=== PATIENT | male | born 1975 | race Caucasian/White ===

== ENCOUNTER 2019-09-09 11:14 | Inpatient (IN) ==
[2019-09-09] MEDS ORDERED: 0.9 % SODIUM CHLORIDE 1,000 ML IV ONE ×2 (11:44→14:18)
[2019-09-09] MEDS ORDERED: KETOROLAC 30 MG/ML VIAL IV ONE (11:45)
--- NOTE | 2019-09-09 12:14 | Emergency Department Note ---
Male Urogenital HPI - General Chief complaint: Urogenital-Male Stated complaint: prostatits Time Seen by Provider: 09/09/19 11:17 Source: patient Mode of arrival: ambulatory Limitations: no limitations - History of Present Illness HPI Narrative: 44-year-old male patient referred to the emergency department from Dr. Arriaza for work-up of worsening prostatitis, prostate abscess, and possible sepsis. Patient was seen and evaluated by a colleague yesterday after suffering considerable dysuria, perineal pain, and constipation. During that visit he had a slight temp 99.3 and was mildly tachycardic at 107. He was normotensive. The provider at that time diagnosed him with dysuria and left lower quadrant abdominal pain. CT scan was ordered that did show low-density lesions in the prostate extending through the prostate capsule and below the laboratory and I into the ischio rectal fossa. Radiologist mentioned this is more likely infection of the prostate abscess rather than a large infiltrating prostate cancer. CBC from yesterday showed WBC 20.1, hemoglobin 12.3, hematocrit 38.3, platelets 456. CMP showed no considerable abnormalities other than an elevated alkaline phosphatase 133. Patient was started on oral ciprofloxacin 500 mg twice daily in conjunction with metronidazole 500 mg 3 times daily. He is tolerated the oral medications and took his dose of ciprofloxacin morning. Today, patient admits that the dysuria has resolved. However, he admits to worsening pain to his perineal area. He describes this is "sitting on a hot po ker". He admits to ongoing fever, sweats, chills. He denies sinus congestion, runny nose, or cough. He denies shortness of breath. He denies retrosternal chest pain or palpitations. He denies abdominal pain. He admits to some nausea but no vomiting. He denies diarrhea or constipation. He mentions his last bowel movement was "like soft serve". He denies hematochezia, hematemesis, or hematuria. He denies focal weakness. A review of his active problems shows the following: Constipation, Charcot's deformity of the right foot secondary to type 2 diabetes. Tobacco dependence, hypercholesterolemia, asthma, anemia, hypertension. - Related Data Home Medications Medication Instructions Recorded Confirmed fenofibrate 160 mg tablet 160 mg PO QDAY 12/03/18 09/09/19 lisinopril 40 mg tablet 40 mg PO QDAY 12/03/18 09/09/19 metformin 1,000 mg tablet 1,000 mg PO BID 12/03/18 09/09/19 amlodipine 5 mg tablet 5 mg PO BID 06/01/19 09/09/19 sildenafil (pulm.hypertension) 20 20 mg PO .COMPLEX 06/01/19 09/09/19 mg tablet insulin lispro 100 unit/mL See Rx Instructions .ROUTE 06/05/19 09/09/19 subcutaneous pen .COMPLEX ml Previous Rx's Medication Instructions Recorded atorvastatin 40 mg tablet 40 mg PO QDAY #90 tab 06/06/19 blood sugar diagnostic See Rx Instructions .ROUTE 06/06/19 .MEDSUPPLY #100 each blood-glucose meter See Rx Instructions .ROUTE 06/06/19 .MEDSUPPLY #1 each lancets See Rx Instructions .ROUTE 06/06/19 .MEDSUPPLY #200 each albuterol sulfate 90 mcg/actuation 2 puff INHALATION Q6H PRN #18 g 07/07/19 aerosol inhaler fluticasone propionate 50 2 spray INTRANASAL QDAY #36.4 ml 07/07/19 mcg/actuation nasal spray,suspension insulin degludec 200 unit/mL (3 110 unit SUB-Q QHS 90 Days #49.5 ml 07/07/19 mL) subcutaneous pen loratadine 10 mg tablet 10 mg PO QDAY PRN #90 tab 07/07/19 blood-gluc transmitter-sensor See Rx Instructions .ROUTE 07/10/19 .MEDSUPPLY #2 each omeprazole 20 mg capsule,delayed 20 mg PO QDAY #90 cap 07/18/19 release polyethylene glycol 3350 17 17 g PO .COMPLEX #238 g 09/01/19 gram/dose oral powder ciprofloxacin HCl 500 mg tablet 500 mg PO BID 7 Days #14 tab 09/08/19 metronidazole 500 mg tablet 500 mg PO TID 7 Days #21 tab 09/08/19 Allergies Allergy/AdvReac Type Severity Reaction Status Date / Time No Known Drug Allergies Allergy Verified 09/08/19 09:55 Review of Systems All systems ED: reviewed and negative except as stated. Past Medical History - Social History smoking status: Former smoker Physical Exam Limitations: no limitations General appearance: alert, anxious, other (Well-developed, well-nourished, morbidly obese 44-year-old male patient sitting upright on the emergency room gurney obviously very uncomfortable. He is in no acute distress.) Head: atraumatic, normocephalic Eye: Present: normal appearance, PERRL, EOMI. Absent: scleral icterus, conjunctival injection ENT: Present: normal oropharynx, mucous membranes moist Neck: Present: trachea midline. Absent: lymphadenopathy Chest: Present: symmetric chest wall rise Respiratory: Present: normal lung sounds bilaterally. Absent: respiratory distress, rales/crackles, wheezes, stridor, accessory muscle use, prolonged expiratory phase Cardiovascular: Present: regular rate, normal rhythm. Absent: systolic murmur, diastolic murmur Abdominal: Present: soft, other (Patient is a rather large body habitus making the abdominal exam somewhat difficult.). Absent: distention, tenderness, guarding, rebound, rigidity, organomegaly, mass Rectal: Present: normal inspection, normal rectal tone, heme (-) stool, prostate tenderness (Considerable tenderness to palpation of the prostate on exam. No nodules were appreciated. No bogginess or fluctuance was noted.). Absent: hemorrhoids, tenderness Extremities: Present: normal inspection, full ROM, normal capillary refill Back: Absent: CVA tenderness (R), CVA tenderness (L) Neurological: Present: alert, oriented X3 Psychiatric: Present: normal affect, normal mood Skin: Present: warm, dry, normal color Course Course Narrative: Patient has known prostatitis with likely prostate abscess development. He has been taking both of the prescribed ciprofloxacin metronidazole as directed. He had a dose of ciprofloxacin this morning. At this time there is worried he may be septic his initial vital signs did show tachypnea and tachycardia. He is afebrile at this time. However, we are going to order laboratory studies including lactic acid and blood cultures. He was given normal saline 1000 mL bolus. We will hold off adding any additional IV antibiotics until testing is known. Patient just had a CT scan done yesterday so no repeat imaging is warranted at this time. We will treat the patient's pain with Toradol 30 mg IVP. A review of his laboratory studies show the following: CBC WBC 19.5 (slight decrease from yesterday 20.0)., RBC 4.4, hemoglobin 10.7, hematocrit 36.4, platelets 404. CMP sodium 129 (directed to 131), chloride 91, glucose 229, alkaline phosphatase 130, albumin 3.0, globulin 4.3, all others normal limits. Lactic acid 1.5. research staff member informed the patient's temperature has risen to 101. Patient was given acetaminophen 975 mg p.o. After reviewing all the data I consulted with the urologist (Dr. Arriaza) about ongoing management. At this time the patient is rather ill and meet sepsis criteria secondary to his elevated WBC, temperature, and heart rate. He has a known source of infection within his prostate. Dr. Arriaza did recommend continuing the ciprofloxacin and adding Rocephin to that regimen. I went ahead and ordered Rocephin [address] Arriaza would like the hospitalist to admit the patient and that he will consult for specialty care. Knowing this, I consulted our hospitalist (Dr. Colon) and discussed the case with him. He has consented to admit the patient to the hospital. At this time all further treatment decisions, modalities, and ultimate patient disposition will be carried out by Dr. Colon. Vital Signs Temperature 97.3 F 09/09/19 11:15 Pulse Rate 109 H 09/09/19 11:15 Respiratory Rate 24 H 09/09/19 11:15 Blood Pressure 165/85 09/09/19 11:15 Pulse Oximetry (%) 99 09/09/19 11:15 Temperature 101.1 F H 09/09/19 13:47 Pulse Rate 93 H 09/09/19 13:07 Respiratory Rate 24 H 09/09/19 11:15 Blood Pressure 167/88 09/09/19 13:07 Pulse Oximetry (%) 100 09/09/19 13:07 Urogenital-Male - Lab Data Lab results reviewed: Yes I reviewed the patient's lab results. Result diagrams: 09/09/19 12:28 09/09/19 12:28 Lab Results 09/09/19 09/09/19 09/09/19 Range/Units 12:28 12:28 12:28 WBC 19.5 H (4.50-11.00) K/mcL RBC 4.40 L (4.63-6.08) M/mcL Hgb 11.7 L (13.7-17.5) g/dL Hct 36.4 L (40.1-51.0) % MCV 82.7 (80.0-100.0) fL MCH 26.6 (26.0-34.0) pg MCHC 32.1 (31.0-36.0) g/dL RDW 13.0 (11.5-14.5) % Plt Count 404 (140-440) K/mcL MPV 10.9 H (7.4-10.4) fL Gran % 87.0 H (38.0-78.0) % Lymph % (Auto) 5.8 L (15.5-49.0) % [place] % (Auto) 6.6 (1.0-12.0) % Eos % (Auto) 0.2 (0.0-7.0) % Baso % (Auto) 0.4 (0.0-2.0) % Gran # 16.94 H (1.80-8.00) K/mcL Lymph # (Auto) 1.12 L (1.50-4.80) K/mcL [place] # (Auto) 1.28 H (0.10-0.90) K/mcL Eos # (Auto) 0.04 (0.00-0.70) K/mcL Baso # (Auto) 0.07 (0.00-0.30) K/mcL VBG Lactic Acid 1.5 (0.5-2.0) mmol/L Sodium 129 L (133-145) mmol/L Potassium 3.5 (3.3-5.1) mmol/L Chloride 91 L (96-108) mmol/L Carbon Dioxide 23 (22-30) mmol/L Anion Gap 15.0 (8-16) BUN 16 (6-20) mg/dl Creatinine 0.8 (0.7-1.2) mg/dl GFR Calculation 109 Glucose 229 H (70-105) mg/dL Calcium 8.9 (8.6-10.4) mg/dl Total Bilirubin 0.4 (0.0-1.0) mg/dL AST 29 (0-37) U/l ALT 27 (0-40) U/l Alkaline Phosphatase 130 H (39-117) U/L Total Protein 7.3 (5.9-8.4) gm/dL Albumin 3.0 L (3.2-5.2) gm/dL Globulin 4.3 H (2.2-3.7) gm/dL Albumin/Globulin Ratio 0.7 L (1.0-2.3) - Radiology Data Ordering Physician: Narcisa Rodriguez PA-C Date of Service: 09/08/19 Procedure(s): CT abdomen pelvis w con Accession Number(s): [id number] History: Left lower quadrant pain and elevated white blood cell count TECHNIQUE: The patient was imaged following oral and intravenous contrast during the venous phase from the diaphragm through the symphysis pubis. Sagittal and coronal reformats were created. Radiation exposure was limited using dose reduction technology. FINDINGS:. The spleen is also normal in size. Along the medial side of the spleen there are two small incidental accessory spleens. The larger measures 1.5 cm. There is no mass or inflammation the pancreas. The gallbladder and bile ducts are normal. The adrenals and kidneys are normal. There is no kidney stone or hydronephrosis. The aorta is normal in caliber. There is a small calcified plaque at its origin of the right renal artery and there is also a small amount of plaque in the distal aorta and left common iliac artery. There is an inhomogeneous heterogeneous masslike lesion in the the left side of the prostate which has extended through the capsule of the prostate and dissected inferiorly. It measures approximately 2 x 3.5 cm in size. There is extension through the levator ani with a cluster of nodular densities in the ischial rectal fossa, along the left side of the lower rectum and anus. There is another low-attenuation lesion at the apex of the prostate extending into the base of the measures 2.1 x 3.3 cm. The prostate is moderately enlarged. Seminal vesicles are normal in size and symmetric. There are calcifications in the vas deferens bilaterally.. No abnormally enlarged lymph nodes are present in the abdomen or pelvis. There is no ascites. Bone windows show a small sclerotic lesion in the right side pedicle extending into the pars at L3. There is also a 5 mm sclerotic structure in the lateral border of the head of the right femoral condyle. IMPRESSION: Low density lesions in the prostate extending through the prostate capsule and below the levator ani into the ischial rectal fossa. This is more likely infection with prostate abscess, rather than a large infiltrating prostate cancer. Small sclerotic lesions in the lumbar spine and pelvis. These are more likely bone islands rather than blastic metastasis. Interpreted and Authenticated by: Jacobo Hinojosa 09/08/19 Disposition Pt seen by TRAFFIC CONTROL SPECIALIST/PA only: Yes Clinical Impression: Prostate abscess Prostatitis Qualifiers: Prostatitis type: acute Qualified Code(s): N41.0 - Acute prostatitis Sepsis Qualifiers: Sepsis type: sepsis due to unspecified organism Sepsis acute organ dysfunction status: without acute organ dysfunction Qualified Code(s): A41.9 - Sepsis, unspecified organism Disposition: Xfer As Inpt ([facility]) Condition: Fair Referrals: Narcisa Rodriguez PA-C [Primary Care Provider] -
[2019-09-09 13:14] LABS: Basophils # (Auto) 0.07 K/mcL (0.00-0.30); Basophils % (Auto) 0.4 % (0.0-2.0); Eosinophils # (Auto) 0.04 K/mcL (0.00-0.70); Eosinophils % (Auto) 0.2 % (0.0-7.0); Hematocrit 36.4 % (40.1-51.0); Hemoglobin 11.7 g/dL (13.7-17.5); Lymphocytes # (Auto) 1.12 K/mcL (1.50-4.80); Lymphocytes % (Auto) 5.8 % (15.5-49.0); Mean Cell Volume 82.7 fL (80.0-100.0); Mean Corpuscular HGB Conc 32.1 g/dL (31.0-36.0); Mean Platelet Volume 10.9 fL (7.4-10.4); Monocytes # (Auto) 1.28 K/mcL (0.10-0.90); Monocytes % (Auto) 6.6 % (1.0-12.0); Platelet Count 404 K/mcL (140-440); WBC 19.5 K/mcL (4.50-11.00)
[2019-09-09 13:32] LABS: ALT/SGPT 27 U/l (0-40); AST/SGOT 29 U/l (0-37); Albumin/Globulin Ratio 0.7 (1.0-2.3); Alkaline Phosphatase 130 U/L (39-117); Bilirubin,Total 0.4 mg/dL (0.0-1.0); Blood Urea Nitrogen 16 mg/dl (6-20); Calcium 8.9 mg/dl (8.6-10.4); Carbon Dioxide 23 mmol/L (22-30); Chloride 91 mmol/L (96-108); Globulin 4.3 gm/dL (2.2-3.7); Glomerular Filtration Rate 109; Glucose 229 mg/dL (70-105)
[2019-09-09] MEDS ORDERED: ACETAMINOPHEN 325 MG TABLET PO ONE (13:42)
[2019-09-09] MEDS ORDERED: cefTRIAXone 1 GM VIAL IV ONE (13:55)
[2019-09-09] MEDS ORDERED: morphine 4 MG/ML VIAL IV PRN (14:57)
[2019-09-09] MEDS ORDERED: ACETAMINOPHEN 325 MG TABLET PO PRN (14:57)
[2019-09-09] MEDS ORDERED: ONDANSETRON 4 MG/2 ML VIAL IV PRN ×2 (14:57→15:43)
[2019-09-09] MEDS ORDERED: DEXTROSE 50% 50 ML VIAL IV PRN ×2 (14:57→15:43)
[2019-09-09] MEDS ORDERED: DEXTROSE 31 GM ORAL.SUSP PO PRN ×2 (14:57→15:43)
[2019-09-09] MEDS ORDERED: 0.9 % SODIUM CHLORIDE 1,000 ML IV SCH (15:00)
[2019-09-09] MEDS ORDERED: traMADol 50 MG TABLET PO PRN ×2 (15:06→15:43)
[2019-09-09] MEDS ORDERED: ALBUTEROL SULFATE 200 PUFF INHALER INH PRN ×2 (15:08→15:43)
--- NOTE | 2019-09-09 15:20 | Internal Med History&Physical ---
Medical - H&P: [facility] Patient information: Note initiated : 09/09/19 at 3:13 pm Service Date, if different from initiated Date: [] Patient: Chaitanya Duvall a 44 y/o M admitted on for prostatits. Chief Complaint: [low abd pain and perirectal pain x 10 days] History of present illness: Mr. Duvall is a 44 year old M with a past medical history of diabetes type 2 and a right foot ulcer who was referred to the ER by urologist Dr. Arriaza due to prostatitis. As per patient, patient has been having lower abdomen and taran rectal pain for past 10 days. The pain is a constant, burning in nature and a 10 out of 10 in severity associated with fever, chills, nausea, and mild headache. He also has having cloudy urine for 3 days. Otherwise he denies dizziness, chest pain, shortness of breath, neck pain, hematuria, diarrhea, hematochezia, or melena. CT abdomen yesterday showed prostatitis and prostatic abscess. In the ER, urologist Dr. Arriaza was consulted, who suggested Cipro and Rocephin. 1 L normal saline was given. When I saw this patient in the ER, other than the symptoms mentioned above, he was fine. Denies recent travel or sick contact. He has never had a similar problem in the past. Review of systems: Positive for lower abdominal pain, mild headache, fever, chills, and nausea. All other systems were reviewed and are negative. Medical - H&P: PMH Family history: reviewed and not pertinent (Father had a COPD: Mother was just diagnosed with melanoma) Smoking status: Former smoker Have you smoked in the last 12 months: No Drug use: none Alcohol use: none Medical - H&P: Meds Home Medications Medication Instructions Recorded Confirmed Type fenofibrate 160 mg tablet 160 mg PO QDAY 12/03/18 09/09/19 History lisinopril 40 mg tablet 40 mg PO QDAY 12/03/18 09/09/19 History metformin 1,000 mg tablet 1,000 mg PO BID 12/03/18 09/09/19 History amlodipine 5 mg tablet 5 mg PO BID 06/01/19 09/09/19 History sildenafil (pulm.hypertension) 20 20 mg PO .COMPLEX 06/01/19 09/09/19 History mg tablet insulin lispro 100 unit/mL See Rx Instructions .ROUTE 06/05/19 09/09/19 History subcutaneous pen .COMPLEX ml atorvastatin 40 mg tablet 40 mg PO QDAY #90 tab 06/06/19 09/09/19 Rx blood sugar diagnostic See Rx Instructions .ROUTE 06/06/19 09/09/19 Rx .MEDSUPPLY #100 each blood-glucose meter See Rx Instructions .ROUTE 06/06/19 09/09/19 Rx .MEDSUPPLY #1 each lancets See Rx Instructions .ROUTE 06/06/19 09/09/19 Rx .MEDSUPPLY #200 each albuterol sulfate 90 mcg/actuation 2 puff INHALATION Q6H PRN #18 g 07/07/19 09/09/19 Rx aerosol inhaler fluticasone propionate 50 2 spray INTRANASAL QDAY #36.4 ml 07/07/19 09/09/19 Rx mcg/actuation nasal spray,suspension insulin degludec 200 unit/mL (3 110 unit SUB-Q QHS 90 Days #49.5 ml 07/07/19 09/09/19 Rx mL) subcutaneous pen loratadine 10 mg tablet 10 mg PO QDAY PRN #90 tab 07/07/19 09/09/19 Rx blood-gluc transmitter-sensor See Rx Instructions .ROUTE 07/10/19 09/09/19 Rx .MEDSUPPLY #2 each omeprazole 20 mg capsule,delayed 20 mg PO QDAY #90 cap 07/18/19 09/09/19 Rx release polyethylene glycol 3350 17 17 g PO .COMPLEX #238 g 09/01/19 09/09/19 Rx gram/dose oral powder ciprofloxacin HCl 500 mg tablet 500 mg PO BID 7 Days #14 tab 09/08/19 09/09/19 Rx metronidazole 500 mg tablet 500 mg PO TID 7 Days #21 tab 09/08/19 09/09/19 Rx Allergies Allergy/AdvReac Type Severity Reaction Status Date / Time No Known Drug Allergies Allergy Verified 09/08/19 09:55 Medical - H&P: Exam - Constitutional Vitals: Temp Pulse Resp BP Pulse Ox 101.1 F H 89 24 H 153/67 97 09/09/19 13:47 09/09/19 14:57 09/09/19 11:15 09/09/19 14:57 09/09/19 14:57 - Other Additional findings: General - No acute distress Eyes - PERRLA, EOM intact ENT no rhinorrhea, no noticeable or palpable swelling, no redness or rash around throat or on face Neck supple, no JVD, no thyromegaly Respiratory: Lungs -clear, no wheezing or crackles. Cardiovascular - RRR no m/r/g, GI - Normal bowel sounds, no distended, soft. No tenderness, no CVA tenderness. Extremeties - No edema, cyanosis or clubbing. 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 Right plantar aspect ulcer. Hemo/lymphatic/immune no lymphadenopathy Neurological Alert and oriented x 3, no focal neurological deficits. Psychiatry flat affect Medical - H&P: Reslt - Labs CBC & Chem 7: 09/09/19 12:28 09/09/19 12:28 Labs: Short CBC 09/09/19 Range/Units 12:28 WBC 19.5 H (4.50-11.00) K/mcL Hgb 11.7 L (13.7-17.5) g/dL Hct 36.4 L (40.1-51.0) % Plt Count 404 (140-440) K/mcL BMP 09/09/19 12:28 Sodium 129 L Potassium 3.5 Chloride 91 L Carbon Dioxide 23 BUN 16 Creatinine 0.8 Glucose 229 H Calcium 8.9 Liver Function 09/09/19 Range/Units 12:28 Total Bilirubin 0.4 (0.0-1.0) mg/dL AST 29 (0-37) U/l ALT 27 (0-40) U/l Alkaline Phosphatase 130 H (39-117) U/L Albumin 3.0 L (3.2-5.2) gm/dL Medical - H&P: A/P - Narrative A/P Narrative: Assessment: 1. Prostatitis N41.9 2. Prostate abscess N41.2 3. Hyponatremia 4. DM type 2, uncontrolled 5. Right foot ulceration, Diabetic. 6. HTN Plan: 1. CT abdomen showed Low density lesions in the prostate extending through the prostate capsule and below the levator ani into the ischial rectal fossa. This is more likely infection with prostate abscess, rather than a large infiltrating prostate cancer. Urology Dr. Arriaza was consulted in the ER. As per Dr. Arriaza, Savi and Cameron merrill IV fluid Pain management including IV morphine Blood culture UA and urine culture 2. Repeat electrolytes in morning 3. Diabetic diet Continue insulin degludec 110 units daily, insulin sliding scale Hemoglobin A1c 4. 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 He would like to follow with his own burglar alarm operator 5. Continue amlodipine 5 mg daily and lisinopril 40 mg daily from his high blood pressure 6. DVT prophylaxis: Lovenox 7. CODE STATUS: Full
[2019-09-09] MEDS ORDERED: CIPROFLOXACIN 400 MG/200 ML BAG IV SCH (16:00)
[2019-09-09] MEDS: 0.9 % SODIUM CHLORIDE 1,000 ML IV SCH (16:32)
[2019-09-09] MEDS: INSULIN LISPRO 1 UNIT/0.01 ML UNIT SQ SCH ×2 (16:37→20:16)
[2019-09-09] MEDS: CIPROFLOXACIN 400 MG/200 ML BAG IV SCH (16:38)
[2019-09-09] MEDS ORDERED: INSULIN LISPRO 1 UNIT/0.01 ML UNIT SQ SCH (17:00)
[2019-09-09] MEDS: ACETAMINOPHEN 325 MG TABLET PO PRN (17:47)
[2019-09-09 20:03] LABS: Appearance,Urine CLEAR; Bacteria,Urine FEW /hpf (0); Bilirubin,Urine NEG (NEG); Color,Urine AMBER; Culture Indicated,Urine YES; Glucose,Urine (UA) >=500 mg/dL (NEG); Ketones,Urine NEG (NEG); Leukocyte Esterase,Urine 75 /uL (NEG); Mucus,Urine MANY /hpf (0); Nitrate,Urine NEG (NEG); Protein,Urine 100 mg/dL (NEG); Urine Blood 0.2 mg/dL (<0.03); Urine Hyaline Cast 25 /lpf (0-2); Urine RBC 9 /hpf (0-1); Urine Renal Epithelial Cells < 1 /hpf (0-2); Urine Squamous Epithelial Cell < 1 /hpf (0-4); Urine Transitional Epi Cells 1 /hpf (0-2); Urine WBC 64 /hpf (0-4)
[2019-09-09] MEDS: amLODIPine 5 MG TABLET PO SCH (20:16)
[2019-09-09] MEDS: POLYETHYLENE GLYCOL 3350 17 GM PACKET PO SCH (20:17)
[2019-09-09] MEDS: DOCUSATE SODIUM 100 MG CAPSULE PO SCH (20:17)
[2019-09-09] MEDS ORDERED: DOCUSATE SODIUM 100 MG CAPSULE PO SCH (21:00)
[2019-09-09] MEDS ORDERED: POLYETHYLENE GLYCOL 3350 17 GM PACKET PO SCH (21:00)
[2019-09-09] MEDS ORDERED: amLODIPine 5 MG TABLET PO SCH (21:00)
[2019-09-09] MEDS ORDERED: INSULIN DEGLUDEC SUB-Q SCH ×2 (21:00)
[2019-09-09] MEDS: 0.9 % SODIUM CHLORIDE 10 ML SYRINGE IV SCH (21:30)
[2019-09-09] MEDS ORDERED: 0.9 % SODIUM CHLORIDE 10 ML SYRINGE IV SCH (22:00)
[2019-09-09] MEDS: oxyCODONE HCL 5 MG TABLET PO PRN (22:24)
[2019-09-10] MEDS: CIPROFLOXACIN 400 MG/200 ML BAG IV SCH ×2 (00:33→08:27)
[2019-09-10] MEDS: ACETAMINOPHEN 325 MG TABLET PO PRN ×3 (00:38→16:32)
[2019-09-10] MEDS: LOSARTAN 25 MG TABLET PO SCH ×2 (01:33→08:33)
[2019-09-10] MEDS ORDERED: CIPROFLOXACIN 400 MG/200 ML BAG IV SCH (03:15)
[2019-09-10] MEDS: 0.9 % SODIUM CHLORIDE 1,000 ML IV SCH ×4 (04:27→22:12)
[2019-09-10] MEDS: morphine 4 MG/ML VIAL IV PRN (05:03)
[2019-09-10] MEDS: 0.9 % SODIUM CHLORIDE 10 ML SYRINGE IV SCH ×3 (05:04→22:19)
[2019-09-10] MEDS: hydrALAZINE 20 MG/ML VIAL IV PRN (05:35)
[2019-09-10] MEDS ORDERED: hydrALAZINE 20 MG/ML VIAL ONE (05:36)
[2019-09-10 06:16] LABS: Basophils # (Auto) 0.05 K/mcL (0.00-0.30); Basophils % (Auto) 0.3 % (0.0-2.0); Eosinophils % (Auto) 0.5 % (0.0-7.0); Granulocytes % (Auto) 85.3 % (38.0-78.0); Hematocrit 36.1 % (40.1-51.0); Hemoglobin 11.7 g/dL (13.7-17.5); Lymphocytes % (Auto) 6.9 % (15.5-49.0); Mean Cell Volume 81.5 fL (80.0-100.0); Mean Corpuscular HGB Conc 32.4 g/dL (31.0-36.0); Mean Platelet Volume 10.7 fL (7.4-10.4); Monocytes # (Auto) 1.32 K/mcL (0.10-0.90); Platelet Count 419 K/mcL (140-440); RBC 4.43 M/mcL (4.63-6.08); Red Cell Distribution Width 12.9 % (11.5-14.5); WBC 18.9 K/mcL (4.50-11.00)
[2019-09-10 06:26] LABS: proBNP 234.5 pg/ml (0-125)
[2019-09-10] MEDS ORDERED: VANCOMYCIN PER PHARMACY IV SCH (06:34)
[2019-09-10 06:37] LABS: ALT/SGPT 25 U/l (0-40); AST/SGOT 20 U/l (0-37); Albumin/Globulin Ratio 0.7 (1.0-2.3); Alkaline Phosphatase 146 U/L (39-117); Bilirubin,Total 0.4 mg/dL (0.0-1.0); Blood Urea Nitrogen 12 mg/dl (6-20); Calcium 8.8 mg/dl (8.6-10.4); Carbon Dioxide 23 mmol/L (22-30); Globulin 4.4 gm/dL (2.2-3.7); Glomerular Filtration Rate 109; Glucose 192 mg/dL (70-105); Phosphorous 2.4 mg/dL (2.7-4.5)
[2019-09-10 06:38] LABS: Chloride 95 mmol/L (96-108)
[2019-09-10 06:40] LABS: Estimated Average Glucose(eAG) 286 mg/dL; Hemoglobin A1C 11.6 % HGB (4.0-6.0)
[2019-09-10 06:46] LABS: Erythrocyte Sedimentation Rate 117 mm/hr (0-15)
[2019-09-10] MEDS ORDERED: OMEPRAZOLE 20 MG CAPSULE PO SCH (07:30)
[2019-09-10] MEDS ORDERED: cefTRIAXone 2 GM in DEXTROSE 5% IN WATER 50 ML IV SCH ×2 (08:00)
[2019-09-10] MEDS: INSULIN LISPRO 1 UNIT/0.01 ML UNIT SQ SCH ×4 (08:30→20:35)
[2019-09-10] MEDS: FENOFIBRATE 43 MG CAPSULE PO SCH (08:31)
[2019-09-10] MEDS: ENOXAPARIN 40 MG/0.4 ML SYRINGE SQ SCH (08:31)
[2019-09-10] MEDS: LISINOPRIL 20 MG TABLET PO SCH (08:32)
[2019-09-10] MEDS: OMEPRAZOLE 20 MG CAPSULE PO SCH (08:33)
[2019-09-10] MEDS: ATORVASTATIN 40 MG TABLET PO SCH (08:34)
[2019-09-10] MEDS: DOCUSATE SODIUM 100 MG CAPSULE PO SCH ×2 (08:34→20:35)
[2019-09-10] MEDS: amLODIPine 5 MG TABLET PO SCH ×2 (08:34→20:35)
[2019-09-10] MEDS: METOPROLOL TARTRATE 25 MG TABLET PO SCH ×2 (08:34→20:35)
[2019-09-10] MEDS: oxyCODONE HCL 5 MG TABLET PO PRN ×2 (08:40→16:32)
[2019-09-10] MEDS ORDERED: ATORVASTATIN 40 MG TABLET PO SCH (09:00)
[2019-09-10] MEDS ORDERED: VANCOMYCIN 2,000 MG in 0.9 % SODIUM CHLORIDE 500 ML IV SCH (09:00)
[2019-09-10] MEDS ORDERED: LISINOPRIL 20 MG TABLET PO SCH (09:00)
[2019-09-10] MEDS ORDERED: ENOXAPARIN 40 MG/0.4 ML SYRINGE SQ SCH (09:00)
[2019-09-10] MEDS ORDERED: FENOFIBRATE 43 MG CAPSULE PO SCH (09:00)
[2019-09-10] MEDS ORDERED: FLUTICASONE PROPIONATE SPRAY.NAS NS SCH (09:00)
[2019-09-10] MEDS: PHENAZOPYRIDINE 200 MG TABLET PO PRN ×2 (09:35→16:31)
[2019-09-10] MEDS ORDERED: ceFAZolin 2 GM in DEXTROSE 5% IN WATER 50 ML IV SCH (10:15)
--- NOTE | 2019-09-10 10:28 | Orthopedic Consult Note ---
History of Present Illness - [facility] Patient information: Note initiated : 09/10/19 at 10:25 am Service Date, if different from initiated Date: [] Patient: Chaitanya Duvall 44 y/o M admitted on 09/09/19 for prostatits. Chief Complaint: [Bacteria infection] Consult date: 09/10/19 Requesting physician: Masood Colon Consult reason: other (Possible foot infection) History of present illness: Admitted for painful urination with acute onset of prostatitis. Podiatry consultation requested due foot wound and gram positive cocci identified. The right foot is currently in a total contact cast and has been treated for several months with steady improvement. The goal today is to rule out the foot ulceration as the main or contributing cause of infection due to the gram positive cocci infection. Review of Systems Constitutional: as per HPI Medications and Allergies Home Medications Medication Instructions Recorded Confirmed Type fenofibrate 160 mg tablet 160 mg PO QDAY 12/03/18 09/09/19 History lisinopril 40 mg tablet 40 mg PO QDAY 12/03/18 09/09/19 History metformin 1,000 mg tablet 1,000 mg PO BID 12/03/18 09/09/19 History amlodipine 5 mg tablet 5 mg PO BID 06/01/19 09/09/19 History sildenafil (pulm.hypertension) 20 20 mg PO .COMPLEX 06/01/19 09/09/19 History mg tablet insulin lispro 100 unit/mL See Rx Instructions .ROUTE 06/05/19 09/09/19 History subcutaneous pen .COMPLEX ml atorvastatin 40 mg tablet 40 mg PO QDAY #90 tab 06/06/19 09/09/19 Rx blood sugar diagnostic See Rx Instructions .ROUTE 06/06/19 09/09/19 Rx .MEDSUPPLY #100 each blood-glucose meter See Rx Instructions .ROUTE 06/06/19 09/09/19 Rx .MEDSUPPLY #1 each lancets See Rx Instructions .ROUTE 06/06/19 09/09/19 Rx .MEDSUPPLY #200 each albuterol sulfate 90 mcg/actuation 2 puff INHALATION Q6H PRN #18 g 07/07/19 09/09/19 Rx aerosol inhaler fluticasone propionate 50 2 spray INTRANASAL QDAY #36.4 ml 07/07/19 09/09/19 Rx mcg/actuation nasal spray,suspension insulin degludec 200 unit/mL (3 110 unit SUB-Q QHS 90 Days #49.5 ml 07/07/19 09/09/19 Rx mL) subcutaneous pen loratadine 10 mg tablet 10 mg PO QDAY PRN #90 tab 07/07/19 09/09/19 Rx blood-gluc transmitter-sensor See Rx Instructions .ROUTE 07/10/19 09/09/19 Rx .MEDSUPPLY #2 each omeprazole 20 mg capsule,delayed 20 mg PO QDAY #90 cap 07/18/19 09/09/19 Rx release polyethylene glycol 3350 17 17 g PO .COMPLEX #238 g 09/01/19 09/09/19 Rx gram/dose oral powder ciprofloxacin HCl 500 mg tablet 500 mg PO BID 7 Days #14 tab 09/08/19 09/09/19 Rx metronidazole 500 mg tablet 500 mg PO TID 7 Days #21 tab 09/08/19 09/09/19 Rx Allergies Allergy/AdvReac Type Severity Reaction Status Date / Time No Known Drug Allergies Allergy Verified 09/08/19 09:55 Physical Examination - Ankle & Foot right Foot appearance: other (Wound #1 Right, Plantar Metatarsal head first is a chronic Collado Grade 1 Diabetic Ulcer and has received a status of Not Healed. Subsequent wound encounter measurements are 1cm length x 1.3cm width x 0.05cm depth, with an area of 1.3 sq cm and a volume of 0.065 cubic cm. No tunneling has been noted. No sinus tract has been noted. No undermining has been noted. There is a scant amount of sanguineous drainage noted which has no odor. The patient reports a wound pain of level 0/10. The wound margin is well defined. Wound bed has 1-25% epithelialization, 51-75% bright red, pink, firm granulation; no slough and no eschar present. There is no change noted in the wound progression. ) Assessment and Plan (1) Sepsis Status: Acute Priority: Medium Comment: Infection from foot source unlikly, at least in the acute setting. Recommended XRAY to evaluate for possible osteomyelitis. Patient is scheduled for a new total contact cast September 12, 2019 (Wednesday) Qualifiers: Sepsis type: sepsis due to unspecified organism Sepsis acute organ dysfunction status: without acute organ dysfunction Qualified Code(s): A41.9 - Sepsis, unspecified organism
--- NOTE | 2019-09-10 10:45 | Consultation ---
DATE OF CONSULTATION: 09/10/2019 REQUESTING PHYSICIAN: Dr. Colon. INDICATIONS: The patient is a 44-year-old gentleman, who approximately a week ago started to have pain with urination. He also had discomfort in the groin. He was seen in the urgent care, who checked a white count and this was normal, and his urinalysis was also clear. Throughout the week, he was having more pain with urination, was seen by his primary care provider on Wednesday and a blood culture was obtained. White count was 19.5. A CT scan was obtained, which showed induration of the prostate toward the left side. I was consulted over the phone and felt that the patient needed to be further evaluated in the emergency room. In the emergency room, he was admitted to the hospitalist service. He does have diabetes, also has a foot ulcer which has been treated in the past. He is currently in a cast. He does complain of burning with urination, has just started antibiotics 2 days ago. His most current white count is 18.9. He does have staph growing out of his blood and has been started on vancomycin. Before this, he has never had any problem. He is sexually active. He has had a slow stream and a hard time getting his urine going. He states that this has improved. Urine cultures have been negative. He presents now for evaluation. PAST MEDICAL HISTORY: Significant for constipation, Charcot joint of the left ankle, uncontrolled diabetes, hypercholesterolemia, and hyperlipidemia. ALLERGIES: NONE. CURRENT MEDICATIONS: Please see that dictation. FAMILY HISTORY: Please see previously dictated history and physical. REVIEW OF SYSTEMS NEUROLOGICAL: Positive peripheral neuropathy CARDIAC: Denies any chest pain. RESPIRATORY: No wheezing, coughing or asthma. PSYCHOLOGICAL: No depression or mood swings. The rest of 12 point review of systems is noncontributory. PHYSICAL EXAMINATION: GENERAL: This is a pleasant gentleman in slight distress. VITAL SIGNS: As listed per nurse's notes. HEENT: Atraumatic, normocephalic. Extraocular movements are intact. Pupils equal, reactive to light and accommodation. No thyromegaly is noted. LUNGS: Clear to auscultation. HEART: Regular rate and rhythm. ABDOMEN: Obese. No masses are felt. GENITOURINARY: Scrotum without lesion. No hydrocele, no varicocele. Testicles are down in normal position, normal size and consistency. Meatus at the end of his penis. Penis is circumcised without plaques. Prostate exquisitely tender, more on the left side than the right side. No fluctuance noted. Seminal vesicles are enlarged, also tender. No anorectal masses. Good sphincter tone. EXTREMITIES: Without clubbing, cyanosis or edema. There is a cast on his right foot. IMPRESSION: The patient with a prostatic abscess: This is not defined itself and therefore I feel that it can not be drained. I would start him on antibiotics. He is on Cipro and Rocephin at this time and because of the staph has been started on vancomycin. His white count has decreased slightly, but this is only after a day and a half of antibiotics. I would continue to follow his white count. At this point, I do not feel any intervention is needed. I did write for Pyridium for the burning with urination. RZ:in Job ID: [id number] Doc ID: [id number] Dario ROLLE
[2019-09-10] MEDS: ceFAZolin 1 GM VIAL IV SCH ×3 (11:05→22:19)
--- NOTE | 2019-09-10 11:34 | Internal Med Progress Note ---
Medical - PN: Subj Patient information: Note initiated : 09/10/19 at 11:21 am Service Date, if different from initiated Date: [] Patient: Chaitanya Duvall a 44 y/o M admitted on 09/09/19 for prostatits. Chief Complaint: [] Interval History: Mr. Duvall is a 44 year old M with a past medical history of diabetes type 2 and a right foot ulcer who was referred to the ER by urologist Dr. Arriaza due to prostatitis. As per patient, patient has been having lower abdomen and perirectal pain for past 10 days. The pain is a constant, burning in nature and a 10 out of 10 in severity associated with fever, chills, nausea, and mild headache. He also has having cloudy urine for 3 days. Otherwise he denies dizziness, chest pain, shortness of breath, neck pain, hematuria, diarrhea, hematochezia, or melena. CT abdomen yesterday showed prostatitis and prostatic abscess. In the ER, urologist Dr. Arriaza was consulted, who suggested Cipro and Rocephin. 1 L normal saline was given. When I saw this patient in the ER, other than the symptoms mentioned above, he was fine. Denies recent travel or sick contact. He has never had a similar problem in the past. 09/09 Pt still has fever/chills. He had tachycardia and tachypnea yesterday, which improved today. Blood culture showed MSSA. Discussed with ID Dr. Ortiz, rocephin was discontinued. Cefazolin was started. continue cipro for 1-[address] Ortiz would have the abscess drained and sent for culture. Discussed with IR Dr. Hinojosa, who felt urologist would be the best person to help the pt. Discussed with urology Dr. Arriaza, who felt the "abscess" does not look like a true fluid collection on image. Dr. Arriaza would like to continue abx and no procedure at this moment. Pt has a right foot ulcer, which may cause the GPC bacteremia. orth Dr. Alvarado was consulted, who does not feel the wound would be the source, but he suggest XR to r/o osteomyelitis. Review of systems: Positive for lower abdominal pain, mild headache, fever, chills, and nausea. All other systems were reviewed and are negative. - Constitutional Vitals: Vital Signs Temp Pulse Resp BP Pulse Ox 99.6 F H 85 22 113/64 94 09/10/19 11:14 09/10/19 11:14 09/10/19 11:14 09/10/19 11:14 09/10/19 11:14 Period Temp Pulse Resp BP Sys/Foley Pulse Ox Last 24 Hr 98.5 F-101.2 F 84-105 16-28 113-186/64-88 93-100 Intake and Output 09/09/19 09/10/19 09/10/19 21:59 05:59 13:59 Intake Total 1300 2700 1450 Output Total 650 1300 Balance 650 1400 1450 Weight 167.376 kg Intake & Output: Intake & Output 09/09/19 09/10/19 09/10/19 21:59 05:59 13:59 Intake Total 1300 2700 1450 Output Total 650 1300 Balance 650 1400 1450 Weight 167.376 kg Intake: IV 1200 1000 450 Sodium Chloride 0.9% 1,000 ml @ 1000 1000 100 mls/hr IV .Q10H ANNIE Rx#: [id number] Rocephin 2 gm In Dextrose 5% in 50 Water 50 ml @ 100 mls/hr IV Q24H ANNIE Rx#:[id number] Oral [phone] GI Tube Flush 1100 Output: Void Amount 650 1300 Other: Meal Breakfast Percent of Meal Consumed 75% Feeding Ability Independent Urine Appearance Clear Urine Color Dark Ching Dark Yellow # Voids 1 - Additional findings Additional findings: General - No acute distress Eyes - PERRLA, EOM intact ENT no rhinorrhea, no noticeable or palpable swelling, no redness or rash around throat or on face Neck supple, no JVD, no thyromegaly Respiratory: Lungs -clear, no wheezing or crackles. Cardiovascular - RRR no m/r/g, GI - Normal bowel sounds, no distended, soft. No tenderness, no CVA tenderness. Extremeties - No edema, cyanosis or clubbing. 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 There seems to be a area with eschar. No tenderness. Hemo/lymphatic/immune no lymphadenopathy Neurological Alert and oriented x 3, no focal neurological deficits. Psychiatry flat affect Medical - PN: Obj Da - Labs CBC & Chem 7: 09/10/19 05:12 09/10/19 05:12 Labs: Abnormal Lab Results 09/10/19 09/10/19 09/09/19 05:12 05:12 19:18 WBC 18.9 H RBC 4.43 L Hgb 11.7 L Hct 36.1 L MPV 10.7 H Gran % 85.3 H Lymph % (Auto) 6.9 L Gran # 16.09 H Lymph # (Auto) 1.30 L [place] # (Auto) 1.32 H ESR 117 H Sodium Chloride 95 L Glucose 192 H Hemoglobin A1c 11.6 H Phosphorus 2.4 L Alkaline Phosphatase 146 H NT-Pro-B Natriuret Pep 234.5 H Albumin 3.0 L Globulin 4.4 H Albumin/Globulin Ratio 0.7 L Urine Protein 100 A Urine Glucose (UA) >=500 A Urine Occult Blood 0.2 A Urine Urobilinogen 2.0 A Ur Leukocyte Esterase 75 A Urine RBC 9 H Urine WBC 64 H Urine Bacteria Few A Hyaline Casts 25 H Urine Mucus Many A 09/09/19 09/09/19 12:28 12:28 WBC 19.5 H RBC 4.40 L Hgb 11.7 L Hct 36.4 L MPV 10.9 H Gran % 87.0 H Lymph % (Auto) 5.8 L Gran # 16.94 H Lymph # (Auto) 1.12 L [place] # (Auto) 1.28 H ESR Sodium 129 L Chloride 91 L Glucose 229 H Hemoglobin A1c Phosphorus Alkaline Phosphatase 130 H NT-Pro-B Natriuret Pep Albumin 3.0 L Globulin 4.3 H Albumin/Globulin Ratio 0.7 L Urine Protein Urine Glucose (UA) Urine Occult Blood Urine Urobilinogen Ur Leukocyte Esterase Urine RBC Urine WBC Urine Bacteria Hyaline Casts Urine Mucus Meds: Medications Acetaminophen (Tylenol) 650 mg PO Q6HP PRN; Protocol PRN Reason: Per Pain Protocol/Fever > 101 Last Admin: 09/10/19 08:35 Dose: 650 mg Documented by: Albuterol Sulfate (Ventolin) 2 puff INH Q6HP PRN PRN Reason: shortness of breath or wheezing Amlodipine Besylate (Norvasc) 5 mg PO BID [facility] Last Admin: 09/10/19 08:34 Dose: 5 mg Documented by: Atorvastatin Calcium (Lipitor) 40 mg PO QDAY [facility] Last Admin: 09/10/19 08:34 Dose: 40 mg Documented by: Cefazolin Sodium (Ancef) 2 gm IV Q8H [facility] Last Admin: 09/10/19 11:05 Dose: 2 gm Documented by: Ciprofloxacin (Cipro) 500 mg PO BID [facility]; Protocol Dextrose (Dextrose 50%) 0 ml IV UD PRN PRN Reason: Hypoglycemia Diagnostic Test (Pha) (Accu-Chek) 1 each FS ACHS [facility] Last Admin: 09/10/19 11:11 Dose: 1 each Documented by: Docusate Sodium (Colace) 100 mg PO BID [facility] Last Admin: 09/10/19 08:34 Dose: 100 mg Documented by: Enoxaparin Sodium (Lovenox) 40 mg SQ DAILY [facility] Last Admin: 09/10/19 08:31 Dose: 40 mg Documented by: Fenofibrate (Antara) 129 mg PO DAILY [facility] Last Admin: 09/10/19 08:31 Dose: 129 mg Documented by: Fluticasone Propionate (Flonase) 2 spray NS QDAY [facility] Glucose (Insta-Glucose) 15 gm PO PRN PRN PRN Reason: Hypoglycemia Hydralazine HCl (Apresoline) 10 mg IV Q4-6HP PRN PRN Reason: Hypertension Last Admin: 09/10/19 05:35 Dose: 10 mg Documented by: Sodium Chloride (Sodium Chloride 0.9%) 1,000 mls @ 100 mls/hr IV .Q10H [facility] Last Admin: 09/10/19 04:27 Dose: 100 mls/hr Documented by: Insulin Human Lispro (Humalog) 0 unit SQ [facility]; Protocol Last Admin: 09/10/19 08:30 Dose: 2 units Documented by: Lisinopril (Zestril) 40 mg PO QDAY [facility] Last Admin: 09/10/19 08:32 Dose: 40 mg Documented by: Losartan Potassium (Cozaar) 25 mg PO DAILY [facility] Last Admin: 09/10/19 08:33 Dose: 25 mg Documented by: Metoprolol Tartrate (Lopressor) 12.5 mg PO BID [facility] Last Admin: 09/10/19 08:34 Dose: 12.5 mg Documented by: Morphine Sulfate (Morphine) 2 mg IV Q4HP PRN; Protocol PRN Reason: Per Pain Protocol Last Admin: 09/10/19 05:03 Dose: 2 mg Documented by: Non-Formulary Medication (Insulin Degludec [Tresiba Flextouch U-200]) 110 unit SUB-Q QHS [facility] Last Admin: 09/09/19 21:30 Dose: Not Given Documented by: Omeprazole (Prilosec) 20 mg PO QDAY [facility] Last Admin: 09/10/19 08:33 Dose: 20 mg Documented by: Ondansetron HCl (Zofran) 4 mg IV Q6HP PRN PRN Reason: Nausea And Vomiting Oxycodone HCl (Roxicodone) 5 mg PO Q6HP PRN; Protocol PRN Reason: Per Pain Protocol Last Admin: 09/10/19 08:40 Dose: 5 mg Documented by: Phenazopyridine HCl (Pyridium) 200 mg PO TIDP PRN PRN Reason: PAINFUL URINATION Last Admin: 09/10/19 09:35 Dose: 200 mg Documented by: Polyethylene Glycol (Miralax) 17 gm PO HS [facility] Last Admin: 09/09/19 20:17 Dose: Not Given Documented by: Sodium Chloride (Saline Flush) 10 ml IV Q8 [facility] Last Admin: 09/10/19 05:04 Dose: 10 ml Documented by: Medical - PN: A/P - Time Spent With Patient Total time spent is greater than 50% in coordination of care (as documented) at patient's floor/unit and/or counseling patient: - Narrative A/P Narrative: Assessment: 1. Prostatitis N41.9 2. Prostate abscess N41.2 3. Hyponatremia 4. DM type 2, uncontrolled 5. Right foot ulceration, Diabetic. 6. HTN 7. Bacteremia - MSSA Plan: 1. Blood culture positive (two bottles) for GPC (MSSA) Discussed with ID Dr. Ortiz, rocephin was discontinued. Cefazolin was started. continue cipro for 1-2 more days. Repeat blood culture 2. CT abdomen showed Low density lesions in the prostate extending through the prostate capsule and below the levator ani into the ischial rectal fossa. This is more likely infection with prostate abscess, rather than a large infiltrating prostate cancer. Urology Dr. Arriaza is on board IV fluid Pain management including IV morphine UA and urine culture - UA positive but culture no growth. Dr. Ortiz would have the abscess drained and sent for culture. Discussed with IR Dr. Hinojosa, who felt urologist would be the best person to help the pt. Discussed with urology Dr. Arriaza, who felt the "abscess" does not look like a true fluid collection on image. Dr. Arriaza would like to continue abx and no procedure at this moment. 2. phos 2.4, phos was given. Repeat electrolytes in morning 3. Diabetic diet Increased insulin degludec to 113 units daily, insulin sliding scale Hemoglobin A1c - 11.6 4. Wound care Orth Dr. Alvarado was consulted, who does not feel the wound would be the source of the bacteremia, but he suggest XR to r/o osteomyelitis. 5. Continue amlodipine 5 mg daily and lisinopril 40 mg daily from his high blood pressure 6. DVT prophylaxis: Lovenox 7. CODE STATUS: Full Medical - PN: Qual - Stroke Symptom Onset Unknown: No - VTE Deep Vein Thrombosis/Pulmonary Embolism Present on Admission: No
[2019-09-10] MEDS ORDERED: NEUTRA PHOS 1 PACKET PO ONE (11:38)
[2019-09-10] MEDS: FLUTICASONE PROPIONATE SPRAY.NAS NS SCH (12:15)
--- NOTE | 2019-09-10 14:42 | XRay Report ---
HISTORY: Osteomyelitis FINDINGS: Patient has had prior amputations of the left first toe and the majority of the fifth toe. Only the base of the proximal phalanx of the fifth toe remains. There is moderate deformity of the heads of the second and third metatarsals but the bone is not eroded. These findings appear to be chronic. There is no periosteal elevation or cortical erosion within the foot. Moderate size spur is present on the plantar surface of the calcaneus. There is also mild arthritis between the talus and navicular. IMPRESSION: Postsurgical changes following partial amputation of the toes. There is no evidence of osteomyelitis. Interpreted and Authenticated by: Jacobo Hinojosa 09/10/19
[2019-09-10] MEDS: CIPROFLOXACIN 500 MG TABLET PO SCH (20:35)
[2019-09-10] MEDS: POLYETHYLENE GLYCOL 3350 17 GM PACKET PO SCH (20:36)
[2019-09-10] MEDS: INSULIN DEGLUDEC SUB-Q SCH (20:36)
[2019-09-11] MEDS: hydrALAZINE 20 MG/ML VIAL IV PRN ×4 (00:24→17:08)
[2019-09-11] MEDS: morphine 4 MG/ML VIAL IV PRN (00:29)
[2019-09-11] MEDS: PHENAZOPYRIDINE 200 MG TABLET PO PRN (01:24)
[2019-09-11] MEDS: 0.9 % SODIUM CHLORIDE 1,000 ML IV SCH ×4 (04:29→17:43)
[2019-09-11] MEDS: oxyCODONE HCL 5 MG TABLET PO PRN ×4 (04:30→16:54)
[2019-09-11] MEDS: ACETAMINOPHEN 325 MG TABLET PO PRN (04:30)
[2019-09-11] MEDS: ceFAZolin 1 GM VIAL IV SCH ×3 (05:40→21:23)
[2019-09-11] MEDS: 0.9 % SODIUM CHLORIDE 10 ML SYRINGE IV SCH ×3 (05:41→21:43)
[2019-09-11 08:16] LABS: Basophils # (Auto) 0.06 K/mcL (0.00-0.30); Basophils % (Auto) 0.4 % (0.0-2.0); Eosinophils # (Auto) 0.06 K/mcL (0.00-0.70); Eosinophils % (Auto) 0.4 % (0.0-7.0); Granulocytes % (Auto) 83.8 % (38.0-78.0); Hematocrit 33.8 % (40.1-51.0); Hemoglobin 10.8 g/dL (13.7-17.5); Lymphocytes % (Auto) 8.2 % (15.5-49.0); Mean Cell Volume 82.6 fL (80.0-100.0); Mean Platelet Volume 10.9 fL (7.4-10.4); Monocytes # (Auto) 1.05 K/mcL (0.10-0.90); Monocytes % (Auto) 7.2 % (1.0-12.0); Platelet Count 445 K/mcL (140-440); RBC 4.09 M/mcL (4.63-6.08); Red Cell Distribution Width 13.1 % (11.5-14.5); WBC 14.6 K/mcL (4.50-11.00)
[2019-09-11] MEDS: INSULIN LISPRO 1 UNIT/0.01 ML UNIT SQ SCH ×4 (08:26→21:42)
--- NOTE | 2019-09-11 09:04 | Internal Med Progress Note ---
Medical - PN: Subj Patient information: Note initiated : 09/11/19 at 8:52 am Service Date, if different from initiated Date: [] Patient: Chaitanya Duvall a 44 y/o M admitted on 09/09/19 for prostatits. Chief Complaint: [] Interval History: Mr. Duvall is a 44 year old M with a past medical history of diabetes type 2 and a right foot ulcer who was referred to the ER by urologist Dr. Arriaza due to prostatitis. As per patient, patient has been having lower abdomen and perirectal pain for past 10 days. The pain is a constant, burning in nature and a 10 out of 10 in severity associated with fever, chills, nausea, and mild headache. He also has having cloudy urine for 3 days. Otherwise he denies dizziness, chest pain, shortness of breath, neck pain, hematuria, diarrhea, hematochezia, or melena. CT abdomen yesterday showed prostatitis and prostatic abscess. In the ER, urologist Dr. Arriaza was consulted, who suggested Cipro and Rocephin. 1 L normal saline was given. When I saw this patient in the ER, other than the symptoms mentioned above, he was fine. Denies recent travel or sick contact. He has never had a similar problem in the past. 09/09 Pt still has fever/chills. He had tachycardia and tachypnea yesterday, which improved today. Blood culture showed MSSA. Discussed with ID Dr. Ortiz, rocephin was discontinued. Cefazolin was started. continue cipro for 1-[address] Ortiz would have the abscess drained and sent for culture. Discussed with IR Dr. Hinojosa, who felt urologist would be the best person to help the pt. Discussed with urology Dr. Arriaza, who felt the "abscess" does not look like a true fluid collection on image. Dr. Arriaza would like to continue abx and no procedure at this moment. Pt has a right foot ulcer, which may cause the GPC bacteremia. orth Dr. Alvarado was consulted, who does not feel the wound would be the source, but he suggest XR to r/o osteomyelitis. 09/10 Patient does not have any new complaints. Complains of chills. Afebrile, no longer has tachycardia Repeat blood culture positive from 1 of the 2 bottles. Repeat blood culture again. Discussed with ID Dr. Ortiz, who suggested rectal US and continue current abx. Review of systems: Positive for lower abdominal pain, mild headache, fever, chills, and nausea. All other systems were reviewed and are negative. - Constitutional Vitals: Vital Signs Temp Pulse Resp BP Pulse Ox 98.7 F 90 18 167/79 95 09/11/19 07:52 09/11/19 07:52 09/11/19 07:52 09/11/19 08:25 09/11/19 07:52 Period Temp Pulse Resp BP Sys/Foley Pulse Ox Last 24 Hr 97.5 F-101.1 F 85-90 18-26 113-177/64-88 92-95 Intake and Output 09/10/19 09/11/19 09/11/19 21:59 05:59 13:59 Intake Total 1920 1748 Output Total 400 900 Balance 1520 848 Weight 166.922 kg Intake & Output: Intake & Output 09/10/19 09/11/19 09/11/19 21:59 05:59 13:59 Intake Total 1920 1748 Output Total 400 900 Balance 1520 848 Weight 166.922 kg Intake: IV 1000 948 Sodium Chloride 0.9% 1,000 ml @ 1000 948 100 mls/hr IV .Q10H [facility] Rx#: [id number] Oral 920 GI Tube Flush 800 Output: Void Amount 400 900 Other: Meal Dinner Percent of Meal Consumed 100% Feeding Ability Independent Urine Appearance Clear Clear Urine Color [place] Urine Odor Normal Stool Size Small Stool Color Brown Stool Consistency Dry and Hard Formed # Voids 1 1 1 # Bowel Movements 1 - Additional findings Additional findings: General - No acute distress Eyes - PERRLA, EOM intact ENT no rhinorrhea, no noticeable or palpable swelling, no redness or rash around throat or on face Neck supple, no JVD, no thyromegaly Respiratory: Lungs -clear, no wheezing or crackles. Cardiovascular - RRR no m/r/g, GI - Normal bowel sounds, no distended, soft. No tenderness, no CVA tenderness. Extremeties - No edema, cyanosis or clubbing. 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 There seems to be a area with eschar. No tenderness. Hemo/lymphatic/immune no lymphadenopathy Neurological Alert and oriented x 3, no focal neurological deficits. Psychiatry flat affect Medical - PN: Obj Da - Labs CBC & Chem 7: 09/11/19 05:36 09/10/19 05:12 Labs: Abnormal Lab Results 09/11/19 09/10/19 09/10/19 05:36 05:12 05:12 WBC 14.6 H 18.9 H RBC 4.09 L 4.43 L Hgb 10.8 L 11.7 L Hct 33.8 L 36.1 L Plt Count 445 H MPV 10.9 H 10.7 H Gran % 83.8 H 85.3 H Lymph % (Auto) 8.2 L 6.9 L Gran # 12.18 H 16.09 H Lymph # (Auto) 1.20 L 1.30 L [place] # (Auto) 1.05 H 1.32 H ESR 117 H Sodium Chloride 95 L Glucose 192 H Hemoglobin A1c 11.6 H Phosphorus 2.4 L Alkaline Phosphatase 146 H NT-Pro-B Natriuret Pep 234.5 H Albumin 3.0 L Globulin 4.4 H Albumin/Globulin Ratio 0.7 L Urine Protein Urine Glucose (UA) Urine Occult Blood Urine Urobilinogen Ur Leukocyte Esterase Urine RBC Urine WBC Urine Bacteria Hyaline Casts Urine Mucus 09/09/19 09/09/19 09/09/19 19:18 12:28 12:28 WBC 19.5 H RBC 4.40 L Hgb 11.7 L Hct 36.4 L Plt Count MPV 10.9 H Gran % 87.0 H Lymph % (Auto) 5.8 L Gran # 16.94 H Lymph # (Auto) 1.12 L [place] # (Auto) 1.28 H ESR Sodium 129 L Chloride 91 L Glucose 229 H Hemoglobin A1c Phosphorus Alkaline Phosphatase 130 H NT-Pro-B Natriuret Pep Albumin 3.0 L Globulin 4.3 H Albumin/Globulin Ratio 0.7 L Urine Protein 100 A Urine Glucose (UA) >=500 A Urine Occult Blood 0.2 A Urine Urobilinogen 2.0 A Ur Leukocyte Esterase 75 A Urine RBC 9 H Urine WBC 64 H Urine Bacteria Few A Hyaline Casts 25 H Urine Mucus Many A Meds: Medications Acetaminophen (Tylenol) 650 mg PO Q6HP PRN; Protocol PRN Reason: Per Pain Protocol/Fever > 101 Last Admin: 09/11/19 04:30 Dose: 650 mg Documented by: Albuterol Sulfate (Ventolin) 2 puff INH Q6HP PRN PRN Reason: shortness of breath or wheezing Amlodipine Besylate (Norvasc) 5 mg PO BID [facility] Last Admin: 09/10/19 20:35 Dose: 5 mg Documented by: Atorvastatin Calcium (Lipitor) 40 mg PO QDAY [facility] Last Admin: 09/10/19 08:34 Dose: 40 mg Documented by: Cefazolin Sodium (Ancef) 2 gm IV Q8H [facility] Last Admin: 09/11/19 05:40 Dose: 2 gm Documented by: Ciprofloxacin (Cipro) 500 mg PO BID [facility]; Protocol Last Admin: 09/10/19 20:35 Dose: 500 mg Documented by: Dextrose (Dextrose 50%) 0 ml IV UD PRN PRN Reason: Hypoglycemia Diagnostic Test (Pha) (Accu-Chek) 1 each FS [facility] Last Admin: 09/11/19 08:25 Dose: 1 each Documented by: Docusate Sodium (Colace) 100 mg PO BID [facility] Last Admin: 09/10/19 20:35 Dose: 100 mg Documented by: Enoxaparin Sodium (Lovenox) 40 mg SQ DAILY [facility] Last Admin: 09/10/19 08:31 Dose: 40 mg Documented by: Fenofibrate (Antara) 129 mg PO DAILY [facility] Last Admin: 09/10/19 08:31 Dose: 129 mg Documented by: Fluticasone Propionate (Flonase) 2 spray NS QDAY [facility] Last Admin: 09/10/19 12:15 Dose: 2 spray Documented by: Glucose (Insta-Glucose) 15 gm PO PRN PRN PRN Reason: Hypoglycemia Hydralazine HCl (Apresoline) 10 mg IV Q4-6HP PRN PRN Reason: Hypertension Last Admin: 09/11/19 08:27 Dose: 10 mg Documented by: Sodium Chloride (Sodium Chloride 0.9%) 1,000 mls @ 100 mls/hr IV .Q10H [facility] Last Admin: 09/11/19 08:28 Dose: Not Given Documented by: Insulin Human Lispro (Humalog) 0 unit SQ [facility]; Protocol Last Admin: 09/11/19 08:26 Dose: 2 units Documented by: Lisinopril (Zestril) 40 mg PO QDAY [facility] Last Admin: 09/10/19 08:32 Dose: 40 mg Documented by: Losartan Potassium (Cozaar) 25 mg PO DAILY [facility] Last Admin: 09/10/19 08:33 Dose: 25 mg Documented by: Metoprolol Tartrate (Lopressor) 12.5 mg PO BID [facility] Last Admin: 09/10/19 20:35 Dose: 12.5 mg Documented by: Morphine Sulfate (Morphine) 2 mg IV Q4HP PRN; Protocol PRN Reason: Per Pain Protocol Last Admin: 09/11/19 00:29 Dose: 2 mg Documented by: Omeprazole (Prilosec) 20 mg PO QDAY [facility] Last Admin: 09/10/19 08:33 Dose: 20 mg Documented by: Ondansetron HCl (Zofran) 4 mg IV Q6HP PRN PRN Reason: Nausea And Vomiting Oxycodone HCl (Roxicodone) 5 mg PO Q6HP PRN; Protocol PRN Reason: Per Pain Protocol Last Admin: 09/11/19 08:26 Dose: 5 mg Documented by: Insulin Degludec [ Tresiba Flextouch U- 200] Pen 113 dose SUB-Q QHS [facility] Last Admin: 09/10/19 20:36 Dose: 113 dose Documented by: Phenazopyridine HCl (Pyridium) 200 mg PO TIDP PRN PRN Reason: PAINFUL URINATION Last Admin: 09/11/19 01:24 Dose: 200 mg Documented by: Polyethylene Glycol (Miralax) 17 gm PO HS [facility] Last Admin: 09/10/19 20:36 Dose: Not Given Documented by: Sodium Chloride (Saline Flush) 10 ml IV Q8 [facility] Last Admin: 09/11/19 05:41 Dose: Not Given Documented by: Medical - PN: A/P - Time Spent With Patient Total time spent is greater than 50% in coordination of care (as documented) at patient's floor/unit and/or counseling patient: - Narrative A/P Narrative: Assessment: 1. Prostatitis N41.9 2. Prostate abscess N41.2 3. Hyponatremia 4. DM type 2, uncontrolled 5. Right foot ulceration, Diabetic. 6. HTN 7. Bacteremia - MSSA Plan: 1. Blood culture positive (two bottles) for GPC (MSSA) Discussed with ID Dr. Ortiz, rocephin was discontinued yesterday. Cefazolin was started yesterday. continue cipro for 1-2 more days. Repeat blood culture - positive from one of two bottles. Blood culture re-sent 2. CT abdomen showed Low density lesions in the prostate extending through the prostate capsule and below the levator ani into the ischial rectal fossa. This is more likely infection with prostate abscess, rather than a large infiltrating prostate cancer. Urology Dr. Arriaza is on board IV fluid Pain management including IV morphine UA and urine culture - UA positive but culture no growth. Dr. Ortiz would have the abscess drained and sent for culture. Discussed with IR Dr. Hinojosa, who felt urologist would be the best person to help the pt. Discussed with urology Dr. Arriaza, who felt the "abscess" does not look like a true fluid collection on image. Dr. Arriaza would like to continue abx and no procedure at this moment. Dr. Ortiz suggested rectal US. Contacted Dr. Arriaza's office for possibility of rectal US exam. They will call back. 2. phos 2.4, phos was given yesterday. Repeat electrolytes in morning - pending 3. Diabetic diet Increased insulin degludec to 113 units daily, insulin sliding scale Hemoglobin A1c - 11.6 4. Wound care Orth Dr. Alvarado was consulted, who does not feel the wound would be the source of the bacteremia. XR - no evidence of osteomyelitis. 5. Continue amlodipine 5 mg bid and lisinopril 40 mg daily from his high blood pressure. hydralazine PRN 6. DVT prophylaxis: Lovenox 7. CODE STATUS: Full Medical - PN: Qual - Stroke Symptom Onset Unknown: No - VTE Deep Vein Thrombosis/Pulmonary Embolism Present on Admission: No
[2019-09-11] MEDS: OMEPRAZOLE 20 MG CAPSULE PO SCH (09:28)
[2019-09-11] MEDS: FENOFIBRATE 43 MG CAPSULE PO SCH (09:28)
[2019-09-11] MEDS: LISINOPRIL 20 MG TABLET PO SCH (09:28)
[2019-09-11] MEDS: amLODIPine 5 MG TABLET PO SCH ×2 (09:28→21:21)
[2019-09-11] MEDS: LOSARTAN 25 MG TABLET PO SCH (09:28)
[2019-09-11] MEDS: DOCUSATE SODIUM 100 MG CAPSULE PO SCH ×2 (09:29→21:19)
[2019-09-11] MEDS: CIPROFLOXACIN 500 MG TABLET PO SCH ×2 (09:29→21:21)
[2019-09-11] MEDS: ATORVASTATIN 40 MG TABLET PO SCH (09:29)
[2019-09-11] MEDS: METOPROLOL TARTRATE 25 MG TABLET PO SCH ×2 (09:29→21:19)
[2019-09-11] MEDS: FLUTICASONE PROPIONATE SPRAY.NAS NS SCH (09:29)
[2019-09-11] MEDS: ENOXAPARIN 40 MG/0.4 ML SYRINGE SQ SCH (09:30)
[2019-09-11 10:18] LABS: ALT/SGPT 18 U/l (0-40); AST/SGOT 22 U/l (0-37); Albumin 2.6 gm/dL (3.2-5.2); Albumin/Globulin Ratio 0.6 (1.0-2.3); Alkaline Phosphatase 158 U/L (39-117); Bilirubin,Total 0.2 mg/dL (0.0-1.0); Blood Urea Nitrogen 10 mg/dl (6-20); Calcium 8.6 mg/dl (8.6-10.4); Carbon Dioxide 19 mmol/L (22-30); Chloride 96 mmol/L (96-108); Globulin 4.1 gm/dL (2.2-3.7); Glomerular Filtration Rate 115; Glucose 194 mg/dL (70-105)
--- NOTE | 2019-09-11 11:52 | Infectious Disease Consult ---
History of Present Illness Patient information: Note initiated : 09/11/19 at 11:22 am Service Date, if different from initiated Date: [] Patient: Chaitanya Duvall 44 y/o M admitted on 09/09/19 for prostatits. Chief Complaint: [] Consult date: 09/11/19 Requesting Physician: Masood Colon Reason for Consult: MSSA bacteremia Chief complaint: I have fever, pain in my prostate area History of present illness: 44-year-old man with past medical history of type 2 diabetes [on multiple medications] who was admitted on September 08 with complaints of lower belly pain, constipation off and on, fever, nausea, vomiting, poor urinary stream. Patient is not sure how it started but about 10 to 12 days ago started having constipat ion following which he developed lower abdominal pain with loss of appetite. He was seen by Cynthia Wellington NP at [facility]. Few days later he developed obstructive urinary symptoms such as tenderness of urinary stream, burning and fevers. His constipation was resolved around 06 September with an episode of diarrhea following which urinary symptoms resolved completely. He was seen by his PCP, Narcisa Parker on [address] abdomen was ordered. He denies any blood in stools or blood in urine. Patient was seen by Dr. Arriaza in the urology clinic on 07 September and there were concerns for acute prostatitis. CT abdomen on 09/08/2019 showed an inhomogeneous masslike lesion in the left side of the prostate extending through the capsule and dissecting inferiorly, measuring 2 into 3.5 cm in size, another 2.1 into 3.3 cm low-attenuation lesion at the apex of prostate extending into the base; both concerning for prostate abscesses. At admission: Vital signs: Temperature of 101.1F, blood pressure 165/85, respiratory 24, satting 99% on room air Labs: White cell count 19.5, creatinine 0.8, blood sugar 229, lactic acid 1.5 Patient was started on IV ciprofloxacin and IV ceftriaxone, blood cultures were sent. Blood cultures turned out positive for GPC in clusters the next day. I was called by Dr. Colon yesterday with recommendations for switching patient to IV cefazolin while continuing ciprofloxacin and stopping IV ceftriaxone as blood cultures showed staph aureus with negative mec a gene. Time of ID visit: Mentions that the pain is still there and he feels like sitting on a hot poker. He had 3 small bowel movements this a.m. Today also he describes thinness of stream and inability to empty his bladder completely. Denies any current smoking, alcohol use, injection drug use, marijuana use. Denies any other symptoms. Review of Systems All systems PM: reviewed and no additional remarkable complaints except as sta ame Constitutional: as per HPI Past History Past family history: No sick contacts Past social history: Lives in [place] with his family Has 2 dogs and few chicken Medications and Allergies Home Medications Medication Instructions Recorded Confirmed Type fenofibrate 160 mg tablet 160 mg PO QDAY 12/03/18 09/09/19 History lisinopril 40 mg tablet 40 mg PO QDAY 12/03/18 09/09/19 History metformin 1,000 mg tablet 1,000 mg PO BID 12/03/18 09/09/19 History amlodipine 5 mg tablet 5 mg PO BID 06/01/19 09/09/19 History sildenafil (pulm.hypertension) 20 20 mg PO .COMPLEX 06/01/19 09/09/19 History mg tablet insulin lispro 100 unit/mL See Rx Instructions .ROUTE 06/05/19 09/09/19 History subcutaneous pen .COMPLEX ml atorvastatin 40 mg tablet 40 mg PO QDAY #90 tab 06/06/19 09/09/19 Rx blood sugar diagnostic See Rx Instructions .ROUTE 06/06/19 09/09/19 Rx .MEDSUPPLY #100 each blood-glucose meter See Rx Instructions .ROUTE 06/06/19 09/09/19 Rx .MEDSUPPLY #1 each lancets See Rx Instructions .ROUTE 06/06/19 09/09/19 Rx .MEDSUPPLY #200 each albuterol sulfate 90 mcg/actuation 2 puff INHALATION Q6H PRN #18 g 07/07/19 09/09/19 Rx aerosol inhaler fluticasone propionate 50 2 spray INTRANASAL QDAY #36.4 ml 07/07/19 09/09/19 Rx mcg/actuation nasal spray,suspension insulin degludec 200 unit/mL (3 110 unit SUB-Q QHS 90 Days #49.5 ml 07/07/19 09/09/19 Rx mL) subcutaneous pen loratadine 10 mg tablet 10 mg PO QDAY PRN #90 tab 03/27/20 05/30/20 Rx blood-gluc transmitter-sensor See Rx Instructions .ROUTE 07/10/19 09/09/19 Rx .MEDSUPPLY #2 each omeprazole 20 mg capsule,delayed 20 mg PO QDAY #90 cap 07/18/19 09/09/19 Rx release polyethylene glycol 3350 17 17 g PO .COMPLEX #238 g 09/01/19 09/09/19 Rx gram/dose oral powder ciprofloxacin HCl 500 mg tablet 500 mg PO BID 7 Days #14 tab 09/08/19 09/09/19 Rx metronidazole 500 mg tablet 500 mg PO TID 7 Days #21 tab 09/08/19 09/09/19 Rx Allergies Allergy/AdvReac Type Severity Reaction Status Date / Time No Known Drug Allergies Allergy Verified 09/08/19 09:55 Physical Examination Vital signs: Temp Pulse Resp BP Pulse Ox 37.1 C 92 H 18 141/79 95 09/11/19 07:52 09/11/19 09:28 09/11/19 07:52 09/11/19 09:28 09/11/19 07:52 General appearance: no acute distress Eyes pulmonary: nonicteric ENT: oropharynx moist Auscultation: bilateral: clear Cardiovascular: other (S1-S2 normal, no murmurs) Gastrointestinal: normoactive bowel sounds, soft, other (Discomfort in the lower abdomen, no rebound tenderness or guarding) Integumentary: other (Has multiple scars over the lower extremities, no active skin lesions or rash) Musculoskeletal: other (Has tenderness over lower lumbar and sacral spine, no fluctuance or redness) Results - Laboratory Findings CBC and BMP: 09/11/19 05:36 09/11/19 05:36 Abnormal lab findings: Abnormal Labs 09/09/19 09/09/19 09/09/19 12:28 12:28 19:18 WBC 19.5 H RBC 4.40 L Hgb 11.7 L Hct 36.4 L Plt Count MPV 10.9 H Gran % 87.0 H Lymph % (Auto) 5.8 L Gran # 16.94 H Lymph # (Auto) 1.12 L [place] # (Auto) 1.28 H ESR Sodium 129 L Chloride 91 L Carbon Dioxide Glucose 229 H Hemoglobin A1c Phosphorus Alkaline Phosphatase 130 H NT-Pro-B Natriuret Pep Albumin 3.0 L Globulin 4.3 H Albumin/Globulin Ratio 0.7 L Urine Protein 100 A Urine Glucose (UA) >=500 A Urine Occult Blood 0.2 A Urine Urobilinogen 2.0 A Ur Leukocyte Esterase 75 A Urine RBC 9 H Urine WBC 64 H Urine Bacteria Few A Hyaline Casts 25 H Urine Mucus Many A 09/10/19 09/10/19 09/11/19 05:12 05:12 05:36 WBC 18.9 H 14.6 H RBC 4.43 L 4.09 L Hgb 11.7 L 10.8 L Hct 36.1 L 33.8 L Plt Count 445 H MPV 10.7 H 10.9 H Gran % 85.3 H 83.8 H Lymph % (Auto) 6.9 L 8.2 L Gran # 16.09 H 12.18 H Lymph # (Auto) 1.30 L 1.20 L [place] # (Auto) 1.32 H 1.05 H ESR 117 H Sodium Chloride 95 L Carbon Dioxide Glucose 192 H Hemoglobin A1c 11.6 H Phosphorus 2.4 L Alkaline Phosphatase 146 H NT-Pro-B Natriuret Pep 234.5 H Albumin 3.0 L Globulin 4.4 H Albumin/Globulin Ratio 0.7 L Urine Protein Urine Glucose (UA) Urine Occult Blood Urine Urobilinogen Ur Leukocyte Esterase Urine RBC Urine WBC Urine Bacteria Hyaline Casts Urine Mucus 09/11/19 05:36 WBC RBC Hgb Hct Plt Count MPV Gran % Lymph % (Auto) Gran # Lymph # (Auto) [place] # (Auto) ESR Sodium 131 L Chloride Carbon Dioxide 19 L Glucose 194 H Hemoglobin A1c Phosphorus Alkaline Phosphatase 158 H NT-Pro-B Natriuret Pep Albumin 2.6 L Globulin 4.1 H Albumin/Globulin Ratio 0.6 L Urine Protein Urine Glucose (UA) Urine Occult Blood Urine Urobilinogen Ur Leukocyte Esterase Urine RBC Urine WBC Urine Bacteria Hyaline Casts Urine Mucus Microbiology: Microbiology 09/09/19 12:28 Blood Blood Culture - Preliminary Staphylococcus aureus 09/09/19 19:18 Urine - Clean Void Mid-Stream Urine Culture - Final 09/10/19 06:58 Blood Blood Culture - Preliminary 09/10/19 07:05 Blood Blood Culture - Preliminary Gram positive cocci 09/09/19 12:36 Blood Blood Culture - Preliminary Gram positive cocci Assessment and Plan - Narrative A/P Narrative: Assessment: 1. MSSA bacteremia: Blood cultures positive from September 08 [2 out of 2 sets] and [1 out of 2 sets] -Likely source: Prostate infection with multiple abscesses, skin colonization, dry skin and scaling over both feet especially around the healed right great toe stump with callus. 2. Acute prostatitis with multiple small abscesses: Given multiple number, relatively small size ---> difficult to aspirate per urology, radiology -I am thinking that staph aureus is the likely cause. Extensive gram-negative coverage with oral ciprofloxacin might not be needed. Cefazolin has some gram negative coverage 3. Low back pain: on palpation Recommendations: Continue IV cefazolin 2 g every 8 hours -Stop p.o. Cipro 500 mg twice daily Blood cultures every other day until negative for 48 hours will plan for a PICC line placement once blood cultures negative for 48 hours Await TTE results - CT L/S spine Repeat pelvic CT on September 14. If abscesses still remains or are bigger or patient continues to have multiple blood cultures positive for staph aureus; will recommend surgical drainage will follow Brandon Ortiz MD Infectious disease
[2019-09-11] MEDS ORDERED: IOPAMIDOL 100 ML BOTTLE IV ONE (13:04)
--- NOTE | 2019-09-11 13:28 | Internal Med Progress Note ---
Medical - PN: Subj Patient information: Note initiated : 09/11/19 at 1:21 pm Service Date, if different from initiated Date: [] Patient: Chaitanya Duvall a 44 y/o M admitted on 09/09/19 for prostatits. Chief Complaint: [] Interval history: Mr. Duvall is a 44 year old M with a past medical history of diabetes type 2 and a right foot ulcer who was referred to the ER by urologist Dr. Arriaza due to prostatitis. As per patient, patient has been having lower abdomen and perirectal pain for past 10 days. The pain is a constant, burning in nature and a 10 out of 10 in severity associated with fever, chills, nausea, and mild headache. He also has having cloudy urine for 3 days. Otherwise he denies dizziness, chest pain, shortness of breath, neck pain, hematuria, diarrhea, hematochezia, or melena. CT abdomen yesterday showed prostatitis and prostatic abscess. In the ER, urologist Dr. Arriaza was consulted, who suggested Cipro and Rocephin. 1 L normal saline was given. When I saw this patient in the ER, other than the symptoms mentioned above, he was fine. Denies recent travel or sick contact. He has never had a similar problem in the past. 09/09 Pt still has fever/chills. He had tachycardia and tachypnea yesterday, which improved today. Blood culture showed MSSA. Discussed with ID Dr. Ortiz, rocephin was discontinued. Cefazolin was started. continue cipro for 1-[address] Ortiz would have the abscess drained and sent for culture. Discussed with IR Dr. Hinojosa, who felt urologist would be the best person to help the pt. Discussed with urology Dr. Arriaza, who felt the "abscess" does not look like a true fluid collection on image. Dr. Arriaza would like to continue abx and no procedure at this moment. Pt has a right foot ulcer, which may cause the GPC bacteremia. orth Dr. Alvarado was consulted, who does not feel the wound would be the source, but he suggest XR to r/o osteomyelitis. 09/10 Patient does not have any new complaints. Complains of chills. Afebrile, no longer has tachycardia Repeat blood culture positive from 1 of the 2 bottles. Repeat blood culture again. Discussed with ID Dr. Ortiz, who suggested rectal US and continue current abx. 09/11 - Constitutional Vitals: Vital Signs Temp Pulse Resp BP Pulse Ox 98.7 F 85 18 153/79 94 09/11/19 12:00 09/11/19 12:00 09/11/19 12:00 09/11/19 12:00 09/11/19 12:00 Period Temp Pulse Resp BP Sys/Foley Pulse Ox Last 24 Hr 97.5 F-101.1 F 85-92 18-26 141-177/71-88 92-95 Intake and Output 09/10/19 09/11/19 09/11/19 21:59 05:59 13:59 Intake Total 1920 1748 720 Output Total 400 900 Balance 1520 848 720 Weight 166.922 kg 166.922 kg Patient Weight 09/12/19 05:59 Weight 166.922 kg Intake & Output: Intake & Output 09/10/19 09/11/19 09/11/19 21:59 05:59 13:59 Intake Total 1920 1748 720 Output Total 400 900 Balance 1520 848 720 Weight 166.922 kg 166.922 kg Intake: IV 1000 948 Sodium Chloride 0.9% 1,000 ml @ 1000 948 100 mls/hr IV .Q10H [facility] Rx#: [id number] Oral 920 720 GI Tube Flush 800 Output: Void Amount 400 900 Other: Meal Dinner Lunch Percent of Meal Consumed 100% 100% Feeding Ability Independent Independent Urine Appearance Clear Clear Urine Color Esperance Esperance Bright Yellow Urine Odor Normal Normal Stool Size Small Small Stool Color Brown Brown Stool Consistency Dry and Hard Dry and Hard Formed Formed # Voids 1 1 1 # Bowel Movements 1 1 Exam: General: Alert, Awake, No acute Distress Eyes/N/T: EOMI, Head/Neck: neck supple, CV: RRR, No murmurs, Pulm: Clear b/l, no wheezing/rhonchi/rales Abd: soft, nontender, +BS x4 Ext: no clubbing/cyanosis/edema Neuro: Alert, no focal deficits, moves all extremities, Right great toe and 5th toe were amputated. There seems to be a area with eschar. No tenderness Skin: warm/dry Medical - PN: Obj Da - Labs CBC & Chem 7: 09/11/19 05:36 09/11/19 05:36 Labs: Abnormal Lab Results 09/11/19 09/11/19 09/10/19 05:36 05:36 05:12 WBC 14.6 H RBC 4.09 L Hgb 10.8 L Hct 33.8 L Plt Count 445 H MPV 10.9 H Gran % 83.8 H Lymph % (Auto) 8.2 L Gran # 12.18 H Lymph # (Auto) 1.20 L Taney # (Auto) 1.05 H ESR Sodium 131 L Chloride 95 L Carbon Dioxide 19 L Glucose 194 H 192 H Hemoglobin A1c 11.6 H Phosphorus 2.4 L Alkaline Phosphatase 158 H 146 H NT-Pro-B Natriuret Pep 234.5 H Albumin 2.6 L 3.0 L Globulin 4.1 H 4.4 H Albumin/Globulin Ratio 0.6 L 0.7 L Urine Protein Urine Glucose (UA) Urine Occult Blood Urine Urobilinogen Ur Leukocyte Esterase Urine RBC Urine WBC Urine Bacteria Hyaline Casts Urine Mucus 09/10/19 09/09/19 09/09/19 05:12 19:18 12:28 WBC 18.9 H RBC 4.43 L Hgb 11.7 L Hct 36.1 L Plt Count MPV 10.7 H Gran % 85.3 H Lymph % (Auto) 6.9 L Gran # 16.09 H Lymph # (Auto) 1.30 L Taney # (Auto) 1.32 H ESR 117 H Sodium 129 L Chloride 91 L Carbon Dioxide Glucose 229 H Hemoglobin A1c Phosphorus Alkaline Phosphatase 130 H NT-Pro-B Natriuret Pep Albumin 3.0 L Globulin 4.3 H Albumin/Globulin Ratio 0.7 L Urine Protein 100 A Urine Glucose (UA) >=500 A Urine Occult Blood 0.2 A Urine Urobilinogen 2.0 A Ur Leukocyte Esterase 75 A Urine RBC 9 H Urine WBC 64 H Urine Bacteria Few A Hyaline Casts 25 H Urine Mucus Many A 09/09/19 12:28 WBC 19.5 H RBC 4.40 L Hgb 11.7 L Hct 36.4 L Plt Count MPV 10.9 H Gran % 87.0 H Lymph % (Auto) 5.8 L Gran # 16.94 H Lymph # (Auto) 1.12 L Taney # (Auto) 1.28 H ESR Sodium Chloride Carbon Dioxide Glucose Hemoglobin A1c Phosphorus Alkaline Phosphatase NT-Pro-B Natriuret Pep Albumin Globulin Albumin/Globulin Ratio Urine Protein Urine Glucose (UA) Urine Occult Blood Urine Urobilinogen Ur Leukocyte Esterase Urine RBC Urine WBC Urine Bacteria Hyaline Casts Urine Mucus Meds: Medications Acetaminophen (Tylenol) 650 mg PO Q6HP PRN; Protocol PRN Reason: Per Pain Protocol/Fever > 101 Last Admin: 09/11/19 04:30 Dose: 650 mg Documented by: Albuterol Sulfate (Ventolin) 2 puff INH Q6HP PRN PRN Reason: shortness of breath or wheezing Amlodipine Besylate (Norvasc) 5 mg PO BID [facility] Last Admin: 09/11/19 09:28 Dose: 5 mg Documented by: Atorvastatin Calcium (Lipitor) 40 mg PO QDAY [facility] Last Admin: 09/11/19 09:29 Dose: 40 mg Documented by: Cefazolin Sodium (Ancef) 2 gm IV Q8H [facility] Last Admin: 09/11/19 05:40 Dose: 2 gm Documented by: Ciprofloxacin (Cipro) 500 mg PO BID [facility]; Protocol Last Admin: 09/11/19 09:29 Dose: 500 mg Documented by: Dextrose (Dextrose 50%) 0 ml IV UD PRN PRN Reason: Hypoglycemia Diagnostic Test (Pha) (Accu-Chek) 1 each FS ACHS [facility] Last Admin: 09/11/19 12:22 Dose: 1 each Documented by: Docusate Sodium (Colace) 100 mg PO BID [facility] Last Admin: 09/11/19 09:29 Dose: 100 mg Documented by: Enoxaparin Sodium (Lovenox) 40 mg SQ DAILY [facility] Last Admin: 09/11/19 09:30 Dose: 40 mg Documented by: Fenofibrate (Antara) 129 mg PO DAILY [facility] Last Admin: 09/11/19 09:28 Dose: 129 mg Documented by: Fluticasone Propionate (Flonase) 2 spray NS QDAY [facility] Last Admin: 09/11/19 09:29 Dose: 2 spray Documented by: Glucose (Insta-Glucose) 15 gm PO PRN PRN PRN Reason: Hypoglycemia Hydralazine HCl (Apresoline) 10 mg IV Q4-6HP PRN PRN Reason: Hypertension Last Admin: 09/11/19 08:27 Dose: 10 mg Documented by: Sodium Chloride (Sodium Chloride 0.9%) 1,000 mls @ 100 mls/hr IV .Q10H [facility] Last Admin: 09/11/19 08:28 Dose: Not Given Documented by: Insulin Human Lispro (Humalog) 0 unit SQ ACHS [facility]; Protocol Last Admin: 09/11/19 12:23 Dose: 3 units Documented by: Lisinopril (Zestril) 40 mg PO QDAY [facility] Last Admin: 09/11/19 09:28 Dose: 40 mg Documented by: Losartan Potassium (Cozaar) 25 mg PO DAILY [facility] Last Admin: 09/11/19 09:28 Dose: 25 mg Documented by: Metoprolol Tartrate (Lopressor) 12.5 mg PO BID [facility] Last Admin: 09/11/19 09:29 Dose: 12.5 mg Documented by: Morphine Sulfate (Morphine) 2 mg IV Q4HP PRN; Protocol PRN Reason: Per Pain Protocol Last Admin: 09/11/19 00:29 Dose: 2 mg Documented by: Omeprazole (Prilosec) 20 mg PO QDAY [facility] Last Admin: 09/11/19 09:28 Dose: 20 mg Documented by: Ondansetron HCl (Zofran) 4 mg IV Q6HP PRN PRN Reason: Nausea And Vomiting Oxycodone HCl (Roxicodone) 5 mg PO Q6HP PRN; Protocol PRN Reason: Per Pain Protocol Last Admin: 09/11/19 08:26 Dose: 5 mg Documented by: Insulin Degludec [ Tresiba Flextouch U- 200] Pen 113 dose SUB-Q QHS [facility] Last Admin: 09/10/19 20:36 Dose: 113 dose Documented by: Phenazopyridine HCl (Pyridium) 200 mg PO TIDP PRN PRN Reason: PAINFUL URINATION Last Admin: 09/11/19 01:24 Dose: 200 mg Documented by: Polyethylene Glycol (Miralax) 17 gm PO HS [facility] Last Admin: 09/10/19 20:36 Dose: Not Given Documented by: Sodium Chloride (Saline Flush) 10 ml IV Q8 [facility] Last Admin: 09/11/19 05:41 Dose: Not Given Documented by: Medical - PN: A/P - Time Spent With Patient Total time spent is greater than 50% in coordination of care (as documented) at patient's floor/unit and/or counseling patient: - Narrative A/P Narrative: A: *Prostatitis with ?abscess: *Bacteremia (MSSA): *SIRS: -leukocytosis improving *Hyponatremia: *DMII, uncontrolled: 11.6 *Right foot ulceration, Diabetic. *HTN Plan: -serial BC's -ID following. Cefazolin was started yesterday. continue cipro for 1-2 more days. -Urology Dr. Arriaza following, treat medically Dr. Ortiz would have the abscess drained and sent for culture. Discussed with IR Dr. Hinojosa, who felt urologist would be the best person to help the pt. Discussed with urology Dr. Arriaza, who felt the "abscess" does not look like a true fluid collection on image. Dr. Arriaza would like to continue abx and no procedure at this moment. -IV fluid -Pain management including IV morphine -Dr. Ortiz suggested rectal US. Contacted Dr. Arriaza's office for possibility of rectal US exam, they can only do in office, -ID ordered CT lumbar/pelvis, pending results -Increased insulin degludec to 113 units daily, SSI -Wound care -Dr. Alvarado was consulted, who does not feel the wound would be the source of the bacteremia. XR - no evidence of osteomyelitis. -cont amlodipine/lisinopril. hydralazine PRN -ppx: Lovenox Full code Medical - PN: Qual - Stroke Symptom Onset Unknown: No - VTE Deep Vein Thrombosis/Pulmonary Embolism Present on Admission: No
--- NOTE | 2019-09-11 14:37 | Cat Scan Report ---
CLINICAL INFORMATION: Follow-up prostate abscess. Staph bacteremia COMPARISON: Abdomen and pelvic CT three days prior - 09/08/2019 TECHNIQUE: 80ml of Isovue 370 were injected intravenously and 60 seconds later .625mm helical slices were obtained from the mid L4 through the subtrochanteric regions. Following reconstruction, 2.5 mm sagittal, coronal and axial reformations were processed. The exam was reviewed in bone and soft tissue windows. The exam was performed using radiation dose optimization techniques including, but not limited to, automated exposure control, adjustment of mA and/or kV according to patient size and use of iterative reconstruction technique. FINDINGS: The visualized small/ large bowel and appendix are all unremarkable. There is no free air, free fluid or adenopathy. Urinary bladder is unremarkable. Multiple low-attenuation fluid collections have replaced most of the prostate parenchyma - and previously seen. The largest, in the inferior right peripheral zone is 3.5 x 6 cm and extends through the prostate capsule into the posterior periurethral soft tissues. It has decreased slightly. The second largest, 3 cm is located inferior left peripheral zone. There are two abscesses within the central zone - each approximately 14 mm. All of the prostate parenchyma appears diffusely inflamed. There are 4-5 subcutaneous fluid collections in the left region ranging up to 17 mm which are unchanged and may represent small abscesses.. Bone windows show no osseous abnormality. IMPRESSION: Multiple prostate fluid collections compatible with multifocal prostatic abscess. The largest is 6 x 3.5 cm inferior right peripheral zone extending to the posterior periurethral soft tissues. All of the abscesses are slightly smaller than the comparison CT three days prior. Consider: Urology consult in consideration of transurethral drainage. Interpreted and Authenticated by: Chaitanya Dorado 09/11/19
--- NOTE | 2019-09-11 14:38 | Cat Scan Report ---
CLINICAL INFORMATION: Back screening - low back pain COMPARISON: None. TECHNIQUE: 0.625 mm helical slices were obtained from the mid T12 through mid S2 vertebral bodies. Following reconstruction, 2.5 mm coronal, sagittal, and axial reformations (angle to the disc spaces) were processed. Exam was reviewed at bone and soft tissue windows.The exam was performed using radiation dose optimization techniques including, but not limited to, automated exposure control, adjustment of the mA and/or kV according to patient size and use of iterative reconstruction technique. FINDINGS: Sagittal reformatted images show the lumbar spine is anatomically aligned. No osseous abnormality. Soft tissues are normal. At T11-T12 through L3-4 disc levels are normal. At L4-5 and L5-S1, there is minimal broad disc protrusions and mild facet arthropathy. IMPRESSION: 1. No evidence of discitis, osteomyelitis or other evidence for infection. 2. L4-5 and L5-S1: Minimal broad disc protrusions and facet arthropathy - no definite nerve root impingement. Interpreted and Authenticated by: Chaitanya Dorado 09/11/19
--- NOTE | 2019-09-11 17:00 | General Surgery Progress Note ---
Surgical - Auxillary Note - Subjective Patient Information: Note initiated : 09/11/19 at 4:53 pm Service Date, if different from initiated Date: [] Patient: Chaitanya Duvall 44 y/o M admitted on 09/09/19 for prostatits. Chief Complaint: prostatitis Patient is improving. pain is still present. Does have MRSA is blood but most prostatitis caused from enteric organisms. Would continue cipro.. Complains of hesitancy and will start him on Flomax. CT done today shows improvement. Would not aspirate prostate while wbc is decreasing. discussed with patient and he agrees. Discussed with DR. Nye. greater than 25 minutes spent going over films and discussing with patient.
[2019-09-11] MEDS: TAMSULOSIN 0.4 MG CAPSULE PO SCH (21:19)
[2019-09-11] MEDS: POLYETHYLENE GLYCOL 3350 17 GM PACKET PO SCH (21:21)
[2019-09-11] MEDS: INSULIN DEGLUDEC SUB-Q SCH (21:41)
[2019-09-12] MEDS: 0.9 % SODIUM CHLORIDE 1,000 ML IV SCH ×2 (00:39→08:35)
[2019-09-12] MEDS: hydrALAZINE 20 MG/ML VIAL IV PRN ×5 (00:42→20:19)
[2019-09-12] MEDS: oxyCODONE HCL 5 MG TABLET PO PRN ×3 (02:57→20:16)
[2019-09-12] MEDS: ceFAZolin 1 GM VIAL IV SCH ×3 (06:19→21:40)
[2019-09-12] MEDS: 0.9 % SODIUM CHLORIDE 10 ML SYRINGE IV SCH ×3 (06:20→21:40)
[2019-09-12 07:00] LABS: Basophils # (Auto) 0.06 K/mcL (0.00-0.30); Basophils % (Auto) 0.4 % (0.0-2.0); Eosinophils # (Auto) 0.05 K/mcL (0.00-0.70); Eosinophils % (Auto) 0.4 % (0.0-7.0); Granulocytes % (Auto) 79.6 % (38.0-78.0); Hematocrit 33.8 % (40.1-51.0); Lymphocytes # (Auto) 1.64 K/mcL (1.50-4.80); Lymphocytes % (Auto) 11.7 % (15.5-49.0); Mean Cell Volume 81.3 fL (80.0-100.0); Mean Corpuscular HGB Conc 32.5 g/dL (31.0-36.0); Mean Platelet Volume 10.5 fL (7.4-10.4); Monocytes % (Auto) 7.9 % (1.0-12.0); Platelet Count 488 K/mcL (140-440); RBC 4.16 M/mcL (4.63-6.08); Red Cell Distribution Width 13.2 % (11.5-14.5)
[2019-09-12 07:33] LABS: ALT/SGPT 18 U/l (0-40); AST/SGOT 18 U/l (0-37); Albumin 2.6 gm/dL (3.2-5.2); Albumin/Globulin Ratio 0.7 (1.0-2.3); Alkaline Phosphatase 132 U/L (39-117); Bilirubin,Total 0.2 mg/dL (0.0-1.0); Blood Urea Nitrogen 11 mg/dl (6-20); Calcium 8.7 mg/dl (8.6-10.4); Carbon Dioxide 21 mmol/L (22-30); Chloride 101 mmol/L (96-108); Globulin 3.9 gm/dL (2.2-3.7); Glomerular Filtration Rate 122; Glucose 192 mg/dL (70-105)
[2019-09-12] MEDS: INSULIN LISPRO 1 UNIT/0.01 ML UNIT SQ SCH ×5 (07:44→21:39)
--- NOTE | 2019-09-12 08:08 | Internal Med Progress Note ---
Medical - PN: Subj Patient information: Note initiated : 09/12/19 at 8:02 am Service Date, if different from initiated Date: [] Patient: Chaitanya Duvall a 44 y/o M admitted on 09/09/19 for prostatits. Chief Complaint: [] Interval history: Mr. Duvall is a 44 year old M with a past medical history of diabetes type 2 and a right foot ulcer who was referred to the ER by urologist Dr. Arriaza due to prostatitis. As per patient, patient has been having lower abdomen and perirectal pain for past 10 days. The pain is a constant, burning in nature and a 10 out of 10 in severity associated with fever, chills, nausea, and mild headache. He also has having cloudy urine for 3 days. Otherwise he denies dizziness, chest pain, shortness of breath, neck pain, hematuria, diarrhea, hematochezia, or melena. CT abdomen yesterday showed prostatitis and prostatic abscess. In the ER, urologist Dr. Arriaza was consulted, who suggested Cipro and Rocephin. 1 L normal saline was given. When I saw this patient in the ER, other than the symptoms mentioned above, he was fine. Denies recent travel or sick contact. He has never had a similar problem in the past. 09/09 Pt still has fever/chills. He had tachycardia and tachypnea yesterday, which improved today. Blood culture showed MSSA. Discussed with ID Dr. Ortiz, rocephin was discontinued. Cefazolin was started. continue cipro for 1-[address] Ortiz would have the abscess drained and sent for culture. Discussed with IR Dr. Hinojosa, who felt urologist would be the best person to help the pt. Discussed with urology Dr. Arriaza, who felt the "abscess" does not look like a true fluid collection on image. Dr. Arriaza would like to continue abx and no procedure at this moment. Pt has a right foot ulcer, which may cause the GPC bacteremia. orth Dr. Alvarado was consulted, who does not feel the wound would be the source, but he suggest XR to r/o osteomyelitis. 09/10 Patient does not have any new complaints. Complains of chills. Afebrile, no longer has tachycardia Repeat blood culture positive from 1 of the 2 bottles. Repeat blood culture again. Discussed with ID Dr. Ortiz, who suggested rectal US and continue current abx. 09/11 Poor sleep because of discomfort. Occasional headache but otherwise no new complaints. Leukocytosis improving Review of Systems: denies headache/fever/chills/nausea/vomiting/chest or abdominal pain/cough/dyspnea/diarrhea. Otherwise see above. - Constitutional Vitals: Vital Signs Temp Pulse Resp BP Pulse Ox 98.9 F 91 H 16 186/76 95 09/12/19 07:53 09/12/19 04:04 09/12/19 07:43 09/12/19 07:43 09/12/19 07:43 Period Temp Pulse Resp BP Sys/Foley Pulse Ox Last 24 Hr 96.6 F-99 F 85-95 16-18 134-186/67-89 93-96 Intake and Output 09/11/19 09/12/19 09/12/19 21:59 05:59 13:59 Intake Total 2250 1793 Output Total 1 Balance 2249 1793 Weight 167.376 kg Intake & Output: Intake & Output 09/11/19 09/12/19 09/12/19 21:59 05:59 13:59 Intake Total 2250 1793 Output Total 1 Balance 2249 1793 Weight 167.376 kg Intake: IV 1000 993 Sodium Chloride 0.9% 1,000 ml @ 1000 993 100 mls/hr IV .Q10H ANNIE Rx#: [id number] Oral 1250 800 Output: Void Amount 1 Other: Meal Dinner Percent of Meal Consumed 75% Feeding Ability Independent Urine Appearance Clear Urine Color Bright Yellow # Voids 1 1 Exam: General: Alert, Awake, No acute Distress, obese Eyes/N/T: EOMI, Head/Neck: neck supple, CV: RRR, No murmurs, Pulm: Clear b/l, no wheezing/rhonchi/rales Abd: soft, nontender, +BS x4 Ext: no clubbing/cyanosis/edema Neuro: Alert, no focal deficits, moves all extremities, Right great toe and 5th toe were amputated. Skin: warm/dry Medical - PN: Obj Da - Labs CBC & Chem 7: 09/12/19 05:40 09/12/19 05:40 Labs: Abnormal Lab Results 09/12/19 09/12/19 09/11/19 05:40 05:40 05:36 WBC 14.0 H RBC 4.16 L Hgb 11.0 L Hct 33.8 L Plt Count 488 H MPV 10.5 H Gran % 79.6 H Lymph % (Auto) 11.7 L Gran # 11.11 H Lymph # (Auto) [place] # (Auto) 1.10 H ESR Sodium 131 L Chloride Carbon Dioxide 21 L 19 L Creatinine 0.6 L Glucose 192 H 194 H Hemoglobin A1c Phosphorus Alkaline Phosphatase 132 H 158 H NT-Pro-B Natriuret Pep Albumin 2.6 L 2.6 L Globulin 3.9 H 4.1 H Albumin/Globulin Ratio 0.7 L 0.6 L Urine Protein Urine Glucose (UA) Urine Occult Blood Urine Urobilinogen Ur Leukocyte Esterase Urine RBC Urine WBC Urine Bacteria Hyaline Casts Urine Mucus 09/11/19 09/10/19 09/10/19 05:36 05:12 05:12 WBC 14.6 H 18.9 H RBC 4.09 L 4.43 L Hgb 10.8 L 11.7 L Hct 33.8 L 36.1 L Plt Count 445 H MPV 10.9 H 10.7 H Gran % 83.8 H 85.3 H Lymph % (Auto) 8.2 L 6.9 L Gran # 12.18 H 16.09 H Lymph # (Auto) 1.20 L 1.30 L [place] # (Auto) 1.05 H 1.32 H ESR 117 H Sodium Chloride 95 L Carbon Dioxide Creatinine Glucose 192 H Hemoglobin A1c 11.6 H Phosphorus 2.4 L Alkaline Phosphatase 146 H NT-Pro-B Natriuret Pep 234.5 H Albumin 3.0 L Globulin 4.4 H Albumin/Globulin Ratio 0.7 L Urine Protein Urine Glucose (UA) Urine Occult Blood Urine Urobilinogen Ur Leukocyte Esterase Urine RBC Urine WBC Urine Bacteria Hyaline Casts Urine Mucus 09/09/19 09/09/19 09/09/19 19:18 12:28 12:28 WBC 19.5 H RBC 4.40 L Hgb 11.7 L Hct 36.4 L Plt Count MPV 10.9 H Gran % 87.0 H Lymph % (Auto) 5.8 L Gran # 16.94 H Lymph # (Auto) 1.12 L [place] # (Auto) 1.28 H ESR Sodium 129 L Chloride 91 L Carbon Dioxide Creatinine Glucose 229 H Hemoglobin A1c Phosphorus Alkaline Phosphatase 130 H NT-Pro-B Natriuret Pep Albumin 3.0 L Globulin 4.3 H Albumin/Globulin Ratio 0.7 L Urine Protein 100 A Urine Glucose (UA) >=500 A Urine Occult Blood 0.2 A Urine Urobilinogen 2.0 A Ur Leukocyte Esterase 75 A Urine RBC 9 H Urine WBC 64 H Urine Bacteria Few A Hyaline Casts 25 H Urine Mucus Many A Meds: Medications Acetaminophen (Tylenol) 650 mg PO Q6HP PRN; Protocol PRN Reason: Per Pain Protocol/Fever > 101 Last Admin: 09/11/19 04:30 Dose: 650 mg Documented by: Albuterol Sulfate (Ventolin) 2 puff INH Q6HP PRN PRN Reason: shortness of breath or wheezing Amlodipine Besylate (Norvasc) 5 mg PO BID [facility] Last Admin: 09/11/19 21:21 Dose: 5 mg Documented by: Atorvastatin Calcium (Lipitor) 40 mg PO QDAY [facility] Last Admin: 09/11/19 09:29 Dose: 40 mg Documented by: Cefazolin Sodium (Ancef) 2 gm IV Q8H [facility] Last Admin: 09/12/19 06:19 Dose: 2 gm Documented by: Dextrose (Dextrose 50%) 0 ml IV UD PRN PRN Reason: Hypoglycemia Diagnostic Test (Pha) (Accu-Chek) 1 each FS ACHS [facility] Last Admin: 09/12/19 07:43 Dose: 1 each Documented by: Docusate Sodium (Colace) 100 mg PO BID [facility] Last Admin: 09/11/19 21:19 Dose: 100 mg Documented by: Enoxaparin Sodium (Lovenox) 40 mg SQ DAILY [facility] Last Admin: 09/11/19 09:30 Dose: 40 mg Documented by: Fenofibrate (Antara) 129 mg PO DAILY [facility] Last Admin: 09/11/19 09:28 Dose: 129 mg Documented by: Fluticasone Propionate (Flonase) 2 spray NS QDAY [facility] Last Admin: 09/11/19 09:29 Dose: 2 spray Documented by: Glucose (Insta-Glucose) 15 gm PO PRN PRN PRN Reason: Hypoglycemia Hydralazine HCl (Apresoline) 10 mg IV Q4-6HP PRN PRN Reason: Hypertension Last Admin: 09/12/19 07:44 Dose: 10 mg Documented by: Sodium Chloride (Sodium Chloride 0.9%) 1,000 mls @ 100 mls/hr IV .Q10H [facility] Last Admin: 09/12/19 00:39 Dose: 100 mls/hr Documented by: Insulin Human Lispro (Humalog) 0 unit SQ ACHS [facility]; Protocol Last Admin: 09/12/19 07:44 Dose: 2 units Documented by: Lisinopril (Zestril) 40 mg PO QDAY [facility] Last Admin: 09/11/19 09:28 Dose: 40 mg Documented by: Losartan Potassium (Cozaar) 25 mg PO DAILY [facility] Last Admin: 09/11/19 09:28 Dose: 25 mg Documented by: Metoprolol Tartrate (Lopressor) 12.5 mg PO BID [facility] Last Admin: 09/11/19 21:19 Dose: 12.5 mg Documented by: Morphine Sulfate (Morphine) 2 mg IV Q4HP PRN; Protocol PRN Reason: Per Pain Protocol Last Admin: 09/11/19 00:29 Dose: 2 mg Documented by: Omeprazole (Prilosec) 20 mg PO QDAY [facility] Last Admin: 09/11/19 09:28 Dose: 20 mg Documented by: Ondansetron HCl (Zofran) 4 mg IV Q6HP PRN PRN Reason: Nausea And Vomiting Oxycodone HCl (Roxicodone) 5 mg PO Q6HP PRN; Protocol PRN Reason: Per Pain Protocol Last Admin: 09/12/19 02:57 Dose: 5 mg Documented by: Insulin Degludec [ Tresiba Flextouch U- 200] Pen 113 dose SUB-Q QHS [facility] Last Admin: 09/11/19 21:41 Dose: 113 dose Documented by: Phenazopyridine HCl (Pyridium) 200 mg PO TIDP PRN PRN Reason: PAINFUL URINATION Last Admin: 09/11/19 01:24 Dose: 200 mg Documented by: Polyethylene Glycol (Miralax) 17 gm PO [facility] Last Admin: 09/11/19 21:21 Dose: Not Given Documented by: Sodium Chloride (Saline Flush) 10 ml IV Q8 [facility] Last Admin: 09/12/19 06:20 Dose: Not Given Documented by: Tamsulosin HCl (Flomax) 0.4 mg PO [facility] Last Admin: 09/11/19 21:19 Dose: 0.4 mg Documented by: Medical - PN: A/P - Time Spent With Patient Total time spent is greater than 50% in coordination of care (as documented) at patient's floor/unit and/or counseling patient: - Narrative A/P Narrative: A: *Prostatitis w/abscess: *Bacteremia (MSSA): -Lumbar and pelvis CT unremarkable for osteo *SIRS: -leukocytosis improving *Hyponatremia: improved *DMII, uncontrolled: 11.6 *Right foot ulceration, Diabetic. *HTN Plan: -serial BC's -ID following. Abx per ID, on Cefazolin -Urology Dr. Arriaza following, treat medically at this time -Dr. Ortiz would have the abscess drained and sent for culture. Discussed with IR Dr. Hinojosa, who felt urologist would be the best person to help the pt. Discussed with urology Dr. Arriaza, who felt the "abscess" does not look like a true fluid collection on image. Dr. Arriaza would like to continue abx and no procedure at this moment. -Dr. Ortiz suggested rectal US. Contacted Dr. Arriaza's office for possibility of rectal US exam, they can only do in office, -Pain management including IV morphine -Increased insulin degludec to 113 units daily, SSI -Wound care -Dr. Alvarado was consulted, who does not feel the wound would be the source of the bacteremia. XR - no evidence of osteomyelitis. -cont amlodipine/lisinopril. hydralazine PRN -ppx: Lovenox Full code Medical - PN: Qual - Stroke Symptom Onset Unknown: No - VTE Deep Vein Thrombosis/Pulmonary Embolism Present on Admission: No
[2019-09-12] MEDS: amLODIPine 5 MG TABLET PO SCH ×2 (09:11→20:16)
[2019-09-12] MEDS: METOPROLOL TARTRATE 25 MG TABLET PO SCH ×2 (09:11→20:15)
[2019-09-12] MEDS: LISINOPRIL 20 MG TABLET PO SCH (09:11)
[2019-09-12] MEDS: FENOFIBRATE 43 MG CAPSULE PO SCH (09:11)
[2019-09-12] MEDS: FLUTICASONE PROPIONATE SPRAY.NAS NS SCH (09:12)
[2019-09-12] MEDS: ATORVASTATIN 40 MG TABLET PO SCH (09:12)
[2019-09-12] MEDS: ENOXAPARIN 40 MG/0.4 ML SYRINGE SQ SCH (09:12)
[2019-09-12] MEDS: OMEPRAZOLE 20 MG CAPSULE PO SCH (09:12)
[2019-09-12] MEDS: DOCUSATE SODIUM 100 MG CAPSULE PO SCH ×2 (09:12→20:15)
--- NOTE | 2019-09-12 12:59 | Infectious Disease Prog Note ---
Subjective Patient information: Note initiated : 09/12/19 at 12:43 pm Service Date, if different from initiated Date: [] Patient: Chaitanya Duvall 44 y/o M admitted on 09/09/19 for prostatits. Chief Complaint: [] Interval history: He is feeling better than yesterday. Mentions that he could not get good sleep last night. Denies any fever, chills, nausea, vomiting, lower belly pain, back pain. Denies any difficulty urinating. Did not had a bowel movement in last 24 hours. Objective Objective Narrative: General appearance: no acute distress Eyes pulmonary: nonicteric ENT: oropharynx moist Auscultation: bilateral: clear Cardiovascular: other (S1-S2 normal), has 2/6 systolic murmur bets heard over rt 2nd ICS Gastrointestinal: normoactive bowel sounds, soft, no tenderness, no rebound tenderness or guarding Integumentary: other (Has multiple scars over the lower extremities, no active skin lesions or rash) - Vital Signs Vital signs: Vital Signs Temp Pulse Resp BP BP Pulse Ox 09/12/19 12:23 147/70 09/12/19 11:31 36.4 C 89 20 153/69 96 09/12/19 09:10 99 H 155/73 09/12/19 07:53 37.2 C 09/12/19 07:43 35.9 C L 16 186/76 95 09/12/19 04:04 36.8 C 91 H 16 158/67 93 09/12/19 00:38 36.9 C 87 16 175/86 94 09/11/19 19:07 36.8 C 94 H 18 161/74 96 09/11/19 17:45 95 H 151/77 95 09/11/19 16:00 37.2 C 92 H 18 170/78 94 09/11/19 13:10 91 H 18 134/89 Intake and Output 09/11/19 09/12/19 09/12/19 21:59 05:59 13:59 Intake Total 2250 1793 960 Output Total 1 Balance 2249 1793 960 Intake: IV 1000 993 Sodium Chloride 0.9% 1,000 ml @ 1000 993 100 mls/hr IV .Q10H [facility] Rx#: [id number] Oral 1250 800 960 Output: Void Amount 1 Other: Meal Dinner Lunch Percent of Meal Consumed 75% 75% Feeding Ability Independent Independent Urine Appearance Clear Urine Color Bright Yellow # Voids 1 1 3 Weight 167.376 kg Intake & Output: Intake & Output 09/11/19 09/12/19 09/12/19 21:59 05:59 13:59 Intake Total 2250 1793 960 Output Total 1 Balance 2249 1793 960 Weight 167.376 kg Intake: IV 1000 993 Sodium Chloride 0.9% 1,000 ml @ 1000 993 100 mls/hr IV .Q10H [facility] Rx#: [id number] Oral 1250 800 960 Output: Void Amount 1 Other: Meal Dinner Lunch Percent of Meal Consumed 75% 75% Feeding Ability Independent Independent Urine Appearance Clear Urine Color Bright Yellow # Voids 1 1 3 - Lab 09/12/19 05:40 09/12/19 05:40 Most recent lab results Calcium 8.7 mg/dl (8.6-10.4) 09/12/19 05:40 Phosphorus 2.7 mg/dL (2.7-4.5) 09/11/19 05:36 Magnesium 1.8 mg/dL (1.6-2.5) 09/10/19 05:12 Microbiology 09/10/19 06:58 Blood Blood Culture - Preliminary Staphylococcus aureus 09/10/19 07:05 Blood Blood Culture - Final Staphylococcus aureus 09/09/19 12:28 Blood Blood Culture - Preliminary Staphylococcus aureus Gram positive cocci 09/11/19 05:36 Blood Blood Culture - Preliminary 09/11/19 05:45 Blood Blood Culture - Preliminary 09/09/19 19:18 Urine - Clean Void Mid-Stream Urine Culture - Final 09/09/19 12:36 Blood Blood Culture - Preliminary Gram positive cocci Medications Active Medications: Acetaminophen (Tylenol) 650 mg PO Q6HP PRN; Protocol PRN Reason: Per Pain Protocol/Fever > 101 Last Admin: 09/11/19 04:30 Dose: 650 mg Documented by: Admin: 09/10/19 16:32 Dose: 650 mg Documented by: Admin: 09/10/19 08:35 Dose: 650 mg Documented by: Admin: 09/10/19 00:38 Dose: 650 mg Documented by: Admin: 09/09/19 17:47 Dose: 650 mg Documented by: HUNTER Albuterol Sulfate (Ventolin) 2 puff INH Q6HP PRN PRN Reason: shortness of breath or wheezing Amlodipine Besylate (Norvasc) 5 mg PO BID Replaced by [facility] Admin: 09/12/19 09:11 Dose: 5 mg Documented by: Admin: 09/11/19 21:21 Dose: 5 mg Documented by: Admin: 09/11/19 09:28 Dose: 5 mg Documented by: Admin: 09/10/19 20:35 Dose: 5 mg Documented by: Admin: 09/10/19 08:34 Dose: 5 mg Documented by: Admin: 09/09/19 20:16 Dose: 5 mg Documented by: ANDREW Atorvastatin Calcium (Lipitor) 40 mg PO QDAY Replaced by [facility] Admin: 09/12/19 09:12 Dose: 40 mg Documented by: Admin: 09/11/19 09:29 Dose: 40 mg Documented by: Admin: 09/10/19 08:34 Dose: 40 mg Documented by: VASILIY Cefazolin Sodium (Ancef) 2 gm IV Q8H Replaced by [facility] Admin: 09/12/19 06:19 Dose: 2 gm Documented by: Admin: 09/11/19 21:23 Dose: 2 gm Documented by: Admin: 09/11/19 14:33 Dose: 2 gm Documented by: Admin: 09/11/19 05:40 Dose: 2 gm Documented by: Admin: 09/10/19 22:19 Dose: 2 gm Documented by: Admin: 09/10/19 16:31 Dose: 2 gm Documented by: Admin: 09/10/19 11:05 Dose: 2 gm Documented by: VASILIY Dextrose (Dextrose 50%) 0 ml IV UD PRN PRN Reason: Hypoglycemia Diagnostic Test (Pha) (Accu-Chek) 1 each FS ACHS Replaced by [facility] Admin: 09/12/19 11:37 Dose: 1 each Documented by: Admin: 09/12/19 07:43 Dose: 1 each Documented by: Admin: 09/11/19 21:23 Dose: 1 each Documented by: Admin: 09/11/19 16:53 Dose: 1 each Documented by: Admin: 09/11/19 12:22 Dose: 1 each Documented by: Admin: 09/11/19 08:25 Dose: 1 each Documented by: Admin: 09/10/19 20:34 Dose: 1 each Documented by: Admin: 09/10/19 16:39 Dose: 1 each Documented by: Admin: 09/10/19 11:11 Dose: 1 each Documented by: Admin: 09/10/19 07:35 Dose: 1 each Documented by: Admin: 09/09/19 20:16 Dose: 1 each Documented by: Admin: 09/09/19 16:38 Dose: 1 each Documented by: HUNTER Docusate Sodium (Colace) 100 mg PO BID Replaced by [facility] Admin: 09/12/19 09:12 Dose: 100 mg Documented by: Admin: 09/11/19 21:19 Dose: 100 mg Documented by: Admin: 09/11/19 09:29 Dose: 100 mg Documented by: Admin: 09/10/19 20:35 Dose: 100 mg Documented by: Admin: 09/10/19 08:34 Dose: 100 mg Documented by: Admin: 09/09/19 20:17 Dose: Not Given Documented by: ANDREW Non-Admin Reason: Patient Refused Enoxaparin Sodium (Lovenox) 40 mg SQ DAILY Replaced by [facility] Admin: 09/12/19 09:12 Dose: 40 mg Documented by: Admin: 09/11/19 09:30 Dose: 40 mg Documented by: Admin: 09/10/19 08:31 Dose: 40 mg Documented by: VASILIY Fenofibrate (Antara) 129 mg PO DAILY [facility] Last Admin: 09/12/19 09:11 Dose: 129 mg Documented by: Admin: 09/11/19 09:28 Dose: 129 mg Documented by: Admin: 09/10/19 08:31 Dose: 129 mg Documented by: VASILIY Fluticasone Propionate (Flonase) 2 spray NS QDAY Replaced by [facility] Admin: 09/12/19 09:12 Dose: 2 spray Documented by: Admin: 09/11/19 09:29 Dose: 2 spray Documented by: Admin: 09/10/19 12:15 Dose: 2 spray Documented by: VASILIY Glucose (Insta-Glucose) 15 gm PO PRN PRN PRN Reason: Hypoglycemia Hydralazine HCl (Apresoline) 0 mg IV Q2HP PRN PRN Reason: Hypertension Last Admin: 09/12/19 11:37 Dose: 10 mg Documented by: JOE Comments: Bp 153/69 Insulin Human Lispro (Humalog) 0 unit SQ [facility]; Protocol Last Admin: 09/12/19 11:37 Dose: 3 units Documented by: Admin: 09/12/19 07:44 Dose: 2 units Documented by: Admin: 09/11/19 21:42 Dose: 4 units Documented by: Admin: 09/11/19 16:54 Dose: 3 units Documented by: Admin: 09/11/19 12:23 Dose: 3 units Documented by: Admin: 09/11/19 08:26 Dose: 2 units Documented by: Admin: 09/10/19 20:35 Dose: 3 units Documented by: Admin: 09/10/19 17:21 Dose: 2 units Documented by: Admin: 09/10/19 12:16 Dose: 4 units Documented by: Admin: 09/10/19 08:30 Dose: 2 units Documented by: Admin: 09/09/19 20:16 Dose: 3 units Documented by: Admin: 09/09/19 16:37 Dose: 3 units Documented by: HUNTER Lisinopril (Zestril) 40 mg PO QDAY [facility] Last Admin: 09/12/19 09:11 Dose: 40 mg Documented by: Admin: 09/11/19 09:28 Dose: 40 mg Documented by: Admin: 09/10/19 08:32 Dose: 40 mg Documented by: VASILIY Metoprolol Tartrate (Lopressor) 12.5 mg PO BID [facility] Last Admin: 09/12/19 09:11 Dose: 12.5 mg Documented by: Admin: 09/11/19 21:19 Dose: 12.5 mg Documented by: Admin: 09/11/19 09:29 Dose: 12.5 mg Documented by: Admin: 09/10/19 20:35 Dose: 12.5 mg Documented by: Admin: 09/10/19 08:34 Dose: 12.5 mg Documented by: VASILIY Morphine Sulfate (Morphine) 2 mg IV Q4HP PRN; Protocol PRN Reason: Per Pain Protocol Last Admin: 09/11/19 00:29 Dose: 2 mg Documented by: Admin: 09/10/19 05:03 Dose: 2 mg Documented by: ANDREW Omeprazole (Prilosec) 20 mg PO QDAY [facility] Last Admin: 09/12/19 09:12 Dose: 20 mg Documented by: Admin: 09/11/19 09:28 Dose: 20 mg Documented by: Admin: 09/10/19 08:33 Dose: 20 mg Documented by: VASILIY Ondansetron HCl (Zofran) 4 mg IV Q6HP PRN PRN Reason: Nausea And Vomiting Oxycodone HCl (Roxicodone) 5 mg PO Q6HP PRN; Protocol PRN Reason: Per Pain Protocol Last Admin: 09/12/19 02:57 Dose: 5 mg Documented by: Admin: 09/11/19 16:54 Dose: 5 mg Documented by: Admin: 09/11/19 14:33 Dose: 5 mg Documented by: Admin: 09/11/19 08:26 Dose: 5 mg Documented by: Admin: 09/11/19 04:30 Dose: 5 mg Documented by: Admin: 09/10/19 16:32 Dose: 5 mg Documented by: Admin: 09/10/19 08:40 Dose: 5 mg Documented by: Admin: 09/09/19 22:24 Dose: 5 mg Documented by: KRISTINA Insulin Degludec [ Tresiba Flextouch U- 200] Pen 113 dose SUB-Q QHS [facility] Last Admin: 09/11/19 21:41 Dose: 113 dose Documented by: Admin: 09/10/19 20:36 Dose: 113 dose Documented by: ANDREW Phenazopyridine HCl (Pyridium) 200 mg PO TIDP PRN PRN Reason: PAINFUL URINATION Last Admin: 09/11/19 01:24 Dose: 200 mg Documented by: Admin: 09/10/19 16:31 Dose: 200 mg Documented by: Admin: 09/10/19 09:35 Dose: 200 mg Documented by: VASILIY Comments: bar code was damaged Polyethylene Glycol (Miralax) 17 gm PO [facility] Last Admin: 09/11/19 21:21 Dose: Not Given Documented by: CLARIBEL Non-Admin Reason: Patient Refused Admin: 09/10/19 20:36 Dose: Not Given Documented by: ANDREW Non-Admin Reason: Clinical Judgement Admin: 09/09/19 20:17 Dose: Not Given Documented by: ANDREW Non-Admin Reason: Patient Request Sodium Chloride (Saline Flush) 10 ml IV Q8 [facility] Last Admin: 09/12/19 06:20 Dose: Not Given Documented by: CLARIBEL Non-Admin Reason: Continuous IV Admin: 09/11/19 21:43 Dose: Not Given Documented by: CLARIBEL Non-Admin Reason: Continuous IV Admin: 09/11/19 14:33 Dose: Not Given Documented by: JOE Non-Admin Reason: Continuous IV Admin: 09/11/19 05:41 Dose: Not Given Documented by: ANDREW Non-Admin Reason: Continuous IV Admin: 09/10/19 22:19 Dose: 10 ml Documented by: Admin: 09/10/19 13:51 Dose: Not Given Documented by: VASILIY Non-Admin Reason: Continuous IV Admin: 09/10/19 05:04 Dose: 10 ml Documented by: Admin: 09/09/19 21:30 Dose: Not Given Documented by: ANDREW Non-Admin Reason: Continuous IV Tamsulosin HCl (Flomax) 0.4 mg PO [facility] Last Admin: 09/11/19 21:19 Dose: 0.4 mg Documented by: CLARIBEL Assessment and Plan - Narrative A/P Narrative: Assessment: 1. MSSA bacteremia: Blood cultures positive from September 08 [2 out of 2 sets] and [2 out of 2 sets] -Likely source: Prostate infection with multiple abscesses, skin colonization, dry skin and scaling over both feet especially around the healed right great toe stump with callus. - blood Cx from 09/10 so far NGTD - pt has a rt 2nd ICS systolic murmur 2. Acute prostatitis with multiple small abscesses: Given multiple number, relatively small size ---> difficult to aspirate per urology, radiology -I am thinking that staph aureus is the likely cause. Extensive gram-negative coverage with oral ciprofloxacin might not be needed. Cefazolin has some gram negative coverage and based on [facility] antibiogram has better coverage than Cipro for E coli and Proteus, and comparable coverage for klebsiella. Cipro resistance rates (per 2020 [facility] Antibiogram) for enteric pathogens implicated in acute prostatitis: E coli --- 15% Proteus --32% Cefazolin resistance rates (per 2020 [facility] Antibiogram) for enteric pathogens implicated in acute prostatitis: E coli ---- 8% Proteus --- 24% Putting patient on both Cipro and cefazolin will increase risk for Cdiff infection (an JOSUE) - Repeat CT 09/10 showed: "Multiple prostate fluid collections compatible with multifocal prostatic abscess. The largest is 6 x 3.5 cm inferior right peripheral zone extending to the posterior periurethral soft tissues. All of the abscesses are slightly smaller than the comparison CT three days prior. Consider: Urology consult in consideration of transurethral drainage". 3. Low back pain: - CT L spine neg for any foci of infection 4. DM2: A1C 11.6 - on insulin Recommendations: Continue IV cefazolin 2 g every 8 hours Blood cultures every other day until negative for 48 hours will plan for a PICC line placement once blood cultures negative for 48 hours Await TTE results Repeat pelvic CT on September 17. If abscesses still remains or are bigger or patient continues to have multiple blood cultures positive for staph aureus; will recommend surgical drainage. For now Urology wants to wait for surgical drainage - FSBS target <200 mg% will follow Brandon Ortiz MD Infectious disease
[2019-09-12] MEDS ORDERED: POLYETHYLENE GLYCOL 3350 17 GM PACKET PO PRN (14:59)
[2019-09-12] MEDS ORDERED: SENNOSIDES/DOCUSATE SODIUM 1 TAB TABLET PO PRN (15:01)
[2019-09-12] MEDS ORDERED: FUROSEMIDE 40 MG/4 ML VIAL IV ONE (18:05)
[2019-09-12] MEDS ORDERED: ALBUMIN HUMAN 12.5 GM/50 ML BAG IV ONE (18:05)
[2019-09-12] MEDS: LABETALOL 5 MG/ML ML IV PRN (18:39)
[2019-09-12] MEDS: TAMSULOSIN 0.4 MG CAPSULE PO SCH (20:15)
[2019-09-12] MEDS: INSULIN DEGLUDEC SUB-Q SCH (20:18)
[2019-09-12] MEDS ORDERED: DEXTROSE 50% 50 ML VIAL IV PRN (20:28)
[2019-09-12] MEDS ORDERED: DEXTROSE 31 GM ORAL.SUSP PO PRN (20:28)
[2019-09-12] MEDS ORDERED: INSULIN GLARGINE, HUMAN 1 UNIT/0.01 ML SQ ONE (20:33)
--- NOTE | 2019-09-12 20:36 | Discharge Summary ---
Medical - DS: Prov Patient information: Note initiated : 09/12/19 at 8:33 pm Service Date, if different from initiated Date: [] Patient: Chaitanya Duvall 44 y/o M admitted on 09/09/19 for prostatits. Chief Complaint: [] Date of admission: 09/09/19 15:31 Discharge date: 09/16/19 Primary care physician: Narcisa Rodriguez PA-C Consults: 09/09/19 Consult to Physician [CONS] Stat Comment: Consulting Provider: Masood Colon Reason For Exam: Physician to Consult Consult to Physician [CONS] Stat Comment: Consulting Provider: Dario Arriaza Reason For Exam: Physician to Consult 09/10/19 08:20 Consult to Physician [CONS] Routine Comment: Consulting Provider: Brandon Ortiz Reason For Exam: Physician to Consult 09/10/19 08:38 Consult to Physician [CONS] Routine Comment: Consulting Provider: Kwadwo Alvarado Reason For Exam: Physician to Consult Medical - DS: Meds - Discharge Medications Prescriptions: Insulin Degludec [Tresiba Flextouch U-200] 118 unit SUBCUT QHS 90 Days #49.5 ml ceFAZolin [Ancef] 2 gm IV Q8H #1 vial Active and Home Medications: Home Medications fenofibrate 160 mg tablet 160 mg PO QDAY 12/03/18 [History Confirmed 09/09/19 Last Taken Unknown] lisinopril 40 mg tablet 40 mg PO QDAY 12/03/18 [History Confirmed 09/09/19 Last Taken Unknown] metformin 1,000 mg tablet 1,000 mg PO BID 12/03/18 [History Confirmed 09/09/19 Last Taken Unknown] amlodipine 5 mg tablet 5 mg PO BID 06/01/19 [History Confirmed 09/09/19 Last Taken Unknown] sildenafil (pulm.hypertension) 20 mg tablet 20 mg PO .COMPLEX 06/01/19 [History Confirmed 09/09/19 Last Taken Unknown] insulin lispro 100 unit/mL subcutaneous pen See Rx Instructions .ROUTE .COMPLEX ml 06/05/19 [History Confirmed 09/09/19 Last Taken Unknown] atorvastatin 40 mg tablet 40 mg PO QDAY #90 tab 06/06/19 [Rx Confirmed 09/09/19 Last Taken Unknown] blood sugar diagnostic See Rx Instructions .ROUTE .MEDSUPPLY #100 each 06/06/19 [Rx Confirmed 09/09/19 Last Taken Unknown] blood-glucose meter See Rx Instructions .ROUTE .MEDSUPPLY #1 each 06/06/19 [Rx Confirmed 09/09/19 Last Taken Unknown] lancets See Rx Instructions .ROUTE .MEDSUPPLY #200 each 06/06/19 [Rx Confirmed 09/09/19 Last Taken Unknown] albuterol sulfate 90 mcg/actuation aerosol inhaler 2 puff INHALATION Q6H PRN #18 g 07/07/19 [Rx Confirmed 09/09/19 Last Taken Unknown] fluticasone propionate 50 mcg/actuation nasal spray,suspension 2 spray INTRANASAL QDAY #36.4 ml 07/07/19 [Rx Confirmed 09/09/19 Last Taken Unknown] insulin degludec 200 unit/mL (3 mL) subcutaneous pen 110 unit SUB-Q QHS 90 Days #49.5 ml 07/07/19 [Rx Confirmed 09/09/19 Last Taken Unknown] loratadine 10 mg tablet 10 mg PO QDAY PRN #90 tab 07/07/19 [Rx Confirmed 09/09/19 Last Taken Unknown] blood-gluc transmitter-sensor See Rx Instructions .ROUTE .MEDSUPPLY #2 each 07/10/19 [Rx Confirmed 09/09/19 Last Taken Unknown] omeprazole 20 mg capsule,delayed release 20 mg PO QDAY #90 cap 07/18/19 [Rx Confirmed 09/09/19 Last Taken Unknown] polyethylene glycol 3350 17 gram/dose oral powder 17 g PO .COMPLEX #238 g 09/01/19 [Rx Confirmed 09/09/19 Last Taken Unknown] ciprofloxacin HCl 500 mg tablet 500 mg PO BID 7 Days #14 tab 09/08/19 [Rx Confirmed 09/09/19 Last Taken Unknown] metronidazole 500 mg tablet 500 mg PO TID 7 Days #21 tab 09/08/19 [Rx Confirmed 09/09/19 Last Taken Unknown] Home Medications fenofibrate 160 mg tablet 160 mg PO QDAY 12/03/18 [History Confirmed 09/09/19 Last Taken Unknown] lisinopril 40 mg tablet 40 mg PO QDAY 12/03/18 [History Confirmed 09/09/19 Last Taken Unknown] metformin 1,000 mg tablet 1,000 mg PO BID 12/03/18 [History Confirmed 09/09/19 Last Taken Unknown] amlodipine 5 mg tablet 5 mg PO BID 06/01/19 [History Confirmed 09/09/19 Last Taken Unknown] sildenafil (pulm.hypertension) 20 mg tablet 20 mg PO .COMPLEX 06/01/19 [History Confirmed 09/09/19 Last Taken Unknown] insulin lispro 100 unit/mL subcutaneous pen See Rx Instructions .ROUTE .COMPLEX ml 06/05/19 [History Confirmed 09/09/19 Last Taken Unknown] atorvastatin 40 mg tablet 40 mg PO QDAY #90 tab 06/06/19 [Rx Confirmed 09/09/19 Last Taken Unknown] blood sugar diagnostic See Rx Instructions .ROUTE .MEDSUPPLY #100 each 06/06/19 [Rx Confirmed 09/09/19 Last Taken Unknown] blood-glucose meter See Rx Instructions .ROUTE .MEDSUPPLY #1 each 06/06/19 [Rx Confirmed 09/09/19 Last Taken Unknown] lancets See Rx Instructions .ROUTE .MEDSUPPLY #200 each 06/06/19 [Rx Confirmed 09/09/19 Last Taken Unknown] albuterol sulfate 90 mcg/actuation aerosol inhaler 2 puff INHALATION Q6H PRN #18 g 07/07/19 [Rx Confirmed 09/09/19 Last Taken Unknown] fluticasone propionate 50 mcg/actuation nasal spray,suspension 2 spray INTRANASAL QDAY #36.4 ml 07/07/19 [Rx Confirmed 09/09/19 Last Taken Unknown] loratadine 10 mg tablet 10 mg PO QDAY PRN #90 tab 07/07/19 [Rx Confirmed 09/09/19 Last Taken Unknown] blood-gluc transmitter-sensor See Rx Instructions .ROUTE .MEDSUPPLY #2 each 07/10/19 [Rx Confirmed 09/09/19 Last Taken Unknown] omeprazole 20 mg capsule,delayed release 20 mg PO QDAY #90 cap 07/18/19 [Rx Confirmed 09/09/19 Last Taken Unknown] polyethylene glycol 3350 17 gram/dose oral powder 17 g PO .COMPLEX #238 g 09/01/19 [Rx Confirmed 09/09/19 Last Taken Unknown] Insulin Degludec [Tresiba Flextouch U-200] 118 unit SUBCUT QHS 90 Days #49.5 ml 09/12/19 [Rx Last Taken Unknown] ceFAZolin [Ancef] 2 gm IV Q8H #1 vial 09/13/19 [Rx Last Taken Unknown] Medical - DS: Hosp Hospital Course: Mr. Duvall is a 44 year old M with a past medical history of diabetes type 2 and a right foot ulcer who was referred to the ER by urologist Dr. Arriaza due to prostatitis. As per patient, patient has been having lower abdomen and perirectal pain for past 10 days. The pain is a constant, burning in nature and a 10 out of 10 in severity associated with fever, chills, nausea, and mild headache. He also has having cloudy urine for 3 days. Otherwise he denies dizziness, chest pain, shortness of breath, neck pain, hematuria, diarrhea, hematochezia, or melena. CT abdomen yesterday showed prostatitis and prostatic abscess. In the ER, urologist Dr. Arriaza was consulted, who suggested Cipro and Rocephin. 1 L normal saline was given. When I saw this patient in the ER, other than the symptoms mentioned above, he was fine. Denies recent travel or sick contact. He has never had a similar problem in the past. 09/09 Pt still has fever/chills. He had tachycardia and tachypnea yesterday, which improved today. Blood culture showed MSSA. Discussed with ID Dr. Ortiz, rocephin was discontinued. Cefazolin was started. continue cipro for 1-[address] Ortiz would have the abscess drained and sent for culture. Discussed with IR Dr. Hinojosa, who felt urologist would be the best person to help the pt. Discussed with urology Dr. Arriaza, who felt the "abscess" does not look like a true fluid collection on image. Dr. Arriaza would like to continue abx and no procedure at this moment. Pt has a right foot ulcer, which may cause the GPC bacteremia. orth Dr. Alvarado was consulted, who does not feel the wound would be the source, but he suggest XR to r/o osteomyelitis. 09/10 Patient does not have any new complaints. Complains of chills. Afebrile, no longer has tachycardia Repeat blood culture positive from 1 of the 2 bottles. Repeat blood culture again. Discussed with ID Dr. Ortiz, who suggested rectal US and continue current abx. 09/11 Poor sleep because of discomfort. Occasional headache but otherwise no new complaints. Leukocytosis improving 09/12 No new complaints. Slept well. States he has had a bowel movement few days but does not particularly feel uncomfortable as far as constipation is concerned. 6/ No events overnight. No new complaints. Awaiting surgical drainage of abscess. Had a small soft BM yesterday. Pressure has been elevated anywhere between the 130s to 160s. He says his blood pressure typically runs 130-160 at home with an average in the 140s 6/5 Slept relatively well last night. Had I&D yesterday. No new complaints. Blood cultures obtained yesterday afternoon. Per ID will wait [address] PICC line and then DC Negatives afternoon PICC line ordered. A: *Prostatitis w/abscess: *Bacteremia (MSSA): -Lumbar and pelvis CT unremarkable for osteo -echo no vegetations *DMII, uncontrolled: 11.6 *Right foot ulceration, Diabetic. *HTN: *Obesity Discharge diagnosis: Prostatitis with abscess bacteremia MSSA Sirs Secondary discharge diagnosis: Uncontrolled diabetes right foot ulceration hypertension obesity - Time Spent with Patient Total time spent providing and/or coordinating discharge services: Greater than 30 minutes Medical - DS: Exam - Constitutional Vitals: Vital Signs Temp Pulse Resp BP BP Pulse Ox 09/12/19 18:49 87 148/78 94 09/12/19 18:32 180/82 09/12/19 17:54 170/81 09/12/19 16:00 98.2 F 90 20 153/78 95 09/12/19 12:23 147/70 09/12/19 11:31 97.5 F 89 20 153/69 96 09/12/19 09:10 99 H 155/73 09/12/19 07:53 98.9 F 09/12/19 07:43 96.6 F L 16 186/76 95 09/12/19 04:04 98.2 F 91 H 16 158/67 93 09/12/19 00:38 98.4 F 87 16 175/86 94 Intake and Output 09/12/19 09/12/19 09/12/19 05:59 13:59 21:59 Intake Total 9948 360 2324 Balance 7863 163 8100 Intake: IV 993 1050 Sodium Chloride 0.9% 1,000 ml @ 993 1000 100 mls/hr IV .Q10H [facility] Rx#: [id number] Oral [phone] Other: Meal Lunch Percent of Meal Consumed 75% Feeding Ability Independent Urine Color Bright Yellow # Voids 1 3 1 Medical - DS: Data Labs on day of discharge: Labs from last 24 hours 09/12/19 09/12/19 09/12/19 05:40 05:40 05:40 WBC 14.0 H RBC 4.16 L Hgb 11.0 L Hct 33.8 L MCV 81.3 MCH 26.4 MCHC 32.5 RDW 13.2 Plt Count 488 H MPV 10.5 H Gran % 79.6 H Lymph % (Auto) 11.7 L [place] % (Auto) 7.9 Eos % (Auto) 0.4 Baso % (Auto) 0.4 Gran # 11.11 H Lymph # (Auto) 1.64 [place] # (Auto) 1.10 H Eos # (Auto) 0.05 Baso # (Auto) 0.06 Sodium 138 Potassium 3.4 Chloride 101 Carbon Dioxide 21 L Anion Gap 16.0 BUN 11 Creatinine 0.6 L GFR Calculation 122 Glucose 192 H Calcium 8.7 Total Bilirubin 0.2 AST 18 ALT 18 Alkaline Phosphatase 132 H C-Reactive Protein 8.3 H Total Protein 6.5 Albumin 2.6 L Globulin 3.9 H Albumin/Globulin Ratio 0.7 L Preliminary micro results at discharge 09/09/19 12:28 Blood Culture - Preliminary Blood Staphylococcus aureus Gram positive cocci 09/10/19 06:58 Blood Culture - Preliminary Blood Staphylococcus aureus 09/11/19 05:36 Blood Culture - Preliminary Blood 09/11/19 05:45 Blood Culture - Preliminary Blood 09/09/19 12:36 Blood Culture - Preliminary Blood Gram positive cocci Medical - DS: A/P - Patient/Caregiver Discharge Instructions Activity: increase activity as tolerated Diet: Consistent Carbohydrate Additional Instructions: f/u with wound care for foot 5-10 days f/u labs while on IV Abx per Dr. Ortiz, weekly cbc/cmp/esr/crp PICC line care and d/c when Abx finish Prescriptions: Insulin Degludec [Tresiba Flextouch U-200] 118 unit SUBCUT QHS 90 Days #49.5 ml ceFAZolin [Ancef] 2 gm IV Q8H #1 vial - Follow up Plan Follow up with: Brandon Ortiz MD [Physician] - 10/09/19 8:00 am Narcisa Rodriguez PA-C [Primary Care Provider] - Dario Arriaza MD [Physician] - Disposition: Home, Self-Care Prognosis: Fair Rehab Potential: Fair Overall status at discharge: patient is progressing back to baseline Medical - DS: Qual - VTE Deep Vein Thrombosis/Pulmonary Embolism Present on Admission: No
[2019-09-13] MEDS: LABETALOL 5 MG/ML ML IV PRN ×3 (04:11→23:17)
[2019-09-13] MEDS: 0.9 % SODIUM CHLORIDE 10 ML SYRINGE IV SCH ×3 (06:34→21:40)
[2019-09-13] MEDS: ceFAZolin 1 GM VIAL IV SCH ×3 (06:34→21:30)
[2019-09-13 07:41] LABS: Basophils # (Auto) 0.05 K/mcL (0.00-0.30); Basophils % (Auto) 0.3 % (0.0-2.0); Eosinophils # (Auto) 0.09 K/mcL (0.00-0.70); Eosinophils % (Auto) 0.6 % (0.0-7.0); Granulocytes % (Auto) 77.7 % (38.0-78.0); Hematocrit 33.4 % (40.1-51.0); Hemoglobin 10.8 g/dL (13.7-17.5); Lymphocytes # (Auto) 1.89 K/mcL (1.50-4.80); Lymphocytes % (Auto) 12.9 % (15.5-49.0); Mean Cell Volume 82.9 fL (80.0-100.0); Mean Corpuscular HGB Conc 32.3 g/dL (31.0-36.0); Mean Platelet Volume 11.2 fL (7.4-10.4); Monocytes # (Auto) 1.25 K/mcL (0.10-0.90); Monocytes % (Auto) 8.5 % (1.0-12.0); Platelet Count 439 K/mcL (140-440); RBC 4.03 M/mcL (4.63-6.08); Red Cell Distribution Width 13.5 % (11.5-14.5); WBC 14.6 K/mcL (4.50-11.00)
[2019-09-13] MEDS: INSULIN LISPRO 1 UNIT/0.01 ML UNIT SQ SCH ×4 (07:56→21:39)
[2019-09-13 08:01] LABS: ALT/SGPT 22 U/l (0-40); AST/SGOT 29 U/l (0-37); Albumin 2.8 gm/dL (3.2-5.2); Albumin/Globulin Ratio 0.7 (1.0-2.3); Alkaline Phosphatase 128 U/L (39-117); Bilirubin,Direct < 0.2 mg/dL (0.0-0.3); Bilirubin,Total 0.3 mg/dL (0.0-1.0); Blood Urea Nitrogen 8 mg/dl (6-20); Calcium 9.1 mg/dl (8.6-10.4); Carbon Dioxide 23 mmol/L (22-30); Chloride 101 mmol/L (96-108); Globulin 4.1 gm/dL (2.2-3.7); Glomerular Filtration Rate 122; Glucose 153 mg/dL (70-105); Lactate Dehydrogenase 209 U/L (94-250); Phosphorous 3.3 mg/dL (2.7-4.5); Triglycerides 125 mg/dl (<150); Uric Acid 4.6 mg/dL (2.5-8.0)
[2019-09-13] MEDS ORDERED: POTASSIUM CHLORIDE 20 MEQ TABLET PO ONE (08:36)
[2019-09-13] MEDS: oxyCODONE HCL 5 MG TABLET PO PRN ×3 (09:22→23:17)
[2019-09-13] MEDS: FLUTICASONE PROPIONATE SPRAY.NAS NS SCH (09:22)
[2019-09-13] MEDS: METOPROLOL TARTRATE 25 MG TABLET PO SCH ×2 (09:22→21:28)
[2019-09-13] MEDS: amLODIPine 5 MG TABLET PO SCH ×2 (09:23→21:28)
[2019-09-13] MEDS: OMEPRAZOLE 20 MG CAPSULE PO SCH (09:23)
[2019-09-13] MEDS: ATORVASTATIN 40 MG TABLET PO SCH (09:23)
[2019-09-13] MEDS: FENOFIBRATE 43 MG CAPSULE PO SCH (09:23)
[2019-09-13] MEDS: LISINOPRIL 20 MG TABLET PO SCH (09:23)
[2019-09-13] MEDS: DOCUSATE SODIUM 100 MG CAPSULE PO SCH ×2 (09:23→21:27)
[2019-09-13] MEDS: ENOXAPARIN 40 MG/0.4 ML SYRINGE SQ SCH (09:24)
--- NOTE | 2019-09-13 09:44 | Internal Med Progress Note ---
Medical - PN: Subj Patient information: Note initiated : 09/13/19 at 9:42 am Service Date, if different from initiated Date: [] Patient: Chaitanya Duvall a 44 y/o M admitted on 09/09/19 for prostatits. Chief Complaint: [] Interval history: Mr. Duvall is a 44 year old M with a past medical history of diabetes type 2 and a right foot ulcer who was referred to the ER by urologist Dr. Arriaza due to prostatitis. As per patient, patient has been having lower abdomen and perirectal pain for past 10 days. The pain is a constant, burning in nature and a 10 out of 10 in severity associated with fever, chills, nausea, and mild headache. He also has having cloudy urine for 3 days. Otherwise he denies dizziness, chest pain, shortness of breath, neck pain, hematuria, diarrhea, hematochezia, or melena. CT abdomen yesterday showed prostatitis and prostatic abscess. In the ER, urologist Dr. Arriaza was consulted, who suggested Cipro and Rocephin. 1 L normal saline was given. When I saw this patient in the ER, other than the symptoms mentioned above, he was fine. Denies recent travel or sick contact. He has never had a similar problem in the past. 09/09 Pt still has fever/chills. He had tachycardia and tachypnea yesterday, which improved today. Blood culture showed MSSA. Discussed with ID Dr. Ortiz, rocephin was discontinued. Cefazolin was started. continue cipro for 1-[address] Ortiz would have the abscess drained and sent for culture. Discussed with IR Dr. Hinojosa, who felt urologist would be the best person to help the pt. Discussed with urology Dr. Arriaza, who felt the "abscess" does not look like a true fluid collection on image. Dr. Arriaza would like to continue abx and no procedure at this moment. Pt has a right foot ulcer, which may cause the GPC bacteremia. orth Dr. Alvarado was consulted, who does not feel the wound would be the source, but he suggest XR to r/o osteomyelitis. 09/10 Patient does not have any new complaints. Complains of chills. Afebrile, no longer has tachycardia Repeat blood culture positive from 1 of the 2 bottles. Repeat blood culture again. Discussed with ID Dr. Ortiz, who suggested rectal US and continue current abx. 09/11 Poor sleep because of discomfort. Occasional headache but otherwise no new complaints. Leukocytosis improving 09/12 No new complaints. Slept well. States he has had a bowel movement few days but does not particularly feel uncomfortable as far as constipation is concerned. Review of Systems: denies headache/fever/chills/nausea/vomiting/chest or abdominal pain/cough/dyspnea/diarrhea. Otherwise see above. - Constitutional Vitals: Vital Signs Temp Pulse Resp BP Pulse Ox 99.1 F H 87 18 137/65 95 09/13/19 08:00 09/13/19 08:00 09/13/19 08:00 09/13/19 08:00 09/13/19 08:00 Period Temp Pulse Resp BP Sys/Foley Pulse Ox Last 24 Hr 97.5 F-99.1 F 85-90 18-20 137-180/65-84 94-96 Intake and Output 09/12/19 09/13/19 09/13/19 21:59 05:59 13:59 Intake Total 2450 800 480 Balance 2450 800 480 Weight 167.829 kg Intake & Output: Intake & Output 09/12/19 09/13/19 09/13/19 21:59 05:59 13:59 Intake Total 2450 800 480 Balance 2450 800 480 Weight 167.829 kg Intake: IV 1050 Sodium Chloride 0.9% 1,000 ml @ 1000 100 mls/hr IV .Q10H [facility] Rx#: [id number] Oral 1400 800 480 Other: Meal Breakfast Percent of Meal Consumed 100% Feeding Ability Independent Urine Color Bright Yellow # Voids 1 4 1 Exam: General: Alert, Awake, No acute Distress, obese Eyes/N/T: EOMI, Head/Neck: neck supple, CV: RRR, 1/6 SM, Pulm: Clear b/l, no wheezing/rhonchi/rales Abd: soft, nontender, +BS x4 Ext: no clubbing/cyanosis/edema Neuro: Alert, no focal deficits, moves all extremities, Right great toe and 5th toe were amputated. Skin: warm/dry Medical - PN: Obj Da - Labs CBC & Chem 7: 09/13/19 05:44 09/13/19 05:44 Labs: Abnormal Lab Results 09/13/19 09/13/19 09/13/19 05:44 05:44 05:44 WBC 14.6 H RBC 4.03 L Hgb 10.8 L Hct 33.4 L Plt Count MPV 11.2 H Gran % Lymph % (Auto) 12.9 L Gran # 11.36 H Lymph # (Auto) [place] # (Auto) 1.25 H Sodium Potassium 3.2 L Carbon Dioxide Creatinine 0.6 L Glucose 153 H Alkaline Phosphatase 128 H C-Reactive Protein 6.6 H Albumin 2.8 L Globulin 4.1 H Albumin/Globulin Ratio 0.7 L 09/12/19 09/12/19 09/12/19 05:40 05:40 05:40 WBC 14.0 H RBC 4.16 L Hgb 11.0 L Hct 33.8 L Plt Count 488 H MPV 10.5 H Gran % 79.6 H Lymph % (Auto) 11.7 L Gran # 11.11 H Lymph # (Auto) [place] # (Auto) 1.10 H Sodium Potassium Carbon Dioxide 21 L Creatinine 0.6 L Glucose 192 H Alkaline Phosphatase 132 H C-Reactive Protein 8.3 H Albumin 2.6 L Globulin 3.9 H Albumin/Globulin Ratio 0.7 L 09/11/19 09/11/19 05:36 05:36 WBC 14.6 H RBC 4.09 L Hgb 10.8 L Hct 33.8 L Plt Count 445 H MPV 10.9 H Gran % 83.8 H Lymph % (Auto) 8.2 L Gran # 12.18 H Lymph # (Auto) 1.20 L [place] # (Auto) 1.05 H Sodium 131 L Potassium Carbon Dioxide 19 L Creatinine Glucose 194 H Alkaline Phosphatase 158 H C-Reactive Protein Albumin 2.6 L Globulin 4.1 H Albumin/Globulin Ratio 0.6 L Meds: Medications Acetaminophen (Tylenol) 650 mg PO Q6HP PRN; Protocol PRN Reason: Per Pain Protocol/Fever > 101 Last Admin: 09/11/19 04:30 Dose: 650 mg Documented by: Albuterol Sulfate (Ventolin) 2 puff INH Q6HP PRN PRN Reason: shortness of breath or wheezing Amlodipine Besylate (Norvasc) 5 mg PO BID [facility] Last Admin: 09/13/19 09:23 Dose: 5 mg Documented by: Atorvastatin Calcium (Lipitor) 40 mg PO QDAY [facility] Last Admin: 09/13/19 09:23 Dose: 40 mg Documented by: Cefazolin Sodium (Ancef) 2 gm IV Q8H [facility] Last Admin: 09/13/19 06:34 Dose: 2 gm Documented by: Dextrose (Dextrose 50%) 0 ml IV UD PRN PRN Reason: Hypoglycemia Diagnostic Test (Pha) (Accu-Chek) 1 each FS [facility] Last Admin: 09/13/19 07:55 Dose: 1 each Documented by: Docusate Sodium (Colace) 100 mg PO BID [facility] Last Admin: 09/13/19 09:23 Dose: 100 mg Documented by: Enoxaparin Sodium (Lovenox) 40 mg SQ DAILY [facility] Last Admin: 09/13/19 09:24 Dose: 40 mg Documented by: Fenofibrate (Antara) 129 mg PO DAILY [facility] Last Admin: 09/13/19 09:23 Dose: 129 mg Documented by: Fluticasone Propionate (Flonase) 2 spray NS QDAY [facility] Last Admin: 09/13/19 09:22 Dose: 2 spray Documented by: Glucose (Insta-Glucose) 15 gm PO PRN PRN PRN Reason: Hypoglycemia Hydralazine HCl (Apresoline) 0 mg IV Q2HP PRN PRN Reason: Hypertension Last Admin: 09/12/19 20:19 Dose: 10 mg Documented by: Insulin Human Lispro (Humalog) 0 unit SQ [facility]; Protocol Last Admin: 09/13/19 07:56 Dose: 3 units Documented by: Labetalol HCl (Trandate) 0 mg IV Q2HP PRN PRN Reason: Hypertension Last Admin: 09/13/19 04:11 Dose: 10 mg Documented by: Lisinopril (Zestril) 40 mg PO QDAY [facility] Last Admin: 09/13/19 09:23 Dose: 40 mg Documented by: Metoprolol Tartrate (Lopressor) 12.5 mg PO BID [facility] Last Admin: 09/13/19 09:22 Dose: 12.5 mg Documented by: Morphine Sulfate (Morphine) 2 mg IV Q4HP PRN; Protocol PRN Reason: Per Pain Protocol Last Admin: 09/11/19 00:29 Dose: 2 mg Documented by: Omeprazole (Prilosec) 20 mg PO QDAY [facility] Last Admin: 09/13/19 09:23 Dose: 20 mg Documented by: Ondansetron HCl (Zofran) 4 mg IV Q6HP PRN PRN Reason: Nausea And Vomiting Oxycodone HCl (Roxicodone) 5 mg PO Q6HP PRN; Protocol PRN Reason: Per Pain Protocol Last Admin: 09/13/19 09:22 Dose: 5 mg Documented by: Insulin Degludec [ Tresiba Flextouch U- 200] 118 dose SUB-Q QHS [facility] Phenazopyridine HCl (Pyridium) 200 mg PO TIDP PRN PRN Reason: PAINFUL URINATION Last Admin: 09/11/19 01:24 Dose: 200 mg Documented by: Polyethylene Glycol (Miralax) 17 gm PO DAILYP PRN PRN Reason: Constipation Last Admin: 09/13/19 04:02 Dose: 17 gm Documented by: Senna/Docusate Sodium (Senna Plus Tablet) 1 tab PO DAILYP PRN PRN Reason: Constipation Last Admin: 09/12/19 15:24 Dose: 1 tab Documented by: Sodium Chloride (Saline Flush) 10 ml IV Q8 [facility] Last Admin: 09/13/19 06:34 Dose: 10 ml Documented by: Tamsulosin HCl (Flomax) 0.4 mg PO HS [facility] Last Admin: 09/12/19 20:15 Dose: 0.4 mg Documented by: Medical - PN: A/P - Time Spent With Patient Total time spent is greater than 50% in coordination of care (as documented) at patient's floor/unit and/or counseling patient: - Narrative A/P Narrative: A: *Prostatitis w/abscess: *Bacteremia (MSSA): -Lumbar and pelvis CT unremarkable for osteo -echo no vegetations *SIRS: -leukocytosis improved but holding at 14k, pt does not appear toxic, afebrile since 1st *Hyponatremia: improved *DMII, uncontrolled: 11.6 *Right foot ulceration, Diabetic. *HTN *Obesity *constipation: Plan: -serial BC's -ID following. Abx per ID, on Cefazolin -Urology Dr. Arriaza following, treat medically at this time -Dr. Ortiz would have the abscess drained and sent for culture. Discussed with IR Dr. Hinojosa, who felt urologist would be the best person to help the pt. Discussed with urology Dr. Arriaza, who felt the "abscess" does not look like a true fluid collection on image. Dr. Arriaza would like to continue abx and no procedure at this moment. -Dr. Ortiz suggested rectal US. Contacted Dr. Arriaza's office for possibility of rectal US exam, they can only do in office, -Pain management including IV morphine -Increased insulin degludec to 118 units daily, SSI -Wound care -Dr. Alvarado was consulted, who does not feel the wound would be the source of the bacteremia. XR - no evidence of osteomyelitis. -cont amlodipine/lisinopril. hydralazine PRN -ppx: Lovenox Medical - PN: Qual - Stroke Symptom Onset Unknown: No - VTE Deep Vein Thrombosis/Pulmonary Embolism Present on Admission: No
[2019-09-13] MEDS ORDERED: SENNOSIDES 1 TABLET PO PRN (09:53)
[2019-09-13] MEDS ORDERED: SENNOSIDES 1 TABLET PO ONE (09:53)
[2019-09-13] MEDS ORDERED: LACTULOSE 20 GM/30 ML ORAL.SOL PO ONE (09:54)
--- NOTE | 2019-09-13 11:33 | General Surgery Progress Note ---
Surgical - Auxillary Note - Subjective Patient Information: Note initiated : 09/13/19 at 11:29 am Service Date, if different from initiated Date: [] Patient: Chaitanya Duvall 44 y/o M admitted on 09/09/19 for prostatits. Chief Complaint: prostatitis wbc incresed to 14.6. complains of pain and induration of right perineal area. Discussed with Dr. Nye and will take him to the OR for transrectal u/s, possible aspiration of abscess, and possible I&D of perineum. PARQ discussion was help and patient agrees. Plan: to surgery tomorrow
--- NOTE | 2019-09-13 12:38 | Infectious Disease Prog Note ---
Subjective Patient information: Note initiated : 09/13/19 at 12:30 pm Service Date, if different from initiated Date: [] Patient: Chaitanya Duvall 44 y/o M admitted on 09/09/19 for prostatits. Chief Complaint: [] Interval history: Doing well. Denies any fever, chills, nausea, vomiting, diarrhea or any other symptoms. Endorses pain in the rectal area when he moves, mentions that it is 20 to 30% better. Objective Objective Narrative: General appearance: no acute distress Eyes : nonicteric ENT: oropharynx moist Carotids: Has bilateral bruits, right more than left Chest: bilateral: clear Cardiovascular: other (S1-S2 normal), has 2/6 systolic murmur bets heard over rt 2nd ICS Gastrointestinal: normoactive bowel sounds, soft, no tenderness, no rebound tenderness or guarding Integumentary: other (Has multiple scars over the lower extremities, no active skin lesions or rash) - Vital Signs Vital signs: Vital Signs Temp Pulse Resp BP BP Pulse Ox 09/13/19 12:00 36.8 C 81 20 152/81 92 09/13/19 08:00 37.3 C H 87 20 137/65 94 09/13/19 04:04 37.1 C 85 20 163/73 95 09/12/19 23:50 37.2 C 88 20 154/72 94 09/12/19 19:57 151/74 09/12/19 19:56 37.0 C 90 20 157/84 94 09/12/19 18:49 87 148/78 94 09/12/19 18:32 180/82 09/12/19 17:54 170/81 09/12/19 16:00 36.8 C 90 20 153/78 95 Intake and Output 09/12/19 09/13/19 09/13/19 21:59 05:59 13:59 Intake Total 2450 800 480 Balance 2450 800 480 Intake: IV 1050 Sodium Chloride 0.9% 1,000 ml @ 1000 100 mls/hr IV .Q10H [facility] Rx#: [id number] Oral 1400 800 480 Other: Meal Breakfast Percent of Meal Consumed 100% Feeding Ability Independent Urine Color Bright Yellow # Voids 1 4 1 Weight 167.829 kg Intake & Output: Intake & Output 09/12/19 09/13/19 09/13/19 21:59 05:59 13:59 Intake Total 2450 800 480 Balance 2450 800 480 Weight 167.829 kg Intake: IV 1050 Sodium Chloride 0.9% 1,000 ml @ 1000 100 mls/hr IV .Q10H [facility] Rx#: [id number] Oral 1400 800 480 Other: Meal Breakfast Percent of Meal Consumed 100% Feeding Ability Independent Urine Color Bright Yellow # Voids 1 4 1 - Lab 09/13/19 05:44 09/13/19 05:44 Most recent lab results Calcium 9.1 mg/dl (8.6-10.4) 09/13/19 05:44 Phosphorus 3.3 mg/dL (2.7-4.5) 09/13/19 05:44 Magnesium 1.8 mg/dL (1.6-2.5) 09/13/19 05:44 Microbiology 09/10/19 06:58 Blood Blood Culture - Preliminary Staphylococcus aureus 09/09/19 12:28 Blood Blood Culture - Final Staphylococcus aureus Staphylococcus aureus#2 09/11/19 05:36 Blood Blood Culture - Preliminary 09/11/19 05:45 Blood Blood Culture - Preliminary 09/10/19 07:05 Blood Blood Culture - Final Staphylococcus aureus 09/09/19 19:18 Urine - Clean Void Mid-Stream Urine Culture - Final 09/09/19 12:36 Blood Blood Culture - Preliminary Gram positive cocci Medications Active Medications: Acetaminophen (Tylenol) 650 mg PO Q6HP PRN; Protocol PRN Reason: Per Pain Protocol/Fever > 101 Last Admin: 09/11/19 04:30 Dose: 650 mg Documented by: Admin: 09/10/19 16:32 Dose: 650 mg Documented by: Admin: 09/10/19 08:35 Dose: 650 mg Documented by: Admin: 09/10/19 00:38 Dose: 650 mg Documented by: Admin: 09/09/19 17:47 Dose: 650 mg Documented by: HUNTER Albuterol Sulfate (Ventolin) 2 puff INH Q6HP PRN PRN Reason: shortness of breath or wheezing Amlodipine Besylate (Norvasc) 5 mg PO BID [facility] Last Admin: 09/13/19 09:23 Dose: 5 mg Documented by: [email or web address] Admin: 09/12/19 20:16 Dose: 5 mg Documented by: Admin: 09/12/19 09:11 Dose: 5 mg Documented by: Admin: 09/11/19 21:21 Dose: 5 mg Documented by: Admin: 09/11/19 09:28 Dose: 5 mg Documented by: Admin: 09/10/19 20:35 Dose: 5 mg Documented by: Admin: 09/10/19 08:34 Dose: 5 mg Documented by: Admin: 09/09/19 20:16 Dose: 5 mg Documented by: ANDREW Atorvastatin Calcium (Lipitor) 40 mg PO QDAY [facility] Admin: 09/13/19 09:23 Dose: 40 mg Documented by: Admin: 09/12/19 09:12 Dose: 40 mg Documented by: Admin: 09/11/19 09:29 Dose: 40 mg Documented by: Admin: 09/10/19 08:34 Dose: 40 mg Documented by: VASILIY Cefazolin Sodium (Ancef) 2 gm IV Q8H [facility] Admin: 09/13/19 06:34 Dose: 2 gm Documented by: Admin: 09/12/19 21:40 Dose: 2 gm Documented by: Admin: 09/12/19 14:03 Dose: 2 gm Documented by: Admin: 09/12/19 06:19 Dose: 2 gm Documented by: Admin: 09/11/19 21:23 Dose: 2 gm Documented by: Admin: 09/11/19 14:33 Dose: 2 gm Documented by: Admin: 09/11/19 05:40 Dose: 2 gm Documented by: Admin: 09/10/19 22:19 Dose: 2 gm Documented by: Admin: 09/10/19 16:31 Dose: 2 gm Documented by: Admin: 09/10/19 11:05 Dose: 2 gm Documented by: VASILIY Dextrose (Dextrose 50%) 0 ml IV UD PRN PRN Reason: Hypoglycemia Diagnostic Test (Pha) (Accu-Chek) 1 each FS ACHS [facility] Admin: 09/13/19 12:05 Dose: 1 each Documented by: Admin: 09/13/19 07:55 Dose: 1 each Documented by: Admin: 09/12/19 21:27 Dose: Not Given Documented by: CLARIBEL Non-Admin Reason: Duplicate Comments: already charted on old order Docusate Sodium (Colace) 100 mg PO BID [facility] Admin: 09/13/19 09:23 Dose: 100 mg Documented by: Admin: 09/12/19 20:15 Dose: 100 mg Documented by: Admin: 09/12/19 09:12 Dose: 100 mg Documented by: Admin: 09/11/19 21:19 Dose: 100 mg Documented by: Admin: 09/11/19 09:29 Dose: 100 mg Documented by: Admin: 09/10/19 20:35 Dose: 100 mg Documented by: Admin: 09/10/19 08:34 Dose: 100 mg Documented by: Admin: 09/09/19 20:17 Dose: Not Given Documented by: ANDREW Non-Admin Reason: Patient Refused Fenofibrate (Antara) 129 mg PO DAILY [facility] Admin: 09/13/19 09:23 Dose: 129 mg Documented by: Admin: 09/12/19 09:11 Dose: 129 mg Documented by: Admin: 09/11/19 09:28 Dose: 129 mg Documented by: Admin: 09/10/19 08:31 Dose: 129 mg Documented by: VASILIY Fluticasone Propionate (Flonase) 2 spray NS QDAY [facility] Admin: 09/13/19 09:22 Dose: 2 spray Documented by: Admin: 09/12/19 09:12 Dose: 2 spray Documented by: Admin: 09/11/19 09:29 Dose: 2 spray Documented by: Admin: 09/10/19 12:15 Dose: 2 spray Documented by: VASILIY Glucose (Insta-Glucose) 15 gm PO PRN PRN PRN Reason: Hypoglycemia Hydralazine HCl (Apresoline) 0 mg IV Q2HP PRN PRN Reason: Hypertension Last Admin: 09/12/19 20:19 Dose: 10 mg Documented by: CLARIBEL Comments: 157 sys Admin: 09/12/19 17:03 Dose: 10 mg Documented by: JOE Comments: SBP 153 Admin: 09/12/19 11:37 Dose: 10 mg Documented by: JOE Comments: Bp 153/69 Insulin Human Lispro (Humalog) 0 unit SQ ACHS [facility]; Protocol Last Admin: 09/13/19 12:06 Dose: 9 units Documented by: Admin: 09/13/19 07:56 Dose: 3 units Documented by: Admin: 09/12/19 21:39 Dose: 6 units Documented by: CLARIBEL Comments: additional covereage after SS change Labetalol HCl (Trandate) 0 mg IV Q2HP PRN PRN Reason: Hypertension Last Admin: 09/13/19 04:11 Dose: 10 mg Documented by: CLARIBEL Comments: BP 163/73 Admin: 09/12/19 18:39 Dose: 20 mg Documented by: JOE Comments: BP 180/82 Lisinopril (Zestril) 40 mg PO QDAY [facility] Last Admin: 09/13/19 09:23 Dose: 40 mg Documented by: Admin: 09/12/19 09:11 Dose: 40 mg Documented by: Admin: 09/11/19 09:28 Dose: 40 mg Documented by: Admin: 09/10/19 08:32 Dose: 40 mg Documented by: VASILIY Metoprolol Tartrate (Lopressor) 12.5 mg PO BID [facility] Last Admin: 09/13/19 09:22 Dose: 12.5 mg Documented by: Admin: 09/12/19 20:15 Dose: 12.5 mg Documented by: Admin: 09/12/19 09:11 Dose: 12.5 mg Documented by: Admin: 09/11/19 21:19 Dose: 12.5 mg Documented by: Admin: 09/11/19 09:29 Dose: 12.5 mg Documented by: Admin: 09/10/19 20:35 Dose: 12.5 mg Documented by: Admin: 09/10/19 08:34 Dose: 12.5 mg Documented by: VASILIY Morphine Sulfate (Morphine) 2 mg IV Q4HP PRN; Protocol PRN Reason: Per Pain Protocol Last Admin: 09/11/19 00:29 Dose: 2 mg Documented by: Admin: 09/10/19 05:03 Dose: 2 mg Documented by: ANDREW Omeprazole (Prilosec) 20 mg PO QDAY [facility] Last Admin: 09/13/19 09:23 Dose: 20 mg Documented by: Admin: 09/12/19 09:12 Dose: 20 mg Documented by: Admin: 09/11/19 09:28 Dose: 20 mg Documented by: Admin: 09/10/19 08:33 Dose: 20 mg Documented by: VASILIY Ondansetron HCl (Zofran) 4 mg IV Q6HP PRN PRN Reason: Nausea And Vomiting Oxycodone HCl (Roxicodone) 5 mg PO Q6HP PRN; Protocol PRN Reason: Per Pain Protocol Last Admin: 09/13/19 09:22 Dose: 5 mg Documented by: Admin: 09/12/19 20:16 Dose: 5 mg Documented by: Admin: 09/12/19 14:03 Dose: 5 mg Documented by: Admin: 09/12/19 02:57 Dose: 5 mg Documented by: Admin: 09/11/19 16:54 Dose: 5 mg Documented by: Admin: 09/11/19 14:33 Dose: 5 mg Documented by: Admin: 09/11/19 08:26 Dose: 5 mg Documented by: Admin: 09/11/19 04:30 Dose: 5 mg Documented by: Admin: 09/10/19 16:32 Dose: 5 mg Documented by: Admin: 09/10/19 08:40 Dose: 5 mg Documented by: Admin: 09/09/19 22:24 Dose: 5 mg Documented by: KRISTINA Insulin Degludec [ Tresiba Flextouch U- 200] 118 dose SUB-Q QHS [facility] Phenazopyridine HCl (Pyridium) 200 mg PO TIDP PRN PRN Reason: PAINFUL URINATION Last Admin: 09/11/19 01:24 Dose: 200 mg Documented by: Admin: 09/10/19 16:31 Dose: 200 mg Documented by: Admin: 09/10/19 09:35 Dose: 200 mg Documented by: VASILIY Comments: bar code was damaged Polyethylene Glycol (Miralax) 17 gm PO DAILYP PRN PRN Reason: Constipation Last Admin: 09/13/19 04:02 Dose: 17 gm Documented by: CLARIBEL Senna (Senokot) 2 tab PO DAILYP PRN PRN Reason: Constipation Sodium Chloride (Saline Flush) 10 ml IV Q8 [facility] Last Admin: 09/13/19 06:34 Dose: 10 ml Documented by: Admin: 09/12/19 21:40 Dose: 10 ml Documented by: Admin: 09/12/19 14:23 Dose: Not Given Documented by: JOE Non-Admin Reason: Duplicate Admin: 09/12/19 06:20 Dose: Not Given Documented by: CLARIBEL Non-Admin Reason: Continuous IV Admin: 09/11/19 21:43 Dose: Not Given Documented by: CLARIBEL Non-Admin Reason: Continuous IV Admin: 09/11/19 14:33 Dose: Not Given Documented by: JOE Non-Admin Reason: Continuous IV Admin: 09/11/19 05:41 Dose: Not Given Documented by: ANDREW Non-Admin Reason: Continuous IV Admin: 09/10/19 22:19 Dose: 10 ml Documented by: Admin: 09/10/19 13:51 Dose: Not Given Documented by: VASILIY Non-Admin Reason: Continuous IV Admin: 09/10/19 05:04 Dose: 10 ml Documented by: Admin: 09/09/19 21:30 Dose: Not Given Documented by: ANDREW Non-Admin Reason: Continuous IV Tamsulosin HCl (Flomax) 0.4 mg PO HS [facility] Last Admin: 09/12/19 20:15 Dose: 0.4 mg Documented by: Admin: 09/11/19 21:19 Dose: 0.4 mg Documented by: CLARIBEL Assessment and Plan - Narrative A/P Narrative: Assessment: 1. MSSA bacteremia: Blood cultures positive from September 08 [2 out of 2 sets] and [2 out of 2 sets] -Likely source: Prostate infection with multiple abscesses, skin colonization, dry skin and scaling over both feet especially around the healed right great toe stump with callus. - blood Cx from 09/10 so far NGTD - pt has a rt 2nd ICS systolic murmur. TTE neg for any intracardiac vegetations 2. Acute prostatitis with multiple small abscesses: Given multiple number, relatively small size ---> difficult to aspirate per urology, radiology -I am thinking that staph aureus is the likely cause. Extensive gram-negative coverage with oral ciprofloxacin might not be needed. Cefazolin has some gram negative coverage and based on [facility] antibiogram has better coverage than Cipro for E coli and Proteus, and comparable coverage for klebsiella. Cipro resistance rates (per 2020 [facility] Antibiogram) for enteric pathogens implicated in acute prostatitis: E coli --- 15% Proteus --32% Cefazolin resistance rates (per 2020 [facility] Antibiogram) for enteric pathogens implicated in acute prostatitis: E coli ---- 8% Proteus --- 24% Putting patient on both Cipro and cefazolin will increase risk for Cdiff infection (an JOSUE) - Repeat CT 09/10 showed: "Multiple prostate fluid collections compatible with multifocal prostatic abscess. The largest is 6 x 3.5 cm inferior right peripheral zone extending to the posterior periurethral soft tissues. All of the abscesses are slightly smaller than the comparison CT three days prior. Consider: Urology consult in consideration of transurethral drainage". 3. Low back pain: - CT L spine neg for any foci of infection 4. DM2: A1C 11.6 - on insulin Recommendations: agree and fully support surgical debridement of prostate as it would help with source control. Send operative samples for GS and C/S - Continue IV cefazolin 2 g every 8 hours, day 3 [counting from 1st day of neg blood Cx] hold off on PICC line placement given concerns for bacteremia that might happen due to bacterial translocation during surgical debridement. Repeat blood Cx after surgery is done tomorrow. If the repeat blood Cx from tomorrow are neg for 48 hrs, can get a PICC line placed - anticipate 4 weeks of IV antibiotics - FSBS target <200 mg% will follow Brandon Ortiz MD Infectious disease
[2019-09-13] MEDS: hydrALAZINE 20 MG/ML VIAL IV PRN (17:35)
[2019-09-13] MEDS ORDERED: Insulin Degludec [Tresiba Flextouch U-200] SUB-Q SCH (21:00)
[2019-09-13] MEDS: TAMSULOSIN 0.4 MG CAPSULE PO SCH (21:27)
[2019-09-14] MEDS: 0.9 % SODIUM CHLORIDE 10 ML SYRINGE IV SCH ×3 (05:59→22:30)
[2019-09-14] MEDS: ceFAZolin 1 GM VIAL IV SCH ×3 (05:59→22:34)
[2019-09-14] MEDS ORDERED: IPRATROPIUM/ALBUTEROL 3 ML AMPUL.NEB NEB PRN ×2 (06:00→11:23)
[2019-09-14] MEDS ORDERED: SCOPOLAMINE 1 PATCH PATCH TOPICAL PRN ×2 (06:00→11:23)
[2019-09-14 07:00] LABS: Hematocrit 32.8 % (40.1-51.0); Hemoglobin 10.5 g/dL (13.7-17.5); Mean Cell Volume 83.7 fL (80.0-100.0); Mean Platelet Volume 10.2 fL (7.4-10.4); Platelet Count 533 K/mcL (140-440); RBC 3.92 M/mcL (4.63-6.08); Red Cell Distribution Width 13.6 % (11.5-14.5); WBC 14.4 K/mcL (4.50-11.00)
[2019-09-14 07:42] LABS: Blood Urea Nitrogen 6 mg/dl (6-20); Calcium 8.8 mg/dl (8.6-10.4); Carbon Dioxide 25 mmol/L (22-30); Chloride 103 mmol/L (96-108); Glomerular Filtration Rate 122; Glucose 100 mg/dL (70-105)
--- NOTE | 2019-09-14 07:44 | Internal Med Progress Note ---
Medical - PN: Subj Patient information: Note initiated : 09/14/19 at 7:42 am Service Date, if different from initiated Date: [] Patient: Chaitanya Duvall a 44 y/o M admitted on 09/09/19 for prostatits. Chief Complaint: [] Interval history: Mr. Duvall is a 44 year old M with a past medical history of diabetes type 2 and a right foot ulcer who was referred to the ER by urologist Dr. Arriaza due to prostatitis. As per patient, patient has been having lower abdomen and perirectal pain for past 10 days. The pain is a constant, burning in nature and a 10 out of 10 in severity associated with fever, chills, nausea, and mild headache. He also has having cloudy urine for 3 days. Otherwise he denies dizziness, chest pain, shortness of breath, neck pain, hematuria, diarrhea, hematochezia, or melena. CT abdomen yesterday showed prostatitis and prostatic abscess. In the ER, urologist Dr. Arriaza was consulted, who suggested Cipro and Rocephin. 1 L normal saline was given. When I saw this patient in the ER, other than the symptoms mentioned above, he was fine. Denies recent travel or sick contact. He has never had a similar problem in the past. 09/09 Pt still has fever/chills. He had tachycardia and tachypnea yesterday, which improved today. Blood culture showed MSSA. Discussed with ID Dr. Ortiz, rocephin was discontinued. Cefazolin was started. continue cipro for 1-[address] Ortiz would have the abscess drained and sent for culture. Discussed with IR Dr. Hinojosa, who felt urologist would be the best person to help the pt. Discussed with urology Dr. Arriaza, who felt the "abscess" does not look like a true fluid collection on image. Dr. Arriaza would like to continue abx and no procedure at this moment. Pt has a right foot ulcer, which may cause the GPC bacteremia. orth Dr. Alvarado was consulted, who does not feel the wound would be the source, but he suggest XR to r/o osteomyelitis. 09/10 Patient does not have any new complaints. Complains of chills. Afebrile, no longer has tachycardia Repeat blood culture positive from 1 of the 2 bottles. Repeat blood culture again. Discussed with ID Dr. Ortiz, who suggested rectal US and continue current abx. 09/11 Poor sleep because of discomfort. Occasional headache but otherwise no new complaints. Leukocytosis improving 09/12 No new complaints. Slept well. States he has had a bowel movement few days but does not particularly feel uncomfortable as far as constipation is concerned. 09/13 No events overnight. No new complaints. Awaiting surgical drainage of abscess. Had a small soft BM yesterday. Pressure has been elevated anywhere between the 130s to 160s. He says his blood pressure typically runs 130-160 at home with an average in the 140s Review of Systems: denies headache/fever/chills/nausea/vomiting/chest or abdominal pain/cough/dyspnea/diarrhea. Otherwise see above. - Constitutional Vitals: Vital Signs Temp Pulse Resp BP Pulse Ox 99.2 F H 86 18 143/77 94 09/14/19 03:37 09/14/19 03:37 09/14/19 03:37 09/14/19 03:37 09/14/19 03:37 Period Temp Pulse Resp BP Sys/Foley Pulse Ox Last 24 Hr 97.5 F-99.2 F 81-89 18-20 137-178/65-83 92-95 Intake and Output 09/13/19 09/14/19 09/14/19 21:59 05:59 13:59 Intake Total 500 1200 Balance 500 1200 Weight 167.376 kg Intake & Output: Intake & Output 09/13/19 09/14/19 09/14/19 21:59 05:59 13:59 Intake Total 500 1200 Balance 500 1200 Weight 167.376 kg Intake: Oral 500 1200 Other: Stool Size Small Stool Consistency Soft Loose # Voids 1 1 # Bowel Movements 1 Exam: General: Alert, Awake, No acute Distress, obese Eyes/N/T: EOMI, Head/Neck: neck supple, CV: RRR, 1/6 SM, Pulm: Clear b/l, no wheezing/rhonchi/rales Abd: soft, nontender, +BS x4 Ext: no clubbing/cyanosis/edema Neuro: Alert, no focal deficits, moves all extremities, Right great toe and 5th toe were amputated. Skin: warm/dry Medical - PN: Obj Da - Labs CBC & Chem 7: 09/14/19 06:11 09/14/19 06:11 Labs: Abnormal Lab Results 09/14/19 09/14/19 09/13/19 06:11 06:11 05:44 WBC 14.4 H RBC 3.92 L Hgb 10.5 L Hct 32.8 L Plt Count 533 H MPV Gran % Lymph % (Auto) Gran # Lymph # (Auto) Ritchie # (Auto) ESR Sodium Potassium 3.2 L Carbon Dioxide Creatinine 0.6 L 0.6 L Glucose 153 H Alkaline Phosphatase 128 H C-Reactive Protein Albumin 2.8 L Globulin 4.1 H Albumin/Globulin Ratio 0.7 L 09/13/19 09/13/19 09/13/19 05:44 05:44 05:44 WBC 14.6 H RBC 4.03 L Hgb 10.8 L Hct 33.4 L Plt Count MPV 11.2 H Gran % Lymph % (Auto) 12.9 L Gran # 11.36 H Lymph # (Auto) Ritchie # (Auto) 1.25 H ESR 111 H Sodium Potassium Carbon Dioxide Creatinine Glucose Alkaline Phosphatase C-Reactive Protein 6.6 H Albumin Globulin Albumin/Globulin Ratio 09/12/19 09/12/19 09/12/19 05:40 05:40 05:40 WBC 14.0 H RBC 4.16 L Hgb 11.0 L Hct 33.8 L Plt Count 488 H MPV 10.5 H Gran % 79.6 H Lymph % (Auto) 11.7 L Gran # 11.11 H Lymph # (Auto) Ritchie # (Auto) 1.10 H ESR Sodium Potassium Carbon Dioxide 21 L Creatinine 0.6 L Glucose 192 H Alkaline Phosphatase 132 H C-Reactive Protein 8.3 H Albumin 2.6 L Globulin 3.9 H Albumin/Globulin Ratio 0.7 L 09/11/19 09/11/19 05:36 05:36 WBC 14.6 H RBC 4.09 L Hgb 10.8 L Hct 33.8 L Plt Count 445 H MPV 10.9 H Gran % 83.8 H Lymph % (Auto) 8.2 L Gran # 12.18 H Lymph # (Auto) 1.20 L Ritchie # (Auto) 1.05 H ESR Sodium 131 L Potassium Carbon Dioxide 19 L Creatinine Glucose 194 H Alkaline Phosphatase 158 H C-Reactive Protein Albumin 2.6 L Globulin 4.1 H Albumin/Globulin Ratio 0.6 L Meds: Medications Acetaminophen (Tylenol) 650 mg PO Q6HP PRN; Protocol PRN Reason: Per Pain Protocol/Fever > 101 Last Admin: 09/11/19 04:30 Dose: 650 mg Documented by: Albuterol Sulfate (Ventolin) 2 puff INH Q6HP PRN PRN Reason: shortness of breath or wheezing Albuterol/Ipratropium (Duoneb) 3 ml NEB ONCE PRN PRN Reason: Shortness Of Breath Stop: 09/14/19 18:00 Amlodipine Besylate (Norvasc) 5 mg PO BID [facility] Last Admin: 09/13/19 21:28 Dose: 5 mg Documented by: Atorvastatin Calcium (Lipitor) 40 mg PO QDAY [facility] Last Admin: 09/13/19 09:23 Dose: 40 mg Documented by: Cefazolin Sodium (Ancef) 2 gm IV Q8H [facility] Last Admin: 09/14/19 05:59 Dose: 2 gm Documented by: Dextrose (Dextrose 50%) 0 ml IV UD PRN PRN Reason: Hypoglycemia Diagnostic Test (Pha) (Accu-Chek) 1 each FS [facility] Last Admin: 09/13/19 21:39 Dose: 1 each Documented by: Docusate Sodium (Colace) 100 mg PO BID [facility] Last Admin: 09/13/19 21:27 Dose: 100 mg Documented by: Fenofibrate (Antara) 129 mg PO DAILY [facility] Last Admin: 09/13/19 09:23 Dose: 129 mg Documented by: Fluticasone Propionate (Flonase) 2 spray NS QDAY [facility] Last Admin: 09/13/19 09:22 Dose: 2 spray Documented by: Glucose (Insta-Glucose) 15 gm PO PRN PRN PRN Reason: Hypoglycemia Hydralazine HCl (Apresoline) 0 mg IV Q2HP PRN PRN Reason: Hypertension Last Admin: 09/13/19 17:35 Dose: 10 mg Documented by: Insulin Human Lispro (Humalog) 0 unit SQ [facility]; Protocol Last Admin: 09/13/19 21:39 Dose: Not Given Documented by: Labetalol HCl (Trandate) 0 mg IV Q2HP PRN PRN Reason: Hypertension Last Admin: 09/13/19 23:17 Dose: 20 mg Documented by: Lisinopril (Zestril) 40 mg PO QDAY [facility] Last Admin: 09/13/19 09:23 Dose: 40 mg Documented by: Metoprolol Tartrate (Lopressor) 12.5 mg PO BID [facility] Last Admin: 09/13/19 21:28 Dose: 12.5 mg Documented by: Morphine Sulfate (Morphine) 2 mg IV Q4HP PRN; Protocol PRN Reason: Per Pain Protocol Last Admin: 09/11/19 00:29 Dose: 2 mg Documented by: Omeprazole (Prilosec) 20 mg PO QDAY [facility] Last Admin: 09/13/19 09:23 Dose: 20 mg Documented by: Ondansetron HCl (Zofran) 4 mg IV Q6HP PRN PRN Reason: Nausea And Vomiting Oxycodone HCl (Roxicodone) 5 mg PO Q6HP PRN; Protocol PRN Reason: Per Pain Protocol Last Admin: 09/13/19 23:17 Dose: 5 mg Documented by: Insulin Degludec [ Tresiba Flextouch U- 200] 118 dose SUB-Q QHS [facility] Last Admin: 09/13/19 21:29 Dose: 118 dose Documented by: Phenazopyridine HCl (Pyridium) 200 mg PO TIDP PRN PRN Reason: PAINFUL URINATION Last Admin: 09/11/19 01:24 Dose: 200 mg Documented by: Polyethylene Glycol (Miralax) 17 gm PO DAILYP PRN PRN Reason: Constipation Last Admin: 09/13/19 04:02 Dose: 17 gm Documented by: Scopolamine (Transderm-Scop) 1 patch TOPICAL PREOP PRN PRN Reason: Nausea And Vomiting Stop: 09/14/19 18:00 Senna (Senokot) 2 tab PO DAILYP PRN PRN Reason: Constipation Sodium Chloride (Saline Flush) 10 ml IV Q8 [facility] Last Admin: 09/14/19 05:59 Dose: 10 ml Documented by: Tamsulosin HCl (Flomax) 0.4 mg PO HS [facility] Last Admin: 09/13/19 21:27 Dose: 0.4 mg Documented by: Medical - PN: A/P - Time Spent With Patient Total time spent is greater than 50% in coordination of care (as documented) at patient's floor/unit and/or counseling patient: - Narrative A/P Narrative: A: *Prostatitis w/abscess: *Bacteremia (MSSA): -Lumbar and pelvis CT unremarkable for osteo -echo no vegetations *SIRS: -leukocytosis improved but holding at 14k, pt does not appear toxic, afebrile since 1st *Hyponatremia: improved *DMII, uncontrolled: 11.6 *Right foot ulceration, Diabetic. *HTN: *Obesity *constipation: Plan: -Urology for drainage today -ID following. Abx per ID, on Cefazolin -PICC line likely in AM -Increased insulin degludec to 118 units daily, SSI -Wound care -Dr. Alvarado was consulted, who does not feel the wound would be the source of the bacteremia. XR - no evidence of osteomyelitis. -cont amlodipine/lisinopril. hydralazine PRN, start diuretic -ppx: Lovenox Medical - PN: Qual - Stroke Symptom Onset Unknown: No - VTE Deep Vein Thrombosis/Pulmonary Embolism Present on Admission: No
[2019-09-14] MEDS: amLODIPine 5 MG TABLET PO SCH ×2 (07:45→21:20)
[2019-09-14] MEDS: oxyCODONE HCL 5 MG TABLET PO PRN ×3 (07:45→19:56)
[2019-09-14] MEDS: METOPROLOL TARTRATE 25 MG TABLET PO SCH ×2 (07:45→21:20)
[2019-09-14] MEDS: LISINOPRIL 20 MG TABLET PO SCH (07:45)
[2019-09-14] MEDS: INSULIN LISPRO 1 UNIT/0.01 ML UNIT SQ SCH ×4 (07:51→21:34)
[2019-09-14 09:14] LABS: Lymphocytes % 7 % (15-49); Microcytosis FEW (NONE SEEN); Monocytes % (Manual) 15 % (1-12); Platelet Estimate INCREASED (NORMAL); RBC Morphology ABNORM (NORMAL); Reactive Lymphocytes 1 % (0-2); Segmented Neutrophils % 77 % (38-78)
[2019-09-14] MEDS: hydrALAZINE 20 MG/ML VIAL IV PRN (09:30)
[2019-09-14] MEDS ORDERED: PROPOFOL 200 MG/20 ML VIAL IV ONE (10:38)
[2019-09-14] MEDS ORDERED: KETAMINE 100 MG/ML ML IV ONE (10:38)
[2019-09-14] MEDS ORDERED: fentaNYL 100 MCG/2 ML VIAL IV ONE (10:38)
[2019-09-14] MEDS ORDERED: MIDAZOLAM 5 MG/5 ML VIAL IV ONE (10:38)
--- NOTE | 2019-09-14 11:16 | Brief Operative Note ---
Date of procedure: 09/14/19 Pre-op diagnosis: perineal abscess, prostate abscess Post-op diagnosis: same Procedure: transrectal us, needle guilded aspiration Grafts/Implants: No Anesthesia: MAC Findings: see note Complications: none Surgeon: Dario Arriaza Specimens Removed/Pathology: other (culture) Condition: stable Disposition: PACU
--- NOTE | 2019-09-14 11:19 | Operative Note ---
DATE OF OPERATION: 09/14/2019 PREOPERATIVE DIAGNOSES: Prostatic abscess, questionable perineal abscess. POSTOPERATIVE DIAGNOSES: Prostatic abscess, questionable perineal abscess PROCEDURE: Transrectal ultrasound and ultrasound-guided aspiration of perineal abscess. SURGEON: Dario Arriaza M.D. INDICATION: The patient is a 44-year-old gentleman who does have prostatitis. CT scan is consistent with possible abscesses, and the patient is just not getting better on antibiotics. He complains most of left-sided perineal pain. He presents now for evaluation. PROCEDURE: The patient was identified and consent was signed. He was placed in left lateral decubitus position and transrectal ultrasound was obtained. Ultrasound did have hypoechoic areas but no fluid collections. Approximate size was 30 grams. Again, no pockets were seen. Seminal vesicles were normal. We inspected the entire prostate. There were no areas we could see that need aspiration. We then turned over to the perineal again. There was some small fluid collections. We were able to pass a needle in those and were able to aspirate the fluid, but approximately 1 mL was obtained. This was sent for microbiology. The patient was then awoken and taken to recovery room in stable condition. He tolerated the procedure well. JONO:maricel Job ID: [id number] Doc ID: [id number] Dario Arriaza MD
[2019-09-14] MEDS ORDERED: hydrALAZINE 20 MG/ML VIAL IV PRN (11:23)
[2019-09-14] MEDS ORDERED: DEXTROSE 31 GM ORAL.SUSP PO PRN (11:23)
[2019-09-14] MEDS ORDERED: DEXTROSE 50% 50 ML VIAL IV PRN (11:23)
[2019-09-14] MEDS ORDERED: ALBUTEROL SULFATE 200 PUFF INHALER INH PRN (11:23)
[2019-09-14] MEDS ORDERED: ONDANSETRON 4 MG/2 ML VIAL IV PRN (11:23)
[2019-09-14] MEDS: morphine 4 MG/ML VIAL IV PRN ×2 (11:54→19:56)
[2019-09-14] MEDS ORDERED: FUROSEMIDE 40 MG/4 ML VIAL IV ONE (12:04)
[2019-09-14] MEDS: SENNOSIDES 1 TABLET PO PRN (12:56)
[2019-09-14] MEDS: ACETAMINOPHEN 325 MG TABLET PO PRN (12:56)
[2019-09-14] MEDS: PHENAZOPYRIDINE 200 MG TABLET PO PRN ×2 (12:57→19:56)
[2019-09-14] MEDS: DOCUSATE SODIUM 100 MG CAPSULE PO SCH ×2 (18:04→21:20)
[2019-09-14] MEDS: FENOFIBRATE 43 MG CAPSULE PO SCH (18:04)
[2019-09-14] MEDS: ATORVASTATIN 40 MG TABLET PO SCH (18:05)
[2019-09-14] MEDS: OMEPRAZOLE 20 MG CAPSULE PO SCH (18:05)
[2019-09-14] MEDS: FLUTICASONE PROPIONATE SPRAY.NAS NS SCH (18:05)
[2019-09-14] MEDS: TAMSULOSIN 0.4 MG CAPSULE PO SCH (21:19)
[2019-09-14] MEDS: INSULIN DEGLUDEC SUB-Q SCH (22:10)
[2019-09-15] MEDS: oxyCODONE HCL 5 MG TABLET PO PRN ×4 (02:54→22:57)
[2019-09-15] MEDS: PHENAZOPYRIDINE 200 MG TABLET PO PRN ×2 (05:55→20:29)
[2019-09-15] MEDS: 0.9 % SODIUM CHLORIDE 10 ML SYRINGE IV SCH ×3 (05:56→22:58)
[2019-09-15] MEDS: ceFAZolin 1 GM VIAL IV SCH ×3 (05:56→22:55)
--- NOTE | 2019-09-15 07:35 | Internal Med Progress Note ---
Medical - PN: Subj Patient information: Note initiated : 09/15/19 at 7:33 am Service Date, if different from initiated Date: [] Patient: Chaitanya Duvall a 44 y/o M admitted on 09/09/19 for prostatits. Chief Complaint: [] Interval history: Mr. Duvall is a 44 year old M with a past medical history of diabetes type 2 and a right foot ulcer who was referred to the ER by urologist Dr. Arriaza due to prostatitis. As per patient, patient has been having lower abdomen and perirectal pain for past 10 days. The pain is a constant, burning in nature and a 10 out of 10 in severity associated with fever, chills, nausea, and mild headache. He also has having cloudy urine for 3 days. Otherwise he denies dizziness, chest pain, shortness of breath, neck pain, hematuria, diarrhea, hematochezia, or melena. CT abdomen yesterday showed prostatitis and prostatic abscess. In the ER, urologist Dr. Arriaza was consulted, who suggested Cipro and Rocephin. 1 L normal saline was given. When I saw this patient in the ER, other than the symptoms mentioned above, he was fine. Denies recent travel or sick contact. He has never had a similar problem in the past. 09/09 Pt still has fever/chills. He had tachycardia and tachypnea yesterday, which improved today. Blood culture showed MSSA. Discussed with ID Dr. Ortiz, rocephin was discontinued. Cefazolin was started. continue cipro for 1-[address] Ortiz would have the abscess drained and sent for culture. Discussed with IR Dr. Hinojosa, who felt urologist would be the best person to help the pt. Discussed with urology Dr. Arriaza, who felt the "abscess" does not look like a true fluid collection on image. Dr. Arriaza would like to continue abx and no procedure at this moment. Pt has a right foot ulcer, which may cause the GPC bacteremia. orth Dr. Alvarado was consulted, who does not feel the wound would be the source, but he suggest XR to r/o osteomyelitis. 09/10 Patient does not have any new complaints. Complains of chills. Afebrile, no longer has tachycardia Repeat blood culture positive from 1 of the 2 bottles. Repeat blood culture again. Discussed with ID Dr. Ortiz, who suggested rectal US and continue current abx. 09/11 Poor sleep because of discomfort. Occasional headache but otherwise no new complaints. Leukocytosis improving 09/12 No new complaints. Slept well. States he has had a bowel movement few days but does not particularly feel uncomfortable as far as constipation is concerned. 09/13 No events overnight. No new complaints. Awaiting surgical drainage of abscess. Had a small soft BM yesterday. Pressure has been elevated anywhere between the 130s to 160s. He says his blood pressure typically runs 130-160 at home with an average in the 140s 09/14 Slept relatively well last night. Had I&D yesterday. No new complaints. Blood cultures obtained yesterday afternoon. Per ID will wait [address] PICC line and then DC Review of Systems: denies headache/fever/chills/nausea/vomiting/chest or abdominal pain/cough/dyspnea/diarrhea. Otherwise see above. - Constitutional Vitals: Vital Signs Temp Pulse Resp BP Pulse Ox 98.2 F 80 18 135/83 94 09/15/19 04:00 09/15/19 04:00 09/15/19 04:00 09/15/19 04:00 09/15/19 04:00 Period Temp Pulse Resp BP Sys/Foley Pulse Ox Last 24 Hr 98.1 F-99.5 F 79-94 15-20 129-158/57-83 93-97 Intake and Output 09/14/19 09/15/19 09/15/19 21:59 05:59 13:59 Intake Total 1840 800 Output Total 400 Balance 1440 800 Weight 168.283 kg Intake & Output: Intake & Output 09/14/19 09/15/19 09/15/19 21:59 05:59 13:59 Intake Total 1840 800 Output Total 400 Balance 1440 800 Weight 168.283 kg Intake: Oral 1840 800 Output: Void Amount 400 Other: Meal Lunch Percent of Meal Consumed 100% Feeding Ability Independent Urine Appearance Clear Urine Color [place] Urine Odor Normal # Voids 1 Exam: General: Alert, Awake, No acute Distress, obese Eyes/N/T: EOMI, Head/Neck: neck supple, CV: RRR, 6 SM, Pulm: Clear b/l, no wheezing/rhonchi/rales Abd: soft, nontender, +BS x4 Ext: no clubbing/cyanosis/edema Neuro: Alert, no focal deficits, moves all extremities, Right great toe and 5th toe were amputated. Skin: warm/dry Medical - PN: Obj Da - Labs CBC & Chem 7: 09/15/19 06:03 09/15/19 06:03 Labs: Abnormal Lab Results 09/14/19 09/14/19 09/13/19 06:11 06:11 05:44 WBC 14.4 H RBC 3.92 L Hgb 10.5 L Hct 32.8 L Plt Count 533 H MPV Lymph % (Auto) Gran # Owen # (Auto) Lymphocytes % 7 L Monocytes % (Manual) 15 H Platelet Estimate Increased A RBC Morphology Abnorm A Microcytosis Few A ESR Potassium 3.2 L Carbon Dioxide Creatinine 0.6 L 0.6 L Glucose 153 H Alkaline Phosphatase 128 H C-Reactive Protein Albumin 2.8 L Globulin 4.1 H Albumin/Globulin Ratio 0.7 L 09/13/19 09/13/19 09/13/19 05:44 05:44 05:44 WBC 14.6 H RBC 4.03 L Hgb 10.8 L Hct 33.4 L Plt Count MPV 11.2 H Lymph % (Auto) 12.9 L Gran # 11.36 H Owen # (Auto) 1.25 H Lymphocytes % Monocytes % (Manual) Platelet Estimate RBC Morphology Microcytosis ESR 111 H Potassium Carbon Dioxide Creatinine Glucose Alkaline Phosphatase C-Reactive Protein 6.6 H Albumin Globulin Albumin/Globulin Ratio 09/12/19 09/12/19 05:40 05:40 WBC RBC Hgb Hct Plt Count MPV Lymph % (Auto) Gran # Owen # (Auto) Lymphocytes % Monocytes % (Manual) Platelet Estimate RBC Morphology Microcytosis ESR Potassium Carbon Dioxide 21 L Creatinine 0.6 L Glucose 192 H Alkaline Phosphatase 132 H C-Reactive Protein 8.3 H Albumin 2.6 L Globulin 3.9 H Albumin/Globulin Ratio 0.7 L Meds: Medications Acetaminophen (Tylenol) 650 mg PO Q6HP PRN; Protocol PRN Reason: Per Pain Protocol/Fever > 101 Last Admin: 09/14/19 12:56 Dose: 650 mg Documented by: Albuterol Sulfate (Ventolin) 2 puff INH Q6HP PRN PRN Reason: shortness of breath or wheezing Amlodipine Besylate (Norvasc) 5 mg PO BID [facility] Last Admin: 09/14/19 21:20 Dose: 5 mg Documented by: Atorvastatin Calcium (Lipitor) 40 mg PO QDAY [facility] Cefazolin Sodium (Ancef) 2 gm IV Q8H [facility] Last Admin: 09/15/19 05:56 Dose: 2 gm Documented by: Chlorthalidone (Hygroton) 12.5 mg PO DAILY [facility] Dextrose (Dextrose 50%) 0 ml IV UD PRN PRN Reason: Hypoglycemia Diagnostic Test (Pha) (Accu-Chek) 1 each FS [facility] Last Admin: 09/14/19 21:33 Dose: 1 each Documented by: Docusate Sodium (Colace) 100 mg PO BID [facility] Last Admin: 09/14/19 21:20 Dose: 100 mg Documented by: Fenofibrate (Antara) 129 mg PO DAILY [facility] Fluticasone Propionate (Flonase) 2 spray NS QDAY [facility] Glucose (Insta-Glucose) 15 gm PO PRN PRN PRN Reason: Hypoglycemia Hydralazine HCl (Apresoline) 0 mg IV Q2HP PRN PRN Reason: Hypertension Insulin Human Lispro (Humalog) 0 unit SQ [facility]; Protocol Last Admin: 09/14/19 21:34 Dose: Not Given Documented by: Labetalol HCl (Trandate) 0 mg IV Q2HP PRN PRN Reason: Hypertension Lisinopril (Zestril) 40 mg PO QDAY [facility] Metoprolol Tartrate (Lopressor) 12.5 mg PO BID [facility] Last Admin: 09/14/19 21:20 Dose: 12.5 mg Documented by: Morphine Sulfate (Morphine) 2 mg IV Q4HP PRN; Protocol PRN Reason: Per Pain Protocol Last Admin: 09/14/19 19:56 Dose: 2 mg Documented by: Omeprazole (Prilosec) 20 mg PO QDAY [facility] Ondansetron HCl (Zofran) 4 mg IV Q6HP PRN PRN Reason: Nausea And Vomiting Oxycodone HCl (Roxicodone) 5 mg PO Q6HP PRN; Protocol PRN Reason: Per Pain Protocol Last Admin: 09/15/19 02:54 Dose: 5 mg Documented by: Insulin Degludec [ Tresiba Flextouch U- 200] Pen 118 dose SUB-Q QHS [facility] Last Admin: 09/14/19 22:10 Dose: Not Given Documented by: Phenazopyridine HCl (Pyridium) 200 mg PO TIDP PRN PRN Reason: PAINFUL URINATION Last Admin: 09/15/19 05:55 Dose: 200 mg Documented by: Polyethylene Glycol (Miralax) 17 gm PO DAILYP PRN PRN Reason: Constipation Senna (Senokot) 2 tab PO DAILYP PRN PRN Reason: Constipation Last Admin: 09/14/19 12:56 Dose: 2 tab Documented by: Sodium Chloride (Saline Flush) 10 ml IV Q8 [facility] Last Admin: 09/15/19 05:56 Dose: 10 ml Documented by: Tamsulosin HCl (Flomax) 0.4 mg PO HS [facility] Last Admin: 09/14/19 21:19 Dose: 0.4 mg Documented by: Medical - PN: A/P - Time Spent With Patient Total time spent is greater than 50% in coordination of care (as documented) at patient's floor/unit and/or counseling patient: - Narrative A/P Narrative: A: *Prostatitis w/abscess & Perineal Abscess: s/p I&D (09/13) *Bacteremia (MSSA): -Lumbar and pelvis CT unremarkable for osteo -echo no vegetations *SIRS: -leukocytosis improving again, afebrile *Hyponatremia: improved *DMII, uncontrolled: 11.6 *Right foot ulceration, Diabetic. *HTN: *Obesity *constipation: Plan: -Urology following -ID following. Abx per ID, on Cefazolin -PICC line wednesday per ID once BC neg x48hrs -Increased insulin degludec to 118 units daily, SSI -Wound care -Dr. Alvarado was consulted, who does not feel the wound would be the source of the bacteremia. XR - no evidence of osteomyelitis. -cont amlodipine/lisinopril. hydralazine PRN, start diuretic -ppx: Lovenox Medical - PN: Qual - Stroke Symptom Onset Unknown: No - VTE Deep Vein Thrombosis/Pulmonary Embolism Present on Admission: No
[2019-09-15 07:54] LABS: Basophils # (Auto) 0.06 K/mcL (0.00-0.30); Basophils % (Auto) 0.5 % (0.0-2.0); Eosinophils % (Auto) 0.8 % (0.0-7.0); Granulocytes % (Auto) 74.4 % (38.0-78.0); Hematocrit 31.6 % (40.1-51.0); Hemoglobin 10.1 g/dL (13.7-17.5); Lymphocytes # (Auto) 1.98 K/mcL (1.50-4.80); Lymphocytes % (Auto) 16.3 % (15.5-49.0); Mean Cell Volume 83.2 fL (80.0-100.0); Mean Platelet Volume 10.1 fL (7.4-10.4); Monocytes # (Auto) 0.97 K/mcL (0.10-0.90); Platelet Count 549 K/mcL (140-440); Red Cell Distribution Width 13.8 % (11.5-14.5); WBC 12.1 K/mcL (4.50-11.00)
[2019-09-15] MEDS: INSULIN LISPRO 1 UNIT/0.01 ML UNIT SQ SCH ×4 (08:01→20:47)
[2019-09-15 08:04] LABS: Blood Urea Nitrogen 8 mg/dl (6-20); Calcium 8.6 mg/dl (8.6-10.4); Carbon Dioxide 25 mmol/L (22-30); Chloride 101 mmol/L (96-108); Glomerular Filtration Rate 122; Glucose 134 mg/dL (70-105)
[2019-09-15] MEDS ORDERED: MAGNESIUM HYDROXIDE 30 ML ORAL.SUSP PO PRN (08:43)
[2019-09-15] MEDS ORDERED: LACTULOSE 20 GM/30 ML ORAL.SOL PO PRN (08:43)
[2019-09-15] MEDS ORDERED: CHLORTHALIDONE 25 MG TABLET PO SCH (09:00)
[2019-09-15] MEDS: FLUTICASONE PROPIONATE SPRAY.NAS NS SCH (09:27)
[2019-09-15] MEDS: LISINOPRIL 20 MG TABLET PO SCH (09:28)
[2019-09-15] MEDS: FENOFIBRATE 43 MG CAPSULE PO SCH (09:28)
[2019-09-15] MEDS: SENNOSIDES 1 TABLET PO PRN (09:28)
[2019-09-15] MEDS: CHLORTHALIDONE 25 MG TABLET PO SCH (09:29)
[2019-09-15] MEDS: OMEPRAZOLE 20 MG CAPSULE PO SCH (09:29)
[2019-09-15] MEDS: ATORVASTATIN 40 MG TABLET PO SCH (09:29)
[2019-09-15] MEDS: amLODIPine 5 MG TABLET PO SCH ×2 (09:29→20:29)
[2019-09-15] MEDS: DOCUSATE SODIUM 100 MG CAPSULE PO SCH ×2 (09:29→20:29)
[2019-09-15] MEDS: METOPROLOL TARTRATE 25 MG TABLET PO SCH ×2 (09:29→20:29)
--- NOTE | 2019-09-15 10:17 | Infectious Disease Prog Note ---
Subjective Patient information: Note initiated : 09/15/19 at 10:10 am Service Date, if different from initiated Date: [] Patient: Chaitanya Duvall 44 y/o M admitted on 09/09/19 for prostatits. Chief Complaint: [] Interval history: Patient feels better. Denies any fever, chills, nausea, vomiting. Does not have diarrhea but is wishing to have some given his constipation. Endorses pain in the prostate area, described as burning but only noticed when he moves around but not when he is lying down in the bed. Denies any other symptoms. Discussed plans for PICC line placement if blood cultures are negative by sully afternoon and then 4 weeks of antibiotics with infectious disease clinic follow-up. Objective Objective Narrative: Alert, oriented x3 Chest clear to auscultation except over left lower lung corey where there are decreased breath sounds S1-S2 normal, has a right second intercostal space systolic murmur Bowel sounds present, nontender, distended, no rebound or guarding has minimal pitting edema over both shins Has multiple scars over skin of lower extremities, no active ulcers or wounds - Vital Signs Vital signs: Vital Signs Temp Pulse Resp BP BP Pulse Ox 09/15/19 07:57 37.0 C 85 22 172/80 95 09/15/19 04:00 36.8 C 80 18 135/83 94 09/14/19 23:49 36.9 C 82 18 133/80 94 09/14/19 19:00 36.9 C 84 20 133/76 94 09/14/19 18:39 37.2 C 94 H 20 142/72 95 09/14/19 12:00 36.9 C 90 18 146/65 95 09/14/19 11:24 36.7 C 81 18 129/57 93 09/14/19 11:18 37.2 C 79 16 130/67 97 09/14/19 11:13 83 15 136/66 97 09/14/19 11:08 80 16 134/64 96 09/14/19 11:03 37.5 C H 84 16 135/65 96 Intake and Output 09/14/19 09/15/19 09/15/19 21:59 05:59 13:59 Intake Total 1840 800 Output Total 400 Balance 1440 800 Intake: Oral 1840 800 Output: Void Amount 400 Other: Meal Lunch Percent of Meal Consumed 100% Feeding Ability Independent Urine Appearance Clear Urine Color Green Urine Odor Normal # Voids 1 Weight 168.283 kg Intake & Output: Intake & Output 09/14/19 09/15/19 09/15/19 21:59 05:59 13:59 Intake Total 1840 800 Output Total 400 Balance 1440 800 Weight 168.283 kg Intake: Oral 1840 800 Output: Void Amount 400 Other: Meal Lunch Percent of Meal Consumed 100% Feeding Ability Independent Urine Appearance Clear Urine Color Green Urine Odor Normal # Voids 1 - Lab 09/15/19 06:03 09/15/19 06:03 Most recent lab results Calcium 8.6 mg/dl (8.6-10.4) 09/15/19 06:03 Phosphorus 3.3 mg/dL (2.7-4.5) 09/13/19 05:44 Magnesium 1.8 mg/dL (1.6-2.5) 09/13/19 05:44 Microbiology 09/11/19 05:36 Blood Blood Culture - Preliminary 09/11/19 05:45 Blood Blood Culture - Preliminary 09/14/19 13:45 Aspirate - Other Gram Stain - Final 09/09/19 12:36 Blood Blood Culture - Preliminary Staphylococcus aureus 09/13/19 19:28 Nose MRSA (PCR) - Final 09/10/19 06:58 Blood Blood Culture - Preliminary Staphylococcus aureus 09/09/19 12:28 Blood Blood Culture - Final Staphylococcus aureus Staphylococcus aureus#2 09/10/19 07:05 Blood Blood Culture - Final Staphylococcus aureus 09/09/19 19:18 Urine - Clean Void Mid-Stream Urine Culture - Final Medications Active Medications: Acetaminophen (Tylenol) 650 mg PO Q6HP PRN; Protocol PRN Reason: Per Pain Protocol/Fever > 101 Last Admin: 09/14/19 12:56 Dose: 650 mg Documented by: VASILIY Albuterol Sulfate (Ventolin) 2 puff INH Q6HP PRN PRN Reason: shortness of breath or wheezing Amlodipine Besylate (Norvasc) 5 mg PO BID [facility] Last Admin: 09/15/19 09:29 Dose: 5 mg Documented by: Admin: 09/14/19 21:20 Dose: 5 mg Documented by: BELINDA Atorvastatin Calcium (Lipitor) 40 mg PO QDAY [facility] Last Admin: 09/15/19 09:29 Dose: 40 mg Documented by: VASILIY Cefazolin Sodium (Ancef) 2 gm IV Q8H [facility] Last Admin: 09/15/19 05:56 Dose: 2 gm Documented by: Admin: 09/14/19 22:34 Dose: 2 gm Documented by: Admin: 09/14/19 13:57 Dose: 2 gm Documented by: VASILIY Chlorthalidone (Hygroton) 12.5 mg PO DAILY [facility] Last Admin: 09/15/19 09:29 Dose: 12.5 mg Documented by: VASILIY Dextrose (Dextrose 50%) 0 ml IV UD PRN PRN Reason: Hypoglycemia Diagnostic Test (Pha) (Accu-Chek) 1 each FS [facility] Last Admin: 09/15/19 07:59 Dose: 1 each Documented by: Admin: 09/14/19 21:33 Dose: 1 each Documented by: Admin: 09/14/19 17:25 Dose: 1 each Documented by: Admin: 09/14/19 12:57 Dose: 1 each Documented by: VASILIY Docusate Sodium (Colace) 100 mg PO BID [facility] Last Admin: 09/15/19 09:29 Dose: 100 mg Documented by: Admin: 09/14/19 21:20 Dose: 100 mg Documented by: BELINDA Fenofibrate (Antara) 129 mg PO DAILY [facility] Last Admin: 09/15/19 09:28 Dose: 129 mg Documented by: VASILIY Fluticasone Propionate (Flonase) 2 spray NS QDAY [facility] Last Admin: 09/15/19 09:27 Dose: 2 spray Documented by: VASILIY Comments: barcode would not scan Glucose (Insta-Glucose) 15 gm PO PRN PRN PRN Reason: Hypoglycemia Hydralazine HCl (Apresoline) 0 mg IV Q2HP PRN PRN Reason: Hypertension Last Admin: 09/15/19 08:23 Dose: 20 mg Documented by: VASILIY Insulin Human Lispro (Humalog) 0 unit SQ [facility]; Protocol Last Admin: 09/15/19 08:01 Dose: Not Given Documented by: VASILIY Non-Admin Reason: No Coverage Needed Admin: 09/14/19 21:34 Dose: Not Given Documented by: AJOHNSON Non-Admin Reason: No Coverage Needed Admin: 09/14/19 17:27 Dose: Not Given Documented by: VASILIY Non-Admin Reason: No Coverage Needed Admin: 09/14/19 12:58 Dose: Not Given Documented by: VASILIY Non-Admin Reason: No Coverage Needed Labetalol HCl (Trandate) 0 mg IV Q2HP PRN PRN Reason: Hypertension Lactulose (Cephulac) 10 gm PO DAILYP PRN PRN Reason: Constipation Lisinopril (Zestril) 40 mg PO QDAY [facility] Last Admin: 09/15/19 09:28 Dose: 40 mg Documented by: VASILIY Magnesium Hydroxide (Milk Of Magnesia) 30 ml PO DAILYP PRN PRN Reason: Constipation Last Admin: 09/15/19 09:28 Dose: 30 ml Documented by: VASILIY Metoprolol Tartrate (Lopressor) 12.5 mg PO BID [facility] Last Admin: 09/15/19 09:29 Dose: 12.5 mg Documented by: Admin: 09/14/19 21:20 Dose: 12.5 mg Documented by: BELINDA Morphine Sulfate (Morphine) 2 mg IV Q4HP PRN; Protocol PRN Reason: Per Pain Protocol Last Admin: 09/14/19 19:56 Dose: 2 mg Documented by: Admin: 09/14/19 11:54 Dose: 2 mg Documented by: VASILIY Omeprazole (Prilosec) 20 mg PO QDAY [facility] Last Admin: 09/15/19 09:29 Dose: 20 mg Documented by: VASILIY Ondansetron HCl (Zofran) 4 mg IV Q6HP PRN PRN Reason: Nausea And Vomiting Oxycodone HCl (Roxicodone) 5 mg PO Q6HP PRN; Protocol PRN Reason: Per Pain Protocol Last Admin: 09/15/19 09:30 Dose: 5 mg Documented by: Admin: 09/15/19 02:54 Dose: 5 mg Documented by: Admin: 09/14/19 19:56 Dose: 5 mg Documented by: Admin: 09/14/19 13:56 Dose: 5 mg Documented by: VASILIY Insulin Degludec [ Tresiba Flextouch U- 200] Pen 118 dose SUB-Q QHS [facility] Last Admin: 09/14/19 22:10 Dose: Not Given Documented by: BELINDA Non-Admin Reason: Unavailable Phenazopyridine HCl (Pyridium) 200 mg PO TIDP PRN PRN Reason: PAINFUL URINATION Last Admin: 09/15/19 05:55 Dose: 200 mg Documented by: Admin: 09/14/19 19:56 Dose: 200 mg Documented by: Admin: 09/14/19 12:57 Dose: 200 mg Documented by: VASILIY Polyethylene Glycol (Miralax) 17 gm PO DAILYP PRN PRN Reason: Constipation Senna (Senokot) 2 tab PO DAILYP PRN PRN Reason: Constipation Last Admin: 09/15/19 09:28 Dose: 2 tab Documented by: Admin: 09/14/19 12:56 Dose: 2 tab Documented by: VASILIY Sodium Chloride (Saline Flush) 10 ml IV Q8 [facility] Last Admin: 09/15/19 05:56 Dose: 10 ml Documented by: Admin: 09/14/19 22:30 Dose: 10 ml Documented by: Admin: 09/14/19 13:57 Dose: 10 ml Documented by: VASILIY Tamsulosin HCl (Flomax) 0.4 mg PO HS [facility] Last Admin: 09/14/19 21:19 Dose: 0.4 mg Documented by: BELINDA Assessment and Plan - Narrative A/P Narrative: Assessment: 1. MSSA bacteremia: Blood cultures positive from September 08 [2 out of 2 sets] and [2 out of 2 sets] -Likely source: Prostate infection with multiple abscesses, skin colonization, dry skin and scaling over both feet especially around the healed right great toe stump with callus. - blood Cx from 09/10 so far NGTD - pt has a rt 2nd ICS systolic murmur. TTE neg for any intracardiac vegetations 2. Acute prostatitis with multiple small abscesses: Given multiple number, relatively small size ---> difficult to aspirate per urology, radiology -I am thinking that staph aureus is the likely cause. Extensive gram-negative coverage with oral ciprofloxacin might not be needed. Cefazolin has some gram negative coverage and based on [facility] antibiogram has better coverage than Cipro for E coli and Proteus, and comparable coverage for klebsiella. Cipro resistance rates (per 2020 [employer] [facility]ogram) for enteric pathogens implicated in acute prostatitis: E coli --- 15% Proteus --32% Cefazolin resistance rates (per 2020 [employer] [facility]ibiogram) for enteric pathogens implicated in acute prostatitis: E coli ---- 8% Proteus --- 24% Putting patient on both Cipro and cefazolin will increase risk for Cdiff infection (an JOSUE) - Repeat CT 09/10 showed: "Multiple prostate fluid collections compatible with multifocal prostatic abscess. The largest is 6 x 3.5 cm inferior right peripheral zone extending to the posterior periurethral soft tissues. All of the abscesses are slightly smaller than the comparison CT three days prior. Consider: Urology consult in consideration of transurethral drainage". - s/p surgical drainage on 09/14/19. No fluid collections from prostate could be aspirated. Perineal fluid collection aspirate Cx pending. GS showing 3. Low back pain: - CT L spine neg for any foci of infection 4. DM2: A1C 11.6 - on insulin Recommendations: Continue IV cefazolin 2 g every 8 hours, day 5 [counting from 1st day of neg blood Cx] PICC line placement if blood Cx from 09/14/19 no growth for 48 hrs - anticipate 4 weeks of IV Cefazolin 2 gm q8 hrs through PICC line - Follow up labs: CBC, BMP weekly ESR and CRP every other week Fax labs to [phone], attn: Dr Ortiz - FSBS target <200 mg% - ID clinic f/u in 4 weeks will follow Brandon Ortiz MD Infectious disease
--- NOTE | 2019-09-15 11:43 | General Surgery Progress Note ---
Surgical - Auxillary Note - Subjective Patient Information: Note initiated : 09/15/19 at 11:42 am Service Date, if different from initiated Date: [] Patient: Chaitanya Duvall 44 y/o M admitted on 09/09/19 for prostatits. Chief Complaint: prostatitis WBC is decreasing. continue current plan.. Will f/u as outpatient.
[2019-09-15] MEDS: morphine 4 MG/ML VIAL IV PRN ×2 (12:10→20:48)
[2019-09-15] MEDS: LABETALOL 5 MG/ML ML IV PRN (12:26)
[2019-09-15] MEDS: ACETAMINOPHEN 325 MG TABLET PO PRN ×2 (14:59→20:30)
[2019-09-15] MEDS: TAMSULOSIN 0.4 MG CAPSULE PO SCH (20:30)
[2019-09-15] MEDS: POLYETHYLENE GLYCOL 3350 17 GM PACKET PO PRN (20:31)
[2019-09-15] MEDS: INSULIN DEGLUDEC SUB-Q SCH (20:48)
[2019-09-16] MEDS: morphine 4 MG/ML VIAL IV PRN (03:14)
[2019-09-16] MEDS: oxyCODONE HCL 5 MG TABLET PO PRN ×2 (06:06→12:06)
[2019-09-16] MEDS: ceFAZolin 1 GM VIAL IV SCH ×2 (06:07→14:23)
[2019-09-16] MEDS: 0.9 % SODIUM CHLORIDE 10 ML SYRINGE IV SCH ×2 (06:08→14:23)
[2019-09-16 06:33] LABS: Basophils # (Auto) 0.06 K/mcL (0.00-0.30); Basophils % (Auto) 0.5 % (0.0-2.0); Eosinophils # (Auto) 0.13 K/mcL (0.00-0.70); Eosinophils % (Auto) 1.1 % (0.0-7.0); Granulocytes % (Auto) 76.6 % (38.0-78.0); Hematocrit 32.9 % (40.1-51.0); Hemoglobin 10.3 g/dL (13.7-17.5); Lymphocytes # (Auto) 1.69 K/mcL (1.50-4.80); Lymphocytes % (Auto) 14.3 % (15.5-49.0); Mean Cell Volume 85.7 fL (80.0-100.0); Mean Corpuscular HGB Conc 31.3 g/dL (31.0-36.0); Mean Platelet Volume 10.9 fL (7.4-10.4); Monocytes # (Auto) 0.89 K/mcL (0.10-0.90); Monocytes % (Auto) 7.5 % (1.0-12.0); Platelet Count 521 K/mcL (140-440); RBC 3.84 M/mcL (4.63-6.08); Red Cell Distribution Width 13.9 % (11.5-14.5); WBC 11.8 K/mcL (4.50-11.00)
[2019-09-16] MEDS: FENOFIBRATE 43 MG CAPSULE PO SCH (09:34)
[2019-09-16] MEDS: CHLORTHALIDONE 25 MG TABLET PO SCH (09:34)
[2019-09-16] MEDS: OMEPRAZOLE 20 MG CAPSULE PO SCH (09:35)
[2019-09-16] MEDS: ATORVASTATIN 40 MG TABLET PO SCH (09:35)
[2019-09-16] MEDS: DOCUSATE SODIUM 100 MG CAPSULE PO SCH (09:35)
[2019-09-16] MEDS: METOPROLOL TARTRATE 25 MG TABLET PO SCH (09:35)
[2019-09-16] MEDS: LISINOPRIL 20 MG TABLET PO SCH (09:35)
[2019-09-16] MEDS: amLODIPine 5 MG TABLET PO SCH (09:35)
[2019-09-16] MEDS: FLUTICASONE PROPIONATE SPRAY.NAS NS SCH (09:36)
[2019-09-16] MEDS: INSULIN LISPRO 1 UNIT/0.01 ML UNIT SQ SCH ×3 (09:36→17:38)
[2019-09-16] MEDS: LABETALOL 5 MG/ML ML IV PRN ×3 (09:37→15:44)
[2019-09-16] MEDS: POLYETHYLENE GLYCOL 3350 17 GM PACKET PO PRN (09:37)
--- NOTE | 2019-09-16 17:10 | XRay Report ---
CLINICAL INFORMATION: PICC PLACEMENT COMPARISON: None. FINDINGS: Left PICC line tip overlies the SVC right atrial junction in satisfactory position. The heart is normal in size for technique. Mediastinum and pulmonary vessels are unremarkable. Lungs are clear. No effusions IMPRESSION: Left PICC line in satisfactory position. No acute disease Interpreted and Authenticated by: Chaitanya Dorado 09/16/19
== END 2019-09-16 18:12 | disposition home or self-care (01) | DRG 728 ==
LOC: ED 11:14 → MEDSUR 15:30
PROVIDERS: ADMIT Internal Medicine; ATTEND Internal Medicine

== ENCOUNTER 2020-09-22 15:57 | Inpatient (IN) ==
--- NOTE | 2020-09-22 16:23 | Emergency Department Note ---
Skin/Abscess/FB HPI General Chief complaint: Skin/Abscess/Rash Stated complaint: Recheck for positive blood cultures Time Seen by Provider: 09/22/20 16:08 Source: patient Mode of arrival: ambulatory Limitations: physical limitation (Morbidly obese) History of Present Illness HPI Narrative: Narrative: Patient is a 45-year-old male who returns to the emergency department today after he was called earlier by myself with his blood culture preliminary results that grew gram-negative bacillus in both samples. Patient had reported over the phone having chills and vomiting. He was advised to return to the emergency department for reevaluation. Patient was seen yesterday here in the emergency department and has cellulitis to the right lower extremity, and a diabetic foot ulcer. An x-ray was obtained yesterday that shows diffuse soft tissue swelling compatible with cellulitis, but no specific radiographic evidence of osteomyelitis. Patient had a white count yesterday of 13,000, lactic acid 1.5, and he was given 3.375 mg dose of Zosyn IV. He was started on Bactrim and cephalexin oral antibiotic. He was discharged home, and then called today when the blood culture results were available. Patient indicates that yesterday when he was home he was having chills last night and this morning was nauseous and has vomited 4 times at home after starting the oral antibiotics. He does feel chilled at times. He thinks that he may feel slightly better today than he did yesterday, but last night he felt short of breath and continued to have vomiting. He reports that he was vomiting his food that he ate. He denies any hematic emesis. He denies any blood loss or bleeding. He has not had any abdominal pains. He has not had any chest pain, cough, or difficulty breathing. Related Data Home Medications Medication Instructions Recorded Confirmed cholecalciferol (vitamin D3) 125 mcg PO QDAY 01/22/20 06/28/20 [Vitamin D3] fluticasone propionate 50 2 spray INTRANASAL QDAY g 05/23/20 06/28/20 mcg/actuation nasal spray,suspension Previous Rx's Medication Instructions Recorded albuterol sulfate 90 mcg/actuation 2 puff INHALATION Q6H PRN #18 g 07/07/19 aerosol inhaler insulin degludec 118 unit SUB-Q QHS 90 Days #49.5 ml 09/12/19 blood-glucose meter #1 each 09/21/19 lancets #200 each 09/21/19 B-D PEN NDL SHRT [id number](08/25) ARLINE See Rx Instructions .ROUTE 03/15/20 .COMPLEX #1500 each flash glucose sensor 1 each MISCELLANEOUS QDAY #10 each 05/24/20 oxycodone-acetaminophen [Percocet] 1 tab PO Q8H PRN #10 tab 05/24/20 insulin lispro 100 unit/mL See Rx Instructions .ROUTE 05/27/20 subcutaneous pen .COMPLEX #15 ml blood sugar diagnostic #400 ea 06/04/20 fenofibrate 160 mg tablet 160 mg PO QDAY #90 tab 07/04/20 metformin 1,000 mg tablet 1,000 mg PO BID #180 tab 07/09/20 omeprazole 20 mg capsule,delayed 20 mg PO QDAY #90 cap 07/18/20 release telmisartan 80 mg-amlodipine 10 mg 1 tab PO QDAY #90 tab 08/22/20 tablet semaglutide 1 mg/dose (2 mg/1.5 1 mg SUB-Q QWEEK #3 ml 09/10/20 mL) subcutaneous pen injector cephalexin 500 mg PO TID #21 cap 09/21/20 sulfamethoxazole-trimethoprim 1 tab PO Q12H #14 tab 09/21/20 [Bactrim DS] Allergies Allergy/AdvReac Type Severity Reaction Status Date / Time No Known Drug Allergies Allergy Verified 06/28/20 10:09 Review of Systems ROS ROS Narrative: Narrative: All systems ED: reviewed and negative except as stated. [facility] Narrative Patient History Narrative: Narrative: Medical/Surgical/Family History All Active Problems (Updated 09/22/20 @ 18:49 by MARY Brock) Fracture of distal end of fibula (Acute) Fever (Acute) Cellulitis (Acute) Hypersomnia (Acute) Fatigue (Acute) Prostatitis (Acute) Prostate abscess (Acute) Sepsis (Acute) Right upper quadrant pain (Acute) Constipation (Acute) Left foot pain (Chronic) Skin lesion (Chronic) Neoplasm of uncertain behavior (Chronic) Seborrheic keratosis (Chronic) Gage angioma (Chronic) Lentigines (Chronic) Charcot's joint of left ankle (Chronic) Charcot's joint of left foot (Chronic) Charcot foot due to diabetes mellitus (Chronic) Uncontrolled type 2 diabetes mellitus with diabetic neuropathy (Chronic) Type 2 diabetes mellitus with hyperglycemia (Chronic) Plantar fasciitis (Chronic) Tobacco dependence (Chronic) Hypercholesteremia (Chronic) Asthma (Chronic) High cholesterol (Chronic ~2017) Type 2 diabetes mellitus (Chronic ~2001) Anemia (Chronic ~2009) Amputation of toe (Chronic) Hypertension, essential (Chronic ~2001) Hyperlipidemia (Chronic) Diabetes (Chronic) Medical History (Updated 09/22/20 @ 18:49 by MARY Brock) Amputation of toe Anemia (~2009) Asthma Charcot foot due to diabetes mellitus Charcot's joint of left ankle Charcot's joint of left foot Gage angioma Diabetes High cholesterol (~2016) Hypercholesteremia Hyperlipidemia Hypertension, essential (~2001) Left foot pain Lentigines Neoplasm of uncertain behavior Plantar fasciitis Seborrheic keratosis Skin lesion Tobacco dependence Type 2 diabetes mellitus (~2001) Type 2 diabetes mellitus with hyperglycemia Uncontrolled type 2 diabetes mellitus with diabetic neuropathy Surgical History History of amputation of right great toe (~2017) History of amputation of toe Right baby History of shoulder surgery Rotator cuff; Right in 2007 and Left in 2008 Family History Grandmother Breast cancer Paternal Mother High blood pressure Cancer Melanoma Family/Other Diabetes Coronary artery disease Social History Smoking Status: Former smoker Alcohol Intake Frequency: does not drink Substance Use: does not use Exam Narrative Narrative: Narrative: General Limitations: physical limitation (Morbidly obese) General appearance: Present alert, in no apparent distress and obese Eye Eye: Present normal appearance; Absent scleral icterus ENT ENT: Present normal oropharynx and mucous membranes moist Neck Neck: Present normal inspection and full ROM; Absent tenderness, meningismus and lymphadenopathy Chest Chest: Present symmetric chest wall rise Respiratory Respiratory: Present normal lung sounds bilaterally; Absent respiratory distress, rales/crackles, wheezes, stridor, accessory muscle use and prolonged expiratory phase Cardiovascular Cardiovascular: Present regular rate, normal rhythm and normal heart sounds; Absent systolic murmur and diastolic murmur Adbominal Abdominal: Present soft; Absent distention and tenderness Expanded Lower Extremity Foot/toe: Present abrasion (On the plantar side of the right foot at the distal end of the metatarsal there is a 3 cm x 2.5 cm stage II ulceration with pink granulation tissue. Serosanguineous discharge. Odor is present.), erythema and other (Right lower extremity has erythema, swelling, and tenderness to palpate across the entire foot, calf, and leg that extends up just inferior to the right knee. Normal sensation. Full range of motion to the foot and ankle. Right first toe has a healed amputation. ) Bottom foot image: 1. Ulcer Neurovascular/Tendon: Present normal capillary refill Neurological Neurological: Present alert and oriented X3 Psychiatric Psychiatric: Present normal affect and normal mood Skin Skin: Present warm (WNL) and dry Course Course Course Narrative: 1705 -I was able to speak with Dr. Nye who is on for the hospitalist group today. Report was given to Dr. Nye in regards to the patient, and he will plan on seeing the patient in the emergency department at the patient to [facility] as an inpatient on MedSurg. CBC, CMP, lactic acid currently pending. Ordered 1 L normal saline and a repeat dose of Zosyn. 1710 - Dr. Nye at the bedside with the patient in room E2. Vital Signs Vital signs: Vital Signs Temperature 98.8 F 09/22/20 15:59 Pulse Rate 97 H 09/22/20 15:59 Respiratory Rate 16 09/22/20 15:59 Blood Pressure 158/70 09/22/20 15:59 Pulse Oximetry (%) 97 09/22/20 15:59 Temperature 98.8 F 09/22/20 15:59 Pulse Rate 95 H 09/22/20 18:02 Respiratory Rate 16 09/22/20 15:59 Blood Pressure 148/74 09/22/20 18:02 Pulse Oximetry (%) 98 09/22/20 18:02 [facility] Narrative Medical decision making narrative: Narrative: 45-year-old male with cellulitis of the right lower extremity who also was found to have gram-negative bacilli in both sets of the blood cultures. Patient appears to have failed outpatient therapy as he is vomiting and had chills. We will admit patient to [facility] with the hospitalist. Dr. Nye has agreed to accept the patient and will admit the patient. Today in the emergency department had ordered a repeat CBC, CMP, lactic acid, 1 L normal saline, and 3.375 g Zosyn. Lab Data Lab results reviewed: Yes I reviewed the patient's lab results. Result diagrams: 09/22/20 17:18 09/22/20 17:18 Labs: Lab Results 09/22/20 09/22/20 09/22/20 Range/Units 17:18 17:18 17:18 WBC 10.1 (4.5-11.0) K/mcL RBC 4.06 L (4.50-5.90) M/mcL Hgb 11.3 L (13.5-16.5) g/dL Hct 35.1 L (41.0-55.0) % MCV 86.5 (80.0-100.0) fL MCH 27.8 (26.0-34.0) pg MCHC 32.2 (31.0-36.0) g/dL RDW 14.6 H (11.5-14.5) % Plt Count 246 (140-440) K/mcL MPV 11.8 H (7.4-10.4) fL Neut % (Auto) 88.4 H (38.0-78.0) % Lymph % (Auto) 4.1 L (15.0-49.0) % [place] % (Auto) 6.8 (1.0-12.0) % Eos % (Auto) 0.4 (0.0-7.0) % Baso % (Auto) 0.3 (0.0-2.0) % Lymph # (Auto) 0.41 L (1.50-4.80) K/mcL [place] # (Auto) 0.68 (0.10-0.90) K/mcL Eos # (Auto) 0.04 (0.00-0.70) K/mcL Baso # (Auto) 0.03 (0.00-0.20) K/mcL Absolute Neutrophils 8.90 H (1.80-8.00) K/mcL VBG Lactic Acid 1.4 (0.5-2.0) mmol/L Sodium 131 L (133-145) mmol/L Potassium 3.4 (3.3-5.1) mmol/L Chloride 97 (96-108) mmol/L Carbon Dioxide 20 L (22-30) mmol/L Anion Gap 14.0 (8.0-16.0) BUN 30 H (6-20) mg/dL Creatinine 3.2 H (0.7-1.2) mg/dL GFR Calculation 22 Glucose 276 H (70-105) mg/dL Calcium 9.2 (8.6-10.4) mg/dL Total Bilirubin 0.6 (0.1-1.0) mg/dL AST 25 (<40) U/L ALT 25 (<40) U/L Alkaline Phosphatase 158 H (39-117) U/L Total Protein 6.6 (5.9-8.4) gm/dL Albumin 2.7 L (3.2-5.2) gm/dL Globulin 3.9 H (2.2-3.7) gm/dL Albumin/Globulin Ratio 0.7 L (1.0-2.3) ED POC Tests ED POC Tests: ROMI - SARS Antigen Negative Discharge Plan Patient/Caregiver Discharge Instructions Pt seen by IMMIGRATION ASSOCIATE/PA only: No Clinical Impression: Cellulitis, Sepsis Patient Disposition: Xfer As Inpt ([facility]) Follow up with: Narcisa Rodriguez PA-C [Primary Care Provider] - Prescriptions: No Action B-D PEN NDL SHRT [id number](08/25) ARLINE See Rx Instructions .ROUTE .COMPLEX Qty: 1500 RF: 0 flash glucose sensor [FreeStyle Javi 14 Day Sensor] Kit 1 each miscellaneous QDAY Qty: 10 RF: 0 insulin lispro [Humalog KwikPen Insulin] 100 unit/mL insulin pen See Rx Instructions .ROUTE .COMPLEX Qty: 15 RF: 2 (DME) Blood Glucose Test Strip See Rx Instructions .ROUTE .MEDSUPPLY Qty: 400 RF: 0 fenofibrate 160 mg tablet 160 mg PO QDAY Qty: 90 RF: 1 metformin 1,000 mg tablet 1,000 mg PO BID Qty: 180 RF: 0 omeprazole 20 mg capsule,delayed release(DR/EC) 20 mg PO QDAY Qty: 90 RF: 0 telmisartan-amlodipine 80-10 mg tablet 1 tab PO QDAY Qty: 90 RF: 0 semaglutide 1 mg/dose (2 mg/1.5 mL) pen injector 1 mg SUB-Q QWEEK Qty: 3 RF: 0 albuterol sulfate 90 mcg/actuation HFA aerosol inhaler 2 puff INHALATION Q6H PRN (Reason: shortness of breath or wheezing) Qty: 18 RF: 3 (DME) lancets Misc See Rx Instructions .ROUTE .MEDSUPPLY Qty: 200 RF: 2 (DME) blood-glucose meter Misc See Rx Instructions .ROUTE .MEDSUPPLY Qty: 1 RF: 0 fluticasone propionate 50 mcg/actuation spray,suspension 2 spray intranasal QDAY RF: 0 insulin degludec 200 unit/mL (3 mL) insulin pen 118 unit SUB-Q QHS 90 Days Qty: 49.5 RF: 3 cholecalciferol (vitamin D3) [Vitamin D3] 125 mcg (5,000 unit) Tablet 125 mcg PO QDAY RF: 0 oxycodone-acetaminophen [Percocet] 5-325 mg tablet 1 tab PO Q8H PRN (Reason: pain) Qty: 10 RF: 0 sulfamethoxazole-trimethoprim [Bactrim DS] 800-160 mg tablet 1 tab PO Q12H Qty: 14 RF: 0 cephalexin 500 mg capsule 500 mg PO TID Qty: 21 RF: 0
[2020-09-22] MEDS ORDERED: PIPERACILLIN SODIUM/TAZOBACTAM 3.375 GM in DEXTROSE 5% IN WATER 50 ML IV ONE (16:53)
--- NOTE | 2020-09-22 17:22 | Internal Med History&Physical ---
HPI History of Present Illness Patient information: Note initiated : 09/22/20 at 5:16 pm Service Date, if different from initiated Date: [] Patient: Chaitanya Duvall a 45 y/o M admitted on for Recheck for positive blood cultures. Chief Complaint: [] History of present illness: Mr. Duvall is a 45 year old M Who presented ED yesterday with right foot and leg tenderness and redness. He was seen in the ED and diagnosed with cellulitis and started on antibiotics, blood cultures were obtained that time. Patient went home and was called back today because of blood culture growing gram-negative bacillus. Patient states that for starting Wednesday with increased tenderness and redness of his leg and then he went into the ED on Wednesday. He also initially had nausea vomiting and fever and chills. Wednesday night when he went from the ED he did have some nausea vomiting as well. Today he feels better. Was febrile in the ED. Review of Systems: Pertinent positives as above plus headache. Denies /chest or abdominal pain/cough/diarrhea. Remaining 10 point review of system reviewed negative PFSH PFSH All Active Problems (Updated 09/21/20 @ 19:35 by MARY Brock) Fracture of distal end of fibula (Acute) Fever (Acute) Cellulitis (Acute) Hypersomnia (Acute) Fatigue (Acute) Prostatitis (Acute) Prostate abscess (Acute) Sepsis (Acute) Right upper quadrant pain (Acute) Constipation (Acute) Left foot pain (Chronic) Skin lesion (Chronic) Neoplasm of uncertain behavior (Chronic) Seborrheic keratosis (Chronic) Gage angioma (Chronic) Lentigines (Chronic) Charcot's joint of left ankle (Chronic) Charcot's joint of left foot (Chronic) Charcot foot due to diabetes mellitus (Chronic) Uncontrolled type 2 diabetes mellitus with diabetic neuropathy (Chronic) Type 2 diabetes mellitus with hyperglycemia (Chronic) Plantar fasciitis (Chronic) Tobacco dependence (Chronic) Hypercholesteremia (Chronic) Asthma (Chronic) High cholesterol (Chronic ~2016) Type 2 diabetes mellitus (Chronic ~2001) Anemia (Chronic ~2009) Amputation of toe (Chronic) Hypertension, essential (Chronic ~2001) Hyperlipidemia (Chronic) Diabetes (Chronic) Medical History (Updated 09/21/20 @ 19:35 by MARY Brock) Amputation of toe Anemia (~2009) Asthma Charcot foot due to diabetes mellitus Charcot's joint of left ankle Charcot's joint of left foot Gage angioma Diabetes High cholesterol (~2016) Hypercholesteremia Hyperlipidemia Hypertension, essential (~2001) Left foot pain Lentigines Neoplasm of uncertain behavior Plantar fasciitis Seborrheic keratosis Skin lesion Tobacco dependence Type 2 diabetes mellitus (~2001) Type 2 diabetes mellitus with hyperglycemia Uncontrolled type 2 diabetes mellitus with diabetic neuropathy Surgical History History of amputation of right great toe (~2017) History of amputation of toe Right baby History of shoulder surgery Rotator cuff; Right in 2007 and Left in 2008 Family History Grandmother Breast cancer Paternal Mother High blood pressure Cancer Melanoma Family/Other Diabetes Coronary artery disease Social History marital status: alcohol intake frequency: does not drink substance use type: does not use MEDS/ALLERGIES Home Medications and Allergies Home Medications Medication Instructions Recorded Confirmed Type albuterol sulfate 90 mcg/actuation 2 puff INHALATION Q6H PRN #18 g 07/07/19 06/28/20 Rx aerosol inhaler insulin degludec 118 unit SUB-Q QHS 90 Days #49.5 ml 09/12/19 06/28/20 Rx blood-glucose meter #1 each 09/21/19 06/28/20 Rx lancets #200 each 09/21/19 06/28/20 Rx cholecalciferol (vitamin D3) 125 mcg PO QDAY 01/22/20 06/28/20 History [Vitamin D3] B-D PEN NDL SHRT [id number](08/25) ARLINE See Rx Instructions .ROUTE 03/15/20 06/28/20 Rx .COMPLEX #1500 each fluticasone propionate 50 2 spray INTRANASAL QDAY g 05/23/20 06/28/20 History mcg/actuation nasal spray,suspension flash glucose sensor 1 each MISCELLANEOUS QDAY #10 each 05/24/20 06/28/20 Rx oxycodone-acetaminophen [Percocet] 1 tab PO Q8H PRN #10 tab 05/24/20 06/28/20 Rx insulin lispro 100 unit/mL See Rx Instructions .ROUTE 05/27/20 06/28/20 Rx subcutaneous pen .COMPLEX #15 ml blood sugar diagnostic #400 ea 06/04/20 06/28/20 Rx fenofibrate 160 mg tablet 160 mg PO QDAY #90 tab 07/04/20 Rx metformin 1,000 mg tablet 1,000 mg PO BID #180 tab 07/09/20 Rx omeprazole 20 mg capsule,delayed 20 mg PO QDAY #90 cap 07/18/20 Rx release telmisartan 80 mg-amlodipine 10 mg 1 tab PO QDAY #90 tab 08/22/20 Rx tablet semaglutide 1 mg/dose (2 mg/1.5 1 mg SUB-Q QWEEK #3 ml 09/10/20 Rx mL) subcutaneous pen injector cephalexin 500 mg PO TID #21 cap 09/21/20 Rx sulfamethoxazole-trimethoprim 1 tab PO Q12H #14 tab 09/21/20 Rx [Bactrim DS] Allergies Allergy/AdvReac Type Severity Reaction Status Date / Time No Known Drug Allergies Allergy Verified 06/28/20 10:09 EXAM Constitutional Vitals: Temp Pulse Resp BP Pulse Ox 98.8 F 94 H 16 139/67 97 09/22/20 15:59 09/22/20 17:04 09/22/20 15:59 09/22/20 17:04 09/22/20 17:04 Exam: General: Alert, Awake, No acute Distress, obese Eyes/N/T: EOMI, PERRL, Head/Neck: neck supple, normocephalic atraumatic CV: RRR, No murmurs, normal s1/s2 Pulm: Clear b/l, no wheezing/rhonchi/rales Abd: soft, nontender, +BS x4 Ext: no clubbing/cyanosis, b/l LE edema R>L. right foot to calf with erythema and tenderness and increased swelling. Clean base ulcer on plantar aspect of forefoot. Neuro: Alert, no focal deficits, moves all extremities, CN 2-12 grossly intact, symmetrical strength b/l upper/lower, sensations intact b/l upper/lower Skin: warm/dry A/P Narrative A/P Narrative: A: *RLE/foot cellulitis: *Bacteremia(GNB): *BRENT on CKD II: *SIRS: *Hyponatremia: *DM: A1c *HTN/HLD: *GERD: *Obesity: * P: -IV Abx, pending final BC -IVF, f/u renal fxn - -hold home ARB for brent, cont norvasc - -basal and SSI -wound care -ppx: lovenox/Home PPI Time Spent With Patient Time: Total time spent is greater than 50% in coordination of care (as doc umented) at patient's floor/unit and/or counseling patient:
[2020-09-22 18:13] LABS: Basophils # (Auto) 0.03 K/mcL (0.00-0.20); Basophils % (Auto) 0.3 % (0.0-2.0); Eosinophils # (Auto) 0.04 K/mcL (0.00-0.70); Eosinophils % (Auto) 0.4 % (0.0-7.0); Hematocrit 35.1 % (41.0-55.0); Hemoglobin 11.3 g/dL (13.5-16.5); Lymphocytes # (Auto) 0.41 K/mcL (1.50-4.80); Lymphocytes % (Auto) 4.1 % (15.0-49.0); Mean Cell Volume 86.5 fL (80.0-100.0); Mean Corpuscular HGB Conc 32.2 g/dL (31.0-36.0); Mean Platelet Volume 11.8 fL (7.4-10.4); Monocytes # (Auto) 0.68 K/mcL (0.10-0.90); Monocytes % (Auto) 6.8 % (1.0-12.0); Neutrophils % (Auto) 88.4 % (38.0-78.0); Platelet Count 246 K/mcL (140-440); RBC 4.06 M/mcL (4.50-5.90); Red Cell Distribution Width 14.6 % (11.5-14.5); WBC 10.1 K/mcL (4.5-11.0)
[2020-09-22 18:43] LABS: ALT/SGPT 25 U/L (<40); AST/SGOT 25 U/L (<40); Albumin 2.7 gm/dL (3.2-5.2); Albumin/Globulin Ratio 0.7 (1.0-2.3); Alkaline Phosphatase 158 U/L (39-117); Bilirubin,Total 0.6 mg/dL (0.1-1.0); Blood Urea Nitrogen 30 mg/dL (6-20); Calcium 9.2 mg/dL (8.6-10.4); Carbon Dioxide 20 mmol/L (22-30); Chloride 97 mmol/L (96-108); Globulin 3.9 gm/dL (2.2-3.7); Glomerular Filtration Rate 22; Glucose 276 mg/dL (70-105)
[2020-09-22] MEDS ORDERED: DEXTROSE 31 GM ORAL.SUSP PO PRN (19:17)
[2020-09-22] MEDS ORDERED: METOCLOPRAMIDE 10 MG/2 ML VIAL IV PRN (19:17)
[2020-09-22] MEDS ORDERED: POTASSIUM CHLORIDE 40 MEQ in DEXTROSE 5% IN WATER 500 ML IV PRN (19:17)
[2020-09-22] MEDS ORDERED: IPRATROPIUM/ALBUTEROL 3 ML AMPUL.NEB NEB PRN (19:17)
[2020-09-22] MEDS ORDERED: 0.9 % SODIUM CHLORIDE 1,000 ML IV SCH (19:17)
[2020-09-22] MEDS ORDERED: ONDANSETRON 4 MG/2 ML VIAL IV PRN (19:17)
[2020-09-22] MEDS ORDERED: POLYETHYLENE GLYCOL 3350 17 GM PACKET PO PRN (19:17)
[2020-09-22] MEDS ORDERED: POTASSIUM CHLORIDE 20 MEQ TABLET PO PRN ×2 (19:17)
[2020-09-22] MEDS ORDERED: SENNOSIDES 1 TABLET PO PRN (19:17)
[2020-09-22] MEDS ORDERED: DEXTROSE 50% 50 ML VIAL IV PRN (19:17)
[2020-09-22] MEDS ORDERED: MAGNESIUM SULFATE 2 GM/50 ML BAG IV PRN (19:17)
[2020-09-22] MEDS: DOCUSATE SODIUM 100 MG CAPSULE PO SCH (20:05)
[2020-09-22 20:28] LABS: C-Reactive Protein 33.2 mg/dL (0.03-0.80)
[2020-09-22] MEDS: INSULIN LISPRO 1 UNIT/0.01 ML UNIT SQ SCH (20:48)
[2020-09-22] MEDS: 0.9 % SODIUM CHLORIDE 10 ML SYRINGE IV SCH (20:48)
[2020-09-22] MEDS: CEFEPIME 2 GM VIAL IV SCH (20:49)
[2020-09-22] MEDS: oxyCODONE/APAP 5/325MG TABLET PO PRN (20:56)
[2020-09-22] MEDS ORDERED: INSULIN DEGLUDEC 200 UNIT/ML SUB-Q SCH (21:00)
[2020-09-22] MEDS ORDERED: [UNRECOGNIZED DRUG - OTHER] SUB-Q SCH (21:00)
[2020-09-22] MEDS ORDERED: ENOXAPARIN 40 MG/0.4 ML SYRINGE SQ SCH (21:00)
[2020-09-22] MEDS ORDERED: INSULIN SUB-Q SCH (21:00)
[2020-09-22 22:37] LABS: Hemoglobin A1C 8.3 % Hgb (4.0-6.0)
[2020-09-22] MEDS: ACETAMINOPHEN 325 MG TABLET PO PRN (23:49)
[2020-09-23] MEDS: hydrALAZINE 20 MG/ML VIAL IV PRN ×2 (03:48→05:33)
[2020-09-23] MEDS: ACETAMINOPHEN 325 MG TABLET PO PRN ×2 (03:49→10:05)
[2020-09-23] MEDS: 0.9 % SODIUM CHLORIDE 10 ML SYRINGE IV SCH ×3 (05:33→20:32)
[2020-09-23 06:20] LABS: Basophils # (Auto) 0.04 K/mcL (0.00-0.20); Basophils % (Auto) 0.3 % (0.0-2.0); Eosinophils # (Auto) 0.06 K/mcL (0.00-0.70); Eosinophils % (Auto) 0.5 % (0.0-7.0); Hematocrit 33.4 % (41.0-55.0); Hemoglobin 10.5 g/dL (13.5-16.5); Lymphocytes # (Auto) 0.53 K/mcL (1.50-4.80); Lymphocytes % (Auto) 4.6 % (15.0-49.0); Mean Cell Volume 85.6 fL (80.0-100.0); Mean Corpuscular HGB Conc 31.4 g/dL (31.0-36.0); Mean Platelet Volume 11.8 fL (7.4-10.4); Monocytes # (Auto) 1.05 K/mcL (0.10-0.90); Neutrophils % (Auto) 85.6 % (38.0-78.0); Platelet Count 275 K/mcL (140-440); Red Cell Distribution Width 14.8 % (11.5-14.5); WBC 11.6 K/mcL (4.5-11.0)
[2020-09-23 06:31] LABS: ALT/SGPT 26 U/L (<40); AST/SGOT 24 U/L (<40); Albumin 2.6 gm/dL (3.2-5.2); Albumin/Globulin Ratio 0.6 (1.0-2.3); Alkaline Phosphatase 165 U/L (39-117); Bilirubin,Direct 0.5 mg/dL (<0.3); Bilirubin,Total 0.6 mg/dL (0.1-1.0); Blood Urea Nitrogen 36 mg/dL (6-20); Calcium 9.1 mg/dL (8.6-10.4); Carbon Dioxide 17 mmol/L (22-30); Chloride 98 mmol/L (96-108); Globulin 4.1 gm/dL (2.2-3.7); Glomerular Filtration Rate 18; Glucose 219 mg/dL (70-105); Lactate Dehydrogenase 234 U/L (135-225); Phosphorous 3.1 mg/dL (2.5-4.5); Triglycerides 213 mg/dL (<150); Uric Acid 8.1 mg/dL (2.5-8.0)
--- NOTE | 2020-09-23 07:35 | Internal Med Progress Note ---
SUBJECTIVE Subjective Patient information: Note initiated : 09/23/20 at 7:27 am Service Date, if different from initiated Date: [] Patient: Chaitanya Duvall 45 y/o M admitted on 09/22/20 for Recheck for positive blood cultures. Chief Complaint: [] Interval history: History of present illness: Mr. Duvall is a 45 year old M Who presented ED yesterday with right foot and leg tenderness and redness. He was seen in the ED and diagnosed with cellulitis and started on antibiotics, blood cultures were obtained that time. Patient went home and was called back today because of blood culture growing gram-negative bacillus. Patient states that for starting Wednesday with increased tenderness and redness of his leg and then he went into the ED on Wednesday. He also initially had nausea vomiting and fever and chills. Wednesday night when he went from the ED he did have some nausea vomiting as well. Today he feels better. Was febrile in the ED. 09/23 Patient says he had a poor sleep last night. Patient complains of headache and feels weaker. Review of Systems: denies headache/fever/chills/nausea/vomiting/chest or abdominal pain/cough/dyspnea/diarrhea. Otherwise see above. Constitutional Vitals: Vital Signs Temp Pulse Resp BP Pulse Ox 101.6 F H 99 H 20 159/66 99 09/23/20 05:47 09/23/20 05:47 09/23/20 05:47 09/23/20 05:59 09/23/20 05:47 Period Temp Pulse Resp BP Sys/Foley Pulse Ox Last 24 Hr 98.8 F-101.6 F 91-102 16-22 117-176/66-92 95-99 Intake and Output 09/22/20 09/23/20 09/23/20 21:59 05:59 13:59 Intake Total 50 1800 Balance 50 1800 Weight 182.599 kg Intake & Output: Intake & Output 09/22/20 09/23/20 09/23/20 21:59 05:59 13:59 Intake Total 50 1800 Balance 50 1800 Weight 182.599 kg Intake: IV 50 1000 Sodium Chloride 0.9% 1,000 ml @ 1000 125 mls/hr IV .Q8H [facility] Rx#: [id number] Zosyn 3.375 gm In Dextrose 5% 50 in Water 50 ml @ 100 mls/hr IV ONCE ONE Rx#:[id number] Oral 800 Other: Stool Size Moderate Stool Color Brown Stool Consistency Soft # Voids 3 # Bowel Movements 1 Exam: General: Alert, Awake, No acute Distress, obese Eyes/N/T: EOMI, Head/Neck: neck supple, CV: RRR, No murmurs, Pulm: Clear b/l, no wheezing/rhonchi/rales Abd: soft, nontender, +BS x4 Ext: no clubbing/cyanosis, b/l LE edema R>>L. right foot to calf with erythema and tenderness and increased swelling. Clean base ulcer on plantar aspect of forefoot. Neuro: Alert, no focal deficits, moves all extremities, Skin: warm/dry OBJ DATA Labs CBC & Chem 7: 09/23/20 04:52 09/23/20 04:51 Labs: Abnormal Lab Results 09/23/20 09/23/20 09/22/20 04:52 04:51 17:18 WBC 11.6 H RBC 3.90 L Hgb 10.5 L Hct 33.4 L RDW 14.8 H MPV 11.8 H Neut % (Auto) 85.6 H Lymph % (Auto) 4.6 L Lymph # (Auto) 0.53 L Carlton # (Auto) 1.05 H Absolute Neutrophils 9.94 H ESR Sodium 131 L Carbon Dioxide 17 L BUN 36 H Creatinine 3.8 H Glucose 219 H Hemoglobin A1c 8.3 H Uric Acid 8.1 H Direct Bilirubin 0.5 H Alkaline Phosphatase 165 H Lactate Dehydrogenase 234 H C-Reactive Protein 33.20 H Albumin 2.6 L Globulin 4.1 H Albumin/Globulin Ratio 0.6 L Triglycerides 213 H 09/22/20 09/22/20 09/22/20 17:18 17:18 17:18 WBC RBC 4.06 L Hgb 11.3 L Hct 35.1 L RDW 14.6 H MPV 11.8 H Neut % (Auto) 88.4 H Lymph % (Auto) 4.1 L Lymph # (Auto) 0.41 L Carlton # (Auto) Absolute Neutrophils 8.90 H ESR 122 H Sodium 131 L Carbon Dioxide 20 L BUN 30 H Creatinine 3.2 H Glucose 276 H Hemoglobin A1c Uric Acid Direct Bilirubin Alkaline Phosphatase 158 H Lactate Dehydrogenase C-Reactive Protein Albumin 2.7 L Globulin 3.9 H Albumin/Globulin Ratio 0.7 L Triglycerides Meds: Medications Acetaminophen (Acetaminophen 325 Mg Tablet) 650 mg PO Q6HP PRN PRN Reason: PAIN/FEVER > 101 Last Admin: 09/23/20 03:49 Dose: 650 mg Documented by: Hydrocodone Bitart/Acetaminophen (Hydrocodone/Apap 5/325mg Tablet) 1 tab PO Q4HP PRN PRN Reason: PAIN LEVEL 3-6 Albuterol/Ipratropium (Ipratropium/Albuterol 3 Ml Ampul.Neb) 3 ml NEB Q4HP PRN PRN Reason: Shortness Of Breath Cefepime HCl (Cefepime 2 Gm Vial) 2 gm IV Q12H [facility]; Protocol Last Admin: 09/22/20 20:49 Dose: 2 gm Documented by: Dextrose (Dextrose 50% 50 Ml Vial) 0 ml IV UD PRN PRN Reason: Hypoglycemia Diagnostic Test (Pha) (Accu-Chek 1 Each Strip) 1 each FS [facility] Last Admin: 09/23/20 07:23 Dose: 1 each Documented by: Docusate Sodium (Docusate Sodium 100 Mg Capsule) 100 mg PO BID [facility] Last Admin: 09/22/20 20:05 Dose: Not Given Documented by: Enoxaparin Sodium (Enoxaparin 40 Mg/0.4 Ml Syringe) 40 mg SQ BID [facility] Last Admin: 09/22/20 20:47 Dose: 40 mg Documented by: Fenofibrate (Fenofibrate 43 Mg Capsule) 129 mg PO DAILY [facility] Glucose (Dextrose 31 Gm Oral.Susp) 15 gm PO PRN PRN PRN Reason: Hypoglycemia Hydralazine HCl (Hydralazine 20 Mg/Ml Vial) 0 mg IV Q2HP PRN PRN Reason: Hypertension Last Admin: 09/23/20 05:33 Dose: 20 mg Documented by: Potassium Chloride 40 meq/ (Dextrose) 520 mls @ 130 mls/hr IV UD PRN PRN Reason: Potassium < 3 Magnesium Sulfate (Magnesium Sulfate) 2 gm in 50 mls @ 50 mls/hr IV UD PRN PRN Reason: Magnesium </= 1.6 Insulin Human Lispro (Insulin Lispro 1 Unit/0.01 Ml Unit) 0 unit SQ ACHS [facility]; Protocol Last Admin: 09/22/20 20:48 Dose: 10 unit Documented by: Metoclopramide HCl (Metoclopramide 10 Mg/2 Ml Vial) 10 mg IV Q6HP PRN PRN Reason: Nausea And Vomiting Last Admin: 09/23/20 04:40 Dose: 10 mg Documented by: Ondansetron HCl (Ondansetron 4 Mg/2 Ml Vial) 4 mg IV Q4HP PRN PRN Reason: Nausea And Vomiting Last Admin: 09/23/20 03:48 Dose: 4 mg Documented by: Oxycodone/Acetaminophen (Oxycodone/Apap 5/325mg Tablet) 1 tab PO Q8H PRN; Protocol PRN Reason: pain Last Admin: 09/22/20 20:56 Dose: 1 tab Documented by: Pantoprazole Sodium (Pantoprazole 40 Mg Tablet) 40 mg PO QAMAC ANNIE Insulin Degludec 200 Unit/Ml (3 Ml) Insulin Pen 118 dose SUB-Q QHS ANNIE Polyethylene Glycol (Polyethylene Glycol 3350 17 Gm Packet) 17 gm PO DAILYP PRN PRN Reason: Constipation Potassium Chloride (Potassium Chloride 20 Meq Tablet) 40 meq PO UD PRN PRN Reason: Potssium is 3-3.5 Last Admin: 09/22/20 21:21 Dose: 40 meq Documented by: Potassium Chloride (Potassium Chloride 20 Meq Tablet) 40 meq PO UD PRN PRN Reason: Potassium < 3 Senna (Sennosides 1 Tablet) 2 tab PO DAILYP PRN PRN Reason: Constipation Sodium Chloride (0.9 % Sodium Chloride 10 Ml Syringe) 10 ml IV Q8 ANNIE Last Admin: 09/23/20 05:33 Dose: 10 ml Documented by: A/P Narrative A/P Narrative: A: *RLE/foot cellulitis: -febrile o/n *Bacteremia(GNB): *BRENT on CKD II: ?Bactrim/infection *SIRS: *Hyponatremia: *DM: A1c 8.3 *HTN/HLD: *GERD: *Obesity: *Anemia, chronic: P: -CT right leg/foot -IV Abx, pending final BC -IVF, f/u renal fxn -Nephro consult -renal u/s, -hold home ARB for brent, cont norvasc - -basal and SSI -wound care -ppx: lovenox/Home PPI Time Spent With Patient Time: Total time spent is greater than 50% in coordination of care (as documented) at patient's floor/unit and/or counseling patient: QUALITY VTE Deep Vein Thrombosis/Pulmonary Embolism Present on Admission: No
[2020-09-23] MEDS ORDERED: 0.9 % SODIUM CHLORIDE 1,000 ML IV SCH (07:45)
[2020-09-23 08:22] LABS: Anisocytosis FEW (None Seen); Band Neutrophils % 13 % (0-10); Lymphocytes % 6 % (15-49); Monocytes % (Manual) 11 % (1-12); Platelet Estimate NORMAL (Normal); RBC Morphology ABNORMAL (Normal); Segmented Neutrophils % 70 % (38-78)
[2020-09-23] MEDS ORDERED: VANCOMYCIN PER PHARMACY IV SCH (08:37)
[2020-09-23] MEDS: INSULIN LISPRO 1 UNIT/0.01 ML UNIT SQ SCH ×4 (08:40→20:31)
[2020-09-23] MEDS: ENOXAPARIN 40 MG/0.4 ML SYRINGE SQ SCH (08:40)
[2020-09-23] MEDS: CEFEPIME 2 GM VIAL IV SCH ×2 (08:40→22:08)
[2020-09-23] MEDS: PANTOPRAZOLE 40 MG TABLET PO SCH (08:41)
[2020-09-23] MEDS ORDERED: diphenhydrAMINE 25 MG CAPSULE PO PRN (08:42)
--- NOTE | 2020-09-23 08:44 | Nephrology Consult Note ---
HPI Data of Consult Patient: new to practice Consult date: 09/23/20 Requesting physician: Balwinder Nye Primary Care Provider: Narcisa Rodriguez PA-C Consult Narrative Patient Information: Note initiated : 09/23/20 at 8:37 am Patient: Chaitanya Duvall 45 y/o M admitted on 09/22/20 for Recheck for positive blood cultures. Chief Complaint: Right foot and leg tenderness and redness Chaitanya Duvall is a 45-year-old male with hypertension, hyperlipidemia, diabetes mellitus type 2, 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 He was initially presented to [facility] ED for right foot and leg tenderness and redness on 09/21/20. He was diagnosed with cellulitis. Blood cultures were obtained. He was started on Bactrim DS and Cephalexin. Serum creatinine was 1.3. Hewas called to come back to ED on 09/22/20 for blood cultures growing gram-negative bacillus. Serum creatinine was 3.2. Baseline serum creatinine: 0.6 to 1.1 (eGFR >60). Nephrology consultation was requested for acute kidney injury. Chief complaint: Right foot and leg tenderness and redness Reason for consult: Acute kidney injury cc:: CC: Balwinder Nye Constitutional Constitutional: Present fever(s) and weakness EENT Nose, mouth and throat: Absent nasal congestion and sore throat Cardiovascular Cardiovascular: Absent chest pain and palpatations Respiratory Respiratory: Absent cough and dyspnea Gastrointestinal Gastrointestinal: Absent nausea and vomiting Genitourinary Genitourinary: other (No dysuria or hematuria) Integumentary Integumentary: Absent rash Neurological Neurological: Present weakness; Absent confusion Psychiatric Psychiatric: Absent anxiety and panic attacks Hematologic/Lymphatic Hematologic/Lymphatic: Absent easy bleeding and easy bruising Allergic/Immunologic Allergic/Immunologic: Absent tongue swelling and uticaria PFSH PFSH All Active Problems (Updated 09/23/20 @ 08:39 by Reinaldo Ortega MD) Metabolic acidosis (Acute) Acute renal failure with acute tubular necrosis superimposed on stage 2 chronic kidney disease (Acute) Fracture of distal end of fibula (Acute) Fever (Acute) Cellulitis (Acute) Hypersomnia (Acute) Fatigue (Acute) Prostatitis (Acute) Prostate abscess (Acute) Sepsis (Acute) Right upper quadrant pain (Acute) Constipation (Acute) Left foot pain (Chronic) Skin lesion (Chronic) Neoplasm of uncertain behavior (Chronic) Seborrheic keratosis (Chronic) Gage angioma (Chronic) Lentigines (Chronic) Charcot's joint of left ankle (Chronic) Charcot's joint of left foot (Chronic) Charcot foot due to diabetes mellitus (Chronic) Uncontrolled type 2 diabetes mellitus with diabetic neuropathy (Chronic) Type 2 diabetes mellitus with hyperglycemia (Chronic) Plantar fasciitis (Chronic) Tobacco dependence (Chronic) Hypercholesteremia (Chronic) Asthma (Chronic) High cholesterol (Chronic ~2017) Type 2 diabetes mellitus (Chronic ~2001) Anemia (Chronic ~2009) Amputation of toe (Chronic) Hypertension, essential (Chronic ~2001) Hyperlipidemia (Chronic) Diabetes (Chronic) Medical History (Updated 09/23/20 @ 08:39 by Reinaldo Ortega MD) Amputation of toe Anemia (~2009) Asthma Charcot foot due to diabetes mellitus Charcot's joint of left ankle Charcot's joint of left foot Gage angioma Diabetes High cholesterol (~2016) Hypercholesteremia Hyperlipidemia Hypertension, essential (~2001) Left foot pain Lentigines Neoplasm of uncertain behavior Plantar fasciitis Seborrheic keratosis Skin lesion Tobacco dependence Type 2 diabetes mellitus (~2001) Type 2 diabetes mellitus with hyperglycemia Uncontrolled type 2 diabetes mellitus with diabetic neuropathy Surgical History History of amputation of right great toe (~2017) History of amputation of toe Right baby History of shoulder surgery Rotator cuff; Right in 2007 and Left in 2008 Family History Grandmother Breast cancer Paternal Mother High blood pressure Cancer Melanoma Family/Other Diabetes Coronary artery disease Social History marital status: alcohol intake frequency: does not drink substance use type: does not use MEDS/ALLERGIES Home Medications and Allergies Home Medications Medication Instructions Recorded Confirmed Type albuterol sulfate 90 mcg/actuation 2 puff INHALATION Q6H PRN #18 g 07/07/19 09/22/20 Rx aerosol inhaler insulin degludec 118 unit SUB-Q QHS 90 Days #49.5 ml 09/12/19 09/22/20 Rx blood-glucose meter #1 each 09/21/19 09/22/20 Rx lancets #200 each 09/21/19 09/22/20 Rx cholecalciferol (vitamin D3) 125 mcg PO QDAY 01/22/20 09/22/20 History [Vitamin D3] B-D PEN NDL SHRT [id number](08/25) ARLINE See Rx Instructions .ROUTE 03/15/20 09/22/20 Rx .COMPLEX #1500 each fluticasone propionate 50 2 spray INTRANASAL QDAY g 05/23/20 09/22/20 History mcg/actuation nasal spray,suspension flash glucose sensor 1 each MISCELLANEOUS QDAY #10 each 05/24/20 09/22/20 Rx oxycodone-acetaminophen [Percocet] 1 tab PO Q8H PRN #10 tab 05/24/20 09/22/20 Rx insulin lispro 100 unit/mL See Rx Instructions .ROUTE 05/27/20 09/22/20 Rx subcutaneous pen .COMPLEX #15 ml blood sugar diagnostic #400 ea 06/04/20 09/22/20 Rx fenofibrate 160 mg tablet 160 mg PO QDAY #90 tab 07/04/20 09/22/20 Rx metformin 1,000 mg tablet 1,000 mg PO BID #180 tab 07/09/20 09/22/20 Rx omeprazole 20 mg capsule,delayed 20 mg PO QDAY #90 cap 07/18/20 09/22/20 Rx release telmisartan 80 mg-amlodipine 10 mg 1 tab PO QDAY #90 tab 08/22/20 09/22/20 Rx tablet semaglutide 1 mg/dose (2 mg/1.5 1 mg SUB-Q QWEEK #3 ml 09/10/20 09/22/20 Rx mL) subcutaneous pen injector cephalexin 500 mg PO TID #21 cap 09/21/20 09/22/20 Rx sulfamethoxazole-trimethoprim 1 tab PO Q12H #14 tab 09/21/20 09/22/20 Rx [Bactrim DS] Allergies Allergy/AdvReac Type Severity Reaction Status Date / Time No Known Drug Allergies Allergy Verified 09/22/20 21:45 Physical Examination Vital Signs Vital signs: Temp Pulse Resp BP Pulse Ox 101.0 F H 104 H 20 176/61 95 09/23/20 07:28 09/23/20 07:28 09/23/20 07:28 09/23/20 07:28 09/23/20 07:28 General Appearance General appearance: well-developed, well-nourished, appears started age and obese Respiratory Respiratory: clear Cardiovascular Cardiology: regular rate and regular rhythm Gastrointestinal Gastrointestinal: no tenderness and obese Integumentary Integumentary: no rash and warm and dry Neurologic Neurologic: no focal deficit and alert and oriented x3 Musculoskeletal Musculoskeletal: no deformities Psychiatric Psychiatric: mood/affect appropriate and cooperative Results Lab Results Result Diagrams: 09/23/20 04:52 09/23/20 04:51 Lab results: Most recent lab results Calcium 9.1 mg/dL (8.6-10.4) 09/23/20 04:51 Phosphorus 3.1 mg/dL (2.5-4.5) 09/23/20 04:51 Magnesium 1.9 mg/dL (1.6-2.5) 09/23/20 04:51 A/P Assessment and plan (1) Acute renal failure with acute tubular necrosis superimposed on stage 2 chronic kidney disease: Assessment and plan: Chaitanya Duvall is a 45-year-old male with hyperten alfredo, hyperlipidemia, diabetes mellitus type 2, 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 He was initially presented to [facility] ED for right foot and leg tenderness and redness on 09/21/20. He was diagnosed with cellulitis. Blood cultures were obtained. He was started on Bactrim DS and Cephalexin. Serum creatinine was 1.3. Hewas called to come back to ED on 09/22/20 for blood cultures growing gram-negative bacillus. Serum creatinine was 3.2. Baseline serum creatinine: 0.6 to 1.1 (eGFR >60). Nephrology consultation was requested for acute kidney injury. Acute kidney injury, suspected acute tubular necrosis associated with acute infection with antibiotics and NSAID use on chronic kidney disease stage G2/A3 with initial metabolic acidosis and hyponatremia, present on arrival. There is no recent history of IV contrast administration or NSAID use. Intravascular volume depletion is unlikely. Acute infectious (immune complex) glomerulonephritis, acute interstitial nephritis or acute toxic nephropathy due to medications considered. Previous work up: Urinalysis on 10/16/19: Yellow, Clear, pH 6.0, SG 1.015, protein 100, blood 0.2, leukocyte esterase negative. Urine random microalbumin/creatinine on 06/05/19: 386 mg/g creatinine. CT Abdomen and Pelvis with contrast on 09/08/19: Kidneys are normal. There is no kidney stone or hydronephrosis. There is a small calcified plaque at its origin of the right renal artery. Progress: Serum creatinine increased from 3.2 to 3.8 in the past 12 hours. Baseline serum creatinine: 0.6 to 1.1 (eGFR >60). Urine output: Not reported in the past 24 hours. Metabolic acidosis. Hyponatremia. Fluid overload. No uremic symptoms. Recommendations/Plan: No urgent acute hemodialysis need. Work up with renal US, urinalysis, urine eosinophil smear requested. Sodium Bicarbonate 650 mg three times daily for metabolic acidosis. Avoid NSAIDs, nephrotoxic medications and IV contrast. Monitor BMP and urine output. Status: Acute (2) Metabolic acidosis: Status: Acute Time Spent With Patient Time: Total time spent is greater than 50% in coordination of care (as documented) at patient's floor/unit and/or counseling patient:
[2020-09-23] MEDS: DOCUSATE SODIUM 100 MG CAPSULE PO SCH ×2 (08:55→20:31)
[2020-09-23] MEDS: SODIUM BICARBONATE 650 MG TABLET PO SCH ×3 (09:00→20:30)
[2020-09-23] MEDS: FENOFIBRATE 43 MG CAPSULE PO SCH (09:01)
--- NOTE | 2020-09-23 09:18 | Ultrasound Report ---
History: Acute kidney injury FINDINGS: The right kidney measures 8.5 x 10.6 x 17.2 cm. The left measures 7.0 x 10.3 x 17.5 cm. Both kidneys measured 14 cm in length at the time of the prior CT done on 09/08/19. The renal parenchyma is normal in thickness and echogenicity. There is no kidney stone or hydronephrosis in either kidney. There is a vague hypoechoic structure centrally in the left kidney measuring 2.3 x 2.4 x 2.5 cm. No corresponding cyst or other abnormality was seen at this location on the prior CT. The urinary bladder is empty. We are unable to document flow of urine through either ureter into the bladder. IMPRESSION: Bilateral enlargement of the kidneys with diminished urine output. Hypoechoic structure centrally in the left kidney. This is probably a prominent pyramid and less likely a cyst which has developed in one year Interpreted and Authenticated by: Jacobo Hinojosa 09/23/20
[2020-09-23] MEDS: VANCOMYCIN 1,500 MG in 0.9 % SODIUM CHLORIDE 500 ML IV SCH ×2 (10:04→22:19)
--- NOTE | 2020-09-23 10:30 | Cat Scan Report ---
History: Cellulitis in the right lower leg, evaluate for abscess or fasciitis TECHNIQUE: The right leg was imaged from the knee through the in an axial plane without contrast at 2.5 mm intervals. Sagittal and coronal reformats were created. The radiation exposure was limited using dose reduction technology. FINDINGS: There is an old healed fracture in the distal shaft of the fibula. There is a metal plate secured to the lateral border of the fibula using multiple screws. Is also a screw extending across the fibula into the tibia. There is no reabsorption of bone around the hardware. There is partial ossification of the interosseous ligament between the tibia and fibula and there is mature callus. Above the dome of the talus, along the lateral border of the distal tibia there is a subchondral lucency which measures 5 x 10 x 21 mm in size. The surrounding bone is mildly sclerotic. This was not seen at the time of the initial injury. It is more apparent today than it was on the prior plain x-ray done on 08/30/20. This may be due to evolving arthritis in the ankle joint or focal chronic osteonecrosis. There is a small to moderate size joint effusion. There is a loculated collection of fluid above the ankle, anterior to the old healed fracture of the fibula. It measures approximately 2.5 x 3.2 x 4.8 cm. There is a 7 x 9 mm heterotopic calcification or displaced bone fragment along the lateral border of this fluid collection. There is skin thickening and subcutaneous edema from the level of the knee down to the foot. The greatest thickening and inflammation is around the ankle and foot. Except for the joint effusion and small collection of fluid anterior to the old fracture site, no other abnormal collection of fluid is seen. There is some atrophy with fatty infiltration of the muscles throughout the calf. The fascial planes do not appear to be thickened or inflamed. Great toe is surgically absent. There is moderate arthritis in the second and third metatarsal phalangeal joints. These are chronic findings. IMPRESSION: Extensive cellulitis/edema throughout the right lower leg with the greatest involvement at the level of the ankle and foot Fluid collection anterior to the old healed fracture of the fibula. Could be seroma or infection. Joint effusion in the ankle Old healed fracture of the distal fibula No evidence of osteomyelitis Arthritis versus osteonecrosis in the distal tibia, above the ankle joint Interpreted and Authenticated by: Jacobo Hinojosa 09/23/20
[2020-09-23] MEDS: oxyCODONE/APAP 5/325MG TABLET PO PRN (12:26)
[2020-09-23 13:30] LABS: Appearance,Urine CLOUDY (Clear); Bilirubin,Urine Negative (Negative); Color,Urine AMBER; Culture Indicated,Urine No; Glucose,Urine (UA) Negative (Negative); Ketones,Urine 5 mg/dL (Negative); Leukocyte Esterase,Urine Negative /ug (Negative); Nitrate,Urine Negative (Negative); Protein,Urine 30 mg/dL (Negative); Specific Gravity,Urine 1.021 (1.000-1.035); Urine Blood 0.03 mg/dL (Negative); Urine RBC < 1 /hpf (0-3); Urine Squamous Epithelial Cell 0 /hpf (0-4); Urine WBC < 1 /hpf (0-4)
--- NOTE | 2020-09-23 16:04 | Orthopedic Consult Note ---
HPI Data of Consult Primary Care Provider: Narcisa Rodriguez PA-C Consult Narrative Patient Information: Note initiated : 09/23/20 at 4:02 pm Service Date, if different from initiated Date: [] Patient: Chaitanya Duvall 45 y/o M admitted on 09/22/20 for Recheck for positive blood cultures. Chief Complaint: [redness right leg] Chaitanya is a pleasant 45-year-old male with long-term diabetes and obesity including multiple amputations of the lower extremities and limited to digits. Chronic ulcerations. Recalcitrant fracture of the right ankle post repair. He presented to the emergency department on with redness and swelling of his right lower extremity he was sent home on oral antibiotics and patient returned the next day after her blood cultures revealed gram-negative bacteria. He has since had off-and-on fever chills nausea and vomiting. He feels discomfort of the area which is normally numb and has history of Charcot. cc:: CC: Balwinder Nye [facility] PFS All Active Problems (Updated 09/23/20 @ 08:39 by Reinaldo Ortega MD) Metabolic acidosis (Acute) Acute renal failure with acute tubular necrosis superimposed on stage 2 chronic kidney disease (Acute) Fracture of distal end of fibula (Acute) Fever (Acute) Cellulitis (Acute) Hypersomnia (Acute) Fatigue (Acute) Prostatitis (Acute) Prostate abscess (Acute) Sepsis (Acute) Right upper quadrant pain (Acute) Constipation (Acute) Left foot pain (Chronic) Skin lesion (Chronic) Neoplasm of uncertain behavior (Chronic) Seborrheic keratosis (Chronic) Gage angioma (Chronic) Lentigines (Chronic) Charcot's joint of left ankle (Chronic) Charcot's joint of left foot (Chronic) Charcot foot due to diabetes mellitus (Chronic) Uncontrolled type 2 diabetes mellitus with diabetic neuropathy (Chronic) Type 2 diabetes mellitus with hyperglycemia (Chronic) Plantar fasciitis (Chronic) Tobacco dependence (Chronic) Hypercholesteremia (Chronic) Asthma (Chronic) High cholesterol (Chronic ~2016) Type 2 diabetes mellitus (Chronic ~2001) Anemia (Chronic ~2009) Amputation of toe (Chronic) Hypertension, essential (Chronic ~2001) Hyperlipidemia (Chronic) Diabetes (Chronic) Medical History (Updated 09/23/20 @ 08:39 by Reinaldo Ortega MD) Amputation of toe Anemia (~2009) Asthma Charcot foot due to diabetes mellitus Charcot's joint of left ankle Charcot's joint of left foot Gage angioma Diabetes High cholesterol (~2016) Hypercholesteremia Hyperlipidemia Hypertension, essential (~2001) Left foot pain Lentigines Neoplasm of uncertain behavior Plantar fasciitis Seborrheic keratosis Skin lesion Tobacco dependence Type 2 diabetes mellitus (~2001) Type 2 diabetes mellitus with hyperglycemia Uncontrolled type 2 diabetes mellitus with diabetic neuropathy Surgical History History of amputation of right great toe (~2017) History of amputation of toe Right baby History of shoulder surgery Rotator cuff; Right in 2007 and Left in 2008 Family History Grandmother Breast cancer Paternal Mother High blood pressure Cancer Melanoma Family/Other Diabetes Coronary artery disease Social History marital status: alcohol intake frequency: does not drink substance use type: does not use MEDS/ALLERGIES Home Medications and Allergies Home Medications Medication Instructions Recorded Confirmed Type albuterol sulfate 90 mcg/actuation 2 puff INHALATION Q6H PRN #18 g 07/07/19 09/22/20 Rx aerosol inhaler insulin degludec 118 unit SUB-Q QHS 90 Days #49.5 ml 09/12/19 09/22/20 Rx blood-glucose meter #1 each 09/21/19 09/22/20 Rx lancets #200 each 09/21/19 09/22/20 Rx cholecalciferol (vitamin D3) 125 mcg PO QDAY 01/22/20 09/22/20 History [Vitamin D3] B-D PEN NDL SHRT [id number](08/25) ARLINE See Rx Instructions .ROUTE 03/15/20 09/22/20 Rx .COMPLEX #1500 each fluticasone propionate 50 2 spray INTRANASAL QDAY g 05/23/20 09/22/20 History mcg/actuation nasal spray,suspension flash glucose sensor 1 each MISCELLANEOUS QDAY #10 each 05/24/20 09/22/20 Rx oxycodone-acetaminophen [Percocet] 1 tab PO Q8H PRN #10 tab 05/24/20 09/22/20 Rx insulin lispro 100 unit/mL See Rx Instructions .ROUTE 05/27/20 09/22/20 Rx subcutaneous pen .COMPLEX #15 ml blood sugar diagnostic #400 ea 06/04/20 09/22/20 Rx fenofibrate 160 mg tablet 160 mg PO QDAY #90 tab 07/04/20 09/22/20 Rx metformin 1,000 mg tablet 1,000 mg PO BID #180 tab 07/09/20 09/22/20 Rx omeprazole 20 mg capsule,delayed 20 mg PO QDAY #90 cap 07/18/20 09/22/20 Rx release telmisartan 80 mg-amlodipine 10 mg 1 tab PO QDAY #90 tab 08/22/20 09/22/20 Rx tablet semaglutide 1 mg/dose (2 mg/1.5 1 mg SUB-Q QWEEK #3 ml 09/10/20 09/22/20 Rx mL) subcutaneous pen injector cephalexin 500 mg PO TID #21 cap 09/21/20 09/22/20 Rx sulfamethoxazole-trimethoprim 1 tab PO Q12H #14 tab 09/21/20 09/22/20 Rx [Bactrim DS] Allergies Allergy/AdvReac Type Severity Reaction Status Date / Time No Known Drug Allergies Allergy Verified 09/22/20 21:45 Physical Examination Ankle & Foot right: Ankle appearance: swelling, erythema and other (Induration with skin blistering) A/P Time Spent With Patient Time: Hematogenous infection of hardware possible based on clinical evaluation and history of patient Patient to not have anything to eat or drink after midnight today for potential incision and drainage with biopsies in surgery tomorrow Possible removal of hardware in operative room tomorrow as well Patient likely to undergo extensive care and long-term antibiotic therapy to resolve infection
--- NOTE | 2020-09-23 17:44 | XRay Report ---
HISTORY: Cellulitis around the right ankle, prior repair fractured fibula FINDINGS: There is severe soft tissue swelling lateral to the lateral malleolus. There is a healed fracture in the distal fibula. This is held in alignment with metal plate and multiple screws. There is no reabsorption of bone around the hardware. There is no evidence of recurrent fracture and no osteomyelitis is seen in the fibula. There is ossification of interosseous ligament between the tibia and fibula. Along the lateral weightbearing portion of the tibia there is a vague subchondral lucency which measures 5 x 9 mm in size. This was seen on the preceding CT scan. The adjacent cortex is intact. Has not changed from the recent x-ray done on 08/30/20. There is abnormal widening of the medial joint compartment of the ankle. Ununited 11 mm soft tissue calcification which could be heterotopic calcification from previous injury or old ununited avulsion fracture fragment. First toe has been resected. IMPRESSION: Increasing soft tissue swelling over the lateral malleolus which may be due to cellulitis. There is no evidence of underlying osteomyelitis or recurrent fracture. Subchondral lucency in the distal tibia which could be due to arthritis. Focal osteomyelitis is possible but less likely. Osteonecrosis is also a consideration. Disruption of the deltoid ligament with widening of the medial joint compartment of the ankle Interpreted and Authenticated by: Jacobo Hinojosa 09/23/20
[2020-09-23] MEDS: LABETALOL 5 MG/ML ML IV PRN (20:09)
[2020-09-23] MEDS: HYDROcodone/APAP 5/325MG TABLET PO PRN (20:14)
[2020-09-23] MEDS: INSULIN SUB-Q SCH (20:29)
[2020-09-23] MEDS: INSULIN DEGLUDEC 200 UNIT/ML SUB-Q SCH (20:29)
[2020-09-23] MEDS: MELATONIN 3 MG TABLET PO SCH (20:30)
[2020-09-24] MEDS: oxyCODONE/APAP 5/325MG TABLET PO PRN ×2 (03:53→22:46)
[2020-09-24] MEDS: LABETALOL 5 MG/ML ML IV PRN ×2 (04:00→20:04)
[2020-09-24] MEDS: 0.9 % SODIUM CHLORIDE 10 ML SYRINGE IV SCH ×3 (04:01→21:02)
--- NOTE | 2020-09-24 06:46 | Nephrology Progress Note ---
SUBJECTIVE Subjective Patient information: Note initiated : 09/24/20 at 6:45 am Patient: Chaitanya Duvall 45 y/o M admitted on 09/22/20 for Recheck for positive blood cultures. Chief Complaint: Right foot pain Pertinent ROS: Weakness No shortness of breath No chest pain No Spears catheter No dysuria Constitutional Vitals: Vital Signs Temp Pulse Resp BP Pulse Ox 98.2 F 87 16 153/78 95 09/24/20 03:52 09/24/20 03:52 09/24/20 03:52 09/24/20 03:52 09/24/20 03:52 Period Temp Pulse Resp BP Sys/Foley Pulse Ox Last 24 Hr 98.2 F-101.0 F 87-107 14-24 113-189/59-90 95-97 Intake and Output 09/23/20 09/24/20 09/24/20 21:59 05:59 13:59 Intake Total 3100 500 Balance 3100 500 Weight 403 lb 1.6 oz Intake & Output: Intake & Output 09/23/20 09/24/20 09/24/20 21:59 05:59 13:59 Intake Total 3100 500 Balance 3100 500 Weight 403 lb 1.6 oz Intake: IV 1500 500 Sodium Chloride 0.9% 1,000 ml @ 1000 125 mls/hr IV .Q8H ANNIE Rx#: [id number] Vancomycin 1,500 mg In Sodium 500 500 Chloride 0.9% 500 ml @ 333.3 mls/hr IV Q12H ANNIE Rx#: [id number] Oral 1600 0 Other: # Voids 2 General appearance: cooperative, no acute distress and obese Head Head exam: Present atraumatic and normal inspection ENT ENT exam: Present mucous membranes moist Respiratory Respiratory exam: Present decreased breath sounds Cardiovascular Cardiovascular exam: Present normal rate and rhythm GI/Abdominal GI/Abdominal exam: Present soft and distended Neurological Exam Neurological exam: Present alert and oriented X3 Psychiatric Psychiatric exam: Present normal affect and normal mood A/P Assessment and plan (1) Acute renal failure with acute tubular necrosis superimposed on stage 2 chronic kidney disease: Assessment and plan: Chaitanya Duvall is a 45-year-old male with hypertension, hyperlipidemia, diabetes mellitus type 2, 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 He was initially presented to [facility] ED for right foot and leg tenderness and redness on 09/21/20. He was diagnosed with cellulitis. Blood cultures were obtained. He was started on Bactrim DS and Cephalexin. Serum creatinine was 1.3. Hewas called to come back to ED on 09/22/20 for blood cultures growing gram-negative bacillus. Serum creatinine was 3.2. Baseline serum creatinine: 0.6 to 1.1 (eGFR >60). Nephrology consultation was requested for acute kidney injury. Acute kidney injury, suspected acute tubular necrosis associated with acute infection with antibiotics and NSAID use on chronic kidney disease stage G2/A3 with initial metabolic acidosis and hyponatremia, present on arrival. There is no recent history of IV contrast administration or NSAID use. Intravascular volume depletion is unlikely. Acute infectious (immune complex) glomerulonephritis, acute interstitial nephritis or acute toxic nephropathy due to medications considered. Right ankle incision and drainage with removal of hardware scheduled later today. Previous work up: Urinalysis on 10/16/19: Yellow, Clear, pH 6.0, SG 1.015, protein 100, blood 0.2, leukocyte esterase negative. Urine random microalbumin/creatinine on 06/05/19: 386 mg/g creatinine. CT Abdomen and Pelvis with contrast on 09/08/19: Kidneys are normal. There is no kidney stone or hydronephrosis. There is a small calcified plaque at its origin of the right renal artery. Workup: Urinalysis on 09/23/20: Ching, cloudy, pH 5.0, SG 1.021, protein 30, blood 0.3, leukocyte esterase negative. Renal US on 09/23/20: Bilateral enlargement of the kidneys with diminished urine output. Hypoechoic structure centrally in the left kidney. This is probably a prominent pyramid and less likely a cyst which has developed in one year. Progress: Serum creatinine increased from 3.8 to 5.1 in the past 24 hours. Baseline serum creatinine: 0.6 to 1.1 (eGFR >60). Urine output: 100 ml reported in the past 24 hours. Metabolic acidosis. Receiving Sodium Bicarbonate 650 mg three times daily for metabolic acidosis. Hyponatremia, moderate with mild fluid overload. No uremic symptoms. Recommendations/Plan: No urgent acute hemodialysis need, but monitoring with BMP and urine output. Avoid NSAIDs, nephrotoxic medications and IV contrast. Status: Acute (2) Metabolic acidosis: Status: Acute (3) Hyponatremia: Status: Acute Time Spent With Patient Time: Total time spent is greater than 50% in coordination of care (as documented) at patient's floor/unit and/or counseling patient:
[2020-09-24 07:24] LABS: Hematocrit 30.6 % (41.0-55.0); Hemoglobin 9.5 g/dL (13.5-16.5); Mean Cell Volume 86.2 fL (80.0-100.0); Platelet Count 279 K/mcL (140-440); RBC 3.55 M/mcL (4.50-5.90); Red Cell Distribution Width 15.2 % (11.5-14.5); WBC 10.7 K/mcL (4.5-11.0)
--- NOTE | 2020-09-24 07:37 | Internal Med Progress Note ---
SUBJECTIVE Subjective Patient information: Note initiated : 09/24/20 at 7:33 am Service Date, if different from initiated Date: [] Patient: Chaitanya Duvall 45 y/o M admitted on 09/22/20 for Recheck for positive blood cultures. Chief Complaint: [] Interval history: History of present illness: Mr. Duvall is a 45 year old M Who presented ED yesterday with right foot and leg tenderness and redness. He was seen in the ED and diagnosed with cellulitis and started on antibiotics, blood cultures were obtained that time. Patient went home and was called back today because of blood culture growing gram-negative bacillus. Patient states that for starting Wednesday with increased tenderness and redness of his leg and then he went into the ED on Wednesday. He also initially had nausea vomiting and fever and chills. Wednesday night when he went from the ED he did have some nausea vomiting as well. Today he feels better. Was febrile in the ED. 09/23 Patient says he had a poor sleep last night. Patient complains of headache and feels weaker. 09/24 Changes overnight. Seen by Dr. Alvarado who will perform surgical I&D and hardware removal. Review of Systems: denies headache/fever/chills/nausea/vomiting/chest or abdominal pain/cough/dyspnea/diarrhea. Otherwise see above. Constitutional Vitals: Vital Signs Temp Pulse Resp BP Pulse Ox 98.2 F 87 16 153/78 95 09/24/20 03:52 09/24/20 03:52 09/24/20 03:52 09/24/20 03:52 09/24/20 03:52 Period Temp Pulse Resp BP Sys/Foley Pulse Ox Last 24 Hr 98.2 F-100.6 F 87-107 14-24 113-189/59-90 95-97 Intake and Output 09/23/20 09/24/20 09/24/20 21:59 05:59 13:59 Intake Total 3100 500 Balance 3100 500 Weight 182.843 kg Intake & Output: Intake & Output 09/23/20 09/24/20 09/24/20 21:59 05:59 13:59 Intake Total 3100 500 Balance 3100 500 Weight 182.843 kg Intake: IV 1500 500 Sodium Chloride 0.9% 1,000 ml @ 1000 125 mls/hr IV .Q8H ANNIE Rx#: [id number] Vancomycin 1,500 mg In Sodium 500 500 Chloride 0.9% 500 ml @ 333.3 mls/hr IV Q12H ANNIE Rx#: [id number] Oral 1600 0 Other: # Voids 2 Exam: General: Alert, Awake, No acute Distress, obese Eyes/N/T: EOMI, Head/Neck: neck supple, CV: RRR, No murmurs, Pulm: Clear b/l, no wheezing/rhonchi/rales Abd: soft, nontender, +BS x4 Ext: no clubbing/cyanosis, b/l LE edema R>>L. right foot to calf with erythema and tenderness and increased swelling. Clean base ulcer on plantar aspect of forefoot. Neuro: Alert, no focal deficits, moves all extremities, Skin: warm/dry OBJ DATA Labs CBC & Chem 7: 09/24/20 05:09 09/24/20 05:09 Labs: Abnormal Lab Results 09/24/20 09/23/20 09/23/20 05:09 12:15 04:52 WBC 11.6 H RBC 3.55 L 3.90 L Hgb 9.5 L 10.5 L Hct 30.6 L 33.4 L RDW 15.2 H 14.8 H MPV 12.0 H 11.8 H Neut % (Auto) 85.6 H Lymph % (Auto) 4.6 L Lymph # (Auto) 0.53 L [place] # (Auto) 1.05 H Band Neutrophils % Lymphocytes % Absolute Neutrophils 9.94 H RBC Morphology Anisocytosis ESR Sodium Carbon Dioxide BUN Creatinine Glucose Hemoglobin A1c Uric Acid Direct Bilirubin Alkaline Phosphatase Lactate Dehydrogenase C-Reactive Protein Albumin Globulin Albumin/Globulin Ratio Triglycerides Urine Appearance Cloudy A Urine Protein 30 A Urine Ketones 5 A Urine Urobilinogen 2.0 A 09/23/20 09/23/20 09/22/20 04:51 04:51 17:18 WBC RBC Hgb Hct RDW MPV Neut % (Auto) Lymph % (Auto) Lymph # (Auto) [place] # (Auto) Band Neutrophils % 13 H Lymphocytes % 6 L Absolute Neutrophils RBC Morphology Abnormal A Anisocytosis Few A ESR Sodium 131 L Carbon Dioxide 17 L BUN 36 H Creatinine 3.8 H Glucose 219 H Hemoglobin A1c 8.3 H Uric Acid 8.1 H Direct Bilirubin 0.5 H Alkaline Phosphatase 165 H Lactate Dehydrogenase 234 H C-Reactive Protein 33.20 H Albumin 2.6 L Globulin 4.1 H Albumin/Globulin Ratio 0.6 L Triglycerides 213 H Urine Appearance Urine Protein Urine Ketones Urine Urobilinogen 09/22/20 09/22/20 09/22/20 17:18 17:18 17:18 WBC RBC 4.06 L Hgb 11.3 L Hct 35.1 L RDW 14.6 H MPV 11.8 H Neut % (Auto) 88.4 H Lymph % (Auto) 4.1 L Lymph # (Auto) 0.41 L [place] # (Auto) Band Neutrophils % Lymphocytes % Absolute Neutrophils 8.90 H RBC Morphology Anisocytosis ESR 122 H Sodium 131 L Carbon Dioxide 20 L BUN 30 H Creatinine 3.2 H Glucose 276 H Hemoglobin A1c Uric Acid Direct Bilirubin Alkaline Phosphatase 158 H Lactate Dehydrogenase C-Reactive Protein Albumin 2.7 L Globulin 3.9 H Albumin/Globulin Ratio 0.7 L Triglycerides Urine Appearance Urine Protein Urine Ketones Urine Urobilinogen Meds: Medications Acetaminophen (Acetaminophen 325 Mg Tablet) 650 mg PO Q6HP PRN PRN Reason: PAIN/FEVER > 101 Last Admin: 09/23/20 10:05 Dose: 650 mg Documented by: Hydrocodone Bitart/Acetaminophen (Hydrocodone/Apap 5/325mg Tablet) 1 tab PO Q4HP PRN PRN Reason: PAIN LEVEL 3-6 Last Admin: 09/23/20 20:14 Dose: 1 tab Documented by: Albuterol/Ipratropium (Ipratropium/Albuterol 3 Ml Ampul.Neb) 3 ml NEB Q4HP PRN PRN Reason: Shortness Of Breath Cefepime HCl (Cefepime 2 Gm Vial) 2 gm IV Q12H [facility]; Protocol Last Admin: 09/23/20 22:08 Dose: 2 gm Documented by: Dextrose (Dextrose 50% 50 Ml Vial) 0 ml IV UD PRN PRN Reason: Hypoglycemia Diagnostic Test (Pha) (Accu-Chek 1 Each Strip) 1 each FS [facility] Last Admin: 09/24/20 07:33 Dose: 1 each Documented by: Diphenhydramine HCl (Diphenhydramine 25 Mg Capsule) 25 mg PO HSP PRN PRN Reason: Insomnia Docusate Sodium (Docusate Sodium 100 Mg Capsule) 100 mg PO BID [facility] Last Admin: 09/23/20 20:31 Dose: 100 mg Documented by: Enoxaparin Sodium (Enoxaparin 40 Mg/0.4 Ml Syringe) 40 mg SQ DAILY [facility] Last Admin: 09/23/20 08:40 Dose: 40 mg Documented by: Fenofibrate (Fenofibrate 43 Mg Capsule) 129 mg PO DAILY [facility] Last Admin: 09/23/20 09:01 Dose: 129 mg Documented by: Glucose (Dextrose 31 Gm Oral.Susp) 15 gm PO PRN PRN PRN Reason: Hypoglycemia Hydralazine HCl (Hydralazine 20 Mg/Ml Vial) 0 mg IV Q2HP PRN PRN Reason: Hypertension Last Admin: 09/23/20 05:33 Dose: 20 mg Documented by: Potassium Chloride 40 meq/ (Dextrose) 520 mls @ 130 mls/hr IV UD PRN PRN Reason: Potassium < 3 Magnesium Sulfate (Magnesium Sulfate) 2 gm in 50 mls @ 50 mls/hr IV UD PRN PRN Reason: Magnesium </= 1.6 Vancomycin HCl 1,500 mg/ (Sodium Chloride) 500 mls @ 333.3 mls/hr IV Q12H [facility] Last Infusion: 09/24/20 00:45 Dose: Infused Documented by: Insulin Human Lispro (Insulin Lispro 1 Unit/0.01 Ml Unit) 0 unit SQ ACHS [facility]; Protocol Last Admin: 09/23/20 20:31 Dose: Not Given Documented by: Labetalol HCl (Labetalol 5 Mg/Ml Ml) 0 mg IV Q2HP PRN PRN Reason: Hypertension Last Admin: 09/24/20 04:00 Dose: 10 mg Documented by: Melatonin (Melatonin 3 Mg Tablet) 3 mg PO QHS [facility] Last Admin: 09/23/20 20:30 Dose: 3 mg Documented by: Metoclopramide HCl (Metoclopramide 10 Mg/2 Ml Vial) 10 mg IV Q6HP PRN PRN Reason: Nausea And Vomiting Last Admin: 09/23/20 04:40 Dose: 10 mg Documented by: Ondansetron HCl (Ondansetron 4 Mg/2 Ml Vial) 4 mg IV Q4HP PRN PRN Reason: Nausea And Vomiting Last Admin: 09/23/20 03:48 Dose: 4 mg Documented by: Oxycodone/Acetaminophen (Oxycodone/Apap 5/325mg Tablet) 1 tab PO Q8H PRN; Protocol PRN Reason: pain Last Admin: 09/24/20 03:53 Dose: 1 tab Documented by: Pantoprazole Sodium (Pantoprazole 40 Mg Tablet) 40 mg PO QAMAC [facility] Last Admin: 09/23/20 08:41 Dose: 40 mg Documented by: Insulin Degludec 200 Unit/Ml (3 Ml) Insulin Pen 118 dose SUB-Q QHS [facility] Last Admin: 09/23/20 20:29 Dose: 118 dose Documented by: Polyethylene Glycol (Polyethylene Glycol 3350 17 Gm Packet) 17 gm PO DAILYP PRN PRN Reason: Constipation Potassium Chloride (Potassium Chloride 20 Meq Tablet) 40 meq PO UD PRN PRN Reason: Potssium is 3-3.5 Last Admin: 09/22/20 21:21 Dose: 40 meq Documented by: Potassium Chloride (Potassium Chloride 20 Meq Tablet) 40 meq PO UD PRN PRN Reason: Potassium < 3 Senna (Sennosides 1 Tablet) 2 tab PO DAILYP PRN PRN Reason: Constipation Sodium Bicarbonate (Sodium Bicarbonate 650 Mg Tablet) 650 mg PO TID [facility] Last Admin: 09/23/20 20:30 Dose: 650 mg Documented by: Sodium Chloride (0.9 % Sodium Chloride 10 Ml Syringe) 10 ml IV Q8 [facility] Last Admin: 09/24/20 04:01 Dose: 10 ml Documented by: Vancomycin HCl (Vancomycin Per Pharmacy) 1 order IV UD [facility]; Protocol A/P Narrative A/P Narrative: A: *RLE/foot cellulitis (has hardware in place from previous ankle Fx): -afebrile o/n, leukocytosis resolved *Bacteremia(Pasteurella multocida - pt has pets in house): *BRENT on CKD II: ?Bactrim/infection -Cr increased *SIRS: *Hyponatremia: *DM: A1c 8.3 *HTN/HLD: *GERD: *Obesity: *Anemia, chronic: P: -Dr. Alvarado for surgical I&D, removal of hardware -Nephrology following, defer renal fxn and hypontremia to nephro -cefepime/vanco(d/c)IV Abx, pending final BC -hold home ARB for brent, cont norvasc -basal and SSI -wound care -ppx: heparin/Home PPI Time Spent With Patient Time: Total time spent is greater than 50% in coordination of care (as documented) at patient's floor/unit and/or counseling patient: QUALITY VTE Deep Vein Thrombosis/Pulmonary Embolism Present on Admission: No
[2020-09-24] MEDS: INSULIN LISPRO 1 UNIT/0.01 ML UNIT SQ SCH ×4 (07:43→20:41)
[2020-09-24] MEDS: PANTOPRAZOLE 40 MG TABLET PO SCH ×2 (07:47→21:01)
[2020-09-24] MEDS: DOCUSATE SODIUM 100 MG CAPSULE PO SCH ×2 (07:51→21:01)
[2020-09-24] MEDS: FENOFIBRATE 43 MG CAPSULE PO SCH (07:51)
[2020-09-24] MEDS: SODIUM BICARBONATE 650 MG TABLET PO SCH ×3 (07:52→21:01)
[2020-09-24] MEDS: CEFEPIME 2 GM VIAL IV SCH ×2 (08:02→21:02)
[2020-09-24 08:20] LABS: ALT/SGPT 25 U/L (<40); AST/SGOT 22 U/L (<40); Albumin 2.4 gm/dL (3.2-5.2); Albumin/Globulin Ratio 0.6 (1.0-2.3); Alkaline Phosphatase 163 U/L (39-117); Bilirubin,Direct 0.4 mg/dL (<0.3); Bilirubin,Total 0.5 mg/dL (0.1-1.0); Blood Urea Nitrogen 46 mg/dL (6-20); Calcium 8.9 mg/dL (8.6-10.4); Carbon Dioxide 17 mmol/L (22-30); Chloride 95 mmol/L (96-108); Globulin 3.9 gm/dL (2.2-3.7); Glomerular Filtration Rate 13; Glucose 165 mg/dL (70-105); Lactate Dehydrogenase 230 U/L (135-225); Phosphorous 4.4 mg/dL (2.5-4.5); Triglycerides 208 mg/dL (<150); Uric Acid 8.6 mg/dL (2.5-8.0)
[2020-09-24] MEDS: ENOXAPARIN 40 MG/0.4 ML SYRINGE SQ SCH (08:24)
--- NOTE | 2020-09-24 08:28 | Orthopedic Progress Note ---
SUBJECTIVE Subjective Patient information: Note initiated : 09/24/20 at 8:26 am Service Date, if different from initiated Date: [] Patient: Chaitanya Duvall 45 y/o M admitted on 09/22/20 for Recheck for positive blood cultures. Chief Complaint: [right leg redness] Patient not feels tired and lethargic since admission. He understands what needs to be done concerning removal of hardware to the right ankle. Constitutional Vitals: Vital Signs Temp Pulse Resp BP Pulse Ox 98.6 F 64 22 149/68 98 09/24/20 07:34 09/24/20 07:34 09/24/20 07:34 09/24/20 07:34 09/24/20 07:34 Period Temp Pulse Resp BP Sys/Foley Pulse Ox Last 24 Hr 98.2 F-100.6 F 64-107 14-24 113-189/59-90 95-98 Intake and Output 09/23/20 09/24/20 09/24/20 21:59 05:59 13:59 Intake Total 3100 500 Balance 3100 500 Weight 403 lb 1.6 oz Intake & Output: Intake & Output 09/23/20 09/24/20 09/24/20 21:59 05:59 13:59 Intake Total 3100 500 Balance 3100 500 Weight 403 lb 1.6 oz Intake: IV 1500 500 Sodium Chloride 0.9% 1,000 ml @ 1000 125 mls/hr IV .Q8H ANNIE Rx#: [id number] Vancomycin 1,500 mg In Sodium 500 500 Chloride 0.9% 500 ml @ 333.3 mls/hr IV Q12H ANNIE Rx#: [id number] Oral 1600 0 Other: # Voids 2 OBJ DATA Labs CBC & Chem 7: 09/24/20 05:09 09/24/20 05:09 Labs: Abnormal Lab Results 09/24/20 09/24/20 09/23/20 05:09 05:09 12:15 WBC RBC 3.55 L Hgb 9.5 L Hct 30.6 L RDW 15.2 H MPV 12.0 H Neut % (Auto) Lymph % (Auto) Lymph # (Auto) [place] # (Auto) Band Neutrophils % Lymphocytes % Absolute Neutrophils RBC Morphology Anisocytosis ESR Sodium 126 L Chloride 95 L Carbon Dioxide 17 L BUN 46 H Creatinine 5.1 H* Glucose 165 H Hemoglobin A1c Uric Acid 8.6 H Direct Bilirubin 0.4 H Alkaline Phosphatase 163 H Lactate Dehydrogenase 230 H C-Reactive Protein Albumin 2.4 L Globulin 3.9 H Albumin/Globulin Ratio 0.6 L Triglycerides 208 H Urine Appearance Cloudy A Urine Protein 30 A Urine Ketones 5 A Urine Urobilinogen 2.0 A 09/23/20 09/23/20 09/23/20 04:52 04:51 04:51 WBC 11.6 H RBC 3.90 L Hgb 10.5 L Hct 33.4 L RDW 14.8 H MPV 11.8 H Neut % (Auto) 85.6 H Lymph % (Auto) 4.6 L Lymph # (Auto) 0.53 L [place] # (Auto) 1.05 H Band Neutrophils % 13 H Lymphocytes % 6 L Absolute Neutrophils 9.94 H RBC Morphology Abnormal A Anisocytosis Few A ESR Sodium 131 L Chloride Carbon Dioxide 17 L BUN 36 H Creatinine 3.8 H Glucose 219 H Hemoglobin A1c Uric Acid 8.1 H Direct Bilirubin 0.5 H Alkaline Phosphatase 165 H Lactate Dehydrogenase 234 H C-Reactive Protein Albumin 2.6 L Globulin 4.1 H Albumin/Globulin Ratio 0.6 L Triglycerides 213 H Urine Appearance Urine Protein Urine Ketones Urine Urobilinogen 09/22/20 09/22/20 09/22/20 17:18 17:18 17:18 WBC RBC Hgb Hct RDW MPV Neut % (Auto) Lymph % (Auto) Lymph # (Auto) [place] # (Auto) Band Neutrophils % Lymphocytes % Absolute Neutrophils RBC Morphology Anisocytosis ESR 122 H Sodium 131 L Chloride Carbon Dioxide 20 L BUN 30 H Creatinine 3.2 H Glucose 276 H Hemoglobin A1c 8.3 H Uric Acid Direct Bilirubin Alkaline Phosphatase 158 H Lactate Dehydrogenase C-Reactive Protein 33.20 H Albumin 2.7 L Globulin 3.9 H Albumin/Globulin Ratio 0.7 L Triglycerides Urine Appearance Urine Protein Urine Ketones Urine Urobilinogen 09/22/20 17:18 WBC RBC 4.06 L Hgb 11.3 L Hct 35.1 L RDW 14.6 H MPV 11.8 H Neut % (Auto) 88.4 H Lymph % (Auto) 4.1 L Lymph # (Auto) 0.41 L [place] # (Auto) Band Neutrophils % Lymphocytes % Absolute Neutrophils 8.90 H RBC Morphology Anisocytosis ESR Sodium Chloride Carbon Dioxide BUN Creatinine Glucose Hemoglobin A1c Uric Acid Direct Bilirubin Alkaline Phosphatase Lactate Dehydrogenase C-Reactive Protein Albumin Globulin Albumin/Globulin Ratio Triglycerides Urine Appearance Urine Protein Urine Ketones Urine Urobilinogen Meds: Medications Acetaminophen (Acetaminophen 325 Mg Tablet) 650 mg PO Q6HP PRN PRN Reason: PAIN/FEVER > 101 Last Admin: 09/23/20 10:05 Dose: 650 mg Documented by: Hydrocodone Bitart/Acetaminophen (Hydrocodone/Apap 5/325mg Tablet) 1 tab PO Q4HP PRN PRN Reason: PAIN LEVEL 3-6 Last Admin: 09/23/20 20:14 Dose: 1 tab Documented by: Albuterol/Ipratropium (Ipratropium/Albuterol 3 Ml Ampul.Neb) 3 ml NEB Q4HP PRN PRN Reason: Shortness Of Breath Cefepime HCl (Cefepime 2 Gm Vial) 2 gm IV Q12H [facility]; Protocol Last Admin: 09/24/20 08:02 Dose: 2 gm Documented by: Dextrose (Dextrose 50% 50 Ml Vial) 0 ml IV UD PRN PRN Reason: Hypoglycemia Diagnostic Test (Pha) (Accu-Chek 1 Each Strip) 1 each FS ACHS [facility] Last Admin: 09/24/20 07:33 Dose: 1 each Documented by: Diphenhydramine HCl (Diphenhydramine 25 Mg Capsule) 25 mg PO HSP PRN PRN Reason: Insomnia Docusate Sodium (Docusate Sodium 100 Mg Capsule) 100 mg PO BID [facility] Last Admin: 09/24/20 07:51 Dose: Not Given Documented by: Enoxaparin Sodium (Enoxaparin 40 Mg/0.4 Ml Syringe) 40 mg SQ DAILY [facility] Last Admin: 09/24/20 08:24 Dose: Not Given Documented by: Fenofibrate (Fenofibrate 43 Mg Capsule) 129 mg PO DAILY [facility] Last Admin: 09/24/20 07:51 Dose: Not Given Documented by: Glucose (Dextrose 31 Gm Oral.Susp) 15 gm PO PRN PRN PRN Reason: Hypoglycemia Hydralazine HCl (Hydralazine 20 Mg/Ml Vial) 0 mg IV Q2HP PRN PRN Reason: Hypertension Last Admin: 09/23/20 05:33 Dose: 20 mg Documented by: Potassium Chloride 40 meq/ (Dextrose) 520 mls @ 130 mls/hr IV UD PRN PRN Reason: Potassium < 3 Magnesium Sulfate (Magnesium Sulfate) 2 gm in 50 mls @ 50 mls/hr IV UD PRN PRN Reason: Magnesium </= 1.6 Vancomycin HCl 1,500 mg/ (Sodium Chloride) 500 mls @ 333.3 mls/hr IV Q12H [facility] Last Infusion: 09/24/20 00:45 Dose: Infused Documented by: Insulin Human Lispro (Insulin Lispro 1 Unit/0.01 Ml Unit) [facility]; [facility] Last Admin: 09/24/20 07:43 Dose: 2 unit Documented by: Labetalol HCl (Labetalol 5 Mg/Ml Ml) 0 mg IV Q2HP PRN PRN Reason: Hypertension Last Admin: 09/24/20 04:00 Dose: 10 mg Documented by: Melatonin (Melatonin 3 Mg Tablet) 3 mg PO QHS [facility] Last Admin: 09/23/20 20:30 Dose: 3 mg Documented by: Metoclopramide HCl (Metoclopramide 10 Mg/2 Ml Vial) 10 mg IV Q6HP PRN PRN Reason: Nausea And Vomiting Last Admin: 09/23/20 04:40 Dose: 10 mg Documented by: Ondansetron HCl (Ondansetron 4 Mg/2 Ml Vial) 4 mg IV Q4HP PRN PRN Reason: Nausea And Vomiting Last Admin: 09/23/20 03:48 Dose: 4 mg Documented by: Oxycodone/Acetaminophen (Oxycodone/Apap 5/325mg Tablet) 1 tab PO Q8H PRN; Protocol PRN Reason: pain Last Admin: 09/24/20 03:53 Dose: 1 tab Documented by: Pantoprazole Sodium ([facility] 40 Mg [facility]t) [facility] Last Admin: 09/24/20 07:47 Dose: Not Given Documented by: Insulin Degludec 200 Unit/Ml (3 Ml) Insulin Pen 118 dose SUB-Q QHS [facility] Last Admin: 09/23/20 20:29 Dose: 118 dose Documented by: Polyethylene Glycol (Polyethylene Glycol 3350 17 Gm Packet) 17 gm PO DAILYP PRN PRN Reason: Constipation Potassium Chloride (Potassium Chloride 20 Meq Tablet) 40 meq PO UD PRN PRN Reason: Potssium is 3-3.5 Last Admin: 09/22/20 21:21 Dose: 40 meq Documented by: Potassium Chloride (Potassium Chloride 20 Meq Tablet) 40 meq PO UD PRN PRN Reason: Potassium < 3 Senna (Sennosides 1 Tablet) 2 tab PO DAILYP PRN PRN Reason: Constipation Sodium Bicarbonate (Sodium Bicarbonate 650 Mg Tablet) 650 mg PO TID [facility] Last Admin: 09/24/20 07:52 Dose: Not Given Documented by: Sodium Chloride (0.9 % Sodium Chloride 10 Ml Syringe) 10 ml IV Q8 [facility] Last Admin: 09/24/20 04:01 Dose: 10 ml Documented by: Vancomycin HCl (Vancomycin Per Pharmacy) 1 order IV [facility]; Protocol A/P Time Spent With Patient Time: Planned: Right ankle incision and drainage with removal of hardware
[2020-09-24] MEDS: HEPARIN 5,000 UNIT/ML VIAL SQ SCH ×2 (09:10→21:00)
[2020-09-24 09:12] LABS: Anisocytosis 1+ (None Seen); Band Neutrophils % 1 % (0-10); Basophils % (Manual) 1 % (0-2); Eosinophils % (Manual) 1 % (0-7); Lymphocytes % 8 % (15-49); Monocytes % (Manual) 10 % (1-12); Platelet Estimate NORMAL (Normal); RBC Morphology ABNORMAL (Normal); Segmented Neutrophils % 79 % (38-78)
[2020-09-24] MEDS ORDERED: PROPOFOL 200 MG/20 ML VIAL IV ONE (12:27)
[2020-09-24] MEDS ORDERED: LIDOCAINE HCL/PF 100 MG/5 ML SYRINGE IV ONE (12:27)
[2020-09-24] MEDS ORDERED: KETAMINE 50 MG/ML ML ONE (12:27)
[2020-09-24] MEDS ORDERED: BUPIVACAINE PF 0.5% 10 ML VIAL IJ ONE (13:53)
[2020-09-24] MEDS ORDERED: VANCOMYCIN 1 GM VIAL TOPICAL SCH (14:00)
[2020-09-24] MEDS ORDERED: VANCOMYCIN 1 GM VIAL TOPICAL ONE (14:00)
--- NOTE | 2020-09-24 14:17 | Brief Operative Note ---
Brief Operative Note Date of procedure: 09/24/20 Pre-op diagnosis: Cellulitis right leg with abcess, infection of hardware Post-op diagnosis: same Procedure: Incision and drainage with removal of hardware, right ankle Grafts/Implants: No Anesthesia: MAC and local Complications: none Surgeon: Kwadwo Alvarado Estimated blood loss (cc): 550 Tourniquet Time (Minutes): 7 Specimens Removed/Pathology: other (deep culture x 2, bone biopsy for microbiology) Condition: other (fair) Disposition: floor
[2020-09-24] MEDS: HYDROmorphone 0.5 MG/0.5 ML SYRINGE IV PRN (14:53)
--- NOTE | 2020-09-24 15:06 | Operative Note ---
DATE OF OPERATION: 09/24/2020 PREOPERATIVE DIAGNOSIS: Cellulitis, right leg with abscess and infection of hardware. POSTOPERATIVE DIAGNOSIS: Cellulitis, right leg with abscess and infection of hardware. PROCEDURE: Incision and drainage with removal of hardware of the right ankle. IMPLANTS: None. ANESTHESIA: MAC local. COMPLICATIONS: None. BLOOD LOSS: 550 mL. TOURNIQUET TIME: 7 minutes. SPECIMENS: Deep culture x2, bone biopsy for microbiology. CONDITION: Fair. DISPOSITION: Floor. PROCEDURE IN DETAIL: The patient was brought to the operating room. He remained on his patient bed through the procedure. Monitored anesthesia care initiated. There was a total of 12 mL 0.5% Marcaine plain infiltrated in a proximal V block fashion on the lateral aspect of the right leg proximal to the planned incision. The foot and leg were scrubbed, prepped and draped in the usual aseptic fashion. Tourniquet was applied to the thigh. Esmarch applied. Pneumatic thigh tourniquet inflated to 275 mmHg. PROCEDURE IN DETAIL: Incision and drainage with removal of hardware of the right ankle. Entering the previous incision a full-thickness flap was created. Upon incision with #10 blade, substantial amounts of purulent drainage with blood was expressed from the area. There was noted to be a large pocket of purulent drainage in the anterior aspect of the ankle consistent with computer tomography preoperatively. These areas were debrided and irrigated. Hardware was then removed and was noted to be intact. There was substantial bone callus formation around this area. All of the screws and plates were removed. Intraoperative fluoroscopy verified correct and adequate removal of hardware. A 3000 cc bag of normal saline was used to irrigate under pulse lavage the entire area. One gram of vancomycin powder was packed into the abscess and surrounding tissues. The open wound was loosely coapted with 0 Prolene under a horizontal mattress and Xeroform, 4 x 4 gauze, Kerlix, ABD pad, and Coban with Ralph wrap were used as dressings. The patient did tolerate the procedure and anesthesia well and he will be transferred back to the floor for continued therapy. KDJ:mike Job ID: [id number] Doc ID: [id number] Kwadwo Alvarado DPM
[2020-09-24] MEDS: INSULIN DEGLUDEC 200 UNIT/ML SUB-Q SCH (21:02)
[2020-09-24] MEDS: MELATONIN 3 MG TABLET PO SCH (21:02)
[2020-09-24] MEDS: INSULIN SUB-Q SCH (21:02)
[2020-09-25] MEDS: 0.9 % SODIUM CHLORIDE 10 ML SYRINGE IV SCH ×3 (04:27→21:16)
[2020-09-25] MEDS: LABETALOL 5 MG/ML ML IV PRN (04:27)
[2020-09-25] MEDS: oxyCODONE/APAP 5/325MG TABLET PO PRN ×2 (06:20→14:51)
--- NOTE | 2020-09-25 06:57 | Internal Med Progress Note ---
SUBJECTIVE Subjective Patient information: Note initiated : 09/25/20 at 6:54 am Service Date, if different from initiated Date: [] Patient: Chaitanya Duvall 45 y/o M admitted on 09/22/20 for Recheck for positive blood cultures. Chief Complaint: [] Interval history: History of present illness: Mr. Duvall is a 45 year old M Who presented ED yesterday with right foot and leg tenderness and redness. He was seen in the ED and diagnosed with cellulitis and started on antibiotics, blood cultures were obtained that time. Patient went home and was called back today because of blood culture growing gram-negative bacillus. Patient states that for starting Wednesday with increased tenderness and redness of his leg and then he went into the ED on Wednesday. He also initially had nausea vomiting and fever and chills. Wednesday night when he went from the ED he did have some nausea vomiting as well. Today he feels better. Was febrile in the ED. 09/23 Patient says he had a poor sleep last night. Patient complains of headache and feels weaker. 09/24 Changes overnight. Seen by Dr. Alvarado who will perform surgical I&D and hardware removal. 09/25 Patient had surgical I&D and hardware removal yesterday and feels better today. No overnight event or new complaints. Awaiting surgical cultures. Pending follow-up labs. Nephrology following Review of Systems: denies headache/fever/chills/nausea/vomiting/chest or abdominal pain/cough/dyspnea/diarrhea. Otherwise see above. Constitutional Vitals: Vital Signs Temp Pulse Resp BP Pulse Ox 98.1 F 87 20 169/79 95 09/25/20 03:59 09/25/20 03:59 09/25/20 03:59 09/25/20 03:59 09/25/20 03:59 Period Temp Pulse Resp BP Sys/Foley Pulse Ox Last 24 Hr 97.6 F-99.6 F 64-96 18-22 129-173/62-87 91-98 Intake and Output 09/24/20 09/25/20 09/25/20 21:59 05:59 13:59 Intake Total 450 550 Output Total 800 500 Balance -350 50 Weight 183.932 kg Intake & Output: Intake & Output 09/24/20 09/25/20 09/25/20 21:59 05:59 13:59 Intake Total 450 550 Output Total 800 500 Balance -350 50 Weight 183.932 kg Intake: Oral 450 550 Output: Void Amount 800 500 Other: Meal Dinner Percent of Meal Consumed 100% Feeding Ability Independent Urine Appearance Clear Clear Urine Color Dark Yellow Bright Yellow Urine Odor Normal Exam: General: Alert, Awake, No acute Distress, obese Eyes/N/T: EOMI, Head/Neck: neck supple, CV: RRR, No murmurs, Pulm: Clear b/l, no wheezing/rhonchi/rales Abd: soft, nontender, +BS x4 Ext: no clubbing/cyanosis, b/l LE edema, right foot in dressings Neuro: Alert, no focal deficits, moves all extremities, Skin: warm/dry OBJ DATA Labs CBC & Chem 7: 09/24/20 05:09 09/25/20 06:43 Labs: Abnormal Lab Results 09/24/20 09/24/20 09/24/20 08:57 05:09 05:09 WBC RBC 3.55 L Hgb 9.5 L Hct 30.6 L RDW 15.2 H MPV 12.0 H Neut % (Auto) Lymph % (Auto) Lymph # (Auto) [place] # (Auto) Seg Neutrophils % 79 H Band Neutrophils % Lymphocytes % 8 L Absolute Neutrophils RBC Morphology Abnormal A Anisocytosis 1+ A ESR Sodium 126 L Chloride 95 L Carbon Dioxide 17 L BUN 46 H Creatinine 5.1 H* Glucose 165 H Hemoglobin A1c Uric Acid 8.6 H Direct Bilirubin 0.4 H Alkaline Phosphatase 163 H Lactate Dehydrogenase 230 H C-Reactive Protein Albumin 2.4 L Globulin 3.9 H Albumin/Globulin Ratio 0.6 L Triglycerides 208 H Urine Appearance Urine Protein Urine Ketones Urine Urobilinogen Vancomycin Trough 23.6 H* 09/23/20 09/23/20 09/23/20 12:15 04:52 04:51 WBC 11.6 H RBC 3.90 L Hgb 10.5 L Hct 33.4 L RDW 14.8 H MPV 11.8 H Neut % (Auto) 85.6 H Lymph % (Auto) 4.6 L Lymph # (Auto) 0.53 L [place] # (Auto) 1.05 H Seg Neutrophils % Band Neutrophils % 13 H Lymphocytes % 6 L Absolute Neutrophils 9.94 H RBC Morphology Abnormal A Anisocytosis Few A ESR Sodium Chloride Carbon Dioxide BUN Creatinine Glucose Hemoglobin A1c Uric Acid Direct Bilirubin Alkaline Phosphatase Lactate Dehydrogenase C-Reactive Protein Albumin Globulin Albumin/Globulin Ratio Triglycerides Urine Appearance Cloudy A Urine Protein 30 A Urine Ketones 5 A Urine Urobilinogen 2.0 A Vancomycin Trough 09/23/20 09/22/20 09/22/20 04:51 17:18 17:18 WBC RBC Hgb Hct RDW MPV Neut % (Auto) Lymph % (Auto) Lymph # (Auto) [place] # (Auto) Seg Neutrophils % Band Neutrophils % Lymphocytes % Absolute Neutrophils RBC Morphology Anisocytosis ESR 122 H Sodium 131 L Chloride Carbon Dioxide 17 L BUN 36 H Creatinine 3.8 H Glucose 219 H Hemoglobin A1c 8.3 H Uric Acid 8.1 H Direct Bilirubin 0.5 H Alkaline Phosphatase 165 H Lactate Dehydrogenase 234 H C-Reactive Protein 33.20 H Albumin 2.6 L Globulin 4.1 H Albumin/Globulin Ratio 0.6 L Triglycerides 213 H Urine Appearance Urine Protein Urine Ketones Urine Urobilinogen Vancomycin Trough 09/22/20 09/22/20 17:18 17:18 WBC RBC 4.06 L Hgb 11.3 L Hct 35.1 L RDW 14.6 H MPV 11.8 H Neut % (Auto) 88.4 H Lymph % (Auto) 4.1 L Lymph # (Auto) 0.41 L [place] # (Auto) Seg Neutrophils % Band Neutrophils % Lymphocytes % Absolute Neutrophils 8.90 H RBC Morphology Anisocytosis ESR Sodium 131 L Chloride Carbon Dioxide 20 L BUN 30 H Creatinine 3.2 H Glucose 276 H Hemoglobin A1c Uric Acid Direct Bilirubin Alkaline Phosphatase 158 H Lactate Dehydrogenase C-Reactive Protein Albumin 2.7 L Globulin 3.9 H Albumin/Globulin Ratio 0.7 L Triglycerides Urine Appearance Urine Protein Urine Ketones Urine Urobilinogen Vancomycin Trough Meds: Medications Acetaminophen (Acetaminophen 325 Mg Tablet) 650 mg PO Q6HP PRN PRN Reason: PAIN/FEVER > 101 Last Admin: 09/23/20 10:05 Dose: 650 mg Documented by: Hydrocodone Bitart/Acetaminophen (Hydrocodone/Apap 5/325mg Tablet) 1 tab PO Q4HP PRN PRN Reason: PAIN LEVEL 3-6 Last Admin: 09/23/20 20:14 Dose: 1 tab Documented by: Albuterol/Ipratropium (Ipratropium/Albuterol 3 Ml Ampul.Neb) 3 ml NEB Q4HP PRN PRN Reason: Shortness Of Breath Cefepime HCl (Cefepime 2 Gm Vial) 2 gm IV Q12H [facility]; Protocol Last Admin: 09/24/20 21:02 Dose: 2 gm Documented by: Dextrose (Dextrose 50% 50 Ml Vial) 0 ml IV UD PRN PRN Reason: Hypoglycemia Diagnostic Test (Pha) (Accu-Chek 1 Each Strip) 1 each FS [facility] Last Admin: 09/24/20 21:01 Dose: 1 each Documented by: Diphenhydramine HCl (Diphenhydramine 25 Mg Capsule) 25 mg PO HSP PRN PRN Reason: Insomnia Docusate Sodium (Docusate Sodium 100 Mg Capsule) 100 mg PO BID [facility] Last Admin: 09/24/20 21:01 Dose: 100 mg Documented by: Fenofibrate (Fenofibrate 43 Mg Capsule) 129 mg PO DAILY [facility] Last Admin: 09/24/20 07:51 Dose: Not Given Documented by: Glucose (Dextrose 31 Gm Oral.Susp) 15 gm PO PRN PRN PRN Reason: Hypoglycemia Heparin Sodium (Porcine) (Heparin 5,000 Unit/Ml Vial) 5,000 unit SQ Q12 [facility] Last Admin: 09/24/20 21:00 Dose: 5,000 unit Documented by: Hydralazine HCl (Hydralazine 20 Mg/Ml Vial) 0 mg IV Q2HP PRN PRN Reason: Hypertension Last Admin: 09/23/20 05:33 Dose: 20 mg Documented by: Hydromorphone HCl (Hydromorphone 0.5 Mg/0.5 Ml Syringe) 0.5 mg IV Q4HP PRN; Protocol PRN Reason: Per Pain Protocol Last Admin: 09/24/20 14:53 Dose: 0.5 mg Documented by: Potassium Chloride 40 meq/ (Dextrose) 520 mls @ 130 mls/hr IV UD PRN PRN Reason: Potassium < 3 Magnesium Sulfate (Magnesium Sulfate) 2 gm in 50 mls @ 50 mls/hr IV UD PRN PRN Reason: Magnesium </= 1.6 Insulin Human Lispro (Insulin Lispro 1 Unit/0.01 Ml Unit) 0 unit SQ ACHS [facility]; Protocol Last Admin: 09/24/20 20:41 Dose: Not Given Documented by: Labetalol HCl (Labetalol 5 Mg/Ml Ml) 0 mg IV Q2HP PRN PRN Reason: Hypertension Last Admin: 09/25/20 04:27 Dose: 10 mg Documented by: Melatonin (Melatonin 3 Mg Tablet) 3 mg PO QHS [facility] Last Admin: 09/24/20 21:02 Dose: 3 mg Documented by: Metoclopramide HCl (Metoclopramide 10 Mg/2 Ml Vial) 10 mg IV Q6HP PRN PRN Reason: Nausea And Vomiting Last Admin: 09/23/20 04:40 Dose: 10 mg Documented by: Ondansetron HCl (Ondansetron 4 Mg/2 Ml Vial) 4 mg IV Q4HP PRN PRN Reason: Nausea And Vomiting Last Admin: 09/23/20 03:48 Dose: 4 mg Documented by: Oxycodone/Acetaminophen (Oxycodone/Apap 5/325mg Tablet) 1 tab PO Q8H PRN; Protocol PRN Reason: pain Last Admin: 09/25/20 06:20 Dose: 1 tab Documented by: Pantoprazole Sodium (Pantoprazole 40 Mg Tablet) 40 mg PO QAMAC [facility] Last Admin: 09/24/20 21:01 Dose: 40 mg Documented by: Insulin Degludec 200 Unit/Ml (3 Ml) Insulin Pen 118 dose SUB-Q QHS [facility] Last Admin: 09/24/20 21:02 Dose: 118 dose Documented by: Polyethylene Glycol (Polyethylene Glycol 3350 17 Gm Packet) 17 gm PO DAILYP PRN PRN Reason: Constipation Potassium Chloride (Potassium Chloride 20 Meq Tablet) 40 meq PO UD PRN PRN Reason: Potssium is 3-3.5 Last Admin: 09/22/20 21:21 Dose: 40 meq Documented by: Potassium Chloride (Potassium Chloride 20 Meq Tablet) 40 meq PO UD PRN PRN Reason: Potassium < 3 Senna (Sennosides 1 Tablet) 2 tab PO DAILYP PRN PRN Reason: Constipation Sodium Bicarbonate (Sodium Bicarbonate 650 Mg Tablet) 650 mg PO TID [facility] Last Admin: 09/24/20 21:01 Dose: 650 mg Documented by: Sodium Chloride (0.9 % Sodium Chloride 10 Ml Syringe) 10 ml IV Q8 [facility] Last Admin: 09/25/20 04:27 Dose: 10 ml Documented by: A/P Narrative A/P Narrative: A: *RLE/foot cellulitis (has hardware in place from previous ankle Fx): s/p I&D w/hardware removal (09/24) -afebrile o/n, leukocytosis resolved *Bacteremia(Pasteurella multocida - pt has pets in house): *SIRS: *BRENT on CKD II: ?Bactrim/infection -Cr increased *Hyponatremia: *DM: A1c 8.3 *HTN/HLD: *GERD: *Obesity: *Anemia, chronic: P: -Dr. Alvarado for surgical I&D, removal of hardware -Nephrology following, defer renal fxn and hypontremia to nephro -cefepime, pending final BC -hold home ARB for brent, cont norvasc -basal and SSI -wound care -ppx: heparin/Home PPI Time Spent With Patient Time: Total time spent is greater than 50% in coordination of care (as d ocumented) at patient's floor/unit and/or counseling patient: QUALITY VTE Deep Vein Thrombosis/Pulmonary Embolism Present on Admission: No
[2020-09-25] MEDS: PANTOPRAZOLE 40 MG TABLET PO SCH (07:44)
[2020-09-25] MEDS: INSULIN LISPRO 1 UNIT/0.01 ML UNIT SQ SCH ×4 (07:44→21:15)
[2020-09-25] MEDS: FENOFIBRATE 43 MG CAPSULE PO SCH (08:57)
[2020-09-25] MEDS: DOCUSATE SODIUM 100 MG CAPSULE PO SCH ×2 (08:57→21:15)
[2020-09-25] MEDS: HEPARIN 5,000 UNIT/ML VIAL SQ SCH ×2 (08:57→21:15)
[2020-09-25] MEDS: SODIUM BICARBONATE 650 MG TABLET PO SCH ×3 (08:57→21:15)
[2020-09-25] MEDS: CEFEPIME 2 GM VIAL IV SCH ×2 (09:03→21:14)
[2020-09-25 09:41] LABS: Blood Urea Nitrogen 56 mg/dL (6-20); Calcium 8.8 mg/dL (8.6-10.4); Carbon Dioxide 18 mmol/L (22-30); Chloride 96 mmol/L (96-108); Glomerular Filtration Rate 11; Glucose 199 mg/dL (70-105)
--- NOTE | 2020-09-25 11:57 | Nephrology Progress Note ---
SUBJECTIVE Subjective Patient information: Note initiated : 09/25/20 at 11:54 am Patient: Chaitanya Duvall 45 y/o M admitted on 09/22/20 for Recheck for positive blood cultures. Chief Complaint: Weakness Pertinent ROS: No nausea, vomiting No hiccups Feels well Constitutional Vitals: Vital Signs Temp Pulse Resp BP Pulse Ox 98.3 F 84 20 124/68 95 09/25/20 07:12 09/25/20 08:00 09/25/20 08:00 09/25/20 07:12 09/25/20 08:00 Period Temp Pulse Resp BP Sys/Foley Pulse Ox Last 24 Hr 97.6 F-99.6 F 84-96 18-20 124-173/62-87 91-95 Intake and Output 09/24/20 09/25/20 09/25/20 21:59 05:59 13:59 Intake Total 450 550 Output Total 800 500 Balance -350 50 Weight 405 lb 8 oz Intake & Output: Intake & Output 09/24/20 09/25/20 09/25/20 21:59 05:59 13:59 Intake Total 450 550 Output Total 800 500 Balance -350 50 Weight 405 lb 8 oz Intake: Oral 450 550 Output: Void Amount 800 500 Other: Meal Dinner Percent of Meal Consumed 100% Feeding Ability Independent Urine Appearance Clear Clear Urine Color Dark Yellow Bright Yellow Urine Odor Normal General appearance: cooperative and no acute distress Head Head exam: Present normal inspection Eye Eye exam: Present normal appearance ENT ENT exam: Present mucous membranes moist Respiratory Respiratory exam: Absent respiratory distress Cardiovascular Cardiovascular exam: Present normal rate and rhythm GI/Abdominal GI/Abdominal exam: Present soft; Absent tenderness Extremities Exam Extremities exam: Present joint swelling and pedal edema Neurological Exam Neurological exam: Present alert and oriented X3 Psychiatric Psychiatric exam: Present normal affect and normal mood Skin Skin exam: Present warm; Absent rash A/P Assessment and plan (1) Acute renal failure with acute tubular necrosis superimposed on stage 2 chronic kidney disease: Assessment and plan: Chaitanya Duvall is a 45-year-old male with hypertension, hyperlipidemia, diabetes mellitus type 2, 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 He was initially presented to [facility] ED for right foot and leg tenderness and redness on 09/21/20. He was diagnosed with cellulitis. Blood cultures were obtained. He was started on Bactrim DS and Cephalexin. Serum creatinine was 1.3. Hewas called to come back to ED on 09/22/20 for blood cultures growing gram-negative bacillus. Serum creatinine was 3.2. Baseline serum creatinine: 0.6 to 1.1 (eGFR >60). Nephrology consultation was requested for acute kidney injury. Acute kidney injury, suspected acute tubular necrosis associated with acute infection with antibiotics and NSAID use on chronic kidney disease stage G2/A3 with initial metabolic acidosis and hyponatremia, present on arrival. There is no recent history of IV contrast administration or NSAID use. Intravascular volume depletion is unlikely. Acute infectious (immune complex) glomerulonephritis, acute interstitial nephritis or acute toxic nephropathy due to medications considered. Right ankle incision and drainage with removal of hardware scheduled later today. Previous work up: Urinalysis on 10/16/19: Yellow, Clear, pH 6.0, SG 1.015, protein 100, blood 0.2, leukocyte esterase negative. Urine random microalbumin/creatinine on 06/05/19: 386 mg/g creatinine. CT Abdomen and Pelvis with contrast on 09/08/19: Kidneys are normal. There is no kidney stone or hydronephrosis. There is a small calcified plaque at its origin of the right renal artery. Workup: Urinalysis on 09/23/20: Ching, cloudy, pH 5.0, SG 1.021, protein 30, blood 0.3, leukocyte esterase negative. Renal US on 09/23/20: Bilateral enlargement of the kidneys with diminished urine output. Hypoechoic structure centrally in the left kidney. This is probably a prominent pyramid and less likely a cyst which has developed in one year. Progress: Serum creatinine increased from 5.1 to 5.9 in the past 24 hours. Baseline serum creatinine: 0.6 to 1.1 (eGFR >60). Urine output: 1,300 ml reported in the past 24 hours. Metabolic acidosis. Receiving Sodium Bicarbonate 650 mg three times daily for metabolic acidosis. Hyponatremia, moderate with mild fluid overload. No uremic symptoms. Recommendations/Plan: No urgent acute hemodialysis need, but monitoring with BMP and urine output. Avoid NSAIDs, nephrotoxic medications and IV contrast. Status: Acute (2) Metabolic acidosis: Status: Acute (3) Hyponatremia: Status: Acute Time Spent With Patient Time: Total time spent is greater than 50% in coordination of care (as documented) at patient's floor/unit and/or counseling patient:
--- NOTE | 2020-09-25 15:29 | Orthopedic Progress Note ---
SUBJECTIVE Subjective Patient information: Note initiated : 09/25/20 at 3:27 pm Service Date, if different from initiated Date: [] Patient: Chaitanya Duvall 45 y/o M admitted on 09/22/20 for Recheck for positive blood cultures. Chief Complaint: [right leg redness and pain] Patient feeling better than before the surgery. No new issues. Constitutional Vitals: Vital Signs Temp Pulse Resp BP Pulse Ox 98.5 F 90 20 144/65 95 09/25/20 12:00 09/25/20 12:00 09/25/20 12:00 09/25/20 12:00 09/25/20 12:00 Period Temp Pulse Resp BP Sys/Foley Pulse Ox Last 24 Hr 97.6 F-99.6 F 84-96 18-20 124-169/62-79 91-95 Intake and Output 09/25/20 09/25/20 09/25/20 05:59 13:59 21:59 Intake Total 550 Output Total 500 Balance 50 Intake & Output: Intake & Output 09/25/20 09/25/20 09/25/20 05:59 13:59 21:59 Intake Total 550 Output Total 500 Balance 50 Intake: Oral 550 Output: Void Amount 500 Other: Urine Appearance Clear Urine Color Bright Yellow OBJ DATA Labs CBC & Chem 7: 09/24/20 05:09 09/25/20 08:35 Labs: Abnormal Lab Results 09/25/20 09/24/20 09/24/20 08:35 08:57 05:09 WBC RBC Hgb Hct RDW MPV Neut % (Auto) Lymph % (Auto) Lymph # (Auto) [place] # (Auto) Seg Neutrophils % Band Neutrophils % Lymphocytes % Absolute Neutrophils RBC Morphology Anisocytosis ESR Sodium 129 L 126 L Chloride 95 L Carbon Dioxide 18 L 17 L BUN 56 H 46 H Creatinine 5.9 H* 5.1 H* Glucose 199 H 165 H Hemoglobin A1c Uric Acid 8.6 H Direct Bilirubin 0.4 H Alkaline Phosphatase 163 H Lactate Dehydrogenase 230 H C-Reactive Protein Albumin 2.4 L Globulin 3.9 H Albumin/Globulin Ratio 0.6 L Triglycerides 208 H Urine Appearance Urine Protein Urine Ketones Urine Urobilinogen Vancomycin Trough 23.6 H* 09/24/20 09/23/20 09/23/20 05:09 12:15 04:52 WBC 11.6 H RBC 3.55 L 3.90 L Hgb 9.5 L 10.5 L Hct 30.6 L 33.4 L RDW 15.2 H 14.8 H MPV 12.0 H 11.8 H Neut % (Auto) 85.6 H Lymph % (Auto) 4.6 L Lymph # (Auto) 0.[address] [place] # (Auto) 1.05 H Seg Neutrophils % 79 H Band Neutrophils % Lymphocytes % 8 L Absolute Neutrophils 9.94 H RBC Morphology Abnormal A Anisocytosis 1+ A ESR Sodium Chloride Carbon Dioxide BUN Creatinine Glucose Hemoglobin A1c Uric Acid Direct Bilirubin Alkaline Phosphatase Lactate Dehydrogenase C-Reactive Protein Albumin Globulin Albumin/Globulin Ratio Triglycerides Urine Appearance Cloudy A Urine Protein 30 A Urine Ketones 5 A Urine Urobilinogen 2.0 A Vancomycin Trough 09/23/20 09/23/20 09/22/20 04:51 04:51 17:18 WBC RBC Hgb Hct RDW MPV Neut % (Auto) Lymph % (Auto) Lymph # (Auto) [place] # (Auto) Seg Neutrophils % Band Neutrophils % 13 H Lymphocytes % 6 L Absolute Neutrophils RBC Morphology Abnormal A Anisocytosis Few A ESR Sodium 131 L Chloride Carbon Dioxide 17 L BUN 36 H Creatinine 3.8 H Glucose 219 H Hemoglobin A1c 8.3 H Uric Acid 8.1 H Direct Bilirubin 0.5 H Alkaline Phosphatase 165 H Lactate Dehydrogenase 234 H C-Reactive Protein 33.20 H Albumin 2.6 L Globulin 4.1 H Albumin/Globulin Ratio 0.6 L Triglycerides 213 H Urine Appearance Urine Protein Urine Ketones Urine Urobilinogen Vancomycin Trough 09/22/20 09/22/20 09/22/20 17:18 17:18 17:18 WBC RBC 4.06 L Hgb 11.3 L Hct 35.1 L RDW 14.6 H MPV 11.8 H Neut % (Auto) 88.4 H Lymph % (Auto) 4.1 L Lymph # (Auto) 0.[address] [place] # (Auto) Seg Neutrophils % Band Neutrophils % Lymphocytes % Absolute Neutrophils 8.90 H RBC Morphology Anisocytosis ESR 122 H Sodium 131 L Chloride Carbon Dioxide 20 L BUN 30 H Creatinine 3.2 H Glucose 276 H Hemoglobin A1c Uric Acid Direct Bilirubin Alkaline Phosphatase 158 H Lactate Dehydrogenase C-Reactive Protein Albumin 2.7 L Globulin 3.9 H Albumin/Globulin Ratio 0.7 L Triglycerides Urine Appearance Urine Protein Urine Ketones Urine Urobilinogen Vancomycin Trough Meds: Medications Acetaminophen (Acetaminophen 325 Mg Tablet) 650 mg PO Q6HP PRN PRN Reason: PAIN/FEVER > 101 Last Admin: 09/23/20 10:05 Dose: 650 mg Documented by: Hydrocodone Bitart/Acetaminophen (Hydrocodone/Apap 5/325mg Tablet) 1 tab PO Q4HP PRN PRN Reason: PAIN LEVEL 3-6 Last Admin: 09/23/20 20:14 Dose: 1 tab Documented by: Albuterol/Ipratropium (Ipratropium/Albuterol 3 Ml Ampul.Neb) 3 ml NEB Q4HP PRN PRN Reason: Shortness Of Breath Cefepime HCl (Cefepime 2 Gm Vial) 2 gm IV Q12H ANNIE; Protocol Last Admin: 09/25/20 09:03 Dose: 2 gm Documented by: Dextrose (Dextrose 50% 50 Ml Vial) 0 ml IV UD PRN PRN Reason: Hypoglycemia Diagnostic Test (Pha) (Accu-Chek 1 Each Strip) 1 each FS ACHS [facility] Last Admin: 09/25/20 12:17 Dose: 1 each Documented by: Diphenhydramine HCl (Diphenhydramine 25 Mg Capsule) 25 mg PO HSP PRN PRN Reason: Insomnia Docusate Sodium (Docusate Sodium 100 Mg Capsule) 100 mg PO BID [facility] Last Admin: 09/25/20 08:57 Dose: 100 mg Documented by: Fenofibrate (Fenofibrate 43 Mg Capsule) 129 mg PO DAILY [facility] Last Admin: 09/25/20 08:57 Dose: 129 mg Documented by: Glucose (Dextrose 31 Gm Oral.Susp) 15 gm PO PRN PRN PRN Reason: Hypoglycemia Heparin Sodium (Porcine) (Heparin 5,000 Unit/Ml Vial) 5,000 unit SQ Q12 [facility] Last Admin: 09/25/20 08:57 Dose: 5,000 unit Documented by: Hydralazine HCl (Hydralazine 20 Mg/Ml Vial) 0 mg IV Q2HP PRN PRN Reason: Hypertension Last Admin: 09/23/20 05:33 Dose: 20 mg Documented by: Hydromorphone HCl (Hydromorphone 0.5 Mg/0.5 Ml Syringe) 0.5 mg IV Q4HP PRN; Protocol PRN Reason: Per Pain Protocol Last Admin: 09/24/20 14:53 Dose: 0.5 mg Documented by: Potassium Chloride 40 meq/ (Dextrose) 520 mls @ 130 mls/hr IV UD PRN PRN Reason: Potassium < 3 Magnesium Sulfate (Magnesium Sulfate) 2 gm in 50 mls @ 50 mls/hr IV UD PRN PRN Reason: Magnesium </= 1.6 Insulin Human Lispro (Insulin Lispro 1 Unit/0.01 Ml Unit) 0 unit SQ ACHS [facility]; Protocol Last Admin: 09/25/20 12:17 Dose: 6 unit Documented by: Labetalol HCl (Labetalol 5 Mg/Ml Ml) 0 mg IV Q2HP PRN PRN Reason: Hypertension Last Admin: 09/25/20 04:27 Dose: 10 mg Documented by: Melatonin (Melatonin 3 Mg Tablet) 3 mg PO QHS [facility] Last Admin: 09/24/20 21:02 Dose: 3 mg Documented by: Metoclopramide HCl (Metoclopramide 10 Mg/2 Ml Vial) 10 mg IV Q6HP PRN PRN Reason: Nausea And Vomiting Last Admin: 09/23/20 04:40 Dose: 10 mg Documented by: Ondansetron HCl (Ondansetron 4 Mg/2 Ml Vial) 4 mg IV Q4HP PRN PRN Reason: Nausea And Vomiting Last Admin: 09/23/20 03:48 Dose: 4 mg Documented by: Oxycodone/Acetaminophen (Oxycodone/Apap 5/325mg Tablet) 1 tab PO Q8H PRN; Protocol PRN Reason: pain Last Admin: 09/25/20 14:51 Dose: 1 tab Documented by: [facility]oprazole S[facility] ([facility] 40 Mg Tablet) [facility] Last Admin: 09/25/20 07:44 Dose: 40 mg Documented by: Insulin Degludec 200 Unit/Ml (3 Ml) Insulin Pen 118 dose SUB-Q QHS [facility] Last Admin: 09/24/20 21:02 Dose: 118 dose Documented by: Polyethylene Glycol (Polyethylene Glycol 3350 17 Gm Packet) 17 gm PO DAILYP PRN PRN Reason: Constipation Potassium Chloride (Potassium Chloride 20 Meq Tablet) 40 meq PO UD PRN PRN Reason: Potssium is 3-3.5 Last Admin: 09/22/20 21:21 Dose: 40 meq Documented by: Potassium Chloride (Potassium Chloride 20 Meq Tablet) 40 meq PO UD PRN PRN Reason: Potassium < 3 Senna (Sennosides 1 Tablet) 2 tab PO DAILYP PRN PRN Reason: Constipation Sodium Bicarbonate (Sodium Bicarbonate 650 Mg Tablet) 650 mg PO TID [facility] Last Admin: 09/25/20 14:54 Dose: 650 mg Documented by: Sodium Chloride (0.9 % Sodium Chloride 10 Ml Syringe) 10 ml IV Q8 [facility] Last Admin: 09/25/20 14:51 Dose: 10 ml Documented by: A/P Time Spent With Patient Time: 1. Large purulent abcess drained yesterday 2. Keep dressings closed, dry, and intact 3. Dressings to be changed tomorrow: xeroform, gauze, kerlix, and alisson wrap
--- NOTE | 2020-09-25 15:55 | Infectious Disease Consult ---
HPI Data of Consult Primary Care Provider: Narcisa Rodriguez PA-C Consult Narrative Patient Information: Note initiated : 09/25/20 at 3:34 pm Service Date, if different from initiated Date: [September 25, 2020] Patient: Chaitanya Duvall 45 y/o M admitted on 09/22/20 for Recheck for positive blood cultures. Chief Complaint: [Right leg pain redness swelling.] Chaitanya Duvall is a 45-year-old diabetic with peripheral neuropathy. Dr. Nye asked for consultation for Pasteurella bacteremia. Patient does have a pet dog and pet cat at home. Chaitanya was admitted in the hospital on September 21. He had a right ankle fracture May 28 requiring hardware placement. He was placed in a boot following that procedure. He required revision hardware on June 28 followed by casting until July. He has previously had plantar diabetic ulcers but denied any plantar diabetic ulcers by September. Following removal of cast in July, he switched to Aircast until recently. He did have a follow-up visit with podiatry Dr. Jean Alvarado on September 13. Patient did develop dorsal and plantar ulcerations from casting. No reports of exposed bone or hardware. He is previously had left fifth toe amputation in 2019 as well as right first and fifth toe amputations. He does have abrasions and sores on the left lower extremity that he attributes to previous cast irritation when his right leg would scratch his left leg. He was initially started on oral therapy which included Bactrim. His admit creatinine was 1.3 on September 21. Vanco and Zosyn were started on September 22. A blood culture from September 21 grew Pasteurella. Blood cultures repeated September [address] scan of the right lower extremity on September 23 revealed right ankle effusion, right foot ankle collection measuring 2.5 x 3.2 x 4.8 cm and a subchondral tibial lucency measuring 0.5 x 1 x 2.1 cm. His creatinine has increased during his hospital stay. Dr. Alvarado took him to the operating room yesterday for debridement of ankle abscess and hardware removal. Chaitanya is currently postop day 1. No previous history of MRSA but he does have a previous history of MSSA prostate abscess with sepsis September 2019. He has had diabetes with neuropathy since 2001. He has had 1 previous episode of pneumonia. T-max this hospital stay was 101.6 on September 23. He is now afebrile. On September 22 creatinine was 3.2 with creatinine up to 5.9 today. Nephrology has been consulted. He has no known drug allergies. New intraoperative cultures are pending from September 24 but no organisms seen on Gram stain. He is currently on cefepime 2 g twice daily. cc:: CC: Balwinder Nye Review of Systems All systems: reviewed and no additional remarkable complaints except as stated Review of systems: General: On September 21 temperature 100.8 September 23 1-1.6 currently afebrile. HEENT: No headaches or sore throat. No neck complaints. Pulmonary: Only 1 previous episode of pneumonia. No current cough or shortness of breath. Cardiac: No history of heart murmur. No chest pain. GI: No abdominal pain or diarrhea. no dysuria. Skin several lesions over the left lower extremity that he attributes to cast irritation at night when he sleeps and rubs right leg cast on the left leg. He currently denies right leg pain. He has Ralph wrap dressing and full walking boot on the right lower extremity that I did not remove. He does complain of right knee pain which is better today as compared to yesterday. No previous joint replacements he has had bilateral rotator cuff repair. PFSH PFSH All Active Problems (Updated 09/25/20 @ 15:55 by Garret Mccormick MD) Pasteurella infection (Acute) Ankle abscess (Acute) Hyponatremia (Acute) Metabolic acidosis (Acute) Acute renal failure with acute tubular necrosis superimposed on stage 2 chronic kidney disease (Acute) Fracture of distal end of fibula (Acute) Fever (Acute) Cellulitis (Acute) Hypersomnia (Acute) Fatigue (Acute) Prostatitis (Acute) Prostate abscess (Acute) Sepsis (Acute) Right upper quadrant pain (Acute) Constipation (Acute) Left foot pain (Chronic) Skin lesion (Chronic) Neoplasm of uncertain behavior (Chronic) Seborrheic keratosis (Chronic) Gage angioma (Chronic) Lentigines (Chronic) Charcot's joint of left ankle (Chronic) Charcot's joint of left foot (Chronic) Charcot foot due to diabetes mellitus (Chronic) Uncontrolled type 2 diabetes mellitus with diabetic neuropathy (Chronic) Type 2 diabetes mellitus with hyperglycemia (Chronic) Plantar fasciitis (Chronic) Tobacco dependence (Chronic) Hypercholesteremia (Chronic) Asthma (Chronic) High cholesterol (Chronic ~2017) Type 2 diabetes mellitus (Chronic ~2001) Anemia (Chronic ~2009) Amputation of toe (Chronic) Hypertension, essential (Chronic ~2001) Hyperlipidemia (Chronic) Diabetes (Chronic) Medical History (Updated 09/25/20 @ 15:55 by Garret Mccormick MD) Amputation of toe Anemia (~2009) Asthma Charcot foot due to diabetes mellitus Charcot's joint of left ankle Charcot's joint of left foot Gage angioma Diabetes High cholesterol (~2016) Hypercholesteremia Hyperlipidemia Hypertension, essential (~2001) Left foot pain Lentigines Neoplasm of uncertain behavior Plantar fasciitis Seborrheic keratosis Skin lesion Tobacco dependence Type 2 diabetes mellitus (~2001) Type 2 diabetes mellitus with hyperglycemia Uncontrolled type 2 diabetes mellitus with diabetic neuropathy Surgical History History of amputation of right great toe (~2017) History of amputation of toe Right baby History of shoulder surgery Rotator cuff; Right in 2007 and Left in 2008 Family History Grandmother Breast cancer Paternal Mother High blood pressure Cancer Melanoma Family/Other Diabetes Coronary artery disease Social History (Updated 09/25/20 @ 15:44 by Garret Mccormick MD) marital status: 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 Disabled since. alcohol intake frequency: does not drink substance use type: does not use MEDS/ALLERGIES Home Medications and Allergies Home Medications Medication Instructions Recorded Confirmed Type albuterol sulfate 90 mcg/actuation 2 puff INHALATION Q6H PRN #18 g 07/07/19 09/22/20 Rx aerosol inhaler insulin degludec 118 unit SUB-Q QHS 90 Days #49.5 ml 09/12/19 09/22/20 Rx blood-glucose meter #1 each 09/21/19 09/22/20 Rx lancets #200 each 09/21/19 09/22/20 Rx cholecalciferol (vitamin D3) 125 mcg PO QDAY 01/22/20 09/22/20 History [Vitamin D3] B-D PEN NDL SHRT [id number](08/25) ARLINE See Rx Instructions .ROUTE 03/15/20 09/22/20 Rx .COMPLEX #1500 each fluticasone propionate 50 2 spray INTRANASAL QDAY g 05/23/20 09/22/20 History mcg/actuation nasal spray,suspension flash glucose sensor 1 each MISCELLANEOUS QDAY #10 each 05/24/20 09/22/20 Rx oxycodone-acetaminophen [Percocet] 1 tab PO Q8H PRN #10 tab 05/24/20 09/22/20 Rx insulin lispro 100 unit/mL See Rx Instructions .ROUTE 05/27/20 09/22/20 Rx subcutaneous pen .COMPLEX #15 ml blood sugar diagnostic #400 ea 06/04/20 09/22/20 Rx fenofibrate 160 mg tablet 160 mg PO QDAY #90 tab 07/04/20 09/22/20 Rx metformin 1,000 mg tablet 1,000 mg PO BID #180 tab 07/09/20 09/22/20 Rx omeprazole 20 mg capsule,delayed 20 mg PO QDAY #90 cap 07/18/20 09/22/20 Rx release telmisartan 80 mg-amlodipine 10 mg 1 tab PO QDAY #90 tab 08/22/20 09/22/20 Rx tablet semaglutide 1 mg/dose (2 mg/1.5 1 mg SUB-Q QWEEK #3 ml 09/10/20 09/22/20 Rx mL) subcutaneous pen injector cephalexin 500 mg PO TID #21 cap 09/21/20 09/22/20 Rx sulfamethoxazole-trimethoprim 1 tab PO Q12H #14 tab 09/21/20 09/22/20 Rx [Bactrim DS] Allergies Allergy/AdvReac Type Severity Reaction Status Date / Time No Known Drug Allergies Allergy Verified 09/22/20 21:45 Physical Examination Vital Signs Vital signs: Temp Pulse Resp BP Pulse Ox 98.5 F 90 20 144/65 95 09/25/20 12:00 09/25/20 12:00 09/25/20 12:00 09/25/20 12:00 09/25/20 12:00 Additional Exam Additional exam: General: Able to sit up in bed no acute distress. HEENT: EOMI PERRL sclera anicteric. Mouth is moist. Neck is full supple no cervical adenopathy. Lungs are clear bilaterally. Heart: Regular rate and rhythm without murmur. Abdomen: Soft nontender obese bowel sounds positive. Extremities: No significant edema in the left leg. He has a previous left fifth toe amputation. Skin on his left foot slightly dry. I did not remove the walking boot on the right lower extremity. Right knee without effusion. I do appreciate edema above the walking boot below the right knee. Mild tenderness. Mild warmth. Results Laboratory Findings CBC and BMP: 09/24/20 05:09 09/25/20 08:35 Abnormal lab findings: Abnormal Labs 09/22/20 09/22/20 09/22/20 17:18 17:18 17:18 WBC RBC 4.06 L Hgb 11.3 L Hct 35.1 L RDW 14.6 H MPV 11.8 H Neut % (Auto) 88.4 H Lymph % (Auto) 4.1 L Lymph # (Auto) 0.41 L Payne # (Auto) Seg Neutrophils % Band Neutrophils % Lymphocytes % Absolute Neutrophils 8.90 H RBC Morphology Anisocytosis ESR 122 H Sodium 131 L Chloride Carbon Dioxide 20 L BUN 30 H Creatinine 3.2 H Glucose 276 H Hemoglobin A1c Uric Acid Direct Bilirubin Alkaline Phosphatase 158 H Lactate Dehydrogenase C-Reactive Protein Albumin 2.7 L Globulin 3.9 H Albumin/Globulin Ratio 0.7 L Triglycerides Urine Appearance Urine Protein Urine Ketones Urine Urobilinogen Vancomycin Trough 09/22/20 09/23/20 09/23/20 17:18 04:51 04:51 WBC RBC Hgb Hct RDW MPV Neut % (Auto) Lymph % (Auto) Lymph # (Auto) Payne # (Auto) Seg Neutrophils % Band Neutrophils % 13 H Lymphocytes % 6 L Absolute Neutrophils RBC Morphology Abnormal A Anisocytosis Few A ESR Sodium 131 L Chloride Carbon Dioxide 17 L BUN 36 H Creatinine 3.8 H Glucose 219 H Hemoglobin A1c 8.3 H Uric Acid 8.1 H Direct Bilirubin 0.5 H Alkaline Phosphatase 165 H Lactate Dehydrogenase 234 H C-Reactive Protein 33.20 H Albumin 2.6 L Globulin 4.1 H Albumin/Globulin Ratio 0.6 L Triglycerides 213 H Urine Appearance Urine Protein Urine Ketones Urine Urobilinogen Vancomycin Trough 09/23/20 09/23/20 09/24/20 04:52 12:15 05:09 WBC 11.6 H RBC 3.90 L 3.55 L Hgb 10.5 L 9.5 L Hct 33.4 L 30.6 L RDW 14.8 H 15.2 H MPV 11.8 H 12.0 H Neut % (Auto) 85.6 H Lymph % (Auto) 4.6 L Lymph # (Auto) 0.53 L Payne # (Auto) 1.05 H Seg Neutrophils % 79 H Band Neutrophils % Lymphocytes % 8 L Absolute Neutrophils 9.94 H RBC Morphology Abnormal A Anisocytosis 1+ A ESR Sodium Chloride Carbon Dioxide BUN Creatinine Glucose Hemoglobin A1c Uric Acid Direct Bilirubin Alkaline Phosphatase Lactate Dehydrogenase C-Reactive Protein Albumin Globulin Albumin/Globulin Ratio Triglycerides Urine Appearance Cloudy A Urine Protein 30 A Urine Ketones 5 A Urine Urobilinogen 2.0 A Vancomycin Trough 09/24/20 09/24/20 09/25/20 05:09 08:57 08:35 WBC RBC Hgb Hct RDW MPV Neut % (Auto) Lymph % (Auto) Lymph # (Auto) Payne # (Auto) Seg Neutrophils % Band Neutrophils % Lymphocytes % Absolute Neutrophils RBC Morphology Anisocytosis ESR Sodium 126 L 129 L Chloride 95 L Carbon Dioxide 17 L 18 L BUN 46 H 56 H Creatinine 5.1 H* 5.9 H* Glucose 165 H 199 H Hemoglobin A1c Uric Acid 8.6 H Direct Bilirubin 0.4 H Alkaline Phosphatase 163 H Lactate Dehydrogenase 230 H C-Reactive Protein Albumin 2.4 L Globulin 3.9 H Albumin/Globulin Ratio 0.6 L Triglycerides 208 H Urine Appearance Urine Protein Urine Ketones Urine Urobilinogen Vancomycin Trough 23.6 H* he weighs 183 kg on September 22 hemoglobin A1c 8.3 sed rate 122 white count 10.1 platelet count 246 BUN of 30 creatinine 3.2. On September 21 creatinine 1.3. Specimen from right ankle September 24 no organisms seen culture pending. On September 23 blood cultures - September 21 blood cultures with Pasteurella. He had a Vanco trough on September 24 of 23.6 on September 25 sodium 129 potassium 4.5 BUN 56 creatinine 5.9 glucose 199. Microbiology: Microbiology 09/24/20 13:03 Ankle - Right Gram Stain - Preliminary 09/24/20 13:03 Ankle - Right Wound Culture - Preliminary 09/24/20 13:02 Ankle - Right Anaerobic Culture - Preliminary 09/24/20 13:02 Ankle - Right Gram Stain - Preliminary 09/24/20 13:02 Ankle - Right Anaerobic Culture - Preliminary 09/24/20 13:03 Ankle - Right Wound Culture - Preliminary 09/23/20 09:08 Blood Blood Culture - Preliminary 09/23/20 08:59 Blood Blood Culture - Preliminary 09/23/20 09:37 Nose - Both Right and Left MRSA (PCR) - Final A/P Assessment and plan (1) Sepsis: Status: Acute Comment: Ja is a 45-year-old morbidly obese diabetic with peripheral neuropathy. He has acute kidney injury on chronic kidney disease stage II. Nephrology is following. He is postop day 1 from right ankle abscess and hardware removal. Pasteurella has grown from blood culture. He has had open wounds on the right foot that he attributes to recent casting. It will be important to follow-up on culture results from surgery yesterday. Cefepime does cover Pasteurella and would recommend continuation at this time. Follow-up blood cultures negative. (2) Cellulitis: Status: Acute Comment: Day 5 antibiotic therapy with right leg cellulitis originating from right ankle abscess. Maintain cefepime for now. Follow-up on culture data. I expect to transition to IV Unasyn dose adjusted for acute kidney injury upon discharge. (3) Ankle abscess: Status: Acute Comment: postop day 1. 6 weeks IV therapy anticipated. Patient will need a PICC line. (4) Pasteurella infection: Status: Acute Comment: Transition to IV Unasyn upon discharge. Dose yet to be determined based on improving kidney function. (5) Acute renal failure with acute tubular necrosis superimposed on stage 2 chronic kidney disease: Status: Acute Comment: Nephrology following. Please call me when cultures finalized and we can adjust antibiotic therapy based on culture results. Monitor kidney function for optimal antibiotic dosing. Pharmacy to assist. I would like to see him in follow-up in 2 weeks. Patient is willing to have home IV therapy and has done at home previously. Weekly labs to include CBC CMP sed rate and CRP. Thank you very much. Time Spent With Patient Time: Total time spent is greater than 50% in coordination of care (as documented) at patient's floor/unit and/or counseling patient:
[2020-09-25] MEDS: MELATONIN 3 MG TABLET PO SCH (21:15)
[2020-09-25] MEDS: INSULIN SUB-Q SCH (21:16)
[2020-09-25] MEDS: INSULIN DEGLUDEC 200 UNIT/ML SUB-Q SCH (21:16)
[2020-09-26] MEDS: oxyCODONE/APAP 5/325MG TABLET PO PRN ×3 (01:08→18:50)
--- NOTE | 2020-09-26 05:25 | Nephrology Progress Note ---
SUBJECTIVE Subjective Patient information: Note initiated : 09/26/20 at 5:23 am Patient: Chaitanya Duvall 45 y/o M admitted on 09/22/20 for Recheck for positive blood cultures. Chief Complaint: Right foot pain Pertinent ROS: Feels better No nausea No hiccups No dyspnea No edema Constitutional Vitals: Vital Signs Temp Pulse Resp BP Pulse Ox 97.4 F 85 24 H 165/62 97 09/26/20 03:08 09/26/20 03:08 09/26/20 03:08 09/26/20 03:08 09/26/20 03:08 Period Temp Pulse Resp BP Sys/Foley Pulse Ox Last 24 Hr 97.4 F-98.5 F 84-90 20-24 124-179/62-79 95-97 Intake and Output 09/25/20 09/25/20 09/26/20 13:59 21:59 05:59 Intake Total 2190 300 Output Total 1000 1350 Balance 1190 -1050 Weight 406 lb 4.8 oz Patient Weight 09/26/20 05:59 Weight 406 lb 4.8 oz Intake & Output: Intake & Output 09/25/20 09/25/20 09/26/20 13:59 21:59 05:59 Intake Total 2190 300 Output Total 1000 1350 Balance 1190 -1050 Weight 406 lb 4.8 oz Intake: Oral 2190 300 Output: Void Amount 1000 1350 Other: Meal Dinner Percent of Meal Consumed 100% Feeding Ability Independent Urine Appearance Clear Urine Color Bright Yellow # Voids 3 General appearance: cooperative and no acute distress Head Head exam: Present normal inspection Eye Eye exam: Present normal appearance ENT ENT exam: Present mucous membranes moist Respiratory Respiratory exam: Absent respiratory distress Cardiovascular Cardiovascular exam: Present normal rate and rhythm GI/Abdominal GI/Abdominal exam: Present soft; Absent tenderness Extremities Exam Extremities exam: Present pedal edema Neurological Exam Neurological exam: Present alert and oriented X3 Psychiatric Psychiatric exam: Present normal affect and normal mood Skin Skin exam: Present warm; Absent rash A/P Assessment and plan (1) Acute renal failure with acute tubular necrosis superimposed on stage 2 chronic kidney disease: Assessment and plan: Chaitanya Duvall is a 45-year-old male with hypertension, hyperlipidemia, diabetes mellitus type 2, 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 He was initially presented to [facility] ED for right foot and leg tenderness and redness on 09/21/20. He was diagnosed with cellulitis. Blood cultures were obtained. He was started on Bactrim DS and Cephalexin. Serum creatinine was 1.3. Hewas called to come back to ED on 09/22/20 for blood cultures growing gram-negative bacillus. Serum creatinine was 3.2. Baseline serum creatinine: 0.6 to 1.1 (eGFR >60). Nephrology consultation was requested for acute kidney injury. Acute kidney injury, suspected acute tubular necrosis associated with acute infection with antibiotics and NSAID use on chronic kidney disease stage G2/A3 with initial metabolic acidosis and hyponatremia, present on arrival. There is no recent history of IV contrast administration or NSAID use. Intravascular volume depletion is unlikely. Acute infectious (immune complex) glomerulonephritis, acute interstitial nephritis or acute toxic nephropathy due to medications considered. Right ankle incision and drainage with removal of hardware scheduled later today. Previous work up: Urinalysis on 10/16/19: Yellow, Clear, pH 6.0, SG 1.015, protein 100, blood 0.2, leukocyte esterase negative. Urine random microalbumin/creatinine on 06/05/19: 386 mg/g creatinine. CT Abdomen and Pelvis with contrast on 09/08/19: Kidneys are normal. There is no kidney stone or hydronephrosis. There is a small calcified plaque at its origin of the right renal artery. Workup: Urinalysis on 09/23/20: Ching, cloudy, pH 5.0, SG 1.021, protein 30, blood 0.3, leukocyte esterase negative. Renal US on 09/23/20: Bilateral enlargement of the kidneys with diminished urine output. Hypoechoic structure centrally in the left kidney. This is probably a prominent pyramid and less likely a cyst which has developed in one year. Progress: Serum creatinine decreased from 5.9 to 5.6 in the past 24 hours. Baseline serum creatinine: 0.6 to 1.1 (eGFR >60). Urine output: 2,975 ml reported in the past 24 hours. Metabolic acidosis. Receiving Sodium Bicarbonate 650 mg three times daily for metabolic acidosis. Hyponatremia, moderate with mild fluid overload. No uremic symptoms. Recommendations/Plan: Anticipate no acute hemodialysis need. Monitor with BMP and urine output. Avoid NSAIDs, nephrotoxic medications and IV contrast. Status: Acute Comment: Nephrology following. Please call me when cultures finalized and we can adjust antibiotic therapy based on culture results. Monitor kidney function for optimal antibiotic dosing. Pharmacy to assist. I would like to see him in follow-up in 2 weeks. Patient is willing to have home IV therapy and has done at home previously. Weekly labs to include CBC CMP sed rate and CRP. Thank you very much. (2) Metabolic acidosis: Status: Acute (3) Hyponatremia: Status: Acute Time Spent With Patient Time: Total time spent is greater than 50% in coordination of care (as d ocumented) at patient's floor/unit and/or counseling patient:
[2020-09-26] MEDS: 0.9 % SODIUM CHLORIDE 10 ML SYRINGE IV SCH ×3 (05:49→21:45)
[2020-09-26] MEDS: INSULIN LISPRO 1 UNIT/0.01 ML UNIT SQ SCH ×4 (07:23→21:44)
[2020-09-26] MEDS: PANTOPRAZOLE 40 MG TABLET PO SCH (07:23)
--- NOTE | 2020-09-26 08:09 | Internal Med Progress Note ---
SUBJECTIVE Subjective Patient information: Note initiated : 09/26/20 at 8:07 am Service Date, if different from initiated Date: [] Patient: Chaitanya Duvall 45 y/o M admitted on 09/22/20 for Recheck for positive blood cultures. Chief Complaint: [] Interval history: History of present illness: Mr. Duvall is a 45 year old M Who presented ED yesterday with right foot and leg tenderness and redness. He was seen in the ED and diagnosed with cellulitis and started on antibiotics, blood cultures were obtained that time. Patient went home and was called back today because of blood culture growing gram-negative bacillus. Patient states that for starting Wednesday with increased tenderness and redness of his leg and then he went into the ED on Wednesday. He also initially had nausea vomiting and fever and chills. Wednesday night when he went from the ED he did have some nausea vomiting as well. Today he feels better. Was febrile in the ED. 09/23 Patient says he had a poor sleep last night. Patient complains of headache and feels weaker. 09/24 Changes overnight. Seen by Dr. Alvarado who will perform surgical I&D and hardware removal. 09/25 Patient had surgical I&D and hardware removal yesterday and feels better today. No overnight event or new complaints. Awaiting surgical cultures. Pending follow-up labs. Nephrology following 09/26 Patient states he feels well other than his right leg is swollen and feels little bit more swollen. No other new complaints overnight events. Awaiting follow-up labs. Awaiting surgical cultures Seen by infectious disease yesterday. Review of Systems: denies headache/fever/chills/nausea/vomiting/chest or abdominal pain/cough/dyspnea/diarrhea. Otherwise see above. Constitutional Vitals: Vital Signs Temp Pulse Resp BP Pulse Ox 97.2 F 88 22 187/86 91 09/26/20 06:59 09/26/20 06:59 09/26/20 07:28 09/26/20 06:59 09/26/20 06:59 Period Temp Pulse Resp BP Sys/Foley Pulse Ox Last 24 Hr 97.2 F-98.5 F 85-90 20-24 144-187/62-86 91-97 Intake and Output 09/25/20 09/26/20 09/26/20 21:59 05:59 13:59 Intake Total 2190 300 Output Total 1000 1974 Balance 1190 -1675 Weight 184.295 kg Intake & Output: Intake & Output 09/25/20 09/26/20 09/26/20 21:59 05:59 13:59 Intake Total 2190 300 Output Total 1000 1974 Balance 1190 -1675 Weight 184.295 kg Intake: Oral 2190 300 Output: Void Amount 999 1974 Other: Meal Dinner Percent of Meal Consumed 100% Feeding Ability Independent Urine Appearance Clear Urine Color Pale # Voids 3 Exam: General: Alert, Awake, No acute Distress, obese Eyes/N/T: EOMI, Head/Neck: neck supple, CV: RRR, No murmurs, Pulm: Clear b/l, no wheezing/rhonchi/rales Abd: soft, nontender, +BS x4 Ext: no clubbing/cyanosis, b/l LE edema R>L, right foot in dressings Neuro: Alert, no focal deficits, moves all extremities, Skin: warm/dry OBJ DATA Labs CBC & Chem 7: 09/24/20 05:09 09/25/20 08:35 Labs: Abnormal Lab Results 09/25/20 09/24/20 09/24/20 08:35 08:57 05:09 RBC Hgb Hct RDW MPV Seg Neutrophils % Band Neutrophils % Lymphocytes % RBC Morphology Anisocytosis Sodium 129 L 126 L Chloride 95 L Carbon Dioxide 18 L 17 L BUN 56 H 46 H Creatinine 5.9 H* 5.1 H* Glucose 199 H 165 H Uric Acid 8.6 H Direct Bilirubin 0.4 H Alkaline Phosphatase 163 H Lactate Dehydrogenase 230 H Albumin 2.4 L Globulin 3.9 H Albumin/Globulin Ratio 0.6 L Triglycerides 208 H Urine Appearance Urine Protein Urine Ketones Urine Urobilinogen Vancomycin Trough 23.6 H* 09/24/20 09/23/20 09/23/20 05:09 12:15 04:51 RBC 3.55 L Hgb 9.5 L Hct 30.6 L RDW 15.2 H MPV 12.0 H Seg Neutrophils % 79 H Band Neutrophils % 13 H Lymphocytes % 8 L 6 L RBC Morphology Abnormal A Abnormal A Anisocytosis 1+ A Few A Sodium Chloride Carbon Dioxide BUN Creatinine Glucose Uric Acid Direct Bilirubin Alkaline Phosphatase Lactate Dehydrogenase Albumin Globulin Albumin/Globulin Ratio Triglycerides Urine Appearance Cloudy A Urine Protein 30 A Urine Ketones 5 A Urine Urobilinogen 2.0 A Vancomycin Trough Meds: Medications Acetaminophen (Acetaminophen 325 Mg Tablet) 650 mg PO Q6HP PRN PRN Reason: PAIN/FEVER > 101 Last Admin: 09/23/20 10:05 Dose: 650 mg Documented by: Hydrocodone Bitart/Acetaminophen (Hydrocodone/Apap 5/325mg Tablet) 1 tab PO Q4HP PRN PRN Reason: PAIN LEVEL 3-6 Last Admin: 09/23/20 20:14 Dose: 1 tab Documented by: Albuterol/Ipratropium (Ipratropium/Albuterol 3 Ml Ampul.Neb) 3 ml NEB Q4HP PRN PRN Reason: Shortness Of Breath Cefepime HCl (Cefepime 2 Gm Vial) [address] [facility]; Protocol Last Admin: 09/25/20 21:14 Dose: 2 gm Documented by: Dextrose (Dextrose 50% 50 Ml Vial) 0 ml IV UD PRN PRN Reason: Hypoglycemia Diagnostic Test (Pha) (Accu-Chek 1 Each Strip) [address] [facility] Last Admin: 09/26/20 07:22 Dose: 1 each Documented by: Diphenhydramine HCl (Diphenhydramine 25 Mg Capsule) 25 mg PO HSP PRN PRN Reason: Insomnia Docusate Sodium (Docusate Sodium 100 Mg Capsule) [address] [facility] Last Admin: 09/25/20 21:15 Dose: 100 mg Documented by: Fenofibrate (Fenofibrate 43 Mg Capsule) [address] [facility] Last Admin: 09/25/20 08:57 Dose: 129 mg Documented by: Glucose (Dextrose 31 Gm Oral.Susp) 15 gm PO PRN PRN PRN Reason: Hypoglycemia Heparin Sodium (Porcine) (Heparin 5,000 Unit/Ml Vial) 5,[address] [facility] Last Admin: 09/25/20 21:15 Dose: 5,000 unit Documented by: Hydralazine HCl (Hydralazine 20 Mg/Ml Vial) 0 mg IV Q2HP PRN PRN Reason: Hypertension Last Admin: 09/23/20 05:33 Dose: 20 mg Documented by: Hydromorphone HCl (Hydromorphone 0.5 Mg/0.5 Ml Syringe) 0.5 mg IV Q4HP PRN; Protocol PRN Reason: Per Pain Protocol Last Admin: 09/24/20 14:53 Dose: 0.5 mg Documented by: Potassium Chloride 40 meq/ (Dextrose) 520 mls @ 130 mls/hr IV UD PRN PRN Reason: Potassium < 3 Magnesium Sulfate (Magnesium Sulfate) 2 gm in 50 mls @ 50 mls/hr IV UD PRN PRN Reason: Magnesium </= 1.6 Insulin Human Lispro (Insulin Lispro 1 Unit/0.01 Ml Unit) 0 unit SQ [facility]; Protocol Last Admin: 09/26/20 07:23 Dose: 6 unit Documented by: Labetalol HCl (Labetalol 5 Mg/Ml Ml) 0 mg IV Q2HP PRN PRN Reason: Hypertension Last Admin: 09/25/20 04:27 Dose: 10 mg Documented by: Melatonin (Melatonin 3 Mg Tablet) [address] [facility] Last Admin: 09/25/20 21:15 Dose: 3 mg Documented by: Metoclopramide HCl (Metoclopramide 10 Mg/2 Ml Vial) 10 mg IV Q6HP PRN PRN Reason: Nausea And Vomiting Last Admin: 09/23/20 04:40 Dose: 10 mg Documented by: Ondansetron HCl (Ondansetron 4 Mg/2 Ml Vial) 4 mg IV Q4HP PRN PRN Reason: Nausea And Vomiting Last Admin: 09/23/20 03:48 Dose: 4 mg Documented by: Oxycodone/Acetaminophen (Oxycodone/Apap 5/325mg Tablet) 1 tab PO Q8H PRN; Protocol PRN Reason: pain Last Admin: 09/26/20 01:08 Dose: 1 tab Documented by: Pantoprazole Sodium ([facility] 40 Mg Tablet) [facility] Last Admin: 09/26/20 07:23 Dose: 40 mg Documented by: Insulin Degludec 200 Unit/Ml (3 Ml) Insulin Pen 118 dose SUB-Q QHS [facility] Last Admin: 09/25/20 21:16 Dose: 118 dose Documented by: Polyethylene Glycol (Polyethylene Glycol 3350 17 Gm Packet) 17 gm PO DAILYP PRN PRN Reason: Constipation Potassium Chloride (Potassium Chloride 20 Meq Tablet) 40 meq PO UD PRN PRN Reason: Potssium is 3-3.5 Last Admin: 09/22/20 21:21 Dose: 40 meq Documented by: Potassium Chloride (Potassium Chloride 20 Meq Tablet) 40 meq PO UD PRN PRN Reason: Potassium < 3 Senna (Sennosides 1 Tablet) 2 tab PO DAILYP PRN PRN Reason: Constipation Sodium Bicarbonate (Sodium Bicarbonate 650 Mg Tablet) [address] [facility] Last Admin: 09/25/20 21:15 Dose: 650 mg Documented by: Sodium Chloride (0.9 % Sodium Chloride 10 Ml Syringe) [address] [facility] Last Admin: 09/26/20 05:49 Dose: Not Given Documented by: A/P Narrative A/P Narrative: A: *RLE/foot cellulitis (has hardware in place from previous ankle Fx): s/p I&D w/hardware removal (09/24) -afebrile o/n, leukocytosis resolved *Bacteremia(Pasteurella multocida - pt has pets in house): *SIRS: *CARRIE on CKD II: ?Bactrim/infection -Cr increased *Hyponatremia: improved *DM: A1c 8.3 *HTN/HLD: *GERD: *Obesity: *Anemia, chronic: P: -Dr. Alvarado following -Nephrology following, defer renal fxn and hypontremia to nephro -Dr. Mccormick following, update him when surgical cx finalize -cefepime, pending final BC -hold home ARB for carrie, cont norvasc -basal and SSI -wound care -ppx: heparin/Home PPI Time Spent With Patient Time: Total time spent is greater than 50% in coordination of care (as documented) at patient's floor/unit and/or counseling patient: QUALITY VTE Deep Vein Thrombosis/Pulmonary Embolism Present on Admission: No
[2020-09-26] MEDS: HEPARIN 5,000 UNIT/ML VIAL SQ SCH ×2 (08:21→21:43)
[2020-09-26] MEDS: DOCUSATE SODIUM 100 MG CAPSULE PO SCH ×2 (08:22→21:43)
[2020-09-26] MEDS: SODIUM BICARBONATE 650 MG TABLET PO SCH ×3 (08:22→21:43)
[2020-09-26] MEDS: INSULIN GLARGINE, HUMAN 1 UNIT/0.01 ML SQ SCH (08:22)
[2020-09-26] MEDS: FENOFIBRATE 43 MG CAPSULE PO SCH (08:22)
[2020-09-26] MEDS: amLODIPine 10 MG TABLET PO SCH (08:22)
[2020-09-26] MEDS: CEFEPIME 2 GM VIAL IV SCH ×2 (08:35→21:43)
[2020-09-26] MEDS ORDERED: ALBUMIN HUMAN 12.5 GM/50 ML BAG IV ONE (08:57)
[2020-09-26] MEDS ORDERED: FUROSEMIDE 40 MG/4 ML VIAL IV ONE (08:57)
[2020-09-26 09:52] LABS: Basophils # (Auto) 0.08 K/mcL (0.00-0.20); Basophils % (Auto) 0.9 % (0.0-2.0); Eosinophils # (Auto) 0.13 K/mcL (0.00-0.70); Eosinophils % (Auto) 1.5 % (0.0-7.0); Hematocrit 27.3 % (41.0-55.0); Hemoglobin 8.7 g/dL (13.5-16.5); Lymphocytes # (Auto) 1.08 K/mcL (1.50-4.80); Lymphocytes % (Auto) 12.2 % (15.0-49.0); Mean Cell Volume 85.8 fL (80.0-100.0); Mean Corpuscular HGB Conc 31.9 g/dL (31.0-36.0); Mean Platelet Volume 10.3 fL (7.4-10.4); Monocytes # (Auto) 1.06 K/mcL (0.10-0.90); Neutrophils % (Auto) 73.4 % (38.0-78.0); Platelet Count 431 K/mcL (140-440); RBC 3.18 M/mcL (4.50-5.90); Red Cell Distribution Width 14.8 % (11.5-14.5); WBC 8.9 K/mcL (4.5-11.0)
[2020-09-26 10:21] LABS: Blood Urea Nitrogen 65 mg/dL (6-20); Carbon Dioxide 18 mmol/L (22-30); Chloride 99 mmol/L (96-108); Glomerular Filtration Rate 11; Glucose 176 mg/dL (70-105)
[2020-09-26] MEDS: hydrALAZINE 20 MG/ML VIAL IV PRN ×3 (11:50→18:51)
--- NOTE | 2020-09-26 15:37 | Internal Med Progress Note ---
SUBJECTIVE Subjective Patient information: Note initiated : 09/27/20 at 3:35 pm Service Date, if different from initiated Date: [] Patient: Chaitanya Duvall 45 y/o M admitted on 09/22/20 for Recheck for positive blood cultures. Chief Complaint: [] Interval history: History of present illness: Mr. Duvall is a 45 year old M Who presented ED yesterday with right foot and leg tenderness and redness. He was seen in the ED and diagnosed with cellulitis and started on antibiotics, blood cultures were obtained that time. Patient went home and was called back today because of blood culture growing gram-negative bacillus. Patient states that for starting Wednesday with increased tenderness and redness of his leg and then he went into the ED on Wednesday. He also initially had nausea vomiting and fever and chills. Wednesday night when he went from the ED he did have some nausea vomiting as well. Today he feels better. Was febrile in the ED. 09/23 Patient says he had a poor sleep last night. Patient complains of headache and feels weaker. 09/24 Changes overnight. Seen by Dr. Alvarado who will perform surgical I&D and hardware removal. 09/25 Patient had surgical I&D and hardware removal yesterday and feels better today. No overnight event or new complaints. Awaiting surgical cultures. Pending follow-up labs. Nephrology following 09/26 Patient states he feels well other than his right leg is swollen and feels little bit more swollen. No other new complaints overnight events. Awaiting follow-up labs. Awaiting surgical cultures Seen by infectious disease yesterday. 09/27 Knee ultrasound shows soft tissue edema, no joint fluid collection. ID ok with Ceftriaxone 2 gm Q24 hrs to complete 6 weeks of IV antibiotic treatment. Repeat blood cultures today, plan for PICC before discharge on IV abx and ID follow up. Xray of right knee. Constitutional Vitals: Vital Signs Temp Pulse Resp BP Pulse Ox 97.9 F 94 H 20 195/84 95 09/26/20 11:46 09/26/20 11:46 09/26/20 11:46 09/26/20 11:46 09/26/20 11:46 Period Temp Pulse Resp BP Sys/Foley Pulse Ox Last 24 Hr 97.2 F-98.2 F 85-94 20-24 155-195/62-86 91-97 Intake and Output 09/26/20 09/26/20 09/26/20 05:59 13:59 21:59 Intake Total 300 850 800 Output Total 1974 1999 Balance -1675 850 -1200 Intake & Output: Intake & Output 09/26/20 09/26/20 09/26/20 05:59 13:59 21:59 Intake Total 300 850 800 Output Total 1974 1999 Balance -1675 850 -1200 Intake: IV 50 Oral 300 800 800 Output: Void Amount 1974 1999 Other: Urine Appearance Clear Clear Urine Color Pale Bright Yellow # Voids 3 Exam: General: Alert, Awake, No acute Distress, obese Eyes/N/T: EOMI, Head/Neck: neck supple, CV: RRR, No murmurs, Pulm: Clear b/l, no wheezing/rhonchi/rales Abd: soft, nontender, +BS x4 Ext: no clubbing/cyanosis, b/l LE edema R>L, right foot in dressings Neuro: Alert, no focal deficits, moves all extremities, Skin: warm/dry OBJ DATA Labs CBC & Chem 7: 09/27/20 05:31 09/27/20 05:31 Labs: Abnormal Lab Results 09/26/20 09/26/20 09/25/20 08:31 08:31 08:35 RBC 3.18 L Hgb 8.7 L Hct 27.3 L RDW 14.8 H MPV Lymph % (Auto) 12.2 L Lymph # (Auto) 1.08 L Donley # (Auto) 1.06 H Seg Neutrophils % Lymphocytes % RBC Morphology Anisocytosis Sodium 131 L 129 L Chloride Carbon Dioxide 18 L 18 L BUN 65 H 56 H Creatinine 5.6 H* 5.9 H* Glucose 176 H 199 H Uric Acid Direct Bilirubin Alkaline Phosphatase Lactate Dehydrogenase Albumin Globulin Albumin/Globulin Ratio Triglycerides Vancomycin Trough 09/24/20 09/24/20 09/24/20 08:57 05:09 05:09 RBC 3.55 L Hgb 9.5 L Hct 30.6 L RDW 15.2 H MPV 12.0 H Lymph % (Auto) Lymph # (Auto) Donley # (Auto) Seg Neutrophils % 79 H Lymphocytes % 8 L RBC Morphology Abnormal A Anisocytosis 1+ A Sodium 126 L Chloride 95 L Carbon Dioxide 17 L BUN 46 H Creatinine 5.1 H* Glucose 165 H Uric Acid 8.6 H Direct Bilirubin 0.4 H Alkaline Phosphatase 163 H Lactate Dehydrogenase 230 H Albumin 2.4 L Globulin 3.9 H Albumin/Globulin Ratio 0.6 L Triglycerides 208 H Vancomycin Trough 23.6 H* Meds: Medications Acetaminophen (Acetaminophen 325 Mg Tablet) 650 mg PO Q6HP PRN PRN Reason: PAIN/FEVER > 101 Last Admin: 09/23/20 10:05 Dose: 650 mg Documented by: Hydrocodone Bitart/Acetaminophen (Hydrocodone/Apap 5/325mg Tablet) 1 tab PO Q4HP PRN PRN Reason: PAIN LEVEL 3-6 Last Admin: 09/23/20 20:14 Dose: 1 tab Documented by: Albuterol/Ipratropium (Ipratropium/Albuterol 3 Ml Ampul.Neb) 3 ml NEB Q4HP PRN PRN Reason: Shortness Of Breath Amlodipine Besylate (Amlodipine 10 Mg Tablet) 10 mg PO DAILY [facility] Last Admin: 09/26/20 08:22 Dose: 10 mg Documented by: Cefepime HCl (Cefepime 2 Gm Vial) 2 gm IV Q12H [facility]; Protocol Last Admin: 09/26/20 08:35 Dose: 2 gm Documented by: Dextrose (Dextrose 50% 50 Ml Vial) 0 ml IV UD PRN PRN Reason: Hypoglycemia Diagnostic Test (Pha) (Accu-Chek 1 Each Strip) 1 each FS ACHS [facility] Last Admin: 09/26/20 11:08 Dose: 1 each Documented by: Diphenhydramine HCl (Diphenhydramine 25 Mg Capsule) 25 mg PO HSP PRN PRN Reason: Insomnia Docusate Sodium (Docusate Sodium 100 Mg Capsule) 100 mg PO BID [facility] Last Admin: 09/26/20 08:22 Dose: 100 mg Documented by: Fenofibrate (Fenofibrate 43 Mg Capsule) 129 mg PO DAILY [facility] Last Admin: 09/26/20 08:22 Dose: 129 mg Documented by: Glucose (Dextrose 31 Gm Oral.Susp) 15 gm PO PRN PRN PRN Reason: Hypoglycemia Heparin Sodium (Porcine) (Heparin 5,000 Unit/Ml Vial) 5,000 unit SQ Q12 [facility] Last Admin: 09/26/20 08:21 Dose: 5,000 unit Documented by: Hydralazine HCl (Hydralazine 20 Mg/Ml Vial) 0 mg IV Q2HP PRN PRN Reason: Hypertension Last Admin: 09/26/20 11:50 Dose: 20 mg Documented by: Hydromorphone HCl (Hydromorphone 0.5 Mg/0.5 Ml Syringe) 0.5 mg IV Q4HP PRN; Protocol PRN Reason: Per Pain Protocol Last Admin: 09/24/20 14:53 Dose: 0.5 mg Documented by: Potassium Chloride 40 meq/ (Dextrose) 520 mls @ 130 mls/hr IV UD PRN PRN Reason: Potassium < 3 Magnesium Sulfate (Magnesium Sulfate) 2 gm in 50 mls @ 50 mls/hr IV UD PRN PRN Reason: Magnesium </= 1.6 Insulin Glargine (Insulin Glargine, Human 1 Unit/0.01 Ml) 15 unit SQ DAILY [facility] Last Admin: 09/26/20 08:22 Dose: 15 units Documented by: Insulin Human Lispro (Insulin Lispro 1 Unit/0.01 Ml Unit) 0 unit SQ ACHS [facility]; Protocol Last Admin: 09/26/20 11:09 Dose: Not Given Documented by: Labetalol HCl (Labetalol 5 Mg/Ml Ml) 0 mg IV Q2HP PRN PRN Reason: Hypertension Last Admin: 09/25/20 04:27 Dose: 10 mg Documented by: Melatonin (Melatonin 3 Mg Tablet) 3 mg PO QHS [facility] Last Admin: 09/25/20 21:15 Dose: 3 mg Documented by: Metoclopramide HCl (Metoclopramide 10 Mg/2 Ml Vial) 10 mg IV Q6HP PRN PRN Reason: Nausea And Vomiting Last Admin: 09/23/20 04:40 Dose: 10 mg Documented by: Ondansetron HCl (Ondansetron 4 Mg/2 Ml Vial) 4 mg IV Q4HP PRN PRN Reason: Nausea And Vomiting Last Admin: 09/23/20 03:48 Dose: 4 mg Documented by: Oxycodone/Acetaminophen (Oxycodone/Apap 5/325mg Tablet) 1 tab PO Q8H PRN; Protocol PRN Reason: pain Last Admin: 09/26/20 08:35 Dose: 1 tab Documented by: Pantoprazole Sodium ([facility] 40 Mg [facility]t) [facility] Last Admin: 09/26/20 07:23 Dose: 40 mg Documented by: Insulin Degludec 200 Unit/Ml (3 Ml) Insulin Pen 118 dose SUB-Q QHS [facility] Last Admin: 09/25/20 21:16 Dose: 118 dose Documented by: Polyethylene Glycol (Polyethylene Glycol 3350 17 Gm Packet) 17 gm PO DAILYP PRN PRN Reason: Constipation Potassium Chloride (Potassium Chloride 20 Meq Tablet) 40 meq PO UD PRN PRN Reason: Potssium is 3-3.5 Last Admin: 09/22/20 21:21 Dose: 40 meq Documented by: Potassium Chloride (Potassium Chloride 20 Meq Tablet) 40 meq PO UD PRN PRN Reason: Potassium < 3 Senna (Sennosides 1 Tablet) 2 tab PO DAILYP PRN PRN Reason: Constipation Sodium Bicarbonate (Sodium Bicarbonate 650 Mg Tablet) 650 mg PO TID [facility] Last Admin: 09/26/20 14:53 Dose: 650 mg Documented by: Sodium Chloride (0.9 % Sodium Chloride 10 Ml Syringe) 10 ml IV Q8 [facility] Last Admin: 09/26/20 13:59 Dose: 10 ml Documented by: A/P Narrative A/P Narrative: Assessment: *RLE/foot cellulitis (has hardware in place from previous ankle Fx): s/p I&D w/hardware removal (09/24) -afebrile o/n, leukocytosis resolved *Bacteremia(Pasteurella multocida - pt has pets in house): *SIRS: *CARRIE on CKD II: ?Bactrim/infection -Cr increased *Hyponatremia: improved *DM: A1c 8.3 *HTN/HLD: *GERD: *Obesity: *Anemia, chronic: P: -Dr. Alvarado following -Nephrology following, defer renal fxn and hypontremia to nephro -Dr. Mccormick following, update him when surgical cx finalize -cefepime, pending final BC -hold home ARB for carrie, cont norvasc -basal and SSI -wound care -ppx: heparin -code status: full -disposition: Home with PICC and Ceftriaxone IV to complete 6 weeks of antibiotic. Follow up with ID, podiatry, and nephrology. Outpatient wound care. Time Spent With Patient Time: Total time spent is greater than 50% in coordination of care (as document ed) at patient's floor/unit and/or counseling patient: QUALITY VTE Deep Vein Thrombosis/Pulmonary Embolism Present on Admission: No
[2020-09-26] MEDS: MELATONIN 3 MG TABLET PO SCH (21:43)
[2020-09-26] MEDS: INSULIN DEGLUDEC 200 UNIT/ML SUB-Q SCH (21:44)
[2020-09-26] MEDS: INSULIN SUB-Q SCH (21:44)
[2020-09-27] MEDS: hydrALAZINE 20 MG/ML VIAL IV PRN ×2 (00:07→03:54)
[2020-09-27] MEDS: 0.9 % SODIUM CHLORIDE 10 ML SYRINGE IV SCH ×3 (04:06→20:46)
[2020-09-27] MEDS: oxyCODONE/APAP 5/325MG TABLET PO PRN ×2 (05:54→15:00)
--- NOTE | 2020-09-27 07:10 | Internal Med Progress Note ---
SUBJECTIVE Subjective Patient information: Note initiated : 09/27/20 at 7:09 am Service Date, if different from initiated Date: [] Patient: Chaitanya Duvall 45 y/o M admitted on 09/22/20 for Recheck for positive blood cultures. Chief Complaint: [knee pain] Chaitanya is a 45-year-old obese man postop day 3 from right septic ankle with hardware removal. He has Pasteurella on blood cultures as well as right ankle cultures. He is currently on cefepime. He developed acute kidney injury with nephrology following. Creatinine improved yesterday to 5.6 with a BUN of 65. No dialysis required. His chief complaint is right ankle pain. He rates his right ankle pain at 5-6 out of 10. T-max yesterday 99.2. He has been on antibiotics for 7 days. He is currently afebrile. Constitutional Vitals: Vital Signs Temp Pulse Resp BP Pulse Ox 98.1 F 92 H 20 172/76 97 09/27/20 03:41 09/27/20 03:41 09/27/20 03:41 09/27/20 03:41 09/27/20 03:41 Period Temp Pulse Resp BP Sys/Foley Pulse Ox Last 24 Hr 97.7 F-99.2 F 70-99 18-22 117-195/75-84 94-97 Intake and Output 09/26/20 09/27/20 09/27/20 21:59 05:59 13:59 Intake Total 800 500 Output Total 2600 1950 Balance -1800 -1450 Weight 178.806 kg Intake & Output: Intake & Output 09/26/20 09/27/20 09/27/20 21:59 05:59 13:59 Intake Total 800 500 Output Total 2600 1950 Balance -1800 -1450 Weight 178.806 kg Intake: Oral 800 500 Output: Void Amount 2600 1950 Other: Urine Appearance Clear Clear Urine Color Pale Dark Ching Urine Odor Normal General: I awaken him from sleep. No acute distress. HEENT: Anicteric sclera. EOMI PERRL. Lungs are clear bilaterally. Heart: Regular rate and rhythm without murmur. Abdomen obese. Skin without rash. Extremities: Right lateral ankle linear incision. Granulation tissue present with slight separation of wound edges. Reddened tissue. No surrounding erythema. Serous drainage on the gauze. No fluctuance. Minimal flexion and extension of the right foot. 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 He does have 3+ edema. Right knee tender I do not appreciate effusion or prepatellar bursitis. No overt erythema. Denies previous injury to the right knee. No history of gout. OBJ DATA Labs CBC & Chem 7: 09/26/20 08:31 09/26/20 08:31 Labs: Abnormal Lab Results 09/26/20 09/26/20 09/25/20 08:31 08:31 08:35 RBC 3.18 L Hgb 8.7 L Hct 27.3 L RDW 14.8 H MPV Lymph % (Auto) 12.2 L Lymph # (Auto) 1.08 L [place] # (Auto) 1.06 H Seg Neutrophils % Lymphocytes % RBC Morphology Anisocytosis Sodium 131 L 129 L Chloride Carbon Dioxide 18 L 18 L BUN 65 H 56 H Creatinine 5.6 H* 5.9 H* Glucose 176 H 199 H Uric Acid Direct Bilirubin Alkaline Phosphatase Lactate Dehydrogenase Albumin Globulin Albumin/Globulin Ratio Triglycerides Vancomycin Trough 09/24/20 09/24/20 09/24/20 08:57 05:09 05:09 RBC 3.55 L Hgb 9.5 L Hct 30.6 L RDW 15.2 H MPV 12.0 H Lymph % (Auto) Lymph # (Auto) Coryell # (Auto) Seg Neutrophils % 79 H Lymphocytes % 8 L RBC Morphology Abnormal A Anisocytosis 1+ A Sodium 126 L Chloride 95 L Carbon Dioxide 17 L BUN 46 H Creatinine 5.1 H* Glucose 165 H Uric Acid 8.6 H Direct Bilirubin 0.4 H Alkaline Phosphatase 163 H Lactate Dehydrogenase 230 H Albumin 2.4 L Globulin 3.9 H Albumin/Globulin Ratio 0.6 L Triglycerides 208 H Vancomycin Trough 23.6 H* Meds: Medications Acetaminophen (Acetaminophen 325 Mg Tablet) 650 mg PO Q6HP PRN PRN Reason: PAIN/FEVER > 101 Last Admin: 09/23/20 10:05 Dose: 650 mg Documented by: Hydrocodone Bitart/Acetaminophen (Hydrocodone/Apap 5/325mg Tablet) 1 tab PO Q4HP PRN PRN Reason: PAIN LEVEL 3-6 Last Admin: 09/23/20 20:14 Dose: 1 tab Documented by: Albuterol/Ipratropium (Ipratropium/Albuterol 3 Ml Ampul.Neb) 3 ml NEB Q4HP PRN PRN Reason: Shortness Of Breath Amlodipine Besylate (Amlodipine 10 Mg Tablet) 10 mg PO DAILY [facility] Last Admin: 09/26/20 08:22 Dose: 10 mg Documented by: Cefepime HCl (Cefepime 2 Gm Vial) 2 gm IV Q12H ANNIE; Protocol Last Admin: 09/26/20 21:43 Dose: 2 gm Documented by: Dextrose (Dextrose 50% 50 Ml Vial) 0 ml IV UD PRN PRN Reason: Hypoglycemia Diagnostic Test (Pha) (Accu-Chek 1 Each Strip) 1 each FS ACHS [facility] Last Admin: 09/26/20 21:43 Dose: 1 each Documented by: Diphenhydramine HCl (Diphenhydramine 25 Mg Capsule) 25 mg PO HSP PRN PRN Reason: Insomnia Docusate Sodium (Docusate Sodium 100 Mg Capsule) 100 mg PO BID [facility] Last Admin: 09/26/20 21:43 Dose: 100 mg Documented by: Fenofibrate (Fenofibrate 43 Mg Capsule) 129 mg PO DAILY [facility] Last Admin: 09/26/20 08:22 Dose: 129 mg Documented by: Glucose (Dextrose 31 Gm Oral.Susp) 15 gm PO PRN PRN PRN Reason: Hypoglycemia Heparin Sodium (Porcine) (Heparin 5,000 Unit/Ml Vial) 5,000 unit SQ Q12 [facility] Last Admin: 09/26/20 21:43 Dose: 5,000 unit Documented by: Hydralazine HCl (Hydralazine 20 Mg/Ml Vial) 0 mg IV Q2HP PRN PRN Reason: Hypertension Last Admin: 09/27/20 03:54 Dose: 10 mg Documented by: Hydromorphone HCl (Hydromorphone 0.5 Mg/0.5 Ml Syringe) 0.5 mg IV Q4HP PRN; Protocol PRN Reason: Per Pain Protocol Last Admin: 09/24/20 14:53 Dose: 0.5 mg Documented by: Potassium Chloride 40 meq/ (Dextrose) 520 mls @ 130 mls/hr IV UD PRN PRN Reason: Potassium < 3 Magnesium Sulfate (Magnesium Sulfate) 2 gm in 50 mls @ 50 mls/hr IV UD PRN PRN Reason: Magnesium </= 1.6 Insulin Glargine (Insulin Glargine, Human 1 Unit/0.01 Ml) 15 unit SQ DAILY [facility] Last Admin: 09/26/20 08:22 Dose: 15 units Documented by: Insulin Human Lispro (Insulin Lispro 1 Unit/0.01 Ml Unit) 0 unit SQ [facility]; Protocol Last Admin: 09/26/20 21:44 Dose: Not Given Documented by: Labetalol HCl (Labetalol 5 Mg/Ml Ml) 0 mg IV Q2HP PRN PRN Reason: Hypertension Last Admin: 09/25/20 04:27 Dose: 10 mg Documented by: Melatonin (Melatonin 3 Mg Tablet) 3 mg PO QHS [facility] Last Admin: 09/26/20 21:43 Dose: 3 mg Documented by: Metoclopramide HCl (Metoclopramide 10 Mg/2 Ml Vial) 10 mg IV Q6HP PRN PRN Reason: Nausea And Vomiting Last Admin: 09/23/20 04:40 Dose: 10 mg Documented by: Ondansetron HCl (Ondansetron 4 Mg/2 Ml Vial) 4 mg IV Q4HP PRN PRN Reason: Nausea And Vomiting Last Admin: 09/23/20 03:48 Dose: 4 mg Documented by: Oxycodone/Acetaminophen (Oxycodone/Apap 5/325mg Tablet) 1 tab PO Q8H PRN; Protocol PRN Reason: pain Last Admin: 09/27/20 05:54 Dose: 1 tab Documented by: Pantoprazole Sodium (Pantoprazole 40 Mg Tablet) 40 mg PO QAMAC [facility] Last Admin: 09/26/20 07:23 Dose: 40 mg Documented by: Insulin Degludec 200 Unit/Ml (3 Ml) Insulin Pen 118 dose SUB-Q QHS [facility] Last Admin: 09/26/20 21:44 Dose: 118 dose Documented by: Polyethylene Glycol (Polyethylene Glycol 3350 17 Gm Packet) 17 gm PO DAILYP PRN PRN Reason: Constipation Potassium Chloride (Potassium Chloride 20 Meq Tablet) 40 meq PO UD PRN PRN Reason: Potssium is 3-3.5 Last Admin: 09/22/20 21:21 Dose: 40 meq Documented by: Potassium Chloride (Potassium Chloride 20 Meq Tablet) 40 meq PO UD PRN PRN Reason: Potassium < 3 Senna (Sennosides 1 Tablet) 2 tab PO DAILYP PRN PRN Reason: Constipation Sodium Bicarbonate (Sodium Bicarbonate 650 Mg Tablet) 650 mg PO TID [facility] Last Admin: 09/26/20 21:43 Dose: 650 mg Documented by: Sodium Chloride (0.9 % Sodium Chloride 10 Ml Syringe) 10 ml IV Q8 [facility] Last Admin: 09/27/20 04:06 Dose: 10 ml Documented by: A/P Assessment and plan (1) Ankle abscess: Status: Acute Comment: Chaitanya is a 45-year old man who is postop day 3 incision and drainage of a right ankle abscess with hardware removal. He is currently day 7 antibiotics. He had Pasteurella grow from blood cultures as well as right ankle. He is currently on cefepime. (2) Pasteurella infection: Status: Acute Comment: No additional organisms other than Pasteurella identified. (3) Acute renal failure with acute tubular necrosis superimposed on stage 2 chronic kidney disease: Status: Acute Comment: Creatinine peaked on September 25-5.9. 5.6 yesterday. Labs pending today. (4) Sepsis: Status: Acute Comment: Pasteurella septicemia with acute kidney injury. (5) Knee pain, acute: Status: Acute Comment: Although Chaitanya complained of knee pain on Wednesday, he continues to have right knee pain. Right leg remains swollen. I would recommend further evaluation of the knee with x-ray and ultrasound. Evaluate for knee effusion. If fluid of knee effusion identified, I would recommend aspiration. Patient will need to have a PICC line for 6 weeks of IV antibiotic therapy. Discharge planning to assist with disposition. IV Unasyn preferred therapy for Pasteurella. Dosage adjustment modified for acute kidney injury. Ceftriaxone would also be an appropriate outpatient option at 2 g once daily. No dosage adjustment needed for acute kidney injury. I would be happy to see him in follow-up in 2 weeks. Weekly labs. Time Spent With Patient Time: Total time spent is greater than 50% in coordination of care (as documented) at patient's floor/unit and/or counseling patient: QUALITY VTE Deep Vein Thrombosis/Pulmonary Embolism Present on Admission: No
[2020-09-27] MEDS: INSULIN LISPRO 1 UNIT/0.01 ML UNIT SQ SCH ×4 (07:16→20:45)
[2020-09-27 07:36] LABS: Basophils # (Auto) 0.12 K/mcL (0.00-0.20); Eosinophils # (Auto) 0.26 K/mcL (0.00-0.70); Eosinophils % (Auto) 2.1 % (0.0-7.0); Hematocrit 27.3 % (41.0-55.0); Hemoglobin 8.7 g/dL (13.5-16.5); Lymphocytes # (Auto) 1.72 K/mcL (1.50-4.80); Lymphocytes % (Auto) 14.1 % (15.0-49.0); Mean Cell Volume 85.3 fL (80.0-100.0); Mean Corpuscular HGB Conc 31.9 g/dL (31.0-36.0); Monocytes # (Auto) 1.16 K/mcL (0.10-0.90); Monocytes % (Auto) 9.5 % (1.0-12.0); Neutrophils % (Auto) 73.3 % (38.0-78.0); Platelet Count 597 K/mcL (140-440); Red Cell Distribution Width 15.2 % (11.5-14.5); WBC 12.2 K/mcL (4.5-11.0)
[2020-09-27] MEDS: PANTOPRAZOLE 40 MG TABLET PO SCH (07:41)
[2020-09-27 08:20] LABS: ALT/SGPT 24 U/L (<40); AST/SGOT 23 U/L (<40); Albumin 2.8 gm/dL (3.2-5.2); Albumin/Globulin Ratio 0.7 (1.0-2.3); Alkaline Phosphatase 131 U/L (39-117); Bilirubin,Direct < 0.2 mg/dL (0-0.3); Bilirubin,Total 0.3 mg/dL (0.1-1.0); Blood Urea Nitrogen 64 mg/dL (6-20); Calcium 9.5 mg/dL (8.6-10.4); Carbon Dioxide 19 mmol/L (22-30); Chloride 106 mmol/L (96-108); Globulin 3.9 gm/dL (2.2-3.7); Glomerular Filtration Rate 13; Glucose 100 mg/dL (70-105); Lactate Dehydrogenase 282 U/L (135-225); Phosphorous 4.2 mg/dL (2.5-4.5); Triglycerides 256 mg/dL (<150)
[2020-09-27] MEDS: SODIUM BICARBONATE 650 MG TABLET PO SCH ×3 (08:35→20:45)
[2020-09-27] MEDS: FENOFIBRATE 43 MG CAPSULE PO SCH (08:35)
[2020-09-27] MEDS: INSULIN GLARGINE, HUMAN 1 UNIT/0.01 ML SQ SCH (08:35)
[2020-09-27] MEDS: DOCUSATE SODIUM 100 MG CAPSULE PO SCH ×2 (08:35→20:45)
[2020-09-27] MEDS: amLODIPine 10 MG TABLET PO SCH (08:35)
[2020-09-27] MEDS: HEPARIN 5,000 UNIT/ML VIAL SQ SCH ×2 (08:35→20:45)
[2020-09-27] MEDS: HYDROcodone/APAP 5/325MG TABLET PO PRN ×2 (08:44→20:18)
[2020-09-27] MEDS: CEFEPIME 2 GM VIAL IV SCH ×2 (08:45→20:44)
--- NOTE | 2020-09-27 08:45 | Nephrology Progress Note ---
SUBJECTIVE Subjective Patient information: Note initiated : 09/27/20 at 8:43 am Patient: Chaitanya Duvall 45 y/o M admitted on 09/22/20 for Recheck for positive blood cultures. Chief Complaint: Right leg pain Pertinent ROS: Feels better No shortness of breath No urination problems Constitutional Vitals: Vital Signs Temp Pulse Resp BP Pulse Ox 97.9 F 94 H 16 138/66 95 09/27/20 07:59 09/27/20 07:59 09/27/20 07:59 09/27/20 07:59 09/27/20 07:59 Period Temp Pulse Resp BP Sys/Foley Pulse Ox Last 24 Hr 97.7 F-99.2 F 70-99 16-20 117-195/66-84 94-97 Intake and Output 09/26/20 09/27/20 09/27/20 21:59 05:59 13:59 Intake Total 800 500 Output Total 2600 1950 Balance -1800 -1450 Weight 394 lb 3.2 oz Intake & Output: Intake & Output 09/26/20 09/27/20 09/27/20 21:59 05:59 13:59 Intake Total 800 500 Output Total 2600 1950 Balance -1800 -1450 Weight 394 lb 3.2 oz Intake: Oral 800 500 Output: Void Amount 2600 1950 Other: Urine Appearance Clear Clear Urine Color Pale Dark Ching Urine Odor Normal General appearance: cooperative and no acute distress Head Head exam: Present normal inspection Eye Eye exam: Present normal appearance ENT ENT exam: Present mucous membranes moist Respiratory Respiratory exam: Absent respiratory distress Cardiovascular Cardiovascular exam: Present normal rate and rhythm GI/Abdominal GI/Abdominal exam: Present soft; Absent tenderness Extremities Exam Extremities exam: Present joint swelling and pedal edema Neurological Exam Neurological exam: Present alert and oriented X3 Psychiatric Psychiatric exam: Present normal affect and normal mood Skin Skin exam: Present warm; Absent rash A/P Assessment and plan (1) Acute renal failure with acute tubular necrosis superimposed on stage 2 chronic kidney disease: Assessment and plan: Chaitanya Duvall is a 45-year-old male with hypertension, hyperlipidemia, diabetes mellitus type 2, 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 He was initially presented to [facility] ED for right foot and leg tenderness and redness on 09/21/20. He was diagnosed with cellulitis. Blood cultures were obtained. He was started on Bactrim DS and Cephalexin. Serum creatinine was 1.3. Hewas called to come back to ED on 09/22/20 for blood cultures growing gram-negative bacillus. Serum creatinine was 3.2. Baseline serum creatinine: 0.6 to 1.1 (eGFR >60). Nephrology consultation was requested for acute kidney injury. Acute kidney injury, suspected acute tubular necrosis associated with acute infection with antibiotics and NSAID use on chronic kidney disease stage G2/A3 with initial metabolic acidosis and hyponatremia, present on arrival. There is no recent history of IV contrast administration or NSAID use. Intravascular volume depletion is unlikely. Acute infectious (immune complex) glomerulon ephritis, acute interstitial nephritis or acute toxic nephropathy due to medications considered. Right ankle incision and drainage with removal of hardware scheduled later today. Previous work up: Urinalysis on 10/16/19: Yellow, Clear, pH 6.0, SG 1.015, protein 100, blood 0.2, leukocyte esterase negative. Urine random microalbumin/creatinine on 06/05/19: 386 mg/g creatinine. CT Abdomen and Pelvis with contrast on 09/08/19: Kidneys are normal. There is no kidney stone or hydronephrosis. There is a small calcified plaque at its origin of the right renal artery. Workup: Urinalysis on 09/23/20: Ching, cloudy, pH 5.0, SG 1.021, protein 30, blood 0.3, leukocyte esterase negative. Renal US on 09/23/20: Bilateral enlargement of the kidneys with diminished urine output. Hypoechoic structure centrally in the left kidney. This is probably a prominent pyramid and less likely a cyst which has developed in one year. Progress: Serum creatinine decreased from 5.6 to 5.1 in the past 24 hours. Baseline serum creatinine: 0.6 to 1.1 (eGFR >60). Urine output: 4,550 ml reported in the past 24 hours. Metabolic acidosis, improving with Sodium Bicarbonate 650 mg three times daily. Hyponatremia, moderate with mild fluid overload, resolved. No uremic symptoms. Recommendations/Plan: Anticipate no acute hemodialysis need. Monitor with BMP and urine output. Avoid NSAIDs, nephrotoxic medications and IV contrast. Status: Acute Comment: Creatinine peaked on September 25-5.9. 5.6 yesterday. Labs pending today. (2) Metabolic acidosis: Status: Acute (3) Hyponatremia: Status: Acute Time Spent With Patient Time: Total time spent is greater than 50% in coordination of care (as documented) at patient's floor/unit and/or counseling patient:
--- NOTE | 2020-09-27 09:00 | Ultrasound Report ---
History: Right knee pain, evaluate for joint effusion, bacteremia FINDINGS: There is subcutaneous edema around the knee. There is no joint effusion or fluid collection around the joint. No mass or abscess are seen. IMPRESSION: Subcutaneous edema around the knee. The exam is otherwise normal. Interpreted and Authenticated by: Jacobo Hinojosa 09/27/20
[2020-09-27] MEDS: HYDROmorphone 0.5 MG/0.5 ML SYRINGE IV PRN (12:03)
[2020-09-27] MEDS: MELATONIN 3 MG TABLET PO SCH (20:47)
[2020-09-27] MEDS: INSULIN DEGLUDEC 200 UNIT/ML SUB-Q SCH (21:42)
[2020-09-27] MEDS: INSULIN SUB-Q SCH (21:42)
[2020-09-28] MEDS: hydrALAZINE 20 MG/ML VIAL IV PRN ×4 (00:29→17:38)
[2020-09-28] MEDS: oxyCODONE/APAP 5/325MG TABLET PO PRN ×2 (03:22→17:31)
[2020-09-28] MEDS: 0.9 % SODIUM CHLORIDE 10 ML SYRINGE IV SCH ×3 (04:38→20:57)
[2020-09-28] MEDS: PANTOPRAZOLE 40 MG TABLET PO SCH (06:59)
[2020-09-28] MEDS: INSULIN LISPRO 1 UNIT/0.01 ML UNIT SQ SCH ×4 (07:02→20:58)
[2020-09-28 07:48] LABS: Hematocrit 25.8 % (41.0-55.0); Hemoglobin 8.2 g/dL (13.5-16.5); Mean Cell Volume 87.8 fL (80.0-100.0); Mean Corpuscular HGB Conc 31.8 g/dL (31.0-36.0); Mean Platelet Volume 9.4 fL (7.4-10.4); Platelet Count 639 K/mcL (140-440); RBC 2.94 M/mcL (4.50-5.90); Red Cell Distribution Width 15.4 % (11.5-14.5); WBC 11.6 K/mcL (4.5-11.0)
[2020-09-28] MEDS: amLODIPine 10 MG TABLET PO SCH (08:20)
[2020-09-28] MEDS: DOCUSATE SODIUM 100 MG CAPSULE PO SCH ×2 (08:20→20:58)
[2020-09-28] MEDS: SODIUM BICARBONATE 650 MG TABLET PO SCH ×3 (08:20→20:58)
[2020-09-28] MEDS: FENOFIBRATE 43 MG CAPSULE PO SCH (08:20)
[2020-09-28 08:21] LABS: ALT/SGPT 24 U/L (<40); AST/SGOT 20 U/L (<40); Albumin/Globulin Ratio 0.7 (1.0-2.3); Alkaline Phosphatase 125 U/L (39-117); Bilirubin,Total 0.3 mg/dL (0.1-1.0); Blood Urea Nitrogen 60 mg/dL (6-20); Calcium 9.4 mg/dL (8.6-10.4); Carbon Dioxide 17 mmol/L (22-30); Chloride 104 mmol/L (96-108); Globulin 4.1 gm/dL (2.2-3.7); Glomerular Filtration Rate 14; Glucose 101 mg/dL (70-105)
[2020-09-28] MEDS: HEPARIN 5,000 UNIT/ML VIAL SQ SCH ×2 (08:21→20:58)
[2020-09-28] MEDS: INSULIN GLARGINE, HUMAN 1 UNIT/0.01 ML SQ SCH (08:23)
[2020-09-28 09:41] LABS: Anisocytosis 1+ (None Seen); Band Neutrophils % 7 % (0-10); Eosinophils % (Manual) 5 % (0-7); Lymphocytes % 16 % (15-49); Monocytes % (Manual) 10 % (1-12); Platelet Estimate INCREASED (Normal); RBC Morphology ABNORMAL (Normal); Segmented Neutrophils % 62 % (38-78)
[2020-09-28] MEDS: cefTRIAXone 2 GM in DEXTROSE 5% IN WATER 50 ML IV SCH (10:04)
--- NOTE | 2020-09-28 10:07 | XRay Report ---
HISTORY: Right knee pain FINDINGS: No fracture or dislocation are present. Tiny osteophyte has formed along the inner margin of the medial femoral condyle. Joint spaces are normal in width. IMPRESSION: Normal exam Interpreted and Authenticated by: Jacobo Hinojosa 09/28/20
[2020-09-28] MEDS: HYDROmorphone 0.5 MG/0.5 ML SYRINGE IV PRN (10:59)
--- NOTE | 2020-09-28 11:25 | Ultrasound Report ---
History: Right leg edema FINDINGS: Patient was technically difficult to scan due to large body habitus. There is a boot and dressing around the right calf and ankle which was not removed. There is normal augmentation and compressibility of the deep veins and greater saphenous vein from the groin to the upper calf. Doppler shows normal waveform patterns. The calf vessels were not identified. In the right groin there are two large lymph nodes with fatty jordyn. The larger measures 2.5 x 3.2 x 6.1 cm and the other is 1.7 x 2.4 x 4.2 cm. IMPRESSION: No evidence of deep venous thrombosis from the groin to the upper calf. Nonspecific lymph nodes in the right groin Interpreted and Authenticated by: Jacobo Hinojosa 09/28/20
--- NOTE | 2020-09-28 13:25 | Internal Med Progress Note ---
SUBJECTIVE Subjective Patient information: Note initiated : 09/28/20 at 1:21 pm Service Date, if different from initiated Date: [] Patient: Chaitanya Duvall 45 y/o M admitted on 09/22/20 for Recheck for positive blood cultures. Chief Complaint: [] Interval history: History of present illness: Mr. Duvall is a 45 year old M Who presented ED yesterday with right foot and leg tenderness and redness. He was seen in the ED and diagnosed with cellulitis and started on antibiotics, blood cultures were obtained that time. Patient went home and was called back today because of blood culture growing gram-negative bacillus. Patient states that for starting Wednesday with increased tenderness and redness of his leg and then he went into the ED on Wednesday. He also initially had nausea vomiting and fever and chills. Wednesday night when he went from the ED he did have some nausea vomiting as well. Today he feels better. Was febrile in the ED. 09/23 Patient says he had a poor sleep last night. Patient complains of headache and feels weaker. 09/24 Changes overnight. Seen by Dr. Alvarado who will perform surgical I&D and hardware removal. 09/25 Patient had surgical I&D and hardware removal yesterday and feels better today. No overnight event or new complaints. Awaiting surgical cultures. Pending follow-up labs. Nephrology following 09/26 Patient states he feels well other than his right leg is swollen and feels little bit more swollen. No other new complaints overnight events. Awaiting follow-up labs. Awaiting surgical cultures Seen by infectious disease yesterday. 09/27 Knee ultrasound shows soft tissue edema, no joint fluid collection. ID ok with Ceftriaxone 2 gm Q24 hrs to complete 6 weeks of IV antibiotic treatment. Repeat blood cultures today, plan for PICC before discharge on IV abx and ID follow up. Xray of right knee. 09/28 Feels ok, xray was negative. Deescalated from Cefepime to Ceftriaxone per ID recommendatinos. Waiting for blood cultures, if negative at [address] PICC for outpatient Ceftriaxone treatment. Renal function slowly improving consistent with acute tubular necrosis recovery. Constitutional Vitals: Vital Signs Temp Pulse Resp BP Pulse Ox 97.6 F 99 H 18 161/82 95 09/28/20 11:56 09/28/20 11:56 09/28/20 11:56 09/28/20 11:56 09/28/20 11:56 Period Temp Pulse Resp BP Sys/Foley Pulse Ox Last 24 Hr 97.6 F-98.3 F 93-99 12- 154-184/68-82 94-97 Intake and Output 09/27/20 09/28/20 09/28/20 21:59 05:59 13:59 Intake Total 1280 800 100 Output Total 600 Balance 680 800 100 Weight 180.62 kg Intake & Output: Intake & Output 09/27/20 09/28/20 09/28/20 21:59 05:59 13:59 Intake Total 1280 800 100 Output Total 600 Balance 680 800 100 Weight 180.62 kg Intake: IV 50 Rocephin 2 gm In Dextrose 5% in 50 Water 50 ml @ 100 mls/hr IV Q24H [facility] Rx#:[id number] Oral 1280 800 50 Output: Void Amount 600 Other: Meal Dinner Breakfast Percent of Meal Consumed 100% 75% Feeding Ability Independent Urine Color Pale Urine Odor Normal Stool Size Large Stool Consistency Formed # Bowel Movements 1 Exam: General: Alert, Awake, No acute Distress, obese Eyes/N/T: EOMI, Head/Neck: neck supple, CV: RRR, No murmurs, Pulm: Clear b/l, no wheezing/rhonchi/rales Abd: soft, nontender, +BS x4 Ext: no clubbing/cyanosis, b/l LE edema R>L, right foot in dressings Neuro: Alert, no focal deficits, moves all extremities, Skin: warm/dry OBJ DATA Labs CBC & Chem 7: 09/28/20 07:08 09/28/20 07:08 Labs: Abnormal Lab Results 09/28/20 09/28/20 09/27/20 07:08 07:08 05:31 WBC 11.6 H 12.2 H RBC 2.94 L 3.20 L Hgb 8.2 L 8.7 L Hct 25.8 L 27.3 L RDW 15.4 H 15.2 H Plt Count 639 H 597 H Lymph % (Auto) 14.1 L Lymph # (Auto) Divide # (Auto) 1.16 H Absolute Neutrophils 8.92 H Platelet Estimate Increased A RBC Morphology Abnormal A Anisocytosis 1+ A Sodium Carbon Dioxide 17 L BUN 60 H Creatinine 4.7 H Glucose Uric Acid Alkaline Phosphatase 125 H Lactate Dehydrogenase Albumin 3.0 L Globulin 4.1 H Albumin/Globulin Ratio 0.7 L Triglycerides 09/27/20 09/26/20 09/26/20 05:31 08:31 08:31 WBC RBC 3.18 L Hgb 8.7 L Hct 27.3 L RDW 14.8 H Plt Count Lymph % (Auto) 12.2 L Lymph # (Auto) 1.08 L Divide # (Auto) 1.06 H Absolute Neutrophils Platelet Estimate RBC Morphology Anisocytosis Sodium 131 L Carbon Dioxide 19 L 18 L BUN 64 H 65 H Creatinine 5.1 H* 5.6 H* Glucose 176 H Uric Acid 11.0 H Alkaline Phosphatase 131 H Lactate Dehydrogenase 282 H Albumin 2.8 L Globulin 3.9 H Albumin/Globulin Ratio 0.7 L Triglycerides 256 H Meds: Medications Acetaminophen (Acetaminophen 325 Mg Tablet) 650 mg PO Q6HP PRN PRN Reason: PAIN/FEVER > 101 Last Admin: 09/23/20 10:05 Dose: 650 mg Documented by: Hydrocodone Bitart/Acetaminophen (Hydrocodone/Apap 5/325mg Tablet) 1 tab PO Q4HP PRN PRN Reason: PAIN LEVEL 3-6 Last Admin: 09/27/20 20:18 Dose: 1 tab Documented by: Albuterol/Ipratropium (Ipratropium/Albuterol 3 Ml Ampul.Neb) 3 ml NEB Q4HP PRN PRN Reason: Shortness Of Breath Amlodipine Besylate (Amlodipine 10 Mg Tablet) 10 mg PO DAILY [facility] Last Admin: 09/28/20 08:20 Dose: 10 mg Documented by: Dextrose (Dextrose 50% 50 Ml Vial) 0 ml IV UD PRN PRN Reason: Hypoglycemia Diagnostic Test (Pha) (Accu-Chek 1 Each Strip) 1 each FS ACHS [facility] Last Admin: 09/28/20 11:42 Dose: 1 each Documented by: Diphenhydramine HCl (Diphenhydramine 25 Mg Capsule) 25 mg PO HSP PRN PRN Reason: Insomnia Docusate Sodium (Docusate Sodium 100 Mg Capsule) 100 mg PO BID [facility] Last Admin: 09/28/20 08:20 Dose: 100 mg Documented by: Fenofibrate (Fenofibrate 43 Mg Capsule) 129 mg PO DAILY [facility] Last Admin: 09/28/20 08:20 Dose: 129 mg Documented by: Glucose (Dextrose 31 Gm Oral.Susp) 15 gm PO PRN PRN PRN Reason: Hypoglycemia Heparin Sodium (Porcine) (Heparin 5,000 Unit/Ml Vial) 5,000 unit SQ Q12 [facility] Last Admin: 09/28/20 08:21 Dose: 5,000 unit Documented by: Hydralazine HCl (Hydralazine 20 Mg/Ml Vial) 0 mg IV Q2HP PRN PRN Reason: Hypertension Last Admin: 09/28/20 07:04 Dose: 20 mg Documented by: Hydromorphone HCl (Hydromorphone 0.5 Mg/0.5 Ml Syringe) 0.5 mg IV Q4HP PRN; Protocol PRN Reason: Per Pain Protocol Last Admin: 09/28/20 10:59 Dose: 0.5 mg Documented by: Potassium Chloride 40 meq/ (Dextrose) 520 mls @ 130 mls/hr IV UD PRN PRN Reason: Potassium < 3 Magnesium Sulfate (Magnesium Sulfate) 2 gm in 50 mls @ 50 mls/hr IV UD PRN PRN Reason: Magnesium </= 1.6 Ceftriaxone Sodium 2 gm/ (Dextrose) 50 mls @ 100 mls/hr IV Q24H [facility]; Protocol Last Infusion: 09/28/20 10:35 Dose: Infused Documented by: Insulin Glargine (Insulin Glargine, Human 1 Unit/0.01 Ml) 15 unit SQ DAILY [facility] Last Admin: 09/28/20 08:23 Dose: 15 units Documented by: Insulin Human Lispro (Insulin Lispro 1 Unit/0.01 Ml Unit) 0 unit SQ ACHS [facility]; Protocol Last Admin: 09/28/20 11:43 Dose: Not Given Documented by: Labetalol HCl (Labetalol 5 Mg/Ml Ml) 0 mg IV Q2HP PRN PRN Reason: Hypertension Last Admin: 09/25/20 04:27 Dose: 10 mg Documented by: Melatonin (Melatonin 3 Mg Tablet) 3 mg PO QHS [facility] Last Admin: 09/27/20 20:47 Dose: Not Given Documented by: Metoclopramide HCl (Metoclopramide 10 Mg/2 Ml Vial) 10 mg IV Q6HP PRN PRN Reason: Nausea And Vomiting Last Admin: 09/23/20 04:40 Dose: 10 mg Documented by: Ondansetron HCl (Ondansetron 4 Mg/2 Ml Vial) 4 mg IV Q4HP PRN PRN Reason: Nausea And Vomiting Last Admin: 09/23/20 03:48 Dose: 4 mg Documented by: Oxycodone/Acetaminophen (Oxycodone/Apap 5/325mg Tablet) 1 tab PO Q8H PRN; Protocol PRN Reason: pain Last Admin: 09/28/20 03:22 Dose: 1 tab Documented by: Pantoprazole Sodium (Pantoprazole 40 Mg Tablet) 40 mg PO QAMAC [facility] Last Admin: 09/28/20 06:59 Dose: 40 mg Documented by: Insulin Degludec 200 Unit/Ml (3 Ml) Insulin Pen 118 dose SUB-Q QHS [facility] Last Admin: 09/27/20 21:42 Dose: 118 dose Documented by: Polyethylene Glycol (Polyethylene Glycol 3350 17 Gm Packet) 17 gm PO DAILYP PRN PRN Reason: Constipation Potassium Chloride (Potassium Chloride 20 Meq Tablet) 40 meq PO UD PRN PRN Reason: Potssium is 3-3.5 Last Admin: 09/22/20 21:21 Dose: 40 meq Documented by: Potassium Chloride (Potassium Chloride 20 Meq Tablet) 40 meq PO UD PRN PRN Reason: Potassium < 3 Senna (Sennosides 1 Tablet) 2 tab PO DAILYP PRN PRN Reason: Constipation Last Admin: 09/27/20 20:45 Dose: 2 tab Documented by: Sodium Bicarbonate (Sodium Bicarbonate 650 Mg Tablet) 650 mg PO TID [facility] Last Admin: 09/28/20 08:20 Dose: 650 mg Documented by: Sodium Chloride (0.9 % Sodium Chloride 10 Ml Syringe) 10 ml IV Q8 [facility] Last Admin: 09/28/20 04:38 Dose: Not Given Documented by: A/P Narrative A/P Narrative: Assessment: #RLE/foot cellulitis (has hardware in place from previous ankle Fx): s/p I&D w/hardware removal (09/24) -afebrile o/n, leukocytosis resolved #Bacteremia(Pasteurella multocida - pt has pets in house): #SIRS: #CARRIE on CKD II secondary to ATN #Hyponatremia: improved #DM: A1c 8.3 #HTN/HLD: #GERD: #Obesity: #Anemia, chronic: P: -Nephrology following. -Dr. Mccormick following peripherally. -deescalate to ceftriaxone -PICC when blood cultures showing no growth 48-72 hrs -hold home ARB for carrie, cont norvasc -basal and SSI -wound care -ppx: heparin -code status: full -disposition: Home with PICC and Ceftriaxone IV to complete 6 weeks of antibiotic. Follow up with ID, podiatry, and nephrology. Outpatient wound care. Time Spent With Patient Time: Total time spent is greater than 50% in coordination of care (as documented) at patient's floor/unit and/or counseling patient: QUALITY VTE Deep Vein Thrombosis/Pulmonary Embolism Present on Admission: No
--- NOTE | 2020-09-28 18:20 | Nephrology Progress Note ---
SUBJECTIVE Subjective Patient information: Note initiated : 09/28/20 at 6:17 pm Patient: Chaitanya Duvall 45 y/o M admitted on 09/22/20 for Recheck for positive blood cultures. Chief Complaint: right leg pain. Pertinent ROS: Feeling better Good urine output No urinary symptoms Constitutional Vitals: Vital Signs Temp Pulse Resp BP Pulse Ox 97.9 F 101 H 20 180/77 94 09/28/20 15:41 09/28/20 15:41 09/28/20 15:41 09/28/20 15:41 09/28/20 15:41 Period Temp Pulse Resp BP Sys/Foley Pulse Ox Last 24 Hr 97.6 F-98.3 F 93-101 16-22 158-184/70-82 94-97 Intake and Output 09/28/20 09/28/20 09/28/20 05:59 13:59 21:59 Intake Total 800 100 800 Balance 800 100 800 Intake & Output: Intake & Output 09/28/20 09/28/20 09/28/20 05:59 13:59 21:59 Intake Total 800 100 800 Balance 800 100 800 Intake: IV 50 Rocephin 2 gm In Dextrose 5% in 50 Water 50 ml @ 100 mls/hr IV Q24H [facility] Rx#:[id number] Oral 800 50 800 Other: Meal Breakfast Percent of Meal Consumed 75% Stool Size Large Stool Consistency Formed # Voids 1 # Bowel Movements 1 1 General appearance: cooperative and no acute distress Head Head exam: Present normal inspection Eye Eye exam: Present normal appearance ENT ENT exam: Present mucous membranes moist Respiratory Respiratory exam: Absent respiratory distress Cardiovascular Cardiovascular exam: Present normal rate and rhythm GI/Abdominal GI/Abdominal exam: Present soft; Absent tenderness Extremities Exam Extremities exam: Present joint swelling and pedal edema Neurological Exam Neurological exam: Present alert and oriented X3 Psychiatric Psychiatric exam: Present normal affect and normal mood Skin Skin exam: Present warm; Absent rash A/P Assessment and plan (1) Acute renal failure with acute tubular necrosis superimposed on stage 2 chronic kidney disease: Assessment and plan: Chaitanya Duvall is a 45-year-old male with hypertension, hyperlipidemia, diabetes mellitus type 2, 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 He was initially presented to [facility] ED for right foot and leg tenderness and redness on 09/21/20. He was diagnosed with cellulitis. Blood cultures were obtained. He was started on Bactrim DS and Cephalexin. Serum creatinine was 1.3. Hewas called to come back to ED on 09/22/20 for blood cultures growing gram-negative bacillus. Serum creatinine was 3.2. Baseline serum creatinine: 0.6 to 1.1 (eGFR >60). Nephrology consultation was requested for acute kidney injury. Acute kidney injury, suspected acute tubular necrosis associated with acute infection with antibiotics and NSAID use on chronic kidney disease stage G2/A3 with initial metabolic acidosis and hyponatremia, present on arrival. There is no recent history of IV contrast administration or NSAID use. Intravascular volume depletion is unlikely. Acute infectious (immune complex) glomerulonephritis, acute interstitial nephritis or acute toxic nephropathy due to medications considered. Right ankle incision and drainage with removal of hardware. Previous work up: Urinalysis on 10/16/19: Yellow, Clear, pH 6.0, SG 1.015, protein 100, blood 0.2, leukocyte esterase negative. Urine random microalbumin/creatinine on 06/05/19: 386 mg/g creatinine. CT Abdomen and Pelvis with contrast on 09/08/19: Kidneys are normal. There is no kidney stone or hydronephrosis. There is a small calcified plaque at its origin of the right renal artery. Workup: Urinalysis on 09/23/20: Ching, cloudy, pH 5.0, SG 1.021, protein 30, blood 0.3, leukocyte esterase negative. Renal US on 09/23/20: Bilateral enlargement of the kidneys with diminished urine output. Hypoechoic structure centrally in the left kidney. This is probably a prominent pyramid and less likely a cyst which has developed in one year. Progress: Serum creatinine decreased from 5.1 to 4.7 in the past 24 hours. Baseline serum creatinine: 0.6 to 1.1 (eGFR >60). Urine output: 600+ ml reported in the past 24 hours. Metabolic acidosis, improving with Sodium Bicarbonate 650 mg three times daily. Hyponatremia, moderate with mild fluid overload, resolved. No uremic symptoms. Recommendations/Plan: Anticipate no acute hemodialysis need. Monitor with BMP and urine output. Avoid NSAIDs, nephrotoxic medications and IV contrast. Status: Acute Comment: Creatinine peaked on September 25-5.9. 5.6 yesterday. Labs pending today. (2) Metabolic acidosis: Status: Acute (3) Hyponatremia: Status: Acute Time Spent With Patient Time: Total time spent is greater than 50% in coordination of care (as documented) at patient's floor/unit and/or counseling patient:
[2020-09-28] MEDS: HYDROcodone/APAP 5/325MG TABLET PO PRN (18:44)
[2020-09-28] MEDS: INSULIN SUB-Q SCH (20:58)
[2020-09-28] MEDS: INSULIN DEGLUDEC 200 UNIT/ML SUB-Q SCH (20:58)
[2020-09-28] MEDS: MELATONIN 3 MG TABLET PO SCH (20:59)
[2020-09-29] MEDS: hydrALAZINE 20 MG/ML VIAL IV PRN ×2 (00:24→09:25)
[2020-09-29] MEDS: oxyCODONE/APAP 5/325MG TABLET PO PRN ×2 (03:52→14:24)
[2020-09-29] MEDS: 0.9 % SODIUM CHLORIDE 10 ML SYRINGE IV SCH ×4 (05:43→22:21)
[2020-09-29] MEDS: PANTOPRAZOLE 40 MG TABLET PO SCH (06:54)
[2020-09-29] MEDS: HYDROcodone/APAP 5/325MG TABLET PO PRN ×2 (06:54→17:37)
[2020-09-29] MEDS: INSULIN LISPRO 1 UNIT/0.01 ML UNIT SQ SCH ×4 (06:58→22:27)
[2020-09-29] MEDS: SODIUM BICARBONATE 650 MG TABLET PO SCH ×3 (09:21→22:19)
[2020-09-29] MEDS: amLODIPine 10 MG TABLET PO SCH (09:21)
[2020-09-29] MEDS: DOCUSATE SODIUM 100 MG CAPSULE PO SCH ×2 (09:21→22:19)
[2020-09-29] MEDS: FENOFIBRATE 43 MG CAPSULE PO SCH (09:21)
[2020-09-29] MEDS: INSULIN GLARGINE, HUMAN 1 UNIT/0.01 ML SQ SCH (09:23)
[2020-09-29] MEDS: HEPARIN 5,000 UNIT/ML VIAL SQ SCH ×2 (09:25→22:18)
[2020-09-29] MEDS: cefTRIAXone 2 GM in DEXTROSE 5% IN WATER 50 ML IV SCH (09:31)
[2020-09-29] MEDS ORDERED: 0.9 % SODIUM CHLORIDE 10 ML SYRINGE IV PRN (12:15)
--- NOTE | 2020-09-29 15:26 | Nephrology Progress Note ---
SUBJECTIVE Subjective Patient information: Note initiated : 09/29/20 at 3:24 pm Patient: Chaitanya Duvall 45 y/o M admitted on 09/22/20 for Recheck for positive blood cultures. Chief Complaint: Right leg pain Pertinent ROS: Feels better No urinary symptoms Constitutional Vitals: Vital Signs Temp Pulse Resp BP Pulse Ox 98.1 F 101 H 18 143/69 93 09/29/20 12:00 09/29/20 12:00 09/29/20 12:00 09/29/20 12:00 09/29/20 12:00 Period Temp Pulse Resp BP Sys/Foley Pulse Ox Last 24 Hr 97.9 F-98.3 F 93-101 16-20 143-180/69-81 93-96 Intake and Output 09/29/20 09/29/20 09/29/20 05:59 13:59 21:59 Intake Total 500 300 Balance 500 300 Intake & Output: Intake & Output 09/29/20 09/29/20 09/29/20 05:59 13:59 21:59 Intake Total 500 300 Balance 500 300 Intake: IV 50 Rocephin 2 gm In Dextrose 5% in 50 Water 50 ml @ 100 mls/hr IV Q24H [facility] Rx#:[id number] Oral 500 250 Other: Meal Breakfast Percent of Meal Consumed 75% Feeding Ability Independent Stool Size Moderate Stool Color Brown Stool Consistency Soft # Voids 3 1 # Bowel Movements 1 General appearance: cooperative and no acute distress Head Head exam: Present normal inspection Eye Eye exam: Present normal appearance ENT ENT exam: Present mucous membranes moist Respiratory Respiratory exam: Absent respiratory distress Cardiovascular Cardiovascular exam: Present normal rate and rhythm GI/Abdominal GI/Abdominal exam: Present soft; Absent tenderness Extremities Exam Extremities exam: Present pedal edema Neurological Exam Neurological exam: Present alert and oriented X3 Psychiatric Psychiatric exam: Present normal affect and normal mood Skin Skin exam: Present warm; Absent rash A/P Assessment and plan (1) Acute renal failure with acute tubular necrosis superimposed on stage 2 chronic kidney disease: Assessment and plan: Chaitanya Duvall is a 45-year-old male with hypertension, hyperlipidemia, diabetes mellitus type 2, 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 He was initially presented to [facility] ED for right foot and leg tenderness and redness on 09/21/20. He was diagnosed with cellulitis. Blood cultures were obtained. He was started on Bactrim DS and Cephalexin. Serum creatinine was 1.3. Hewas called to come back to ED on 09/22/20 for blood cultures growing gram-negative bacillus. Serum creatinine was 3.2. Baseline serum creatinine: 0.6 to 1.1 (eGFR >60). Nephrology consultation was requested for acute kidney injury. Acute kidney injury, suspected acute tubular necrosis associated with acute infection with antibiotics and NSAID use on chronic kidney disease stage G2/A3 with initial metabolic acidosis and hyponatremia, present on arrival. There is no recent history of IV contrast administration or NSAID use. Intravascular volume depletion is unlikely. Acute infectious (immune complex) glomerulonephritis, acute interstitial nephritis or acute toxic nephropathy due to medications considered. Right ankle incision and drainage with removal of hardware. Previous work up: Urinalysis on 10/16/19: Yellow, Clear, pH 6.0, SG 1.015, protein 100, blood 0.2, leukocyte esterase negative. Urine random microalbumin/creatinine on 06/05/19: 386 mg/g creatinine. CT Abdomen and Pelvis with contrast on 09/08/19: Kidneys are normal. There is no kidney stone or hydronephrosis. There is a small calcified plaque at its origin of the right renal artery. Workup: Urinalysis on 09/23/20: Ching, cloudy, pH 5.0, SG 1.021, protein 30, blood 0.3, leukocyte esterase negative. Renal US on 09/23/20: Bilateral enlargement of the kidneys with diminished urine output. Hypoechoic structure centrally in the left kidney. This is probably a prominent pyramid and less likely a cyst which has developed in one year. Progress: Serum creatinine 4.7 in the past 24 hours. Baseline serum creatinine: 0.6 to 1.1 (eGFR >60). Urine output: Not reported in the past 24 hours. Metabolic acidosis, improving with Sodium Bicarbonate 650 mg three times daily. Hyponatremia, moderate with mild fluid overload, resolved. No uremic symptoms. Recommendations/Plan: Anticipate no acute hemodialysis need. Monitor with BMP and urine output. Avoid NSAIDs, nephrotoxic medications and IV contrast. Status: Acute Comment: Creatinine peaked on September 25-5.9. 5.6 yesterday. Labs pending today. (2) Metabolic acidosis: Status: Acute (3) Hyponatremia: Status: Acute Time Spent With Patient Time: Total time spent is greater than 50% in coordination of care (as documented) at patient's floor/unit and/or counseling patient:
--- NOTE | 2020-09-29 17:07 | Discharge Summary ---
Discharge Provider Provider Patient information: Note initiated : 09/29/20 at 4:58 pm Service Date, if different from initiated Date: [] Patient: Chaitanya Duvall 45 y/o M admitted on 09/22/20 for Recheck for positive blood cultures. Chief Complaint: [] Date of admission: 09/22/20 19:02 Discharge date: 09/29/20 Primary care physician: Narcisa Rodriguez PA-C Consults: 09/22/20 Consult to Physician [CONS] Stat Comment: Consulting Provider: Balwinder Nye Reason For Exam: Physician to Consult 09/23/20 07:38 Consult to Physician [CONS] Routine Comment: Consulting Provider: Reinaldo Ortega Reason For Exam: Physician to Consult 09/23/20 15:20 Consult to Physician [CONS] Routine Comment: Consulting Provider: Kwadwo Alvarado Reason For Exam: Physician to Consult 09/25/20 10:53 Consult to Physician [CONS] Routine Comment: Consulting Provider: Garret Mccormick Reason For Exam: Physician to Consult Discharge Meds Discharge Medications Home Medications albuterol sulfate 90 mcg/actuation aerosol inhaler 2 puff INHALATION Q6H PRN #18 g 07/07/19 [Rx Confirmed 09/22/20 Last Taken 09/21/20 21:00] insulin degludec 118 unit SUB-Q QHS 90 Days #49.5 ml 09/12/19 [Rx Confirmed 09/22/20 Last Taken 09/21/20 21:00] blood-glucose meter #1 each 09/21/19 [Rx Confirmed 09/22/20 Last Taken Unknown] lancets #200 each 09/21/19 [Rx Confirmed 09/22/20 Last Taken Unknown] cholecalciferol (vitamin D3) [Vitamin D3] 125 mcg PO QDAY 01/22/20 [History Confirmed 09/22/20 Last Taken 09/21/20 21:00] B-D PEN NDL SHRT [id number](08/25) ARLINE See Rx Instructions .ROUTE .COMPLEX #1500 each 03/15/20 [Rx Confirmed 09/22/20 Last Taken 09/22/20 09:00] fluticasone propionate 50 mcg/actuation nasal spray,suspension 2 spray INTRANASAL QDAY g 05/23/20 [History Confirmed 09/22/20 Last Taken 09/19/20] flash glucose sensor 1 each MISCELLANEOUS QDAY #10 each 05/24/20 [Rx Confirmed 09/22/20 Last Taken 09/22/20 08:00] oxycodone-acetaminophen [Percocet] 1 tab PO Q8H PRN #10 tab 05/24/20 [Rx Confirmed 09/22/20 Last Taken 09/21/20 21:00] insulin lispro 100 unit/mL subcutaneous pen See Rx Instructions .ROUTE .COMPLEX #15 ml 05/27/20 [Rx Confirmed 09/22/20 Last Taken 09/22/20 08:00] blood sugar diagnostic #400 ea 06/04/20 [Rx Confirmed 09/22/20 Last Taken Unknown] fenofibrate 160 mg tablet 160 mg PO QDAY #90 tab 07/04/20 [Rx Confirmed 09/22/20 Last Taken 09/21/20 21:00] omeprazole 20 mg capsule,delayed release 20 mg PO QDAY #90 cap 07/18/20 [Rx Confirmed 09/22/20 Last Taken 09/21/20 21:00] acetaminophen [Tylenol] 650 mg PO Q6HP PRN #30 tab 09/29/20 [Rx Last Taken Unknown] amlodipine 10 mg PO DAILY #30 tab 09/29/20 [Rx Last Taken Unknown] ceftriaxone 2 g IV Q24H 35 Days #35 ea 09/29/20 [Rx Last Taken Unknown] sodium bicarbonate 650 mg PO TID #60 tab 09/29/20 [Rx Last Taken Unknown] COURSE Hospital Course Hospital course: Mr. Duvall is a 45 year old male who presented ED with right foot and leg tenderness and redness. He was seen in the ED and diagnosed with cellulitis and started on antibiotics, blood cultures were obtained that time. The patient went home and was called back on 09/22/20 because of blood culture growing gram-negative bacillus, later resulted as 2/2 blood cultures positive for Pasturella multocida. The patient also had an acute on chronic kidney injury. The patient was admitted by hospital medicine, infectious disease, podiatry, and nephrology consulted. He was initially on broad spectrum antibiotics with Vancomycin IV and Cefepime. 09/23 Patient says he had a poor sleep last night. Patient complains of headache and feels weaker. 09/24 No changes overnight. Seen by Dr. Alvarado who will perform surgical I&D and hardware removal. 09/25 Patient had surgical I&D and hardware removal yesterday, feels better today. No overnight event or new complaints. Awaiting surgical cultures. Pending follow-up labs. Nephrology following for acute kidney injury, started oral bicarbonate. Holding home ARB. 09/26 Patient states he feels well other than his right leg is swollen and feels little bit more swollen. No other new complaints overnight events. Awaiting follow-up labs, surgical cultures growing Pasteurella multocida. Seen by infectious disease yesterday. 09/27 Complaining of knee pain today, knee ultrasound showed soft tissue edema, no joint fluid collection. Xray negative. Venous duplex of right lower extremity negative for DVT. ID felt that Ceftriaxone 2 gm Q24 hrs to complete 6 weeks of IV antibiotic treatment would be the best course for outpatient home treatment. Repeat blood cultures today, plan for PICC before discharge on IV abx and ID follow up. Xray of right knee. 09/28 Deescalated from Cefepime to Ceftriaxone per ID recommendations. Waiting for repeat blood culture preliminary results, if negative at [address] PICC for outpatient Ceftriaxone treatment. Renal function slowly improving consistent with acute tubular necrosis recovery. 09/29 Blood cultures showing no growth at 2 days, PICC line ordered. Planning to discharge home to complete 6 weeks of IV antibiotic treatment with Ceftriaxone. Infectious disease, nephrology, podiatry, and PCP follow up. Will hold ARB, Metformin, and Semaglutide for severe CARRIE. Renal function will need to be monitored closely after discharge. Post hospital follow up; -Weekly CBC, CMP, CRP during treatment course with Ceftriaxone IV. -Monitor renal function, avoid potentially nephrotoxic medications. -Glycemic control, continued Degludec and Lispro however holding Metformin and Semaglutide for severe acute kidney injury. -Blood pressure management, continued Amlodipine however holding ARB due to acute kidney injury. -Follow up with infectious disease for outpatient IV antibiotic management. -Follow up with podiatry for foot wound. -Follow up with nephrology for recovereing acute kidney injury. -Follow up with PCP for care coordination and management of medical comorbidities per above. Physical exam Head: Atraumatic, normal inspection. Eyes: normal appearance, no scleral icterus. Neck: full ROM Respiratory: no respiratory distress. Cardiovascular: normal rate and rhythm, S1, S2. GI/Abdominal: soft, nontender, no guarding. Extremities: right lower extremity in boot, 3+ pitting edema. Neurological: CN II-XII intact, intact motor, intact sensation. Psychiatric: normal mood. Skin: warm, normal color Discharge diagnosis: Pasturella multocida bacteremia Time Spent with Patient Time attestation: Total time spent providing and/or coordinating discharge services: EXAM Constitutional Vitals: Temp Pulse Resp BP Pulse Ox 98.1 F 101 H 18 143/69 93 09/29/20 12:00 09/29/20 12:00 09/29/20 12:00 09/29/20 12:00 09/29/20 12:00 Discharge Data Data Completed and Pending Labs on day of discharge: Preliminary micro results at discharge 09/24/20 13:02 Gram Stain - Preliminary Ankle - Right Anaerobic Culture - Preliminary 09/27/20 10:05 Blood Culture - Preliminary Blood 09/27/20 09:59 Blood Culture - Preliminary Blood 09/24/20 13:02 Anaerobic Culture - Preliminary Ankle - Right Discharge Plan Patient/Caregiver Discharge Instructions Activity: increase activity as tolerated Diet: Consistent Carbohydrate Prescriptions: New acetaminophen [Tylenol] 325 mg Tablet 650 mg PO Q6HP PRN (Reason: Pain/Fever > 101) Qty: 30 RF: 0 amlodipine 10 mg Tablet 10 mg PO DAILY Qty: 30 RF: 4 ceftriaxone 2 gram Recon Soln 2 g IV Q24H 35 Days Qty: 35 RF: 0 sodium bicarbonate 650 mg Tablet 650 mg PO TID Qty: 60 RF: 0 Continued B-D PEN NDL SHRT [id number](08/25) ARLINE See Rx Instructions .ROUTE .COMPLEX Qty: 1500 RF: 0 flash glucose sensor [FreeStyle Javi 14 Day Sensor] Kit 1 each miscellaneous QDAY Qty: 10 RF: 0 insulin lispro [Humalog KwikPen Insulin] 100 unit/mL insulin pen See Rx Instructions .ROUTE .COMPLEX Qty: 15 RF: 2 (DME) Blood Glucose Test Strip See Rx Instructions .ROUTE .MEDSUPPLY Qty: 400 RF: 0 fenofibrate 160 mg tablet 160 mg PO QDAY Qty: 90 RF: 1 omeprazole 20 mg capsule,delayed release(DR/EC) 20 mg PO QDAY Qty: 90 RF: 0 albuterol sulfate 90 mcg/actuation HFA aerosol inhaler 2 puff INHALATION Q6H PRN (Reason: shortness of breath or wheezing) Qty: 18 RF: 3 (DME) lancets Misc See Rx Instructions .ROUTE .MEDSUPPLY Qty: 200 RF: 2 (DME) blood-glucose meter Misc See Rx Instructions .ROUTE .MEDSUPPLY Qty: 1 RF: 0 fluticasone propionate 50 mcg/actuation spray,suspension 2 spray intranasal QDAY RF: 0 insulin degludec 200 unit/mL (3 mL) insulin pen 118 unit SUB-Q QHS 90 Days Qty: 49.5 RF: 3 cholecalciferol (vitamin D3) [Vitamin D3] 125 mcg (5,000 unit) Tablet 125 mcg PO QDAY RF: 0 oxycodone-acetaminophen [Percocet] 5-325 mg tablet 1 tab PO Q8H PRN (Reason: pain) Qty: 10 RF: 0 Discontinued metformin 1,000 mg tablet 1,000 mg PO BID Qty: 180 RF: 0 telmisartan-amlodipine 80-10 mg tablet 1 tab PO QDAY Qty: 90 RF: 0 semaglutide 1 mg/dose (2 mg/1.5 mL) pen injector 1 mg SUB-Q QWEEK Qty: 3 RF: 0 sulfamethoxazole-trimethoprim [Bactrim DS] 800-160 mg tablet 1 tab PO Q12H Qty: 14 RF: 0 cephalexin 500 mg capsule 500 mg PO TID Qty: 21 RF: 0 Follow Up Plan Follow up with: Narcisa Rodriguez PA-C [Primary Care Provider] - Kwadwo Alvarado DPM [Physician] - 10/07/20 Reinaldo Ortega MD [Physician] - 10/07/20 Garret Mccormick MD [Physician] - 10/07/20 Patient Disposition: Home, Self-Care Prognosis: Good Overall status at discharge: patient is progressing back to baseline Discharge Orders: Discharge Order (Routine); Ordered 09/29/20 Ordered By: Kadeem AVILA VTE Deep Vein Thrombosis/Pulmonary Embolism Present on Admission: No
--- NOTE | 2020-09-29 18:56 | Internal Med Progress Note ---
SUBJECTIVE Subjective Patient information: Note initiated : 09/29/20 at 6:54 pm Service Date, if different from initiated Date: [] Patient: Chaitanya Duvall 45 y/o M admitted on 09/22/20 for Recheck for positive blood cultures. Chief Complaint: [] Interval history: History of present illness: Mr. Duvall is a 45 year old M Who presented ED yesterday with right foot and leg tenderness and redness. He was seen in the ED and diagnosed with cellulitis and started on antibiotics, blood cultures were obtained that time. Patient went home and was called back today because of blood culture growing gram-negative bacillus. Patient states that for starting Wednesday with increased tenderness and redness of his leg and then he went into the ED on Wednesday. He also initially had nausea vomiting and fever and chills. Wednesday night when he went from the ED he did have some nausea vomiting as well. Today he feels better. Was febrile in the ED. 09/23 Patient says he had a poor sleep last night. Patient complains of headache and feels weaker. 09/24 Changes overnight. Seen by Dr. Alvarado who will perform surgical I&D and hardware removal. 09/25 Patient had surgical I&D and hardware removal yesterday and feels better today. No overnight event or new complaints. Awaiting surgical cultures. Pending follow-up labs. Nephrology following 09/26 Patient states he feels well other than his right leg is swollen and feels little bit more swollen. No other new complaints overnight events. Awaiting follow-up labs. Awaiting surgical cultures Seen by infectious disease yesterday. 09/27 Knee ultrasound shows soft tissue edema, no joint fluid collection. ID ok with Ceftriaxone 2 gm Q24 hrs to complete 6 weeks of IV antibiotic treatment. Repeat blood cultures today, plan for PICC before discharge on IV abx and ID follow up. Xray of right knee. 09/28 Feels ok, xray was negative. Deescalated from Cefepime to Ceftriaxone per ID recommendatinos. Waiting for blood cultures, if negative at [address] PICC for outpatient Ceftriaxone treatment. Renal function slowly improving consistent with acute tubular necrosis recovery. 09/29 Discharge postponed until tomorrow to coordinate outpatient IV antibiotic. Constitutional Vitals: Vital Signs Temp Pulse Resp BP Pulse Ox 99.0 F 101 H 20 155/80 96 09/29/20 16:00 09/29/20 16:00 09/29/20 16:00 09/29/20 16:00 09/29/20 16:00 Period Temp Pulse Resp BP Sys/Foley Pulse Ox Last 24 Hr 98 F-99.0 F 93-101 16-20 143-172/69-81 93-96 Intake and Output 09/29/20 09/29/20 09/29/20 05:59 13:59 21:59 Intake Total 500 300 180 Balance 500 300 180 Intake & Output: Intake & Output 09/29/20 09/29/20 09/29/20 05:59 13:59 21:59 Intake Total 500 300 180 Balance 500 300 180 Intake: IV 50 Rocephin 2 gm In Dextrose 5% in 50 Water 50 ml @ 100 mls/hr IV Q24H ANNIE Rx#:[id number] Oral 500 250 180 Other: Meal Breakfast Dinner Percent of Meal Consumed 75% 100% Feeding Ability Independent Independent Stool Size Moderate Stool Color Brown Stool Consistency Soft # Voids 3 1 # Bowel Movements 1 Exam: General: Alert, Awake, No acute Distress, obese Eyes/N/T: EOMI, Head/Neck: neck supple, CV: RRR, No murmurs, Pulm: Clear b/l, no wheezing/rhonchi/rales Abd: soft, nontender, +BS x4 Ext: PICC right upper extremity, no clubbing/cyanosis, b/l LE edema R>L, right foot in dressings Neuro: Alert, no focal deficits, moves all extremities, Skin: warm/dry OBJ DATA Labs CBC & Chem 7: 09/28/20 07:08 09/28/20 07:08 Labs: Abnormal Lab Results 09/28/20 09/28/20 09/27/20 07:08 07:08 05:31 WBC 11.6 H 12.2 H RBC 2.94 L 3.20 L Hgb 8.2 L 8.7 L Hct 25.8 L 27.3 L RDW 15.4 H 15.2 H Plt Count 639 H 597 H Lymph % (Auto) 14.1 L [place] # (Auto) 1.16 H Absolute Neutrophils 8.92 H Platelet Estimate Increased A RBC Morphology Abnormal A Anisocytosis 1+ A Carbon Dioxide 17 L BUN 60 H Creatinine 4.7 H Uric Acid Alkaline Phosphatase 125 H Lactate Dehydrogenase Albumin 3.0 L Globulin 4.1 H Albumin/Globulin Ratio 0.7 L Triglycerides 09/27/20 05:31 WBC RBC Hgb Hct RDW Plt Count Lymph % (Auto) [place] # (Auto) Absolute Neutrophils Platelet Estimate RBC Morphology Anisocytosis Carbon Dioxide 19 L BUN 64 H Creatinine 5.1 H* Uric Acid 11.0 H Alkaline Phosphatase 131 H Lactate Dehydrogenase 282 H Albumin 2.8 L Globulin 3.9 H Albumin/Globulin Ratio 0.7 L Triglycerides 256 H Meds: Medications Acetaminophen (Acetaminophen 325 Mg Tablet) 650 mg PO Q6HP PRN PRN Reason: PAIN/FEVER > 101 Last Admin: 09/23/20 10:05 Dose: 650 mg Documented by: Hydrocodone Bitart/Acetaminophen (Hydrocodone/Apap 5/325mg Tablet) 1 tab PO Q4HP PRN PRN Reason: PAIN LEVEL 3-6 Last Admin: 09/29/20 17:37 Dose: 1 tab Documented by: Albuterol/Ipratropium (Ipratropium/Albuterol 3 Ml Ampul.Neb) 3 ml NEB Q4HP PRN PRN Reason: Shortness Of Breath Amlodipine Besylate (Amlodipine 10 Mg Tablet) 10 mg PO DAILY [facility] Last Admin: 09/29/20 09:21 Dose: 10 mg Documented by: Dextrose (Dextrose 50% 50 Ml Vial) 0 ml IV UD PRN PRN Reason: Hypoglycemia Diagnostic Test (Pha) (Accu-Chek 1 Each Strip) 1 each FS ACHS [facility] Last Admin: 09/29/20 17:45 Dose: 1 each Documented by: Diphenhydramine HCl (Diphenhydramine 25 Mg Capsule) 25 mg PO HSP PRN PRN Reason: Insomnia Docusate Sodium (Docusate Sodium 100 Mg Capsule) 100 mg PO BID [facility] Last Admin: 09/29/20 09:21 Dose: 100 mg Documented by: Fenofibrate (Fenofibrate 43 Mg Capsule) 129 mg PO DAILY [facility] Last Admin: 09/29/20 09:21 Dose: 129 mg Documented by: Glucose (Dextrose 31 Gm Oral.Susp) 15 gm PO PRN PRN PRN Reason: Hypoglycemia Heparin Sodium (Porcine) (Heparin 5,000 Unit/Ml Vial) 5,000 unit SQ Q12 [facility] Last Admin: 09/29/20 09:25 Dose: 5,000 unit Documented by: Heparin Sodium (Porcine) (Heparin Flush 10 Units/Ml 5 Ml Syringe) 2 ml IV Q12 [facility] Hydralazine HCl (Hydralazine 20 Mg/Ml Vial) 0 mg IV Q2HP PRN PRN Reason: Hypertension Last Admin: 09/29/20 09:25 Dose: 20 mg Documented by: Hydromorphone HCl (Hydromorphone 0.5 Mg/0.5 Ml Syringe) 0.5 mg IV Q4HP PRN; Protocol PRN Reason: Per Pain Protocol Last Admin: 09/28/20 10:59 Dose: 0.5 mg Documented by: Potassium Chloride 40 meq/ (Dextrose) 520 mls @ 130 mls/hr IV UD PRN PRN Reason: Potassium < 3 Magnesium Sulfate (Magnesium Sulfate) 2 gm in 50 mls @ 50 mls/hr IV UD PRN PRN Reason: Magnesium </= 1.6 Ceftriaxone Sodium 2 gm/ (Dextrose) 50 mls @ 100 mls/hr IV Q24H [facility]; Protocol Last Infusion: 09/29/20 10:05 Dose: Infused Documented by: Insulin Glargine (Insulin Glargine, Human 1 Unit/0.01 Ml) 15 unit SQ DAILY [facility] Last Admin: 09/29/20 09:23 Dose: 15 units Documented by: Insulin Human Lispro (Insulin Lispro 1 Unit/0.01 Ml Unit) 0 unit SQ ACHS [facility]; Protocol Last Admin: 09/29/20 17:53 Dose: 6 unit Documented by: Labetalol HCl (Labetalol 5 Mg/Ml Ml) 0 mg IV Q2HP PRN PRN Reason: Hypertension Last Admin: 09/25/20 04:27 Dose: 10 mg Documented by: Melatonin (Melatonin 3 Mg Tablet) 3 mg PO QHS [facility] Last Admin: 09/28/20 20:59 Dose: Not Given Documented by: Metoclopramide HCl (Metoclopramide 10 Mg/2 Ml Vial) 10 mg IV Q6HP PRN PRN Reason: Nausea And Vomiting Last Admin: 09/23/20 04:40 Dose: 10 mg Documented by: Ondansetron HCl (Ondansetron 4 Mg/2 Ml Vial) 4 mg IV Q4HP PRN PRN Reason: Nausea And Vomiting Last Admin: 09/23/20 03:48 Dose: 4 mg Documented by: Oxycodone/Acetaminophen (Oxycodone/Apap 5/325mg Tablet) 1 tab PO Q8H PRN; Protocol PRN Reason: pain Last Admin: 09/29/20 14:24 Dose: 1 tab Documented by: Pantoprazole Sodium (Pantoprazole 40 Mg Tablet) 40 mg PO QAMAC [facility] Last Admin: 09/29/20 06:54 Dose: 40 mg Documented by: Insulin Degludec 200 Unit/Ml (3 Ml) Insulin Pen 118 dose SUB-Q QHS [facility] Last Admin: 09/28/20 20:58 Dose: 118 dose Documented by: Polyethylene Glycol (Polyethylene Glycol 3350 17 Gm Packet) 17 gm PO DAILYP PRN PRN Reason: Constipation Potassium Chloride (Potassium Chloride 20 Meq Tablet) 40 meq PO UD PRN PRN Reason: Potssium is 3-3.5 Last Admin: 09/22/20 21:21 Dose: 40 meq Documented by: Potassium Chloride (Potassium Chloride 20 Meq Tablet) 40 meq PO UD PRN PRN Reason: Potassium < 3 Senna (Sennosides 1 Tablet) 2 tab PO DAILYP PRN PRN Reason: Constipation Last Admin: 09/27/20 20:45 Dose: 2 tab Documented by: Sodium Bicarbonate (Sodium Bicarbonate 650 Mg Tablet) 650 mg PO TID [facility] Last Admin: 09/29/20 17:40 Dose: Not Given Documented by: Sodium Chloride (0.9 % Sodium Chloride 10 Ml Syringe) 10 ml IV Q8 [facility] Last Admin: 09/29/20 17:55 Dose: 10 ml Documented by: Sodium Chloride (0.9 % Sodium Chloride 10 Ml Syringe) 10 ml IV UD PRN PRN Reason: FLUSH Sodium Chloride (0.9 % Sodium Chloride 10 Ml Syringe) 10 ml IV Q12 [facility] A/P Narrative A/P Narrative: Assessment: #RLE/foot cellulitis (has hardware in place from previous ankle Fx): s/p I&D w/hardware removal (09/24) -afebrile o/n, leukocytosis resolved #Bacteremia(Pasteurella multocida - pt has pets in house): #SIRS: #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 -Dr. Souvenir following peripherally. -Ceftriaxone 2 gn IV daily -hold home ARB for brent, cont norvasc -basal and SSI -wound care -ppx: heparin -code status: full -disposition: Home with PICC and Ceftriaxone IV to complete 6 weeks of antibiotic. Follow up with ID, podiatry, and nephrology. Outpatient wound care. Time Spent With Patient Time: Total time spent is greater than 50% in coordination of care (as documented) at patient's floor/unit and/or counseling patient: QUALITY VTE Deep Vein Thrombosis/Pulmonary Embolism Present on Admission: No
--- NOTE | 2020-09-29 19:50 | XRay Report ---
HISTORY: PICC line insertion FINDINGS: A PICC line has been inserted into the superior vena cava via the left arm. There is no pneumothorax or pleural effusion. Lung volumes are relatively small due to suboptimal inspiration. The heart size is normal. IMPRESSION: Normal chest following PICC line insertion. Nursing was called with the results Interpreted and Authenticated by: Jacobo Hinojosa 09/29/20
[2020-09-29] MEDS: INSULIN DEGLUDEC 200 UNIT/ML SUB-Q SCH (22:18)
[2020-09-29] MEDS: INSULIN SUB-Q SCH (22:18)
[2020-09-29] MEDS: MELATONIN 3 MG TABLET PO SCH (22:20)
[2020-09-30] MEDS: oxyCODONE/APAP 5/325MG TABLET PO PRN ×2 (02:05→08:15)
[2020-09-30] MEDS: 0.9 % SODIUM CHLORIDE 10 ML SYRINGE IV SCH ×2 (05:20→08:05)
[2020-09-30 06:42] LABS: Basophils # (Auto) 0.06 K/mcL (0.00-0.20); Basophils % (Auto) 0.7 % (0.0-2.0); Eosinophils # (Auto) 0.22 K/mcL (0.00-0.70); Eosinophils % (Auto) 2.4 % (0.0-7.0); Hematocrit 23.4 % (41.0-55.0); Hemoglobin 7.3 g/dL (13.5-16.5); Lymphocytes % (Auto) 11.1 % (15.0-49.0); Mean Cell Volume 88.3 fL (80.0-100.0); Mean Corpuscular HGB Conc 31.2 g/dL (31.0-36.0); Mean Platelet Volume 9.4 fL (7.4-10.4); Monocytes # (Auto) 0.87 K/mcL (0.10-0.90); Monocytes % (Auto) 9.7 % (1.0-12.0); Neutrophils % (Auto) 76.1 % (38.0-78.0); Platelet Count 543 K/mcL (140-440); RBC 2.65 M/mcL (4.50-5.90); Red Cell Distribution Width 15.5 % (11.5-14.5)
--- NOTE | 2020-09-30 06:53 | Internal Med Progress Note ---
SUBJECTIVE Subjective Patient information: Note initiated : 09/30/20 at 6:47 am Service Date, if different from initiated Date: [] Patient: Chaitanya Duvall 45 y/o M admitted on 09/22/20 for Recheck for positive blood cultures. Chief Complaint: [c/o knee pain; no ankle pain] Chaitanya is a 45-year-old man who is currently day 10 of antibiotics postop day 6 right septic ankle with hardware removal. Pasteurella on blood culture and ankle culture. He is currently on Rocephin 2 g daily. He denies right ankle pain. He does report right knee pain still. No fevers chills rash or diarrhea. He has a new left PICC line in place. Ultrasound of the right knee on Wednesday showed no fluid. Discharge planning today. He is not aware if he is able to do the IV antibiotic at home or if it will be daily outpatient treatment. Constitutional Vitals: Vital Signs Temp Pulse Resp BP Pulse Ox 98.7 F 90 20 162/80 95 09/30/20 03:32 09/30/20 03:32 09/30/20 03:32 09/30/20 03:32 09/30/20 03:32 Period Temp Pulse Resp BP Sys/Foley Pulse Ox Last 24 Hr 98 F-99.0 F 90-101 16-20 143-172/67-81 93-96 Intake and Output 09/29/20 09/30/20 09/30/20 21:59 05:59 13:59 Intake Total 180 800 Balance 180 800 Weight 183.387 kg Intake & Output: Intake & Output 09/29/20 09/30/20 09/30/20 21:59 05:59 13:59 Intake Total 180 800 Balance 180 800 Weight 183.387 kg Intake: Oral 180 800 Other: Meal Dinner Percent of Meal Consumed 100% Feeding Ability Independent # Voids 6 General: He is laying on his left side. No acute distress. Skin without rash. Extremities: Right knee without redness. Left upper extremity PICC line in place. I did not remove his walking boot. OBJ DATA Labs CBC & Chem 7: 09/30/20 05:09 09/28/20 07:08 Labs: Abnormal Lab Results 09/30/20 09/28/20 09/28/20 05:09 07:08 07:08 WBC 11.6 H RBC 2.65 L 2.94 L Hgb 7.3 L 8.2 L Hct 23.4 L 25.8 L RDW 15.5 H 15.4 H Plt Count 543 H 639 H Lymph % (Auto) 11.1 L Lymph # (Auto) 1.00 L Bacon # (Auto) Absolute Neutrophils Platelet Estimate Increased A RBC Morphology Abnormal A Anisocytosis 1+ A Carbon Dioxide 17 L BUN 60 H Creatinine 4.7 H Uric Acid Alkaline Phosphatase 125 H Lactate Dehydrogenase Albumin 3.0 L Globulin 4.1 H Albumin/Globulin Ratio 0.7 L Triglycerides 09/27/20 09/27/20 05:31 05:31 WBC 12.2 H RBC 3.20 L Hgb 8.7 L Hct 27.3 L RDW 15.2 H Plt Count 597 H Lymph % (Auto) 14.1 L Lymph # (Auto) Bacon # (Auto) 1.16 H Absolute Neutrophils 8.92 H Platelet Estimate RBC Morphology Anisocytosis Carbon Dioxide 19 L BUN 64 H Creatinine 5.1 H* Uric Acid 11.0 H Alkaline Phosphatase 131 H Lactate Dehydrogenase 282 H Albumin 2.8 L Globulin 3.9 H Albumin/Globulin Ratio 0.7 L Triglycerides 256 H Meds: Medications Acetaminophen (Acetaminophen 325 Mg Tablet) 650 mg PO Q6HP PRN PRN Reason: PAIN/FEVER > 101 Last Admin: 09/23/20 10:05 Dose: 650 mg Documented by: Hydrocodone Bitart/Acetaminophen (Hydrocodone/Apap 5/325mg Tablet) 1 tab PO Q4HP PRN PRN Reason: PAIN LEVEL 3-6 Last Admin: 09/29/20 17:37 Dose: 1 tab Documented by: Albuterol/Ipratropium (Ipratropium/Albuterol 3 Ml Ampul.Neb) 3 ml NEB Q4HP PRN PRN Reason: Shortness Of Breath Amlodipine Besylate (Amlodipine 10 Mg Tablet) 10 mg PO DAILY [facility] Last Admin: 09/29/20 09:21 Dose: 10 mg Documented by: Dextrose (Dextrose 50% 50 Ml Vial) 0 ml IV UD PRN PRN Reason: Hypoglycemia Diagnostic Test (Pha) (Accu-Chek 1 Each Strip) 1 each FS ACHS [facility] Last Admin: 09/29/20 21:00 Dose: 1 each Documented by: Diphenhydramine HCl (Diphenhydramine 25 Mg Capsule) 25 mg PO HSP PRN PRN Reason: Insomnia Docusate Sodium (Docusate Sodium 100 Mg Capsule) 100 mg PO BID [facility] Last Admin: 09/29/20 22:19 Dose: 100 mg Documented by: Fenofibrate (Fenofibrate 43 Mg Capsule) 129 mg PO DAILY [facility] Last Admin: 09/29/20 09:21 Dose: 129 mg Documented by: Glucose (Dextrose 31 Gm Oral.Susp) 15 gm PO PRN PRN PRN Reason: Hypoglycemia Heparin Sodium (Porcine) (Heparin 5,000 Unit/Ml Vial) 5,000 unit SQ Q12 [facility] Last Admin: 09/29/20 22:18 Dose: 5,000 unit Documented by: Heparin Sodium (Porcine) (Heparin Flush 10 Units/Ml 5 Ml Syringe) 2 ml IV Q12 [facility] Last Admin: 09/30/20 06:28 Dose: Not Given Documented by: Hydralazine HCl (Hydralazine 20 Mg/Ml Vial) 0 mg IV Q2HP PRN PRN Reason: Hypertension Last Admin: 09/29/20 09:25 Dose: 20 mg Documented by: Hydromorphone HCl (Hydromorphone 0.5 Mg/0.5 Ml Syringe) 0.5 mg IV Q4HP PRN; Protocol PRN Reason: Per Pain Protocol Last Admin: 09/28/20 10:59 Dose: 0.5 mg Documented by: Potassium Chloride 40 meq/ (Dextrose) 520 mls @ 130 mls/hr IV UD PRN PRN Reason: Potassium < 3 Magnesium Sulfate (Magnesium Sulfate) 2 gm in 50 mls @ 50 mls/hr IV UD PRN PRN Reason: Magnesium </= 1.6 Ceftriaxone Sodium 2 gm/ (Dextrose) 50 mls @ 100 mls/hr IV Q24H [facility]; Protocol Last Infusion: 09/29/20 10:05 Dose: Infused Documented by: Insulin Glargine (Insulin Glargine, Human 1 Unit/0.01 Ml) 15 unit SQ DAILY [facility] Last Admin: 09/29/20 09:23 Dose: 15 units Documented by: Insulin Human Lispro (Insulin Lispro 1 Unit/0.01 Ml Unit) 0 unit SQ ACHS [facility]; Protocol Last Admin: 09/29/20 22:27 Dose: 4 unit Documented by: Labetalol HCl (Labetalol 5 Mg/Ml Ml) 0 mg IV Q2HP PRN PRN Reason: Hypertension Last Admin: 09/25/20 04:27 Dose: 10 mg Documented by: Melatonin (Melatonin 3 Mg Tablet) 3 mg PO QHS [facility] Last Admin: 09/29/20 22:20 Dose: Not Given Documented by: Metoclopramide HCl (Metoclopramide 10 Mg/2 Ml Vial) 10 mg IV Q6HP PRN PRN Reason: Nausea And Vomiting Last Admin: 09/23/20 04:40 Dose: 10 mg Documented by: Ondansetron HCl (Ondansetron 4 Mg/2 Ml Vial) 4 mg IV Q4HP PRN PRN Reason: Nausea And Vomiting Last Admin: 09/23/20 03:48 Dose: 4 mg Documented by: Oxycodone/Acetaminophen (Oxycodone/Apap 5/325mg Tablet) 1 tab PO Q8H PRN; Protocol PRN Reason: pain Last Admin: 09/30/20 02:05 Dose: 1 tab Documented by: Pantoprazole Sodium (Pantoprazole 40 Mg Tablet) 40 mg PO QAMAC [facility] Last Admin: 09/29/20 06:54 Dose: 40 mg Documented by: Insulin Degludec 200 Unit/Ml (3 Ml) Insulin Pen 118 dose SUB-Q QHS [facility] Last Admin: 09/29/20 22:18 Dose: 118 dose Documented by: Polyethylene Glycol (Polyethylene Glycol 3350 17 Gm Packet) 17 gm PO DAILYP PRN PRN Reason: Constipation Potassium Chloride (Potassium Chloride 20 Meq Tablet) 40 meq PO UD PRN PRN Reason: Potssium is 3-3.5 Last Admin: 09/22/20 21:21 Dose: 40 meq Documented by: Potassium Chloride (Potassium Chloride 20 Meq Tablet) 40 meq PO UD PRN PRN Reason: Potassium < 3 Senna (Sennosides 1 Tablet) 2 tab PO DAILYP PRN PRN Reason: Constipation Last Admin: 09/27/20 20:45 Dose: 2 tab Documented by: Sodium Bicarbonate (Sodium Bicarbonate 650 Mg Tablet) 650 mg PO TID [facility] Last Admin: 09/29/20 22:19 Dose: 650 mg Documented by: Sodium Chloride (0.9 % Sodium Chloride 10 Ml Syringe) 10 ml IV Q8 [facility] Last Admin: 09/30/20 05:20 Dose: 10 ml Documented by: Sodium Chloride (0.9 % Sodium Chloride 10 Ml Syringe) 10 ml IV UD PRN PRN Reason: FLUSH Sodium Chloride (0.9 % Sodium Chloride 10 Ml Syringe) 10 ml IV Q12 [facility] Last Admin: 09/29/20 22:21 Dose: Not Given Documented by: Ultrasound right knee no effusion. Creatinine on September 28 4.7. Labs pending today. A/P Assessment and plan (1) Ankle abscess: Status: Acute Comment: Chaitanya is a 45-year old man who is postop day 6 right septic ankle with hardware removal. Pasteurella on both blood cultures and ankle cultures. 6 weeks planned. (2) Acute renal failure with acute tubular necrosis superimposed on stage 2 chronic kidney disease: Status: Acute Comment: Creatinine peaked on September 25-5.9. Creatinine 4.7 on September 28. Labs pending today. (3) Pasteurella infection: Status: Acute Comment: No additional organisms other than Pasteurella identified. (4) Sepsis: Status: Acute Comment: Pasteurella septicemia with acute kidney injury. I will see him in follow-up in 2 weeks. Continue weekly labs for another 5 weeks. He has been transitioned to once daily IV Rocephin 2 g daily. Time Spent With Patient Time: Total time spent is greater than 50% in coordination of care (as documented) at patient's floor/unit and/or counseling patient: QUALITY VTE Deep Vein Thrombosis/Pulmonary Embolism Present on Admission: No
[2020-09-30 07:23] LABS: Albumin 2.7 gm/dL (3.2-5.2); Calcium 9.2 mg/dL (8.6-10.4); Phosphorous 4.6 mg/dL (2.5-4.5)
[2020-09-30] MEDS: SODIUM BICARBONATE 650 MG TABLET PO SCH (08:03)
[2020-09-30] MEDS: INSULIN LISPRO 1 UNIT/0.01 ML UNIT SQ SCH ×2 (08:03→11:30)
[2020-09-30] MEDS: HEPARIN 5,000 UNIT/ML VIAL SQ SCH (08:04)
[2020-09-30] MEDS: DOCUSATE SODIUM 100 MG CAPSULE PO SCH (08:04)
[2020-09-30] MEDS: FENOFIBRATE 43 MG CAPSULE PO SCH (08:04)
[2020-09-30] MEDS: PANTOPRAZOLE 40 MG TABLET PO SCH (08:04)
[2020-09-30] MEDS: amLODIPine 10 MG TABLET PO SCH (08:04)
[2020-09-30] MEDS: INSULIN GLARGINE, HUMAN 1 UNIT/0.01 ML SQ SCH (08:17)
--- NOTE | 2020-09-30 09:01 | Nephrology Progress Note ---
SUBJECTIVE Subjective Patient information: Note initiated : 09/30/20 at 8:58 am Patient: Chaitanya Duvall 45 y/o M admitted on 09/22/20 for Recheck for positive blood cultures. Chief Complaint: Right leg pain. Pertinent ROS: Feels better No urinary symptoms. Constitutional Vitals: Vital Signs Temp Pulse Resp BP Pulse Ox 98.5 F 95 H 20 158/77 97 09/30/20 06:49 09/30/20 06:49 09/30/20 06:49 09/30/20 06:49 09/30/20 06:49 Period Temp Pulse Resp BP Sys/Foley Pulse Ox Last 24 Hr 98 F-99.0 F 90-101 16-20 143-162/67-80 93-97 Intake and Output 09/29/20 09/30/20 09/30/20 21:59 05:59 13:59 Intake Total 180 800 Balance 180 800 Weight 404 lb 4.8 oz Intake & Output: Intake & Output 09/29/20 09/30/20 09/30/20 21:59 05:59 13:59 Intake Total 180 800 Balance 180 800 Weight 404 lb 4.8 oz Intake: Oral 180 800 Other: Meal Dinner Percent of Meal Consumed 100% Feeding Ability Independent # Voids 6 General appearance: cooperative and no acute distress Head Head exam: Present atraumatic and normal inspection Eye Eye exam: Present normal appearance ENT ENT exam: Present mucous membranes moist, normal exam and normal external ear exam Neck Neck exam: Present normal inspection Respiratory Respiratory exam: Present normal respiratory exam Cardiovascular Cardiovascular exam: Present normal rate and rhythm GI/Abdominal GI/Abdominal exam: Present normal bowel sounds Extremities Exam Extremities exam: Present pedal edema Back Exam Back exam: Present normal inspection Neurological Exam Neurological exam: Present alert and oriented X3 Psychiatric Psychiatric exam: Present normal affect and normal mood Skin Skin exam: Present intact and warm A/P Assessment and plan (1) Acute renal failure with acute tubular necrosis superimposed on stage 2 chronic kidney disease: Assessment and plan: Chaitanya Duvall is a 45-year-old male with hypertension, hyperlipidemia, diabetes mellitus type 2, 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 He was initially presented to [facility] ED for right foot and leg tenderness and redness on 09/21/20. He was diagnosed with cellulitis. Blood cultures were obtained. He was started on Bactrim DS and Cephalexin. Serum creatinine was 1.3. Hewas called to come back to ED on 09/22/20 for blood cultures growing gram-negative bacillus. Serum creatinine was 3.2. Nephrology consultation was requested for acute kidney injury. Acute kidney injury, suspected acute tubular necrosis associated with acute infection with antibiotics and NSAID use on chronic kidney disease stage G2/A3 with initial metabolic acidosis and hyponatremia, present on arrival. There is no recent history of IV contrast administration or NSAID use. Intravascular volume depletion is unlikely. Acute infectious (immune complex) glomerulonephritis, acute interstitial nephritis or acute toxic nephropathy due to medications considered. Right ankle incision and drainage with removal of hardware. Previous work up: Urinalysis on 10/16/19: Yellow, Clear, pH 6.0, SG 1.015, protein 100, blood 0.2, leukocyte esterase negative. Urine random microalbumin/creatinine on 06/05/19: 386 mg/g creatinine. CT Abdomen and Pelvis with contrast on 09/08/19: Kidneys are normal. There is no kidney stone or hydronephrosis. There is a small calcified plaque at its origin of the right renal artery. Workup: Urinalysis on 09/23/20: Ching, cloudy, pH 5.0, SG 1.021, protein 30, blood 0.3, leukocyte esterase negative. Renal US on 09/23/20: Bilateral enlargement of the kidneys with diminished urine output. Hypoechoic structure centrally in the left kidney. This is probably a prominent pyramid and less likely a cyst which has developed in one year. Progress: Serum creatinine decreased from 4.7 to 3.6 in the past 48 hours. Baseline serum creatinine: 0.6 to 1.1 (eGFR >60). Urine output: Not reported in the past 24 hours. Metabolic acidosis, improving with Sodium Bicarbonate 650 mg three times daily. Hyponatremia, moderate with mild fluid overload, resolved. No uremic symptoms. Recommendations/Plan: Anticipate no acute hemodialysis need. Monitor with BMP and urine output. Avoid NSAIDs, nephrotoxic medications and IV contrast. Status: Acute Comment: Creatinine peaked on September 25-5.9. Creatinine 4.7 on September 28. Labs pending today. (2) Metabolic acidosis: Status: Acute (3) Hyponatremia: Status: Acute Time Spent With Patient Time: Total time spent is greater than 50% in coordination of care (as documented) at patient's floor/unit and/or counseling patient:
[2020-09-30] MEDS: cefTRIAXone 2 GM in DEXTROSE 5% IN WATER 50 ML IV SCH (09:22)
--- NOTE | 2020-09-30 11:19 | Surgical Pathology Report ---
Histology Microscopic Diagnosis Specimen A- BONE, RIGHT ANKLE, BIOPSY: --- FRAGMENT OF BONE WITH PATCHY PLASMA CELLS, SUGGESTIVE OF CHRONIC OSTEOMYELITIS. (RLF:bmw) Procedural Impression Infected right ankle. Gross Description Received in saline labeled right ankle bone biopsy, are two rose-mendoza fragments of bone 0.5 to 0.6 cm in greatest dimension. Totally submitted in one cassette following decalcification. (K[facility]:sln) Electronically Signed Berna Valencia MD, FCAP Electronically Signed 09/30/2020 11:17
== END 2020-09-30 13:40 | disposition home or self-care (01) | DRG 853 ==
LOC: ED 15:57 → ICU 19:00 → MEDSUR 09-23 18:55
PROVIDERS: ADMIT Internal Medicine; ATTEND Internal Medicine

== ENCOUNTER 2020-10-10 08:47 | Inpatient (IN) ==
--- NOTE | 2020-10-10 09:16 | Emergency Department Note ---
Extremity Problem HPI General Chief complaint: Extremity Problem,Nontraumatic Stated complaint: Right leg infection Time Seen by Provider: 10/10/20 09:01 Source: patient, family, RN notes reviewed and old records reviewed Mode of arrival: wheelchair Limitations: no limitations History of Present Illness HPI Narrative: Narrative: MD Complaint: extremity pain, extremity swelling, joint swelling and joint paint Onset (ago): week(s) Consistency: constant Location: right and lower extremity Quality: aching, dull and constant Radiation: none Improves with: elevation and rest Worsens with: range of motion, weight bearing, walking and palpation Associated symptoms: Reports arthralgias; Denies chest pain, shortness of breath, fever, myalgias and rash Context: recent surgery/procedure Related Data Home Medications Medication Instructions Recorded Confirmed cholecalciferol (vitamin D3) 125 mcg PO QDAY 01/22/20 10/10/20 [Vitamin D3] fluticasone propionate 50 2 spray INTRANASAL QDAY g 05/23/20 10/10/20 mcg/actuation nasal spray,suspension Previous Rx's Medication Instructions Recorded albuterol sulfate 90 mcg/actuation 2 puff INHALATION Q6H PRN #18 g 07/07/19 aerosol inhaler blood-glucose meter #1 each 09/21/19 lancets #200 each 09/21/19 B-D PEN NDL SHRT [id number](08/25) ARLINE See Rx Instructions .ROUTE 03/15/20 .COMPLEX #1500 each flash glucose sensor 1 each MISCELLANEOUS QDAY #10 each 05/24/20 insulin lispro 100 unit/mL See Rx Instructions .ROUTE 05/27/20 subcutaneous pen .COMPLEX #15 ml blood sugar diagnostic #400 ea 06/04/20 fenofibrate 160 mg tablet 160 mg PO QDAY #90 tab 07/04/20 acetaminophen [Tylenol] 650 mg PO Q6HP PRN #30 tab 09/29/20 amlodipine 10 mg PO DAILY #30 tab 09/29/20 ceftriaxone 2 g IV Q24H 35 Days #35 ea 09/29/20 sodium bicarbonate 650 mg PO TID #60 tab 09/29/20 isosorbide mononitrate 30 mg PO QAM #30 tab 09/30/20 oxycodone-acetaminophen [Percocet] 1 tab PO Q4H PRN #14 tab 09/30/20 atenolol 25 mg tablet 25 mg PO QDAY #90 tab 10/08/20 insulin degludec 200 unit/mL (3 118 unit SUB-Q QHS 90 Days #49.5 ml 10/10/20 mL) subcutaneous pen Allergies Allergy/AdvReac Type Severity Reaction Status Date / Time No Known Drug Allergies Allergy Verified 10/10/20 08:48 Review of Systems ROS ROS Narrative: Narrative: All systems ED: reviewed and negative except as stated. PFSH Narrative Patient History Narrative: Narrative: Medical/Surgical/Family History All Active Problems Osteomyelitis of ankle (Acute) Knee pain, acute (Acute) Pasteurella infection (Acute) Ankle abscess (Acute) Hyponatremia (Acute) Metabolic acidosis (Acute) Acute renal failure with acute tubular necrosis superimposed on stage 2 chronic kidney disease (Acute) Fracture of distal end of fibula (Acute) Fever (Acute) Cellulitis (Acute) Hypersomnia (Acute) Fatigue (Acute) Prostatitis (Acute) Prostate abscess (Acute) Sepsis (Acute) Right upper quadrant pain (Acute) Constipation (Acute) Left foot pain (Chronic) Skin lesion (Chronic) Neoplasm of uncertain behavior (Chronic) Seborrheic keratosis (Chronic) Gage angioma (Chronic) Lentigines (Chronic) Charcot's joint of left ankle (Chronic) Charcot's joint of left foot (Chronic) Charcot foot due to diabetes mellitus (Chronic) Uncontrolled type 2 diabetes mellitus with diabetic neuropathy (Chronic) Type 2 diabetes mellitus with hyperglycemia (Chronic) Plantar fasciitis (Chronic) Tobacco dependence (Chronic) Hypercholesteremia (Chronic) Asthma (Chronic) High cholesterol (Chronic ~2016) Type 2 diabetes mellitus (Chronic ~2001) Anemia (Chronic ~2009) Amputation of toe (Chronic) Hypertension, essential (Chronic ~2001) Hyperlipidemia (Chronic) Diabetes (Chronic) Medical History Amputation of toe Anemia (~2009) Asthma Charcot foot due to diabetes mellitus Charcot's joint of left ankle Charcot's joint of left foot Gage angioma Diabetes High cholesterol (~2016) Hypercholesteremia Hyperlipidemia Hypertension, essential (~2001) Left foot pain Lentigines Neoplasm of uncertain behavior Plantar fasciitis Seborrheic keratosis Skin lesion Tobacco dependence Type 2 diabetes mellitus (~2001) Type 2 diabetes mellitus with hyperglycemia Uncontrolled type 2 diabetes mellitus with diabetic neuropathy Surgical History History of amputation of right great toe (~2018) History of amputation of toe Right baby History of shoulder surgery Rotator cuff; Right in 2007 and Left in 2008 Family History Grandmother Breast cancer Paternal Mother High blood pressure Cancer Melanoma Family/Other Diabetes Coronary artery disease Social History Smoking Status: Never smoker Alcohol Intake Frequency: does not drink Substance Use: does not use Exam Narrative Narrative: Narrative: General Limitations: no limitations General appearance: Present alert and in no apparent distress Head Head: Present atraumatic, normocephalic and normal inspection Eye Eye: Present normal appearance, PERRL and EOMI; Absent scleral icterus and conj unctival injection ENT ENT: Present normal exam, normal oropharynx and mucous membranes moist Neck Neck: Present normal inspection and trachea midline; Absent lymphadenopathy and thyromegaly Chest Chest: Present normal inspection and symmetric chest wall rise Respiratory Respiratory: Present normal lung sounds bilaterally; Absent respiratory distress, wheezes, stridor, accessory muscle use and prolonged expiratory phase Cardiovascular Cardiovascular: Present regular rate and normal rhythm; Absent systolic murmur and diastolic murmur Adbominal Abdominal: Present soft; Absent distention, tenderness, guarding, rebound, rigidity, organomegaly and mass Extremities Extremities: Present tenderness, pedal edema, pretibial edema, joint swelling and other (Postop from a right ankle abscess.); Absent normal inspection, full ROM, normal capillary refill and calf tenderness Back Back: Present normal inspection; Absent CVA tenderness (R), CVA tenderness (L) and spinous process tenderness Neurological Neurological: Present alert and oriented X3; Absent motor sensory deficit Psychiatric Psychiatric: Present normal affect and normal mood Skin Skin: Present dry Course Vital Signs Vital signs: Vital Signs Temperature 98.2 F 10/10/20 08:48 Pulse Rate 82 10/10/20 08:48 Respiratory Rate 16 10/10/20 08:48 Blood Pressure 162/81 10/10/20 08:48 Pulse Oximetry (%) 97 10/10/20 08:48 Temperature 99.5 F H 10/11/20 03:57 Pulse Rate 81 10/11/20 03:57 Respiratory Rate 20 10/11/20 03:57 Blood Pressure 150/75 10/11/20 03:57 Pulse Oximetry (%) 93 10/11/20 03:57 MDM MDM Narrative Medical decision making narrative: Narrative: 45-year-old male status post open reduction internal fixation and abscess of right lower extremity. Hardware was removed but continues with increased swelling erythema and Dr. Alvarado was worried about osteomyelitis. White count is normal but CRP is elevated and CT scan shows osteomyelitis and cellulitis of the lower extremity. Discussed care with Dr. Alvarado who recommends patient be admitted for IV antibiotics and surgical exploration. Differential Diagnosis Differential Diagnosis: Cellulitis, osteomyelitis, pathologic fracture, retained foreign body, Medical Records Medical records reviewed: Yes I reviewed the patient's medical records. Lab Data Lab results reviewed: Yes I reviewed the patient's lab results. Result diagrams: 10/10/20 09:33 10/10/20 09:33 Labs: Lab Results 10/10/20 10/10/20 10/10/20 Range/Units 09:33 09:33 11:45 WBC 8.3 (4.5-11.0) K/mcL RBC 2.61 L (4.50-5.90) M/mcL Hgb 7.1 L (13.5-16.5) g/dL Hct 23.1 L (41.0-55.0) % MCV 88.5 (80.0-100.0) fL MCH 27.2 (26.0-34.0) pg MCHC 30.7 L (31.0-36.0) g/dL RDW 14.1 (11.5-14.5) % Plt Count 410 (140-440) K/mcL MPV 9.8 (7.4-10.4) fL Neut % (Auto) 69.2 (38.0-78.0) % Lymph % (Auto) 17.1 (15.0-49.0) % [place] % (Auto) 10.5 (1.0-12.0) % Eos % (Auto) 2.0 (0.0-7.0) % Baso % (Auto) 1.2 (0.0-2.0) % Lymph # (Auto) 1.42 L (1.50-4.80) K/mcL [place] # (Auto) 0.87 (0.10-0.90) K/mcL Eos # (Auto) 0.17 (0.00-0.70) K/mcL Baso # (Auto) 0.10 (0.00-0.20) K/mcL Absolute Neutrophils 5.76 (1.80-8.00) K/mcL VBG Lactic Acid 0.9 (0.5-2.0) mmol/L Sodium 138 (133-145) mmol/L Potassium 4.5 (3.3-5.1) mmol/L Chloride 103 (96-108) mmol/L Carbon Dioxide 24 (22-30) mmol/L Anion Gap 11.0 (8.0-16.0) BUN 19 (6-20) mg/dL Creatinine 1.6 H (0.7-1.2) mg/dL POC Creatinine 1.9 H (0.6-1.2) mg/dL GFR Calculation 51 Glucose 85 (70-105) mg/dL Calcium 9.3 (8.6-10.4) mg/dL Total Bilirubin < 0.2 (0.1-1.0) mg/dL AST 19 (<40) U/L ALT 16 (<40) U/L Alkaline Phosphatase 128 H (39-117) U/L C-Reactive Protein 7.10 H (0.03-0.80) mg/dL Total Protein 7.4 (5.9-8.4) gm/dL Albumin 3.1 L (3.2-5.2) gm/dL Globulin 4.3 H (2.2-3.7) gm/dL Albumin/Globulin Ratio 0.7 L (1.0-2.3) ED POC Tests ED POC Tests: ROMI - SARS Antigen Negative Radiology Data Radiology results reviewed: Yes I reviewed the patient's radiology results. Radiology results narrative: RLE CT IMPRESSION: Since exam two weeks prior lateral plate and screws been removed. Old oblique fracture of the distal fibular diaphysis is subtotally unified in anatomic alignment. Oblique 23 mm erosion in the lateral tibial plafond communicating with the ankle mortise which show slight increase in size. A new 17 mm osseous erosion of the posterior lateral fibula has developed. Both sulci could represent osteomyelitis or osteonecrosis. Moderate heterotopic ossification in the interosseous membrane of distal tibia fibula in the the anterior posterior distal tibiofibular region Extensive cellulitis throughout the calf show slight worsening. Equivocal fasciitis known the anterior posterior compartment no evidence of soft tissue abscess. 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 EKG shows normal: sinus rhythm Rate: normal (7) Rhythm: NSR Taylor/QRS: normal Heart block present: None ST segment elevation in: None ST segment depression in: None Q waves: None T wave inversions noted in: None Hyperacute T waves: None QTc: normal QRS morphology: Present normal Interpretation: normal EKG Pulse Oximetry Data Pulse Ox %: 95 Interpretation: 95% on room air and within normal limits. Discharge Plan Patient/Caregiver Discharge Instructions Pt seen by FIELD SALES SPECIALIST/PA only: No Clinical Impression: Osteomyelitis of ankle Patient Disposition: Xfer As Inpt ([facility]) Discharge Date/Time: 10/10/20 13:10
[2020-10-10 09:40] LABS: POC Creatinine 1.9 mg/dL (0.6-1.2)
[2020-10-10 10:04] LABS: Basophils % (Auto) 1.2 % (0.0-2.0); Eosinophils # (Auto) 0.17 K/mcL (0.00-0.70); Hematocrit 23.1 % (41.0-55.0); Hemoglobin 7.1 g/dL (13.5-16.5); Lymphocytes # (Auto) 1.42 K/mcL (1.50-4.80); Lymphocytes % (Auto) 17.1 % (15.0-49.0); Mean Cell Volume 88.5 fL (80.0-100.0); Mean Corpuscular HGB Conc 30.7 g/dL (31.0-36.0); Mean Platelet Volume 9.8 fL (7.4-10.4); Monocytes # (Auto) 0.87 K/mcL (0.10-0.90); Monocytes % (Auto) 10.5 % (1.0-12.0); Neutrophils % (Auto) 69.2 % (38.0-78.0); Platelet Count 410 K/mcL (140-440); RBC 2.61 M/mcL (4.50-5.90); Red Cell Distribution Width 14.1 % (11.5-14.5); WBC 8.3 K/mcL (4.5-11.0)
[2020-10-10 10:30] LABS: ALT/SGPT 16 U/L (<40); AST/SGOT 19 U/L (<40); Albumin 3.1 gm/dL (3.2-5.2); Albumin/Globulin Ratio 0.7 (1.0-2.3); Alkaline Phosphatase 128 U/L (39-117); Bilirubin,Total < 0.2 mg/dL (0.1-1.0); Blood Urea Nitrogen 19 mg/dL (6-20); Calcium 9.3 mg/dL (8.6-10.4); Carbon Dioxide 24 mmol/L (22-30); Chloride 103 mmol/L (96-108); Globulin 4.3 gm/dL (2.2-3.7); Glomerular Filtration Rate 51; Glucose 85 mg/dL (70-105)
--- NOTE | 2020-10-10 10:52 | Cat Scan Report ---
CLINICAL INFORMATION: infection COMPARISON: CT. two weeks prior 09/23/2020 TECHNIQUE: 0.625 mm helical slices were obtained from the femoral condyle through the entire calf foot and ankle. Following reconstruction, 2.5 mm sagittal coronal and axial reformatted images were processed and reviewed at bone and soft tissue windows FINDINGS: Extensive cellulitis throughout the subcutaneous fat of the entire calf ankle and foot shows modest progression. There is also mild myositis within the anterior and posterior compartment of the calf, but no evidence of soft tissue abscess. Since the exam two weeks, a lateral plate and screws is been removed from the distal fibula. Old oblique fracture is subtotally unified in anatomic alignment. A 23 mm irregular erosive lesion in the lateral tibial plafond communicates with the ankle mortise is unchanged.. A 17 mm erosion the posterior lateral malleolus is new from prior exam. Moderate ossification in the distal interosseous membrane and in the anterior tibiofibular region seen - as before. First and fifth ray amputation changes at the proximal phalangeal base regions is seen as a 4 - typical postoperative appearance. There is moderate osteoarthritis of the second and third MT joints as previously seen. IMPRESSION: Since exam two weeks prior lateral plate and screws been removed. Old oblique fracture of the distal fibular diaphysis is subtotally unified in anatomic alignment. Oblique 23 mm erosion in the lateral tibial plafond communicating with the ankle mortise which show slight increase in size. A new 17 mm osseous erosion of the posterior lateral fibula has developed. Both sulci could represent osteomyelitis or osteonecrosis. Moderate heterotopic ossification in the interosseous membrane of distal tibia fibula in the the anterior posterior distal tibiofibular region Extensive cellulitis throughout the calf show slight worsening. Equivocal fasciitis known the anterior posterior compartment no evidence of soft tissue abscess. 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
[2020-10-10] MEDS ORDERED: cefTRIAXone 1 GM VIAL IV ONE ×2 (11:16→13:00)
[2020-10-10] MEDS ORDERED: VANCOMYCIN 1,000 MG in 0.9 % SODIUM CHLORIDE 250 ML IV ONE (11:16)
--- NOTE | 2020-10-10 11:44 | XRay Report ---
CLINICAL INFORMATION: Pre op COMPARISON: 09/29/2020 FINDINGS: Cardiac mediastinal silhouette is accentuated by portable techniques, suboptimal inspiratory result, lordotic positioning and right rotation. Pulmonary vessels are normal. Lungs are clear. No effusions. IMPRESSION: Negative Interpreted and Authenticated by: Chaitanya Dorado 10/10/20
[2020-10-10] MEDS ORDERED: VANCOMYCIN 1,500 MG in 0.9 % SODIUM CHLORIDE 500 ML IV ONE (12:00)
--- NOTE | 2020-10-10 12:35 | Internal Med History&Physical ---
HPI History of Present Illness Patient information: Note initiated : 10/10/20 at 12:34 pm Service Date, if different from initiated Date: Patient: Chaitanya Duvall 45 y/o M admitted on for Right leg infection. Chief Complaint: Worsening right lower extremity swelling pain and redness History of present illness: Mr. Duvall is a 45 year old pleasant male with morbid obesity BMI 49, diabetes mellitus who was recently discharged from our hospital after prolonged stay from 09/22/2020 through 09/30/2020 came back to emergency room from home with worsening right lower extremity pain swelling and redness. Patient was diagnosed with right lower extremity cellulitis with abscess and infection of hardware. did I&D with removal of hardware of the right ankle on 09/22. Hib blood Cx and Ankle Cx grew Pasteurella . PICC line placed and pt dc home with Rocephin 2 g daily. Patient was doing well at home however right leg got more tender swollen and red. Patient came to emergency room. Dr. Alvarado recommended admission and possible further I&D of the right lower extremity in OR. During last admission patient developed acute kidney injury and his creatinine peaked at 5.6. Currently his creatinine is 1.6. Pt denies fever, chills, N/V, Abdominal pain, diarrhea. Review of Systems All systems: reviewed and no additional remarkable complaints except as stated PFSH PFSH All Active Problems Osteomyelitis of ankle (Acute) Knee pain, acute (Acute) Pasteurella infection (Acute) Ankle abscess (Acute) Hyponatremia (Acute) Metabolic acidosis (Acute) Acute renal failure with acute tubular necrosis superimposed on stage 2 chronic kidney disease (Acute) Fracture of distal end of fibula (Acute) Fever (Acute) Cellulitis (Acute) Hypersomnia (Acute) Fatigue (Acute) Prostatitis (Acute) Prostate abscess (Acute) Sepsis (Acute) Right upper quadrant pain (Acute) Constipation (Acute) Left foot pain (Chronic) Skin lesion (Chronic) Neoplasm of uncertain behavior (Chronic) Seborrheic keratosis (Chronic) Gage angioma (Chronic) Lentigines (Chronic) Charcot's joint of left ankle (Chronic) Charcot's joint of left foot (Chronic) Charcot foot due to diabetes mellitus (Chronic) Uncontrolled type 2 diabetes mellitus with diabetic neuropathy (Chronic) Type 2 diabetes mellitus with hyperglycemia (Chronic) Plantar fasciitis (Chronic) Tobacco dependence (Chronic) Hypercholesteremia (Chronic) Asthma (Chronic) High cholesterol (Chronic ~2016) Type 2 diabetes mellitus (Chronic ~2001) Anemia (Chronic ~2009) Amputation of toe (Chronic) Hypertension, essential (Chronic ~2001) Hyperlipidemia (Chronic) Diabetes (Chronic) Medical History Amputation of toe Anemia (~2009) Asthma Charcot foot due to diabetes mellitus Charcot's joint of left ankle Charcot's joint of left foot Gage angioma Diabetes High cholesterol (~2016) Hypercholesteremia Hyperlipidemia Hypertension, essential (~2001) Left foot pain Lentigines Neoplasm of uncertain behavior Plantar fasciitis Seborrheic keratosis Skin lesion Tobacco dependence Type 2 diabetes mellitus (~2001) Type 2 diabetes mellitus with hyperglycemia Uncontrolled type 2 diabetes mellitus with diabetic neuropathy Surgical History History of amputation of right great toe (~2017) History of amputation of toe Right baby History of shoulder surgery Rotator cuff; Right in 2007 and Left in 2008 Family History Grandmother Breast cancer Paternal Mother High blood pressure Cancer Melanoma Family/Other Diabetes Coronary artery disease Social History marital status: 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 Disabled since. smoking status: Never smoker alcohol intake frequency: does not drink substance use type: does not use MEDS/ALLERGIES Home Medications and Allergies Home Medications Medication Instructions Recorded Confirmed Type albuterol sulfate 90 mcg/actuation 2 puff INHALATION Q6H PRN #18 g 07/07/19 10/10/20 Rx aerosol inhaler blood-glucose meter #1 each 09/21/19 10/10/20 Rx lancets #200 each 09/21/19 10/10/20 Rx cholecalciferol (vitamin D3) 125 mcg PO QDAY 01/22/20 10/10/20 History [Vitamin D3] B-D PEN NDL SHRT [id number](08/25) ARLINE See Rx Instructions .ROUTE 03/15/20 10/10/20 Rx .COMPLEX #1500 each fluticasone propionate 50 2 spray INTRANASAL QDAY g 05/23/20 10/10/20 History mcg/actuation nasal spray,suspension flash glucose sensor 1 each MISCELLANEOUS QDAY #10 each 05/24/20 10/10/20 Rx insulin lispro 100 unit/mL See Rx Instructions .ROUTE 05/27/20 10/10/20 Rx subcutaneous pen .COMPLEX #15 ml blood sugar diagnostic #400 ea 06/04/20 10/10/20 Rx fenofibrate 160 mg tablet 160 mg PO QDAY #90 tab 07/04/20 10/10/20 Rx acetaminophen [Tylenol] 650 mg PO Q6HP PRN #30 tab 09/29/20 10/10/20 Rx amlodipine 10 mg PO DAILY #30 tab 09/29/20 10/10/20 Rx ceftriaxone 2 g IV Q24H 35 Days #35 ea 09/29/20 10/10/20 Rx sodium bicarbonate 650 mg PO TID #60 tab 09/29/20 10/10/20 Rx isosorbide mononitrate 30 mg PO QAM #30 tab 09/30/20 10/10/20 Rx oxycodone-acetaminophen [Percocet] 1 tab PO Q4H PRN #14 tab 09/30/20 10/10/20 Rx atenolol 25 mg tablet 25 mg PO QDAY #90 tab 10/08/20 10/10/20 Rx insulin degludec 200 unit/mL (3 118 unit SUB-Q QHS 90 Days #49.5 ml 10/10/20 10/10/20 Rx mL) subcutaneous pen Allergies Allergy/AdvReac Type Severity Reaction Status Date / Time No Known Drug Allergies Allergy Verified 10/10/20 08:48 EXAM Constitutional Vitals: Temp Pulse Resp BP Pulse Ox 98.2 F 73 16 148/78 95 10/10/20 08:48 10/10/20 11:01 10/10/20 08:48 10/10/20 11:03 10/10/20 11:01 General appearance: cooperative, morbidly obese (Pleasant male in no distress. He talks full sentences) and no acute distress Head Head exam: Present atraumatic, normal inspection and normocephalic Eye Eye exam: Present EOMI, normal appearance and PERRL Neck Neck exam: Present full ROM and normal inspection Respiratory Respiratory exam: Present normal respiratory exam and CTAB Cardiovascular Cardiovascular exam: Present normal rate and rhythm, +S1 and +S2; Absent diastolic murmur and systolic murmur GI/Abdominal GI/Abdominal exam: Present normal bowel sounds and soft; Absent hernia, mass, rebound and tenderness Extremities Exam Extremities exam: Present joint swelling Additional comments: Moderate to severe 4+ edema right lower extremity with erythema and increased warmth and tenderness. Surgical wound on the lateral aspect of the right lower extremity with no evidence of drainage, no foul smelling. Sutures in place. Amputated R big toe. Left lower extremity 2+ edema. Back Exam Back exam: Present full ROM Neurological Exam Neurological exam: Present alert, CN II-XII intact, oriented X3 and reflexes normal Psychiatric Psychiatric exam: Present normal affect and normal mood Skin Skin exam: Present dry, normal color and warm DATA Data Completed and Pending Labs: Labs from last 24 hours 10/10/20 10/10/20 10/10/20 11:45 09:33 09:33 WBC 8.3 RBC 2.61 L Hgb 7.1 L Hct 23.1 L MCV 88.5 MCH 27.2 MCHC 30.7 L RDW 14.1 Plt Count 410 MPV 9.8 Neut % (Auto) 69.2 Lymph % (Auto) 17.1 [place] % (Auto) 10.5 Eos % (Auto) 2.0 Baso % (Auto) 1.2 Lymph # (Auto) 1.42 L [place] # (Auto) 0.87 Eos # (Auto) 0.17 Baso # (Auto) 0.10 Absolute Neutrophils 5.76 VBG Lactic Acid Pending Sodium 138 Potassium 4.5 Chloride 103 Carbon Dioxide 24 Anion Gap 11.0 BUN 19 Creatinine 1.6 H POC Creatinine 1.9 H GFR Calculation 51 Glucose 85 Calcium 9.3 Total Bilirubin < 0.2 AST 19 ALT 16 Alkaline Phosphatase 128 H C-Reactive Protein 7.10 H Total Protein 7.4 Albumin 3.1 L Globulin 4.3 H Albumin/Globulin Ratio 0.7 L A/P Narrative A/P Narrative: 45 years old male Morbidly obese BMI 49, DM with RLE cellulitis, Abscess and infected hardware re admitted with worsening LE swelling and Redness. 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 - S/p I&D with removal of hardware of the right ankle on 09/22 by - Blood Cx and Ankle Cx grew Pasteurella . PICC line placed and Plan is 6 weeks of IV Rocephin 2 g daily. - Worsening edema and swelling right lower extremity post discharge - CT LE 10/10 Extensive cellulitis throughout the calf show slight worsening, Equivocal fasciitis known the anterior posterior compartment no evidence of soft tissue abscess. -Per Dr. Alvarado patient needs another I&D and washout , Possible fasciotomy - Continue antibiotic as above, pain control, elevation of right lower extremity. # Pasteurella septicemia - Treat as above. Repeat Bx negative. # DM Uncontrolled. A1c 8.3 -Resume home Lantus and start sliding scale insulin. # CARRIE on previous Admitsion with peaked Cr 5.4 - Cr is 1.6. Cont to monitor closely. Follow BMP. # Normocytic Anemia. - Follow CBC. PRBC if Hb<7 #HTN. Resume home medication # HLP. Resume home medication # Morbid Obesity DVT prophylaxis: Lovenox 30 mg twice daily CODE STATUS: Full Disposition: Inpatient Time Spent With Patient Time: Total time spent is greater than 50% in coordination of care (as documented) at patient's floor/unit and/or counseling patient:
[2020-10-10] MEDS ORDERED: oxyCODONE/APAP 5/325MG TABLET PO PRN (12:39)
[2020-10-10] MEDS ORDERED: ALBUTEROL SULFATE 200 PUFF INHALER INH PRN ×2 (12:39→13:24)
[2020-10-10] MEDS ORDERED: cefTRIAXone 2 GM VIAL IV SCH (12:45)
[2020-10-10] MEDS ORDERED: NON FORMULARY MEDICATION 1 DOSE MISCELL (Insulin Lispro [Humalog Kwikpen Insulin] 100 unit SCH (12:45)
[2020-10-10] MEDS ORDERED: INSULIN LISPRO SCH (13:24)
[2020-10-10] MEDS ORDERED: ONDANSETRON 4 MG/2 ML VIAL IV PRN (13:24)
[2020-10-10] MEDS ORDERED: ACETAMINOPHEN 325 MG TABLET PO PRN (13:24)
[2020-10-10] MEDS ORDERED: ONDANSETRON 4 MG ODT TABLET SL PRN (13:24)
[2020-10-10] MEDS ORDERED: CALCIUM CARBONATE 500 MG TAB.CHEW CHEWED PRN (13:24)
[2020-10-10] MEDS ORDERED: ZOLPIDEM 5 MG TABLET PO PRN (13:24)
[2020-10-10] MEDS: 0.9 % SODIUM CHLORIDE 10 ML SYRINGE IV SCH ×2 (14:02→20:56)
[2020-10-10] MEDS: 0.9 % SODIUM CHLORIDE 1,000 ML IV SCH (14:02)
[2020-10-10] MEDS: SODIUM BICARBONATE 650 MG TABLET PO SCH ×2 (14:18→20:55)
[2020-10-10] MEDS: ENOXAPARIN 30 MG/0.3 ML SYRINGE SQ SCH ×2 (14:18→20:53)
--- NOTE | 2020-10-10 14:55 | EKG ---
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 Measurements Intervals [place] Rate: 75 P: 23 VA: 166 QRS: 11 QRSD: 90 T: 101 QT: 380 QTc: 425 Interpretive Statements Sinus rhythm Nonspecific T abnormalities, lateral leads NO PRIOR TRACING FOR COMPARISON BORDERLINE ECG Electronically Signed On 10-10-2020 14:55:48 PDT by Solo Gates M.D. /store/[email or web address]/[id number]
[2020-10-10] MEDS ORDERED: SODIUM BICARBONATE 650 MG TABLET PO SCH (15:00)
[2020-10-10] MEDS: oxyCODONE/APAP 5/325MG TABLET PO PRN (15:52)
[2020-10-10] MEDS: INSULIN LISPRO 1 UNIT/0.01 ML UNIT SQ SCH ×2 (17:06→20:53)
[2020-10-10] MEDS ORDERED: INSULIN DEGLUDEC 200 UNIT/ML SUB-Q SCH (21:00)
[2020-10-10] MEDS ORDERED: INSULIN SUB-Q SCH (21:00)
[2020-10-10] MEDS ORDERED: [UNRECOGNIZED DRUG - OTHER] SUB-Q SCH (21:00)
[2020-10-11] MEDS: 0.9 % SODIUM CHLORIDE 1,000 ML IV SCH ×2 (00:03→11:07)
[2020-10-11] MEDS: 0.9 % SODIUM CHLORIDE 10 ML SYRINGE IV SCH ×4 (06:36→21:19)
[2020-10-11] MEDS: INSULIN LISPRO 1 UNIT/0.01 ML UNIT SQ SCH ×4 (07:16→21:16)
[2020-10-11 07:19] LABS: Blood Urea Nitrogen 22 mg/dL (6-20); Calcium 8.7 mg/dL (8.6-10.4); Carbon Dioxide 23 mmol/L (22-30); Chloride 106 mmol/L (96-108); Glomerular Filtration Rate 60; Glucose 59 mg/dL (70-105)
[2020-10-11 07:28] LABS: Basophils # (Auto) 0.08 K/mcL (0.00-0.20); Basophils % (Auto) 1.2 % (0.0-2.0); Eosinophils # (Auto) 0.14 K/mcL (0.00-0.70); Eosinophils % (Auto) 2.1 % (0.0-7.0); Hematocrit 21.4 % (41.0-55.0); Hemoglobin 6.4 g/dL (13.5-16.5); Lymphocytes # (Auto) 1.02 K/mcL (1.50-4.80); Mean Cell Volume 90.3 fL (80.0-100.0); Mean Corpuscular HGB Conc 29.9 g/dL (31.0-36.0); Mean Platelet Volume 10.1 fL (7.4-10.4); Monocytes # (Auto) 0.74 K/mcL (0.10-0.90); Monocytes % (Auto) 10.9 % (1.0-12.0); Neutrophils % (Auto) 70.8 % (38.0-78.0); Platelet Count 343 K/mcL (140-440); RBC 2.37 M/mcL (4.50-5.90); Red Cell Distribution Width 14.1 % (11.5-14.5); WBC 6.8 K/mcL (4.5-11.0)
[2020-10-11] MEDS: DEXTROSE 50% 50 ML VIAL IV PRN ×2 (08:17→12:55)
--- NOTE | 2020-10-11 08:47 | Orthopedic Consult Note ---
HPI Data of Consult Consult date: 10/10/20 Primary Care Provider: Narcisa Rodriguez PA-C Consult Narrative Patient Information: Note initiated : 10/11/20 at 8:43 am Service Date, if different from initiated Date: [] Patient: Chaitanya Duvall 45 y/o M admitted on 10/10/20 for Right leg infection. Chief Complaint: [Right leg infection] Patient is a 45-year-old diabetic, obese, chronic kidney disease male with a history of repeated ankle fracture on the right fibula. The ankle hardware was removed recently due to large abscess in the anterior ankle and possible infected hardware. Cultures and biopsy of the time indicate acute osteomyelitis of fibula. Patient is not responding to outpatient antibiotic therapy and is transferred here for additional incision and drainage with debridement and exploration of diseased tissue. cc:: CC: Ge Jimenez [facility], LAT[facility] PFSH All Active Problems Osteomyelitis of ankle (Acute) Knee pain, acute (Acute) Pasteurella infection (Acute) Ankle abscess (Acute) Hyponatremia (Acute) Metabolic acidosis (Acute) Acute renal failure with acute tubular necrosis superimposed on stage 2 chronic kidney disease (Acute) Fracture of distal end of fibula (Acute) Fever (Acute) Cellulitis (Acute) Hypersomnia (Acute) Fatigue (Acute) Prostatitis (Acute) Prostate abscess (Acute) Sepsis (Acute) Right upper quadrant pain (Acute) Constipation (Acute) Left foot pain (Chronic) Skin lesion (Chronic) Neoplasm of uncertain behavior (Chronic) Seborrheic keratosis (Chronic) Gage angioma (Chronic) Lentigines (Chronic) Charcot's joint of left ankle (Chronic) Charcot's joint of left foot (Chronic) Charcot foot due to diabetes mellitus (Chronic) Uncontrolled type 2 diabetes mellitus with diabetic neuropathy (Chronic) Type 2 diabetes mellitus with hyperglycemia (Chronic) Plantar fasciitis (Chronic) Tobacco dependence (Chronic) Hypercholesteremia (Chronic) Asthma (Chronic) High cholesterol (Chronic ~2017) Type 2 diabetes mellitus (Chronic ~2001) Anemia (Chronic ~2009) Amputation of toe (Chronic) Hypertension, essential (Chronic ~2001) Hyperlipidemia (Chronic) Diabetes (Chronic) Medical History Amputation of toe Anemia (~2009) Asthma Charcot foot due to diabetes mellitus Charcot's joint of left ankle Charcot's joint of left foot Gage angioma Diabetes High cholesterol (~2016) Hypercholesteremia Hyperlipidemia Hypertension, essential (~2001) Left foot pain Lentigines Neoplasm of uncertain behavior Plantar fasciitis Seborrheic keratosis Skin lesion Tobacco dependence Type 2 diabetes mellitus (~2001) Type 2 diabetes mellitus with hyperglycemia Uncontrolled type 2 diabetes mellitus with diabetic neuropathy Surgical History History of amputation of right great toe (~2017) History of amputation of toe Right baby History of shoulder surgery Rotator cuff; Right in 2007 and Left in 2008 Family History Grandmother Breast cancer Paternal Mother High blood pressure Cancer Melanoma Family/Other Diabetes Coronary artery disease Social History marital status: 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 smoking status: Never smoker alcohol intake frequency: does not drink substance use type: does not use MEDS/ALLERGIES Home Medications and Allergies Home Medications Medication Instructions Recorded Confirmed Type albuterol sulfate 90 mcg/actuation 2 puff INHALATION Q6H PRN #18 g 07/07/19 10/10/20 Rx aerosol inhaler blood-glucose meter #1 each 09/21/19 10/10/20 Rx lancets #200 each 09/21/19 10/10/20 Rx cholecalciferol (vitamin D3) 125 mcg PO QDAY 01/22/20 10/10/20 History [Vitamin D3] B-D PEN NDL SHRT [id number](08/25) ARLINE See Rx Instructions .ROUTE 03/15/20 10/10/20 Rx .COMPLEX #1500 each fluticasone propionate 50 2 spray INTRANASAL QDAY g 05/23/20 10/10/20 History mcg/actuation nasal spray,suspension flash glucose sensor 1 each MISCELLANEOUS QDAY #10 each 05/24/20 10/10/20 Rx insulin lispro 100 unit/mL See Rx Instructions .ROUTE 05/27/20 10/10/20 Rx subcutaneous pen .COMPLEX #15 ml blood sugar diagnostic #400 ea 06/04/20 10/10/20 Rx fenofibrate 160 mg tablet 160 mg PO QDAY #90 tab 07/04/20 10/10/20 Rx acetaminophen [Tylenol] 650 mg PO Q6HP PRN #30 tab 09/29/20 10/10/20 Rx amlodipine 10 mg PO DAILY #30 tab 09/29/20 10/10/20 Rx ceftriaxone 2 g IV Q24H 35 Days #35 ea 09/29/20 10/10/20 Rx sodium bicarbonate 650 mg PO TID #60 tab 09/29/20 10/10/20 Rx isosorbide mononitrate 30 mg PO QAM #30 tab 09/30/20 10/10/20 Rx oxycodone-acetaminophen [Percocet] 1 tab PO Q4H PRN #14 tab 09/30/20 10/10/20 Rx atenolol 25 mg tablet 25 mg PO QDAY #90 tab 10/08/20 10/10/20 Rx insulin degludec 200 unit/mL (3 118 unit SUB-Q QHS 90 Days #49.5 ml 10/10/20 10/10/20 Rx mL) subcutaneous pen Allergies Allergy/AdvReac Type Severity Reaction Status Date / Time No Known Drug Allergies Allergy Verified 10/10/20 08:48 Physical Examination Ankle & Foot right: Ankle appearance: swelling, erythema and other (Large swollen indurated leg from knee to foot, draining wound with fibrous deposition. Sutures intact from previous procedure.) A/P Time Spent With Patient Time: Heart Inspection: No cardiac heaves or lifts. Symmetrical expansion with respiration, no other wall motions. Palpation: No thrills appreciated. Point of maximal impulse (PMI) (apical impulse) noted at midclavicular line, in fifth intercostal space. Auscultation: Normal S1 and S2, with regular rate and rhythm. S2 > S1 at the base, S1 > S2 at apex. No splitting of the heart sounds heard. No murmur. No S3 or S4, no friction rub. Lungs Lungs are clear to auscultation and percussion bilaterally No crackles heard in the lung bases bilaterally Plan: Incision and drainage with debridement right ankle Continue antibiotic therapy VAC assisted closure post resolution of infection
[2020-10-11] MEDS ORDERED: FENOFIBRATE 43 MG CAPSULE PO SCH (09:00)
[2020-10-11] MEDS ORDERED: VITAMIN D3 5,000 UNIT CAPSULE PO SCH (09:00)
[2020-10-11] MEDS ORDERED: amLODIPine 10 MG TABLET PO SCH (09:00)
[2020-10-11] MEDS ORDERED: ATENOLOL 25 MG TABLET PO SCH (09:00)
[2020-10-11] MEDS ORDERED: BLOOD GLUCOSE METER PO SCH (09:00)
[2020-10-11] MEDS ORDERED: ISOSORBIDE MONONITRATE 30 MG TAB.XL.24H PO SCH (09:00)
[2020-10-11] MEDS ORDERED: FLUTICASONE PROPIONATE SPRAY.NAS NS SCH (09:00)
[2020-10-11] MEDS ORDERED: 0.9 % SODIUM CHLORIDE 250 ML IV SCH ×2 (09:15→10:15)
[2020-10-11] MEDS ORDERED: SCOPOLAMINE 1 PATCH PATCH TOPICAL PRN (09:23)
[2020-10-11] MEDS ORDERED: IPRATROPIUM/ALBUTEROL 3 ML AMPUL.NEB NEB PRN ×2 (09:23→14:02)
[2020-10-11] MEDS: cefTRIAXone 2 GM in DEXTROSE 5% IN WATER 50 ML IV SCH (10:09)
[2020-10-11] MEDS: FENOFIBRATE 43 MG CAPSULE PO SCH (10:11)
[2020-10-11] MEDS: ISOSORBIDE MONONITRATE 30 MG TAB.XL.24H PO SCH (10:12)
[2020-10-11] MEDS: amLODIPine 10 MG TABLET PO SCH (10:12)
[2020-10-11] MEDS: ATENOLOL 25 MG TABLET PO SCH (10:12)
[2020-10-11] MEDS: VITAMIN D3 5,000 UNIT CAPSULE PO SCH (10:13)
[2020-10-11] MEDS: SODIUM BICARBONATE 650 MG TABLET PO SCH ×3 (10:13→21:13)
[2020-10-11] MEDS: FLUTICASONE PROPIONATE SPRAY.NAS NS SCH (10:14)
[2020-10-11] MEDS: ENOXAPARIN 30 MG/0.3 ML SYRINGE SQ SCH ×2 (10:16→21:13)
[2020-10-11] MEDS: DEXTROSE 5%-1/2NS 1,000 ML IV SCH (11:13)
--- NOTE | 2020-10-11 12:31 | Internal Med Progress Note ---
SUBJECTIVE Subjective Patient information: Note initiated : 10/11/20 at 12:16 pm Service Date, if different from initiated Date: Patient: Chaitanya Duvall 45 y/o M admitted on 10/10/20 for Right leg infection. Chief Complaint: Worsening RLE Cellulitis Interval history: Patient is feeling better. His right lower extremity is still severely swollen tender. He is hemodynamically stable. His hemoglobin 6.4 from 7.1. Most likely dilutional. Transfusion of packed RBCs started. No fever chills nausea vomiting dizziness. Going to the OR later today Constitutional Vitals: Vital Signs Temp Pulse Resp BP Pulse Ox 98.5 F 76 20 157/79 96 10/11/20 11:43 10/11/20 11:43 10/11/20 11:43 10/11/20 11:43 10/11/20 11:43 Period Temp Pulse Resp BP Sys/Foley Pulse Ox Last 24 Hr 97.3 F-99.8 F 73-81 14-20 125-176/64-88 93-96 Intake and Output 10/10/20 10/11/20 10/11/20 21:59 05:59 13:59 Intake Total 1640 1000 1050 Output Total 700 425 Balance 1640 300 625 Weight 181.437 kg Intake & Output: Intake & Output 10/10/20 10/11/20 10/11/20 21:59 05:59 13:59 Intake Total 1640 1000 1050 Output Total 700 425 Balance 1640 300 625 Weight 181.437 kg Intake: IV 1000 1050 Sodium Chloride 0.9% 1,000 ml @ 1000 1000 100 mls/hr IV .Q10H ANNIE Rx#: [id number] Rocephin 2 gm In Dextrose 5% in 50 Water 50 ml @ 100 mls/hr IV DAILY ANNIE Rx#:[id number] Oral 1640 Output: Void Amount 700 425 Other: Meal Dinner Percent of Meal Consumed 100% Feeding Ability Independent Urine Appearance Clear Urine Color Bright Yellow Urine Odor Normal Stool Size Moderate Stool Color Brown Stool Consistency Normal for Patient # Voids 1 # Bowel Movements 1 Additional findings Additional findings: General: Awake alert oriented x3. Morbidly obese pleasant male with BMI 49 in no apparent distress HEENT: PERRLA, moist mucous membrane. Anicteric sclera Lungs: Clear to auscultation bilaterally. No crackles rhonchi or rales. Cardiovascular: Regular rate and rhythm. S1 + S2, no murmur gallop rub. No peripheral edema. No JVD GI: Abdomen soft, nontender, positive bowel sounds. No hepatosplenomegaly. No rebound tenderness. No CVA tenderness [employer]: Awake alert oriented x3. Cranial nerves II through XII 12 grossly intact. Extremities exam: Present joint swelling Additional comments: Moderate to severe 4+ edema right lower extremity with erythema and increased warmth and tenderness. Surgical wound on the lateral aspect of the right lower extremity with no evidence of drainage, no foul smelling. Sutures in place. Amputated R big toe. Left lower extremity 2+ edema. Psychiatric: Normal mood and affect OBJ DATA Labs CBC & Chem 7: 10/11/20 05:28 10/11/20 05:28 Labs: Abnormal Lab Results 10/11/20 10/11/20 10/10/20 05:28 05:28 09:33 RBC 2.37 L Hgb 6.4 L* Hct 21.4 L MCHC 29.9 L Lymph # (Auto) 1.02 L BUN 22 H Creatinine 1.4 H 1.6 H POC Creatinine 1.9 H Glucose 59 L Alkaline Phosphatase 128 H C-Reactive Protein 7.10 H Albumin 3.1 L Globulin 4.3 H Albumin/Globulin Ratio 0.7 L 10/10/20 09:33 RBC 2.61 L Hgb 7.1 L Hct 23.1 L MCHC 30.7 L Lymph # (Auto) 1.42 L BUN Creatinine POC Creatinine Glucose Alkaline Phosphatase C-Reactive Protein Albumin Globulin Albumin/Globulin Ratio Meds: Medications Acetaminophen (Acetaminophen 325 Mg Tablet) 650 mg PO Q6HP PRN; Protocol PRN Reason: Per Pain Protocol/Fever > 101 Albuterol Sulfate (Albuterol Sulfate 200 Puff Inhaler) 2 puff INH Q6HP PRN PRN Reason: shortness of breath or wheezing Amlodipine Besylate (Amlodipine 10 Mg Tablet) 10 mg PO DAILY [facility] Last Admin: 10/11/20 10:12 Dose: 10 mg Documented by: Atenolol (Atenolol 25 Mg Tablet) 25 mg PO QDAY [facility] Last Admin: 10/11/20 10:12 Dose: 25 mg Documented by: Calcium Carbonate/Glycine (Calcium Carbonate 500 Mg Tab.Chew) 1,000 mg CHEWED Q4HP PRN PRN Reason: Dyspepsia Dextrose (Dextrose 50% 50 Ml Vial) 25 ml IV PRN PRN PRN Reason: Hypoglycemia Last Admin: 10/11/20 08:17 Dose: 25 ml Documented by: Diagnostic Test (Pha) (Accu-Chek 1 Each Strip) 1 each FS [facility] Last Admin: 10/11/20 09:32 Dose: 1 each Documented by: Enoxaparin Sodium (Enoxaparin 30 Mg/0.3 Ml Syringe) 30 mg SQ BID [facility] Last Admin: 10/11/20 10:16 Dose: Not Given Documented by: Fenofibrate (Fenofibrate 43 Mg Capsule) 129 mg PO DAILY [facility] Last Admin: 10/11/20 10:11 Dose: 129 mg Documented by: Fluticasone Propionate (Fluticasone Propionate [place]) 2 spray NS QDAY [facility] Last Admin: 10/11/20 10:14 Dose: Not Given Documented by: Ceftriaxone Sodium 2 gm/ (Dextrose) 50 mls @ 100 mls/hr IV DAILY [facility] Last Infusion: 10/11/20 10:40 Dose: Infused Documented by: Sodium Chloride (Sodium Chloride 0.9%) 250 mls @ 20 mls/hr IV .[id number] [facility] Stop: 10/11/20 21:44 Sodium Chloride (Sodium Chloride 0.9%) 250 mls @ 20 mls/hr IV .[id number] [facility] Stop: 10/11/20 22:44 Dextrose/Sodium Chloride (Dextrose 5%-1/2ns Iv Solution) 1,000 mls @ 75 mls/hr IV .[id number] [facility] Last Admin: 10/11/20 11:13 Dose: 75 mls/hr Documented by: Insulin Human Lispro (Insulin Lispro 1 Unit/0.01 Ml Unit) 0 unit SQ [facility]; Protocol Last Admin: 10/11/20 07:16 Dose: Not Given Documented by: Isosorbide Mononitrate (Isosorbide Mononitrate 30 Mg Tab.Xl.24h) 30 mg PO QAM [facility] Last Admin: 10/11/20 10:12 Dose: 30 mg Documented by: Ondansetron HCl (Ondansetron 4 Mg/2 Ml Vial) 4 mg IV Q6HP PRN PRN Reason: Nausea And Vomiting Ondansetron HCl (Ondansetron 4 Mg Odt Tablet) 4 mg SL Q6HP PRN PRN Reason: Nausea And Vomiting Oxycodone/Acetaminophen (Oxycodone/Apap 5/325mg Tablet) 1 tab PO Q4H PRN; Prot ocol PRN Reason: pain Last Admin: 10/10/20 15:52 Dose: 1 tab Documented by: Insulin Degludec 200 (Unit/Ml Pen) 118 dose SUB-Q QHS [facility] Last Admin: 10/10/20 20:54 Dose: 118 dose Documented by: Scopolamine (Scopolamine 1 Patch Patch) 1 patch TOPICAL PREOP PRN PRN Reason: Nausea And Vomiting Sodium Bicarbonate (Sodium Bicarbonate 650 Mg Tablet) 650 mg PO TID [facility] Last Admin: 10/11/20 10:13 Dose: Not Given Documented by: Sodium Chloride (0.9 % Sodium Chloride 10 Ml Syringe) 10 ml IV Q8 [facility] Last Admin: 10/11/20 06:36 Dose: Not Given Documented by: Vitamin D (Vitamin D3 5,000 Unit Capsule) 5,000 unit PO DAILY [facility] Last Admin: 10/11/20 10:13 Dose: Not Given Documented by: Zolpidem Tartrate (Zolpidem 5 Mg Tablet) 5 mg PO HSP PRN PRN Reason: Insomnia A/P Narrative A/P Narrative: 45 years old male Morbidly obese BMI 49, DM with RLE cellulitis, Abscess and infected hardware re admitted with worsening LE swelling and Redness. # Righ Ankle septic Arthritis with Right lower extremity cellulitis with absc ess and infection of hardware. #Suspected compartment syndrome (unlikely) - S/p I&D with removal of hardware of the right ankle on 09/22 by - Blood Cx and Ankle Cx grew Pasteurella 09/21/2020. PICC line placed and Plan is 6 weeks of IV Rocephin 2 g daily. - Worsening edema and swelling right lower extremity post discharge - CT LE 10/10 Extensive cellulitis throughout the calf show slight worsening, Equivocal fasciitis known the anterior posterior compartment no evidence of soft tissue abscess. -Per Dr. Alvarado patient needs another I&D and washout , Possible fasciotomy - Continue antibiotic as above, pain control, elevation of right lower extremity. # Pasteurella septicemia - Treat as above. Repeat Bx negative. # Acute on chronic normocytic anemia -Admit hemoglobin 7.1. Currently 6.4. No evidence of bleeding. -Type, cross and transfuse 2 packed RBC. Follow CBC # DM Uncontrolled. A1c 8.3 -Resumed home Lantus and start sliding scale insulin. -Low blood sugar, start D5 half NS at 75/h # CARRIE on previous Admission with peaked Cr 5.4 - Cr is 1.4. Cont to monitor closely. Follow BMP. #HTN. Resumed home medication # HLP. Resumed home medication # Morbid Obesity DVT prophylaxis: Lovenox 30 mg twice daily. Hold now prior to surgery. CODE STATUS: Full Disposition: Inpatient Time Spent With Patient Time: Total time spent is greater than 50% in coordination of care (as documented) at patient's floor/unit and/or counseling patient: Time Spent With Patient Time: Total time spent is greater than 50% in coordination of care (as documented) at patient's floor/unit and/or counseling patient: QUALITY VTE Deep Vein Thrombosis/Pulmonary Embolism Present on Admission: No
[2020-10-11] MEDS ORDERED: fentaNYL 100 MCG/2 ML VIAL IV ONE (13:34)
[2020-10-11] MEDS ORDERED: MIDAZOLAM 2 MG/2 ML VIAL ONE (13:34)
[2020-10-11] MEDS ORDERED: PROPOFOL 200 MG/20 ML VIAL IV ONE (13:34)
[2020-10-11] MEDS ORDERED: KETAMINE 50 MG/ML ML ONE (13:34)
[2020-10-11] MEDS ORDERED: GENTAMICIN SULFATE 800 MG/20 ML VIAL IR ONE (13:49)
[2020-10-11 13:58] LABS: Appearance,Urine CLEAR (Clear); Bilirubin,Urine Negative (Negative); Color,Urine YELLOW; Culture Indicated,Urine No; Glucose,Urine (UA) Negative (Negative); Ketones,Urine Negative (Negative); Leukocyte Esterase,Urine Negative /ug (Negative); Nitrate,Urine Negative (Negative); Protein,Urine 100 mg/dL (Negative); Specific Gravity,Urine 1.009 (1.000-1.035); Urine Blood 0.03 mg/dL (Negative); Urine RBC 1 /hpf (0-3); Urine Squamous Epithelial Cell 0 /hpf (0-4); Urine WBC 1 /hpf (0-4); Urobilinogen,Urine Negative
[2020-10-11] MEDS ORDERED: VANCOMYCIN 1 GM VIAL TOPICAL ONE (14:00)
[2020-10-11] MEDS ORDERED: ONDANSETRON 4 MG/2 ML VIAL IV PRN (14:02)
[2020-10-11] MEDS ORDERED: ACETAMINOPHEN 1,000 MG/100 ML BAG IV ONE (14:02)
[2020-10-11] MEDS ORDERED: fentaNYL 100 MCG/2 ML VIAL IV PRN (14:02)
[2020-10-11] MEDS ORDERED: BENZOCAINE/MENTHOL 1 LOZENGE PO PRN (14:02)
[2020-10-11] MEDS ORDERED: LACTATED RINGERS 1,000 ML IV SCH (14:15)
--- NOTE | 2020-10-11 14:22 | Brief Operative Note ---
Brief Operative Note Date of procedure: 10/11/20 Pre-op diagnosis: cellulitis right leg Post-op diagnosis: same Procedure: Incision and drainage right leg Grafts/Implants: No Anesthesia: conscious sedation Complications: none Surgeon: Kwadwo Alvarado Estimated blood loss (cc): 50 Specimens Removed/Pathology: other (2x bone culture) Condition: other (fair) Disposition: floor
[2020-10-11] MEDS ORDERED: oxyCODONE/APAP 5/325MG TABLET PO PRN (14:23)
--- NOTE | 2020-10-11 16:06 | Operative Note ---
DATE OF OPERATION: 10/11/2020 PREOPERATIVE DIAGNOSIS: Cellulitis, right leg. POSTOPERATIVE DIAGNOSIS: Cellulitis, right leg. PROCEDURE: Incision and drainage, right leg. SURGEON: Kwadwo Alvarado DPM. IMPLANTS: None. ANESTHESIA: Conscious sedation. COMPLICATIONS: None. BLOOD LOSS: 50 mL. PATHOLOGY: Two bone cultures. CONDITION: Fair. DISPOSITION: Floor. PROCEDURE IN DETAIL: The patient was brought to the operating room. He remained in the hospital bed throughout the procedure. The right lower extremity was scrubbed, prepped, and draped in the usual aseptic fashion. Conscious sedation established by Anesthesia. There was noted to be a long incision consistent with previous procedure. The patient has a large, indurated, swollen leg. An incision was created on the lateral aspect to expand the previous incision on the lateral aspect of the fibula. Previous sutures were removed and inspection verified presence of edema and necrosis to the deep tissues. Scissors, sharp dissection, and blunt dissection was used to explore the surrounding areas. No abscess was found. Area was irrigated with 3 liters normal saline under pulse lavage. Two bone cultures were taken with a rongeur following pulse lavage. These were taken for culture of the area. Two grams of vancomycin powder was packed into these areas and then Betadine-soaked packing was applied with Xeroform, 4 x 4 gauze, Kerlix, and Ralph wrap applied after. The patient was then transferred to the postoperative holding area with vital signs stable and vascular status intact. He will return to his room for continued antibiotic therapy should there be a change based on the culture results. [email or web address]:[email or web address] Job ID: [id number] Doc ID: [id number] Kwadwo Alvarado DPM
[2020-10-11] MEDS: oxyCODONE/APAP 5/325MG TABLET PO PRN (19:06)
[2020-10-12] MEDS: DEXTROSE 5%-1/2NS 1,000 ML IV SCH (00:42)
[2020-10-12] MEDS: 0.9 % SODIUM CHLORIDE 10 ML SYRINGE IV SCH ×5 (04:16→22:02)
--- NOTE | 2020-10-12 06:34 | XRay Report ---
CLINICAL INFORMATION: Post Op COMPARISON: 09/23/2020 preoperative films FINDINGS: Since the prior plain films, the lateral fibular plate and interosseous screw anchoring the fibula to the tibia been removed. Multiple screw holes noted within the distal fibula as expected. The trabecular and cortical bone of the distal fibula including the lateral malleolus are indistinct suggesting the possibility of osteomyelitis. There is moderate ossification of the distal interosseous membrane with additional taran fibular ossification distally.. 12 mm irregular ossification inferior to the medial malleolus is known to be extracapsular on CT. 11 mm radiolucent erosive lesion in the lateral tibial plafond is increased from the previous exam this could represent a focus of osteomyelitis. A 13 mm ossification in the dorsal soft tissues overlying the distal talus is also seen on the CT. The ankle mortise shows asymmetric medial widening suggesting rupture of the deltoid ligament. Moderate effusion is noted. Moderate diffuse soft tissue swelling noted. IMPRESSION: 1. Asymmetric widening of the medial ankle mortise suggesting rupture of the deltoid ligament. Suggest ankle MRI to confirm. 2. 11 mm subcortical erosion of the lateral tibial plafond which has progressed. It may represent a focus of osteomyelitis. 3. Extra articular calcifications in the ankle mortise: 11 mm medially and 13 mm anteriorly. 4. Lateral plate and syndesmotic screw been removed from the fibula. Multiple screw holes noted moderate calcification interosseous membrane and the perifibular region. There is moderate irregularity of the cortical and trabecular bone of the distal fibula including the lateral malleolus which could indicate osteomyelitis.. This would be best evaluated with MRI. Interpreted and Authenticated by: Chaitanya Dorado 10/12/20
[2020-10-12] MEDS: INSULIN LISPRO 1 UNIT/0.01 ML UNIT SQ SCH ×4 (08:13→22:01)
[2020-10-12] MEDS: FLUTICASONE PROPIONATE SPRAY.NAS NS SCH (08:15)
[2020-10-12] MEDS: VITAMIN D3 5,000 UNIT CAPSULE PO SCH (11:09)
[2020-10-12] MEDS: amLODIPine 10 MG TABLET PO SCH (11:09)
[2020-10-12] MEDS: ATENOLOL 25 MG TABLET PO SCH (11:10)
[2020-10-12] MEDS: SODIUM BICARBONATE 650 MG TABLET PO SCH ×3 (11:10→21:39)
[2020-10-12] MEDS: ISOSORBIDE MONONITRATE 30 MG TAB.XL.24H PO SCH (11:10)
[2020-10-12] MEDS: FENOFIBRATE 43 MG CAPSULE PO SCH (11:10)
--- NOTE | 2020-10-12 11:14 | Internal Med Progress Note ---
SUBJECTIVE Subjective Patient information: Note initiated : 10/12/20 at 11:12 am Service Date, if different from initiated Date: Patient: Chaitanya Duvall 45 y/o M admitted on 10/10/20 for Right leg infection. Chief Complaint: Worsening RLE Cellulitis. Principal diagnosis: Worsening right lower extremity cellulitis Interval history: Patient is a status post I & D in OR. No overnight issue. Pain is controlled. No reported fever chills cough chest pain shortness of breath. Hemoglobin stable Constitutional Vitals: Vital Signs Temp Pulse Resp BP Pulse Ox 98.2 F 71 18 170/83 94 10/12/20 07:36 10/12/20 07:36 10/12/20 07:36 10/12/20 07:36 10/12/20 08:05 Period Temp Pulse Resp BP Sys/Foley Pulse Ox Last 24 Hr 98 F-98.9 F 70-76 14-20 126-170/61-86 92-99 Intake and Output 10/11/20 10/12/20 10/12/20 21:59 05:59 13:59 Intake Total 1611 300 400 Output Total 10 725 Balance 1601 300 -325 Weight 181.437 kg Intake & Output: Intake & Output 10/11/20 10/12/20 10/12/20 21:59 05:59 13:59 Intake Total 1611 300 400 Output Total 10 725 Balance 1601 300 -325 Weight 181.437 kg Intake: IV 561 Dextrose 5%-1/2Ns IV Solution 1 461 ,000 ml @ 75 mls/hr IV .[id number] [facility] Rx#:[id number] Oral 0 300 400 Blood Product 700 IV - Manual Only 350 Output: Void Amount 725 Estimated Blood Loss 10 Other: Meal Breakfast Percent of Meal Consumed 75% Feeding Ability Independent Urine Appearance Clear Urine Color Dark Yellow Urine Odor Normal # Voids 3 1 OBJ DATA Labs CBC & Chem 7: 10/11/20 05:28 10/11/20 05:28 Labs: Abnormal Lab Results 10/11/20 10/11/20 10/11/20 10:15 05:28 05:28 RBC 2.37 L Hgb 6.4 L* Hct 21.4 L MCHC 29.9 L Lymph # (Auto) 1.02 L BUN 22 H Creatinine 1.4 H POC Creatinine Glucose 59 L Alkaline Phosphatase C-Reactive Protein Albumin Globulin Albumin/Globulin Ratio Urine Protein 100 A 10/10/20 10/10/20 09:33 09:33 RBC 2.61 L Hgb 7.1 L Hct 23.1 L MCHC 30.7 L Lymph # (Auto) 1.42 L BUN Creatinine 1.6 H POC Creatinine 1.9 H Glucose Alkaline Phosphatase 128 H C-Reactive Protein 7.10 H Albumin 3.1 L Globulin 4.3 H Albumin/Globulin Ratio 0.7 L Urine Protein Meds: Medications Acetaminophen (Acetaminophen 325 Mg Tablet) 650 mg PO Q6HP PRN; Protocol PRN Reason: Per Pain Protocol/Fever > 101 Albuterol Sulfate (Albuterol Sulfate 200 Puff Inhaler) 2 puff INH Q6HP PRN PRN Reason: shortness of breath or wheezing Amlodipine Besylate (Amlodipine 10 Mg Tablet) 10 mg PO DAILY [facility] Last Admin: 10/12/20 11:09 Dose: 10 mg Documented by: Atenolol (Atenolol 25 Mg Tablet) 25 mg PO QDAY [facility] Last Admin: 10/12/20 11:10 Dose: 25 mg Documented by: Calcium Carbonate/Glycine (Calcium Carbonate 500 Mg Tab.Chew) 1,000 mg CHEWED Q4HP PRN PRN Reason: Dyspepsia Dextrose (Dextrose 50% 50 Ml Vial) 25 ml IV PRN PRN PRN Reason: Hypoglycemia Last Admin: 10/11/20 12:55 Dose: 25 ml Documented by: Diagnostic Test (Pha) (Accu-Chek 1 Each Strip) 1 each FS ACHS [facility] Last Admin: 10/12/20 08:04 Dose: 1 each Documented by: Enoxaparin Sodium (Enoxaparin 30 Mg/0.3 Ml Syringe) 30 mg SQ BID [facility] Last Admin: 10/11/20 21:13 Dose: 30 mg Documented by: Fenofibrate (Fenofibrate 43 Mg Capsule) 129 mg PO DAILY [facility] Last Admin: 10/12/20 11:10 Dose: 129 mg Documented by: Fluticasone Propionate (Fluticasone Propionate [place].Jordan) 2 spray NS QDAY [facility] Last Admin: 10/12/20 08:15 Dose: Not Given Documented by: Ceftriaxone Sodium 2 gm/ (Dextrose) 50 mls @ 100 mls/hr IV DAILY [facility] Last Infusion: 10/11/20 10:40 Dose: Infused Documented by: Dextrose/Sodium Chloride (Dextrose 5%-1/2ns Iv Solution) 1,000 mls @ 75 mls/hr IV .[id number] [facility] Last Admin: 10/12/20 00:42 Dose: Not Given Documented by: Insulin Human Lispro (Insulin Lispro 1 Unit/0.01 Ml Unit) 0 unit SQ ACHS [facility]; Protocol Last Admin: 10/12/20 08:13 Dose: 6 units Documented by: Isosorbide Mononitrate (Isosorbide Mononitrate 30 Mg Tab.Xl.24h) 30 mg PO QAM [facility] Last Admin: 10/12/20 11:10 Dose: 30 mg Documented by: Ondansetron HCl (Ondansetron 4 Mg/2 Ml Vial) 4 mg IV Q6HP PRN PRN Reason: Nausea And Vomiting Ondansetron HCl (Ondansetron 4 Mg Odt Tablet) 4 mg SL Q6HP PRN PRN Reason: Nausea And Vomiting Oxycodone/Acetaminophen (Oxycodone/Apap 5/325mg Tablet) 1 tab PO Q4H PRN; Protocol PRN Reason: pain Last Admin: 10/11/20 19:06 Dose: 1 tab Documented by: Oxycodone/Acetaminophen (Oxycodone/Apap 5/325mg Tablet) 1 - 2 tab PO Q4HP PRN; Protocol PRN Reason: Per Pain Protocol Insulin Degludec 200 (Unit/Ml Pen) 118 dose SUB-Q QHS [facility] Last Admin: 10/11/20 21:14 Dose: 118 dose Documented by: Sodium Bicarbonate (Sodium Bicarbonate 650 Mg Tablet) 650 mg PO TID [facility] Last Admin: 10/12/20 11:10 Dose: 650 mg Documented by: Sodium Chloride (0.9 % Sodium Chloride 10 Ml Syringe) 10 ml IV Q8 [facility] Last Admin: 10/12/20 04:16 Dose: 10 ml Documented by: Sodium Chloride (0.9 % Sodium Chloride 10 Ml Syringe) 10 ml IV Q8 [facility] Last Admin: 10/12/20 04:16 Dose: Not Given Documented by: Vitamin D (Vitamin D3 5,000 Unit Capsule) 5,000 unit PO DAILY [facility] Last Admin: 10/12/20 11:09 Dose: 5,000 unit Documented by: Zolpidem Tartrate (Zolpidem 5 Mg Tablet) 5 mg PO HSP PRN PRN Reason: Insomnia A/P Narrative A/P Narrative: 45 years old male Morbidly obese BMI 49, DM with RLE cellulitis, Abscess and infected hardware re admitted with worsening LE swelling and Redness. 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 #Suspected compartment syndrome (unlikely) - S/p I&D with removal of hardware of the right ankle on 09/22 by - Blood Cx and Ankle Cx grew Pasteurella 09/21/2020. PICC line placed and Plan is 6 weeks of IV Rocephin 2 g daily. - Worsening edema and swelling right lower extremity post discharge - CT LE 10/10 Extensive cellulitis throughout the calf show slight worsening, Equivocal fasciitis known the anterior posterior compartment no evidence of soft tissue abscess. -Per Dr. Alvarado patient needs another I&D and washout - S/p I&D 10/11 by showed edema and necrosis to the deep tissues, No abscess was found. - Continue antibiotic as above, pain control, elevation of right lower extremity. Follow new Cx if was sent. # Pasteurella septicemia - Treat as above. Repeat Bx negative. # Acute on chronic normocytic anemia -Admit hemoglobin 7.1. Currently 6.4. No evidence of bleeding. -S/p 2 packed RBC. Follow CBC # DM Uncontrolled. A1c 8.3 -Resumed home Lantus and start sliding scale insulin. # CARRIE on previous Admission with peaked Cr 5.4 - Cr is 1.4. Cont to monitor closely. Follow BMP. #HTN. Resumed home medication # HLP. Resumed home medication # Morbid Obesity DVT prophylaxis: Lovenox 30 mg twice daily. CODE STATUS: Full Disposition: Inpatient Time Spent With Patient Time: Total time spent is greater than 50% in coordination of care (as documented) at patient's floor/unit and/or counseling patient: Time Spent With Patient Time: Total time spent is greater than 50% in coordination of care (as documented) at patient's floor/unit and/or counseling patient: QUALITY VTE Deep Vein Thrombosis/Pulmonary Embolism Present on Admission: No
[2020-10-12] MEDS: cefTRIAXone 2 GM in DEXTROSE 5% IN WATER 50 ML IV SCH (11:15)
[2020-10-12] MEDS: ENOXAPARIN 30 MG/0.3 ML SYRINGE SQ SCH ×2 (11:23→21:38)
--- NOTE | 2020-10-12 11:44 | Orthopedic Progress Note ---
SUBJECTIVE Subjective Patient information: Note initiated : 10/12/20 at 11:41 am Service Date, if different from initiated Date: [] Patient: Chaitanya Duvall 45 y/o M admitted on 10/10/20 for Right leg infection. Chief Complaint: [right leg infecdtion] Patient is feeling much better today and was able to get more sleep because the pain is improved. He still does not have fever, chills, nausea, or vomiting. He says the pain behind the right knee is gone as well. He verbalizes understanding that his condition is very serious and could lead to more surgery. Principal diagnosis: Worsening right lower extremity cellulitis Constitutional Vitals: Vital Signs Temp Pulse Resp BP Pulse Ox 98.8 F 76 20 160/72 95 10/12/20 11:40 10/12/20 11:40 10/12/20 11:40 10/12/20 11:40 10/12/20 11:40 Period Temp Pulse Resp BP Sys/Foley Pulse Ox Last 24 Hr 98 F-98.9 F 70-76 14-20 126-170/61-86 92-99 Intake and Output 10/11/20 10/12/20 10/12/20 21:59 05:59 13:59 Intake Total 1611 300 400 Output Total 10 725 Balance 1601 300 -325 Weight 400 lb Intake & Output: Intake & Output 10/11/20 10/12/20 10/12/20 21:59 05:59 13:59 Intake Total 1611 300 400 Output Total 10 725 Balance 1601 300 -325 Weight 400 lb Intake: IV 561 Dextrose 5%-1/2Ns IV Solution 1 461 ,000 ml @ 75 mls/hr IV .[id number] [facility] Rx#:[id number] Oral 0 300 400 Blood Product 700 IV - Manual Only 350 Output: Void Amount 725 Estimated Blood Loss 10 Other: Meal Breakfast Percent of Meal Consumed 75% Feeding Ability Independent Urine Appearance Clear Urine Color Dark Yellow Urine Odor Normal # Voids 3 1 OBJ DATA Labs CBC & Chem 7: 10/11/20 05:28 10/11/20 05:28 Labs: Abnormal Lab Results 10/11/20 10/11/20 10/11/20 10:15 05:28 05:28 RBC 2.37 L Hgb 6.4 L* Hct 21.4 L MCHC 29.9 L Lymph # (Auto) 1.02 L BUN 22 H Creatinine 1.4 H POC Creatinine Glucose 59 L Alkaline Phosphatase C-Reactive Protein Albumin Globulin Albumin/Globulin Ratio Urine Protein 100 A 10/10/20 10/10/20 09:33 09:33 RBC 2.61 L Hgb 7.1 L Hct 23.1 L MCHC 30.7 L Lymph # (Auto) 1.42 L BUN Creatinine 1.6 H POC Creatinine 1.9 H Glucose Alkaline Phosphatase 128 H C-Reactive Protein 7.10 H Albumin 3.1 L Globulin 4.3 H Albumin/Globulin Ratio 0.7 L Urine Protein Meds: Medications Acetaminophen (Acetaminophen 325 Mg Tablet) 650 mg PO Q6HP PRN; Protocol PRN Reason: Per Pain Protocol/Fever > 101 Albuterol Sulfate (Albuterol Sulfate 200 Puff Inhaler) 2 puff INH Q6HP PRN PRN Reason: shortness of breath or wheezing Amlodipine Besylate (Amlodipine 10 Mg Tablet) 10 mg PO DAILY [facility] Last Admin: 10/12/20 11:09 Dose: 10 mg Documented by: Atenolol (Atenolol 25 Mg Tablet) 25 mg PO QDAY [facility] Last Admin: 10/12/20 11:10 Dose: 25 mg Documented by: Calcium Carbonate/Glycine (Calcium Carbonate 500 Mg Tab.Chew) 1,000 mg CHEWED Q4HP PRN PRN Reason: Dyspepsia Dextrose (Dextrose 50% 50 Ml Vial) 25 ml IV PRN PRN PRN Reason: Hypoglycemia Last Admin: 10/11/20 12:55 Dose: 25 ml Documented by: Diagnostic Test (Pha) (Accu-Chek 1 Each Strip) 1 each FS ACHS [facility] Last Admin: 10/12/20 11:26 Dose: 1 each Documented by: Enoxaparin Sodium (Enoxaparin 30 Mg/0.3 Ml Syringe) 30 mg SQ BID [facility] Last Admin: 10/12/20 11:23 Dose: 30 mg Documented by: Fenofibrate (Fenofibrate 43 Mg Capsule) 129 mg PO DAILY [facility] Last Admin: 10/12/20 11:10 Dose: 129 mg Documented by: Fluticasone Propionate (Fluticasone Propionate [place]) 2 spray NS QDAY [facility] Last Admin: 10/12/20 08:15 Dose: Not Given Documented by: Ceftriaxone Sodium 2 gm/ (Dextrose) 50 mls @ 100 mls/hr IV DAILY [facility] Last Admin: 10/12/20 11:15 Dose: 100 mls/hr Documented by: Dextrose/Sodium Chloride (Dextrose 5%-1/2ns Iv Solution) 1,000 mls @ 75 mls/hr IV .[id number] [facility] Last Admin: 10/12/20 00:42 Dose: Not Given Documented by: Insulin Human Lispro (Insulin Lispro 1 Unit/0.01 Ml Unit) 0 unit SQ ACHS [facility]; Protocol Last Admin: 10/12/20 11:32 Dose: 6 units Documented by: Isosorbide Mononitrate (Isosorbide Mononitrate 30 Mg Tab.Xl.24h) 30 mg PO QAM [facility] Last Admin: 10/12/20 11:10 Dose: 30 mg Documented by: Ondansetron HCl (Ondansetron 4 Mg/2 Ml Vial) 4 mg IV Q6HP PRN PRN Reason: Nausea And Vomiting Ondansetron HCl (Ondansetron 4 Mg Odt Tablet) 4 mg SL Q6HP PRN PRN Reason: Nausea And Vomiting Oxycodone/Acetaminophen (Oxycodone/Apap 5/325mg Tablet) 1 tab PO Q4H PRN; Protocol PRN Reason: pain Last Admin: 10/11/20 19:06 Dose: 1 tab Documented by: Oxycodone/Acetaminophen (Oxycodone/Apap 5/325mg Tablet) 1 - 2 tab PO Q4HP PRN; Protocol PRN Reason: Per Pain Protocol Insulin Degludec 200 (Unit/Ml Pen) 118 dose SUB-Q QHS [facility] Last Admin: 10/11/20 21:14 Dose: 118 dose Documented by: Sodium Bicarbonate (Sodium Bicarbonate 650 Mg Tablet) 650 mg PO TID [facility] Last Admin: 10/12/20 11:10 Dose: 650 mg Documented by: Sodium Chloride (0.9 % Sodium Chloride 10 Ml Syringe) 10 ml IV Q8 [facility] Last Admin: 10/12/20 04:16 Dose: 10 ml Documented by: Sodium Chloride (0.9 % Sodium Chloride 10 Ml Syringe) 10 ml IV Q8 [facility] Last Admin: 10/12/20 04:16 Dose: Not Given Documented by: Vitamin D (Vitamin D3 5,000 Unit Capsule) 5,000 unit PO DAILY [facility] Last Admin: 10/12/20 11:09 Dose: 5,000 unit Documented by: Zolpidem Tartrate (Zolpidem 5 Mg Tablet) 5 mg PO HSP PRN PRN Reason: Insomnia A/P Time Spent With Patient Time: Total time spent is greater than 50% in coordination of care (as documented) at patient's floor/unit and/or counseling patient: - Pending bone culture results - Leave dressings closed, dry and intact - Change dressings POD2 (10/13/20) - Continue IV Antibiotics
[2020-10-12 12:07] LABS: Basophils # (Auto) 0.07 K/mcL (0.00-0.20); Basophils % (Auto) 0.8 % (0.0-2.0); Eosinophils # (Auto) 0.03 K/mcL (0.00-0.70); Eosinophils % (Auto) 0.3 % (0.0-7.0); Hemoglobin 8.9 g/dL (13.5-16.5); Lymphocytes # (Auto) 1.39 K/mcL (1.50-4.80); Lymphocytes % (Auto) 15.7 % (15.0-49.0); Mean Cell Volume 89.2 fL (80.0-100.0); Mean Corpuscular HGB Conc 30.7 g/dL (31.0-36.0); Mean Platelet Volume 10.2 fL (7.4-10.4); Monocytes # (Auto) 0.77 K/mcL (0.10-0.90); Monocytes % (Auto) 8.7 % (1.0-12.0); Neutrophils % (Auto) 74.5 % (38.0-78.0); Platelet Count 431 K/mcL (140-440); RBC 3.25 M/mcL (4.50-5.90); Red Cell Distribution Width 14.2 % (11.5-14.5); WBC 8.9 K/mcL (4.5-11.0)
[2020-10-12 13:06] LABS: Blood Urea Nitrogen 23 mg/dL (6-20); Carbon Dioxide 22 mmol/L (22-30); Chloride 105 mmol/L (96-108); Glomerular Filtration Rate 55; Glucose 189 mg/dL (70-105)
[2020-10-12] MEDS: oxyCODONE/APAP 5/325MG TABLET PO PRN (14:54)
[2020-10-12] MEDS: DOCUSATE SODIUM 100 MG CAPSULE PO SCH (21:39)
[2020-10-13] MEDS: 0.9 % SODIUM CHLORIDE 10 ML SYRINGE IV SCH ×3 (04:21→22:12)
[2020-10-13 05:21] LABS: Basophils # (Auto) 0.11 K/mcL (0.00-0.20); Basophils % (Auto) 1.5 % (0.0-2.0); Eosinophils # (Auto) 0.22 K/mcL (0.00-0.70); Hemoglobin 7.8 g/dL (13.5-16.5); Lymphocytes # (Auto) 2.05 K/mcL (1.50-4.80); Mean Cell Volume 88.7 fL (80.0-100.0); Mean Corpuscular HGB Conc 31.2 g/dL (31.0-36.0); Mean Platelet Volume 10.4 fL (7.4-10.4); Monocytes # (Auto) 0.74 K/mcL (0.10-0.90); Monocytes % (Auto) 10.1 % (1.0-12.0); Neutrophils % (Auto) 57.4 % (38.0-78.0); Platelet Count 407 K/mcL (140-440); RBC 2.82 M/mcL (4.50-5.90); Red Cell Distribution Width 14.5 % (11.5-14.5); WBC 7.3 K/mcL (4.5-11.0)
[2020-10-13 05:37] LABS: Blood Urea Nitrogen 29 mg/dL (6-20); Calcium 8.7 mg/dL (8.6-10.4); Carbon Dioxide 25 mmol/L (22-30); Chloride 104 mmol/L (96-108); Glomerular Filtration Rate 55; Glucose 65 mg/dL (70-105)
[2020-10-13] MEDS: oxyCODONE/APAP 5/325MG TABLET PO PRN ×3 (07:16→22:10)
[2020-10-13] MEDS: INSULIN LISPRO 1 UNIT/0.01 ML UNIT SQ SCH ×4 (07:21→22:32)
[2020-10-13] MEDS: FLUTICASONE PROPIONATE SPRAY.NAS NS SCH (09:15)
[2020-10-13] MEDS: FENOFIBRATE 43 MG CAPSULE PO SCH (09:19)
[2020-10-13] MEDS: VITAMIN D3 5,000 UNIT CAPSULE PO SCH (09:20)
[2020-10-13] MEDS: DOCUSATE SODIUM 100 MG CAPSULE PO SCH ×2 (09:20→22:10)
[2020-10-13] MEDS: amLODIPine 10 MG TABLET PO SCH (09:21)
[2020-10-13] MEDS: ISOSORBIDE MONONITRATE 30 MG TAB.XL.24H PO SCH (09:21)
[2020-10-13] MEDS: ENOXAPARIN 30 MG/0.3 ML SYRINGE SQ SCH ×2 (09:21→22:10)
[2020-10-13] MEDS: ATENOLOL 25 MG TABLET PO SCH (09:21)
[2020-10-13] MEDS: SODIUM BICARBONATE 650 MG TABLET PO SCH ×3 (09:21→22:11)
[2020-10-13] MEDS: cefTRIAXone 2 GM in DEXTROSE 5% IN WATER 50 ML IV SCH (09:23)
--- NOTE | 2020-10-13 10:31 | Orthopedic Progress Note ---
SUBJECTIVE Subjective Patient information: Note initiated : 10/13/20 at 10:29 am Service Date, if different from initiated Date: [] Patient: Chaitanya Duavll 45 y/o M admitted on 10/10/20 for Right leg infection. Chief Complaint: [right leg infection] Pain continues to be better, controllable. No overnight events. Principal diagnosis: Worsening right lower extremity cellulitis Constitutional Vitals: Vital Signs Temp Pulse Resp BP Pulse Ox 98 F 71 16 169/76 96 10/13/20 07:42 10/13/20 07:42 10/13/20 07:42 10/13/20 07:42 10/13/20 07:42 Period Temp Pulse Resp BP Sys/Foley Pulse Ox Last 24 Hr 98 F-98.8 F 70-76 16-20 124-172/65-76 94-96 Intake and Output 10/12/20 10/13/20 10/13/20 21:59 05:59 13:59 Intake Total 0 800 50 Balance 0 800 50 Weight 389 lb Intake & Output: Intake & Output 10/12/20 10/13/20 10/13/20 21:59 05:59 13:59 Intake Total 0 800 50 Balance 0 800 50 Weight 389 lb Intake: IV 50 Rocephin 2 gm In Dextrose 5% in 50 Water 50 ml @ 100 mls/hr IV DAILY [facility] Rx#:[id number] Oral 0 800 Other: Meal Lunch Breakfast Percent of Meal Consumed 100% 100% Feeding Ability Independent Independent Urine Appearance Clear Urine Color Bright Yellow # Voids 3 OBJ DATA Labs CBC & Chem 7: 10/13/20 04:30 10/13/20 04:30 Labs: Abnormal Lab Results 10/13/20 10/13/20 10/12/20 04:30 04:30 11:25 RBC 2.82 L Hgb 7.8 L Hct 25.0 L MCHC Lymph # (Auto) BUN 29 H 23 H Creatinine 1.5 H 1.5 H Glucose 65 L 189 H Alkaline Phosphatase C-Reactive Protein Albumin Globulin Albumin/Globulin Ratio Urine Protein 10/12/20 10/11/20 10/11/20 11:25 10:15 05:28 RBC 3.25 L Hgb 8.9 L Hct 29.0 L MCHC 30.7 L Lymph # (Auto) 1.39 L BUN 22 H Creatinine 1.4 H Glucose 59 L Alkaline Phosphatase C-Reactive Protein Albumin Globulin Albumin/Globulin Ratio Urine Protein 100 A 10/11/20 10/10/20 05:28 09:33 RBC 2.37 L Hgb 6.4 L* Hct 21.4 L MCHC 29.9 L Lymph # (Auto) 1.02 L BUN Creatinine 1.6 H Glucose Alkaline Phosphatase 128 H C-Reactive Protein 7.10 H Albumin 3.1 L Globulin 4.3 H Albumin/Globulin Ratio 0.7 L Urine Protein Meds: Medications Acetaminophen (Acetaminophen 325 Mg Tablet) 650 mg PO Q6HP PRN; Protocol PRN Reason: Per Pain Protocol/Fever > 101 Albuterol Sulfate (Albuterol Sulfate 200 Puff Inhaler) 2 puff INH Q6HP PRN PRN Reason: shortness of breath or wheezing Amlodipine Besylate (Amlodipine 10 Mg Tablet) 10 mg PO DAILY [facility] Last Admin: 10/13/20 09:21 Dose: 10 mg Documented by: Atenolol (Atenolol 25 Mg Tablet) 25 mg PO QDAY [facility] Last Admin: 10/13/20 09:21 Dose: 25 mg Documented by: Calcium Carbonate/Glycine (Calcium Carbonate 500 Mg Tab.Chew) 1,000 mg CHEWED Q4HP PRN PRN Reason: Dyspepsia Dextrose (Dextrose 50% 50 Ml Vial) 25 ml IV PRN PRN PRN Reason: Hypoglycemia Last Admin: 10/11/20 12:55 Dose: 25 ml Documented by: Diagnostic Test (Pha) (Accu-Chek 1 Each Strip) 1 each FS ACHS [facility] Last Admin: 10/13/20 07:19 Dose: 1 each Documented by: Docusate Sodium (Docusate Sodium 100 Mg Capsule) 100 mg PO BID [facility] Last Admin: 10/13/20 09:20 Dose: 100 mg Documented by: Enoxaparin Sodium (Enoxaparin 30 Mg/0.3 Ml Syringe) 30 mg SQ BID [facility] Last Admin: 10/13/20 09:21 Dose: 30 mg Documented by: Fenofibrate (Fenofibrate 43 Mg Capsule) 129 mg PO DAILY [facility] Last Admin: 10/13/20 09:19 Dose: 129 mg Documented by: Fluticasone Propionate (Fluticasone Propionate [place].Jordan) 2 spray NS QDAY [facility] Last Admin: 10/13/20 09:15 Dose: Not Given Documented by: Ceftriaxone Sodium 2 gm/ (Dextrose) 50 mls @ 100 mls/hr IV DAILY [facility] Last Infusion: 10/13/20 09:55 Dose: Infused Documented by: Insulin Human Lispro (Insulin Lispro 1 Unit/0.01 Ml Unit) 0 unit SQ ACHS [facility]; Protocol Last Admin: 10/13/20 07:21 Dose: Not Given Documented by: Isosorbide Mononitrate (Isosorbide Mononitrate 30 Mg Tab.Xl.24h) 30 mg PO QAM [facility] Last Admin: 10/13/20 09:21 Dose: 30 mg Documented by: Ondansetron HCl (Ondansetron 4 Mg/2 Ml Vial) 4 mg IV Q6HP PRN PRN Reason: Nausea And Vomiting Ondansetron HCl (Ondansetron 4 Mg Odt Tablet) 4 mg SL Q6HP PRN PRN Reason: Nausea And Vomiting Oxycodone/Acetaminophen (Oxycodone/Apap 5/325mg Tablet) 1 tab PO Q4H PRN; Protocol PRN Reason: pain Last Admin: 10/13/20 07:16 Dose: 1 tab Documented by: Oxycodone/Acetaminophen (Oxycodone/Apap 5/325mg Tablet) 1 - 2 tab PO Q4HP PRN; Protocol PRN Reason: Per Pain Protocol Insulin Degludec 200 (Unit/Ml Pen) 118 dose SUB-Q QHS [facility] Last Admin: 10/12/20 21:38 Dose: 118 dose Documented by: Sodium Bicarbonate (Sodium Bicarbonate 650 Mg Tablet) 650 mg PO TID [facility] Last Admin: 10/13/20 09:21 Dose: 650 mg Documented by: Sodium Chloride (0.9 % Sodium Chloride 10 Ml Syringe) 10 ml IV Q8 [facility] Last Admin: 10/13/20 04:21 Dose: 10 ml Documented by: Vitamin D (Vitamin D3 5,000 Unit Capsule) 5,000 unit PO DAILY [facility] Last Admin: 10/13/20 09:20 Dose: 5,000 unit Documented by: Zolpidem Tartrate (Zolpidem 5 Mg Tablet) 5 mg PO HSP PRN PRN Reason: Insomnia A/P Time Spent With Patient Time: - Dressings changed: gauze, alisson, betadine
--- NOTE | 2020-10-13 14:46 | Internal Med Progress Note ---
SUBJECTIVE Subjective Patient information: Note initiated : 10/13/20 at 2:45 pm Service Date, if different from initiated Date: Patient: Chaitanya Duvall 45 y/o M admitted on 10/10/20 for Right leg infection. Chief Complaint: Right lower extremity cellulitis Principal diagnosis: Worsening right lower extremity cellulitis Interval history: Patient is feeling well. His pain is controlled. His family members at the bedside. He denies chest pain shortness of breath nausea vomiting. Constitutional Vitals: Vital Signs Temp Pulse Resp BP Pulse Ox 98.1 F 68 18 150/81 97 10/13/20 11:53 10/13/20 11:53 10/13/20 11:53 10/13/20 11:53 10/13/20 11:53 Period Temp Pulse Resp BP Sys/Foley Pulse Ox Last 24 Hr 98 F-98.6 F 68-76 16-20 124-172/65-81 94-97 Intake and Output 10/13/20 10/13/20 10/13/20 05:59 13:59 21:59 Intake Total 800 50 Balance 800 50 Intake & Output: Intake & Output 10/13/20 10/13/20 10/13/20 05:59 13:59 21:59 Intake Total 800 50 Balance 800 50 Intake: IV 50 Rocephin 2 gm In Dextrose 5% in 50 Water 50 ml @ 100 mls/hr IV DAILY ANNIE Rx#:[id number] Oral 800 Other: Meal Breakfast Percent of Meal Consumed 100% Feeding Ability Independent # Voids 3 Additional findings Additional findings: Awake alert oriented x3. Morbidly obese pleasant male with BMI 49 in no apparent distress HEENT: PERRLA, moist mucous membrane. Anicteric sclera Lungs: Clear to auscultation bilaterally. No crackles rhonchi or rales. Cardiovascular: Regular rate and rhythm. S1 + S2, no murmur gallop rub. No peripheral edema. No JVD GI: Abdomen soft, nontender, positive bowel sounds. No hepatosplenomegaly. No rebound tenderness. 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 Cranial nerves II through XII 12 grossly intact. Extremities : Moderate to severe 4+ edema right lower extremity with erythema and increased warmth and tenderness. Surgical wound on the lateral aspect of the right lower extremity with no evidence of drainage, no foul smelling. Sutures in place. Amputated R big toe. Left lower extremity 2+ edema. Psychiatric: Normal mood and affect OBJ DATA Labs CBC & Chem 7: 10/13/20 04:30 10/13/20 04:30 Labs: Abnormal Lab Results 10/13/20 10/13/20 10/12/20 04:30 04:30 11:25 RBC 2.82 L Hgb 7.8 L Hct 25.0 L MCHC Lymph # (Auto) BUN 29 H 23 H Creatinine 1.5 H 1.5 H Glucose 65 L 189 H Urine Protein 10/12/20 10/11/20 10/11/20 11:25 10:15 05:28 RBC 3.25 L Hgb 8.9 L Hct 29.0 L MCHC 30.7 L Lymph # (Auto) 1.39 L BUN 22 H Creatinine 1.4 H Glucose 59 L Urine Protein 100 A 10/11/20 05:28 RBC 2.37 L Hgb 6.4 L* Hct 21.4 L MCHC 29.9 L Lymph # (Auto) 1.02 L BUN Creatinine Glucose Urine Protein Meds: Medications Acetaminophen (Acetaminophen 325 Mg Tablet) 650 mg PO Q6HP PRN; Protocol PRN Reason: Per Pain Protocol/Fever > 101 Albuterol Sulfate (Albuterol Sulfate 200 Puff Inhaler) 2 puff INH Q6HP PRN PRN Reason: shortness of breath or wheezing Amlodipine Besylate (Amlodipine 10 Mg Tablet) 10 mg PO DAILY [facility] Last Admin: 10/13/20 09:21 Dose: 10 mg Documented by: Atenolol (Atenolol 25 Mg Tablet) 25 mg PO QDAY [facility] Last Admin: 10/13/20 09:21 Dose: 25 mg Documented by: Calcium Carbonate/Glycine (Calcium Carbonate 500 Mg Tab.Chew) 1,000 mg CHEWED Q4HP PRN PRN Reason: Dyspepsia Dextrose (Dextrose 50% 50 Ml Vial) 25 ml IV PRN PRN PRN Reason: Hypoglycemia Last Admin: 10/11/20 12:55 Dose: 25 ml Documented by: Diagnostic Test (Pha) (Accu-Chek 1 Each Strip) 1 each FS ACHS [facility] Last Admin: 10/13/20 11:44 Dose: 1 each Documented by: Docusate Sodium (Docusate Sodium 100 Mg Capsule) 100 mg PO BID [facility] Last Admin: 10/13/20 09:20 Dose: 100 mg Documented by: Enoxaparin Sodium (Enoxaparin 30 Mg/0.3 Ml Syringe) 30 mg SQ BID [facility] Last Admin: 10/13/20 09:21 Dose: 30 mg Documented by: Fenofibrate (Fenofibrate 43 Mg Capsule) 129 mg PO DAILY [facility] Last Admin: 10/13/20 09:19 Dose: 129 mg Documented by: Fluticasone Propionate (Fluticasone Propionate [place]) 2 spray NS QDAY [facility] Last Admin: 10/13/20 09:15 Dose: Not Given Documented by: Ceftriaxone Sodium 2 gm/ (Dextrose) 50 mls @ 100 mls/hr IV DAILY [facility] Last Infusion: 10/13/20 09:55 Dose: Infused Documented by: Insulin Human Lispro (Insulin Lispro 1 Unit/0.01 Ml Unit) 0 unit SQ ACHS [facility]; Protocol Last Admin: 10/13/20 11:46 Dose: Not Given Documented by: Isosorbide Mononitrate (Isosorbide Mononitrate 30 Mg Tab.Xl.24h) 30 mg PO QAM [facility] Last Admin: 10/13/20 09:21 Dose: 30 mg Documented by: Ondansetron HCl (Ondansetron 4 Mg/2 Ml Vial) 4 mg IV Q6HP PRN PRN Reason: Nausea And Vomiting Ondansetron HCl (Ondansetron 4 Mg Odt Tablet) 4 mg SL Q6HP PRN PRN Reason: Nausea And Vomiting Oxycodone/Acetaminophen (Oxycodone/Apap 5/325mg Tablet) 1 tab PO Q4H PRN; Protocol PRN Reason: pain Last Admin: 10/13/20 11:51 Dose: 1 tab Documented by: Oxycodone/Acetaminophen (Oxycodone/Apap 5/325mg Tablet) 1 - 2 tab PO Q4HP PRN; Protocol PRN Reason: Per Pain Protocol Insulin Degludec 200 (Unit/Ml Pen) 118 dose SUB-Q QHS [facility] Last Admin: 10/12/20 21:38 Dose: 118 dose Documented by: Sodium Bicarbonate (Sodium Bicarbonate 650 Mg Tablet) 650 mg PO TID [facility] Last Admin: 10/13/20 09:21 Dose: 650 mg Documented by: Sodium Chloride (0.9 % Sodium Chloride 10 Ml Syringe) 10 ml IV Q8 [facility] Last Admin: 10/13/20 04:21 Dose: 10 ml Documented by: Vitamin D (Vitamin D3 5,000 Unit Capsule) 5,000 unit PO DAILY [facility] Last Admin: 10/13/20 09:20 Dose: 5,000 unit Documented by: Zolpidem Tartrate (Zolpidem 5 Mg Tablet) 5 mg PO HSP PRN PRN Reason: Insomnia A/P Narrative A/P Narrative: 45 years old male Morbidly obese BMI 49, DM with RLE cellulitis, Abscess and infected hardware re admitted with worsening LE swelling and R edness. 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 #Suspected compartment syndrome (unlikely) - S/p I&D with removal of hardware of the right ankle on 09/22 by - Blood Cx and Ankle Cx grew Pasteurella 09/21/2020. PICC line placed and Plan is 6 weeks of IV Rocephin 2 g daily. - Worsening edema and swelling right lower extremity post discharge - CT LE 10/10 Extensive cellulitis throughout the calf show slight worsening, Eq uivocal fasciitis known the anterior posterior compartment no evidence of soft tissue abscess. -Per Dr. Alvarado patient needs another I&D and washout - S/p I&D 10/11 by showed edema and necrosis to the deep tissues, No abscess was found. - Continue antibiotic as above, pain control, elevation of right lower extremity. Follow new Cx if was sent. - Dressing change today by . # Pasteurella septicemia - Treat as above. Repeat Bx negative. # Acute on chronic normocytic anemia -Admit hemoglobin 7.1. Currently 6.4. No evidence of bleeding. -S/p 2 packed RBC. Hb 7.8 Follow CBC # DM Uncontrolled. A1c 8.3 -Resumed home Lantus and start sliding scale insulin. # CARRIE on previous Admission with peaked Cr 5.4 - Cr is 1.5. Cont to monitor closely. Follow BMP. #HTN. Resumed home medication # HLP. Resumed home medication # Morbid Obesity DVT prophylaxis: Lovenox 30 mg twice daily. CODE STATUS: Full Disposition: Inpatient Time Spent With Patient Time: Total time spent is greater than 50% in coordination of care (as documented) at patient's floor/unit and/or counseling patient: Time Spent With Patient Time: Total time spent is greater than 50% in coordination of care (as documented) at patient's floor/unit and/or counseling patient: QUALITY VTE Deep Vein Thrombosis/Pulmonary Embolism Present on Admission: No
[2020-10-14] MEDS: 0.9 % SODIUM CHLORIDE 10 ML SYRINGE IV SCH ×2 (04:32→12:20)
[2020-10-14] MEDS: INSULIN LISPRO 1 UNIT/0.01 ML UNIT SQ SCH ×3 (07:27→16:17)
[2020-10-14] MEDS: FENOFIBRATE 43 MG CAPSULE PO SCH (09:04)
[2020-10-14] MEDS: amLODIPine 10 MG TABLET PO SCH (09:05)
[2020-10-14] MEDS: ATENOLOL 25 MG TABLET PO SCH (09:05)
[2020-10-14] MEDS: ISOSORBIDE MONONITRATE 30 MG TAB.XL.24H PO SCH (09:05)
[2020-10-14] MEDS: FLUTICASONE PROPIONATE SPRAY.NAS NS SCH (09:06)
[2020-10-14] MEDS: SODIUM BICARBONATE 650 MG TABLET PO SCH ×2 (09:06→14:37)
[2020-10-14] MEDS: DOCUSATE SODIUM 100 MG CAPSULE PO SCH (09:06)
[2020-10-14] MEDS: ENOXAPARIN 30 MG/0.3 ML SYRINGE SQ SCH (09:06)
[2020-10-14] MEDS: cefTRIAXone 2 GM in DEXTROSE 5% IN WATER 50 ML IV SCH (09:07)
[2020-10-14] MEDS: VITAMIN D3 5,000 UNIT CAPSULE PO SCH (09:07)
--- NOTE | 2020-10-14 09:16 | Internal Med Progress Note ---
SUBJECTIVE Subjective Patient information: Note initiated : 10/14/20 at 9:14 am Service Date, if different from initiated Date: Patient: Chaitanya Duvall 45 y/o M admitted on 10/10/20 for Right leg infection. Chief Complaint: Worsening lower extremity cellulitis Principal diagnosis: Worsening right lower extremity cellulitis Interval history: Patient had low blood sugar this morning in 40s. No other issues. Pain is controlled. Constitutional Vitals: Vital Signs Temp Pulse Resp BP Pulse Ox 98.9 F 75 18 168/80 97 10/14/20 08:00 10/14/20 08:00 10/14/20 08:00 10/14/20 08:00 10/14/20 08:00 Period Temp Pulse Resp BP Sys/Foley Pulse Ox Last 24 Hr 97.6 F-98.9 F 68-76 18-20 145-168/62-83 95-97 Intake and Output 10/13/20 10/14/20 10/14/20 21:59 05:59 13:59 Intake Total 0 800 360 Balance 0 800 360 Weight 176.402 kg Intake & Output: Intake & Output 10/13/20 10/14/20 10/14/20 21:59 05:59 13:59 Intake Total 0 800 360 Balance 0 800 360 Weight 176.402 kg Intake: Oral 0 800 360 Other: Meal Breakfast Percent of Meal Consumed 100% Feeding Ability Independent # Voids 3 Additional findings Additional findings: Awake alert oriented x3. Morbidly obese pleasant male with BMI 49 in no apparent distress HEENT: PERRLA, moist mucous membrane. Anicteric sclera Lungs: Clear to auscultation bilaterally. No crackles rhonchi or rales. Cardiovascular: Regular rate and rhythm. S1 + S2, no murmur gallop rub. No peripheral edema. No JVD GI: Abdomen soft, nontender, positive bowel sounds. No hepatosplenomegaly. No rebound tenderness. 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 Cranial nerves II through XII 12 grossly intact. Extremities : Moderate to severe 4+ edema right lower extremity with erythema and increased warmth and tenderness. Surgical wound on the lateral aspect of the right lower extremity with no evidence of drainage, no foul smelling. Sutures in place. Amputated R big toe. Left lower extremity 2+ edema. Psychiatric: Normal mood and affect OBJ DATA Labs CBC & Chem 7: 10/13/20 04:30 10/13/20 04:30 Labs: Abnormal Lab Results 10/13/20 10/13/20 10/12/20 04:30 04:30 11:25 RBC 2.82 L Hgb 7.8 L Hct 25.0 L MCHC Lymph # (Auto) BUN 29 H 23 H Creatinine 1.5 H 1.5 H Glucose 65 L 189 H Urine Protein 10/12/20 10/11/20 11:25 10:15 RBC 3.25 L Hgb 8.9 L Hct 29.0 L MCHC 30.7 L Lymph # (Auto) 1.39 L BUN Creatinine Glucose Urine Protein 100 A Meds: Medications Acetaminophen (Acetaminophen 325 Mg Tablet) 650 mg PO Q6HP PRN; Protocol PRN Reason: Per Pain Protocol/Fever > 101 Albuterol Sulfate (Albuterol Sulfate 200 Puff Inhaler) 2 puff INH Q6HP PRN PRN Reason: shortness of breath or wheezing Amlodipine Besylate (Amlodipine 10 Mg Tablet) 10 mg PO DAILY [facility] Last Admin: 10/14/20 09:05 Dose: 10 mg Documented by: Atenolol (Atenolol 25 Mg Tablet) 25 mg PO QDAY [facility] Last Admin: 10/14/20 09:05 Dose: 25 mg Documented by: Calcium Carbonate/Glycine (Calcium Carbonate 500 Mg Tab.Chew) 1,000 mg CHEWED Q4HP PRN PRN Reason: Dyspepsia Dextrose (Dextrose 50% 50 Ml Vial) 25 ml IV PRN PRN PRN Reason: Hypoglycemia Last Admin: 10/11/20 12:55 Dose: 25 ml Documented by: Diagnostic Test (Pha) (Accu-Chek 1 Each Strip) 1 each FS ACHS [facility] Last Admin: 10/14/20 07:29 Dose: 1 each Documented by: Docusate Sodium (Docusate Sodium 100 Mg Capsule) 100 mg PO BID [facility] Last Admin: 10/14/20 09:06 Dose: 100 mg Documented by: Enoxaparin Sodium (Enoxaparin 30 Mg/0.3 Ml Syringe) 30 mg SQ BID [facility] Last Admin: 10/14/20 09:06 Dose: 30 mg Documented by: Fenofibrate (Fenofibrate 43 Mg Capsule) 129 mg PO DAILY [facility] Last Admin: 10/14/20 09:04 Dose: 129 mg Documented by: Fluticasone Propionate (Fluticasone Propionate [place]) 2 spray NS QDAY [facility] Last Admin: 10/14/20 09:06 Dose: Not Given Documented by: Ceftriaxone Sodium 2 gm/ (Dextrose) 50 mls @ 100 mls/hr IV DAILY [facility] Last Admin: 10/14/20 09:07 Dose: 100 mls/hr Documented by: Insulin Human Lispro (Insulin Lispro 1 Unit/0.01 Ml Unit) 0 unit SQ ACHS [facility]; Protocol Last Admin: 10/14/20 07:27 Dose: Not Given Documented by: Isosorbide Mononitrate (Isosorbide Mononitrate 30 Mg Tab.Xl.24h) 30 mg PO QAM [facility] Last Admin: 10/14/20 09:05 Dose: 30 mg Documented by: Ondansetron HCl (Ondansetron 4 Mg/2 Ml Vial) 4 mg IV Q6HP PRN PRN Reason: Nausea And Vomiting Ondansetron HCl (Ondansetron 4 Mg Odt Tablet) 4 mg SL Q6HP PRN PRN Reason: Nausea And Vomiting Oxycodone/Acetaminophen (Oxycodone/Apap 5/325mg Tablet) 1 tab PO Q4H PRN; Protocol PRN Reason: pain Last Admin: 10/13/20 22:10 Dose: 1 tab Documented by: Oxycodone/Acetaminophen (Oxycodone/Apap 5/325mg Tablet) 1 - 2 tab PO Q4HP PRN; Protocol PRN Reason: Per Pain Protocol Insulin Degludec 200 (Unit/Ml Pen) 118 dose SUB-Q QHS [facility] Last Admin: 10/13/20 22:12 Dose: 118 dose Documented by: Sodium Bicarbonate (Sodium Bicarbonate 650 Mg Tablet) 650 mg PO TID [facility] Last Admin: 10/14/20 09:06 Dose: 650 mg Documented by: Sodium Chloride (0.9 % Sodium Chloride 10 Ml Syringe) 10 ml IV Q8 [facility] Last Admin: 10/14/20 04:32 Dose: 10 ml Documented by: Vitamin D (Vitamin D3 5,000 Unit Capsule) 5,000 unit PO DAILY [facility] Last Admin: 10/14/20 09:07 Dose: 5,000 unit Documented by: Zolpidem Tartrate (Zolpidem 5 Mg Tablet) 5 mg PO HSP PRN PRN Reason: Insomnia A/P Narrative A/P Narrative: 45 years old male Morbidly obese BMI 49, DM with RLE cellulitis, Abscess and infected hardware re admitted with worsening LE swelling and Redness. 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 #Suspected compartment syndrome (unlikely) - S/p I&D with removal of hardware of the right ankle on 09/22 by - Blood Cx and Ankle Cx grew Pasteurella 09/21/2020. PICC line placed and Plan is 6 weeks of IV Rocephin 2 g daily. - Worsening edema and swelling right lower extremity post discharge - CT LE 10/10 Extensive cellulitis throughout the calf show slight worsening, Equivocal fasciitis known the anterior posterior compartment no evidence of soft tissue abscess. -Per Dr. Alvarado patient needs another I&D and washout - S/p I&D 10/11 by showed edema and necrosis to the deep tissues, No abscess was found. - Continue antibiotic as above, pain control, elevation of right lower extr emity. Follow new Cx if was sent. - Dressing change by . # Pasteurella septicemia - Treat as above. Repeat Bx negative. # Acute on chronic normocytic anemia -Admit hemoglobin 7.1. Currently 6.4. No evidence of bleeding. -S/p 2 packed RBC. Hb 7.8 Follow CBC # DM Uncontrolled. A1c 8.3. - Hypoglycemia with BS in 40s last night. -He is on home Insulin Degludec 118 units which is an Ultra Long acting Insulin & sliding scale insulin. - Decrease dose of Insulin Degludec to 113units & Monitor. D/w Pharmacy. # CARRIE on previous Admission with peaked Cr 5.4 - Cr is 1.5. Cont to monitor closely. Follow BMP. #HTN. Resumed home medication # HLP. Resumed home medication # Morbid Obesity DVT prophylaxis: Lovenox 30 mg twice daily. CODE STATUS: Full Disposition: Inpatient Time Spent With Patient Time: Total time spent is greater than 50% in coordination of care (as document ed) at patient's floor/unit and/or counseling patient: Time Spent With Patient Time: Total time spent is greater than 50% in coordination of care (as documented) at patient's floor/unit and/or counseling patient: QUALITY VTE Deep Vein Thrombosis/Pulmonary Embolism Present on Admission: No
--- NOTE | 2020-10-14 12:55 | Discharge Summary ---
Discharge Provider Provider Patient information: Note initiated : 10/14/20 at 12:53 pm Service Date, if different from initiated Date: [] Patient: Chaitanya Duvall 45 y/o M admitted on 10/10/20 for Right leg infection. Chief Complaint: [] Date of admission: 10/10/20 13:01 Discharge date: 10/14/20 Primary care physician: Narcisa Rodriguez PA-C Consults: 10/10/20 Consult to Physician [CONS] Stat Comment: Consulting Provider: Kwadwo Alvarado Reason For Exam: Physician to Consult Consult to Physician [CONS] Stat Comment: Consulting Provider: Ge Jimenez Reason For Exam: Physician to Consult Discharge Meds Discharge Medications Home Medications albuterol sulfate 90 mcg/actuation aerosol inhaler 2 puff INHALATION Q6H PRN #18 g 07/07/19 [Rx Confirmed 10/10/20 Last Taken 09/21/20 21:00] blood-glucose meter #1 each 09/21/19 [Rx Confirmed 10/10/20 Last Taken Unknown] lancets #200 each 09/21/19 [Rx Confirmed 10/10/20 Last Taken Unknown] cholecalciferol (vitamin D3) [Vitamin D3] 125 mcg PO QDAY 01/22/20 [History Confirmed 10/10/20 Last Taken 10/09/20 21:00 125 mcg] B-D PEN NDL SHRT [id number](08/25) ARLINE See Rx Instructions .ROUTE .COMPLEX #1500 each 03/15/20 [Rx Confirmed 10/10/20 Last Taken 09/22/20 09:00] fluticasone propionate 50 mcg/actuation nasal spray,suspension 2 spray INTRANASAL QDAY g 05/23/20 [History Confirmed 10/10/20 Last Taken 09/19/20] flash glucose sensor 1 each MISCELLANEOUS QDAY #10 each 05/24/20 [Rx Confirmed 10/10/20 Last Taken 09/22/20 08:00] insulin lispro 100 unit/mL subcutaneous pen See Rx Instructions .ROUTE .COMPLEX #15 ml 05/27/20 [Rx Confirmed 10/10/20 Last Taken 10/09/20 17:00 4 units] blood sugar diagnostic #400 ea 06/04/20 [Rx Confirmed 10/10/20 Last Taken Unknown] fenofibrate 160 mg tablet 160 mg PO QDAY #90 tab 07/04/20 [Rx Confirmed 10/10/20 Last Taken 10/09/20 21:00 160 mg.] acetaminophen [Tylenol] 650 mg PO Q6HP PRN #30 tab 09/29/20 [Rx Confirmed 10/10/20 Last Taken 10/09/20 20:00 650 mg.] amlodipine 10 mg PO DAILY #30 tab 09/29/20 [Rx Confirmed 10/10/20 Last Taken 10/10/20 09:00 10 mg.] ceftriaxone 2 g IV Q24H 35 Days #35 ea 09/29/20 [Rx Confirmed 10/10/20 Last Taken 10/10/20 11:00 1 gm] sodium bicarbonate 650 mg PO TID #60 tab 09/29/20 [Rx Confirmed 10/10/20 Last Taken 10/10/20 09:00 650 mg.] isosorbide mononitrate 30 mg PO QAM #30 tab 09/30/20 [Rx Confirmed 10/10/20 Last Taken 10/10/20 09:00 30 mg.] oxycodone-acetaminophen [Percocet] 1 tab PO Q4H PRN #14 tab 09/30/20 [Rx Confirmed 10/10/20 Last Taken 10/10/20 07:30 1 tab] atenolol 25 mg tablet 25 mg PO QDAY #90 tab 10/08/20 [Rx Confirmed 10/10/20 Last Taken 10/10/20 09:00 25 mg.] insulin degludec 200 unit/mL (3 mL) subcutaneous pen 118 unit SUB-Q QHS 90 Days #49.5 ml 10/10/20 [Rx Confirmed 10/10/20 Last Taken 10/09/20 21:00 118 units] COURSE Hospital Course Hospital course: History of present illness: Mr. Duvall is a 45 year old pleasant male with morbid obesity BMI 49, diabetes mellitus who was recently discharged from our hospital after prolonged stay from 09/22/2020 through 09/30/2020 came back to emergency room from home with worsening right lower extremity pain swelling and redness. Patient was diagnosed with right lower extremity cellulitis with abscess and infection of hardware. did I&D with removal of hardware of the right ankle on 09/22. Hib blood Cx and Ankle Cx grew Pasteurella . PICC line placed and pt dc home with Rocephin 2 g daily. Patient was doing well at home however right leg got more tender swollen and red. Patient came to emergency room. Dr. Alvarado recommended admission and possible further I&D of the right lower extremity in OR. During last admission patient developed acute kidney injury and his creatinine peaked at 5.6. Currently his creatinine is 1.6. Pt denies fever, chills, N/V, Abdominal pain, diarrhea. 10/12 Interval history: Patient is feeling well. His pain is controlled. His family members at the bedside. He denies chest pain shortness of breath nausea vomiting. 10/14 Interval history: Patient had low blood sugar this morning in 40s. No other issues. Pain is controlled. *Seen and evaluated by Dr. Alvarado who felt patient could be discharged and further managed outpatient by him. A/P: # Righ Ankle septic Arthritis with Right lower extremity cellulitis with abscess and infection of hardware. #Suspected compartment syndrome (unlikely) - S/p I&D with removal of hardware of the right ankle on 09/22 by - Blood Cx and Ankle Cx grew Pasteurella 09/21/2020. PICC line placed and Plan is 6 weeks of IV Rocephin 2 g daily. - Worsening edema and swelling right lower extremity post discharge - CT LE 10/10 Extensive cellulitis throughout the calf show slight worsening, Equivocal fasciitis known the anterior posterior compartment no evidence of soft tissue abscess. -Per Dr. Alvarado patient needs another I&D and washout - S/p I&D 10/11 by showed edema and necrosis to the deep tissues, No abscess was found. - Continue antibiotic as above, pain control, elevation of right lower extremity. Follow new Cx if was sent. - Dressing change by . # Pasteurella septicemia - Treat as above. Repeat Bx negative. # Acute on chronic normocytic anemia -Admit hemoglobin 7.1. Currently 6.4. No evidence of bleeding. -S/p 2 packed RBC. Hb 7.8 Follow CBC # DM Uncontrolled. A1c 8.3. - Hypoglycemia with BS in 40s last night. -He is on home Insulin Degludec 118 units which is an Ultra Long acting Insulin & sliding scale insulin. - Decrease dose of Insulin Degludec to 113units & Monitor. D/w Pharmacy. # CARRIE on previous Admission with peaked Cr 5.4 - Cr is 1.5. Cont to monitor closely. Follow BMP. #HTN. Resumed home medication # HLP. Resumed home medication Discharge diagnosis: Right ankle septic arthritis Pasteurella septicemia due to chronic anemia u Secondary discharge diagnosis: Kidney injury hypertension morbid obesity Time Spent with Patient Time attestation: Total time spent providing and/or coordinating discharge services: Time spent: Greater than 30 minutes EXAM Constitutional Vitals: Temp Pulse Resp BP Pulse Ox 98.9 F 75 18 168/80 97 10/14/20 08:00 10/14/20 08:00 10/14/20 08:00 10/14/20 08:00 10/14/20 08:00 Discharge Data Data Completed and Pending Labs on day of discharge: Preliminary micro results at discharge 10/10/20 11:40 Blood Culture - Preliminary Blood 10/10/20 11:32 Blood Culture - Preliminary Blood 10/11/20 14:20 Gram Stain - Preliminary Ankle - Right Anaerobic Culture - Preliminary Discharge Plan Patient/Caregiver Discharge Instructions Activity: increase activity as tolerated Diet: Consistent Carbohydrate Prescriptions: Continued B-D PEN NDL SHRT [id number](08/25) ARLINE See Rx Instructions .ROUTE .COMPLEX Qty: 1500 RF: 0 flash glucose sensor [FreeStyle Javi 14 Day Sensor] Kit 1 each miscellaneous QDAY Qty: 10 RF: 0 insulin lispro [Humalog KwikPen Insulin] 100 unit/mL insulin pen See Rx Instructions .ROUTE .COMPLEX Qty: 15 RF: 2 (DME) Blood Glucose Test Strip See Rx Instructions .ROUTE .MEDSUPPLY Qty: 400 RF: 0 fenofibrate 160 mg tablet 160 mg PO QDAY Qty: 90 RF: 1 insulin degludec 200 unit/mL (3 mL) insulin pen 118 unit SUB-Q QHS 90 Days Qty: 49.5 RF: 3 albuterol sulfate 90 mcg/actuation HFA aerosol inhaler 2 puff INHALATION Q6H PRN (Reason: shortness of breath or wheezing) Qty: 18 RF: 3 (DME) lancets Misc See Rx Instructions .ROUTE .MEDSUPPLY Qty: 200 RF: 2 (DME) blood-glucose meter Misc See Rx Instructions .ROUTE .MEDSUPPLY Qty: 1 RF: 0 fluticasone propionate 50 mcg/actuation spray,suspension 2 spray intranasal QDAY RF: 0 atenolol 25 mg tablet 25 mg PO QDAY Qty: 90 RF: 1 cholecalciferol (vitamin D3) [Vitamin D3] 125 mcg (5,000 unit) Tablet 125 mcg PO QDAY RF: 0 acetaminophen [Tylenol] 325 mg Tablet 650 mg PO Q6HP PRN (Reason: Pain/Fever > 101) Qty: 30 RF: 0 amlodipine 10 mg Tablet 10 mg PO DAILY Qty: 30 RF: 4 ceftriaxone 2 gram Recon Soln 2 g IV Q24H 35 Days Qty: 35 RF: 0 sodium bicarbonate 650 mg Tablet 650 mg PO TID Qty: 60 RF: 0 isosorbide mononitrate 30 mg tablet extended release 24 hr 30 mg PO QAM Qty: 30 RF: 3 oxycodone-acetaminophen [Percocet] 5-325 mg tablet 1 tab PO Q4H PRN (Reason: pain) Qty: 14 RF: 0 Follow Up Plan Follow up with: Narcisa Rodriguez PA-C [Primary Care Provider] - Kwadwo Alvarado DPM [Physician] - Patient Disposition: Home, Self-Care Prognosis: Undetermined Overall status at discharge: patient is progressing back to baseline Discharge Orders: Discharge Order (Routine); Ordered 10/14/20 Ordered By: Balwinder Verduzco [facility] VTE Deep Vein Thrombosis/Pulmonary Embolism Present on Admission: No
== END 2020-10-14 17:05 | disposition home or self-care (01) | DRG 549 ==
LOC: ED 08:47 → MEDSUR 13:01
PROVIDERS: ADMIT Internal Medicine; ATTEND Internal Medicine